=== PATIENT | female | born 1935 | race Caucasian/White ===

== ENCOUNTER 2018-07-10 18:18 | Observation (INO) | payer OTHER ==
--- NOTE | 2018-07-10 18:49 | PDOC ---
History of Present Illness - General Chief Complaint: Irregular Heart Beat Stated Complaint: PALPITATIONS Time Seen by Provider: 07/10/18 18:20 - History of Present Illness Initial Comments: 07/10/18 19:19 The patient is a 83 year old female with a history of HTN, DM, COPD, Afib, CHF, CAD who presents for evaluation of irregular heart rate. The patient reports that over the past 2-3 days she has been experiencing that her heart rate has been very labile with increases and decreases in her heart rate. She notes some interment chest pain throughout this time as well. She notes that she is short of breath at baseline and denies any changes in her shortness of breath. She otherwise denies fevers, chills, nausea, vomiting, abdominal pain, or changes with urination or bowel movements. Past History - Past Medical History Allergies/Adverse Reactions: Allergies Allergy/AdvReac Type Severity Reaction Status Date / Time dextromethorphan Allergy Verified 12/20/17 09:15 [From Mucinex DM] guaifenesin [From Mucinex DM] Allergy Verified 12/20/17 09:15 vancomycin AdvReac Rash Verified 12/20/17 09:15 Cardiac Disorders: Yes (afib) COPD: Yes Diabetes: Yes GI Disorders: Yes (gerd) Psychiatric Problems: Yes (anxiety) - Suicide/Smoking/Psychosocial Hx Smoking History: Never smoked Have you smoked in the past 12 months: No Information on smoking cessation initiated: No Hx Alcohol Use: No Drug/Substance Use Hx: No Review of Systems - Review of Systems Comments:: 07/10/18 19:22 Constitutional: No fevers, chills, fatigue, malaise HEENT: No Rhinorrhea, nasal congestion, visual changes Cardiovascular: Chest pain, palpitations. No syncope, lightheadedness Respiratory: No Cough, Hemoptysis, Gastrointestinal: No Abdominal pain, Nausea, Vomiting, Constipation, Diarrhea, Melena Genitourinary: No Dysuria, Frequency, Urgency, Hesitancy, Hematuria, Flank pain Musculoskeletal: No Myalgia, arthralgia Skin: No rashes, itching, bruising, pallor Neurologic: No Headache, Dizziness, Numbness, Weakness, or Tingling Psychiatric: No Hallucinations. No SI or HI *Physical Exam - Vital Signs Last Vital Signs Temp Pulse Resp BP Pulse Ox 98.3 F 83 18 112/64 94 L 07/10/18 18:28 07/10/18 18:28 07/10/18 18:28 07/10/18 18:28 07/10/18 18:28 - Physical Exam Comments: 07/10/18 19:22 General Appearance: Nourished. No Apparent Distress HEENT: No Pharyngeal Erythema, Tonsillar Exudate, Tonsillar Erythema Neck: No Cervical Lymphadenopathy Respiratory/Chest: Lungs Clear, Diminished Breath Sounds bilaterally. No Crackles, Rales, Rhonchi, Wheezing Cardiovascular: Regular Rhythm, Regular Rate. No Murmur, Gallops, Rubs Gastrointestinal/Abdominal: Normal Bowel Sounds, Soft. No Guarding, Rebound, Tenderness Musculoskeletal: No CVA Tenderness Extremity: 3+ pitting edema in the lower extremities bilaterally. Normal Capillary Refill Integumentary: Normal Color, Dry, Warm Neurologic: Fully Oriented, Alert, Normal Mood/Affect, Normal Response, Heart Score/ECG Review #1 ECG reviewed & interpreted by me at: 19:23 General ECG Interpretation: No acute ischemic changes 07/10/18 19:23 Sinus Rhythm with premature atrial complexes Left [place] Deviation Right Bundle Branch block ED Treatment Course - LABORATORY CBC & Chemistry Diagram: 07/10/18 20:34 07/10/18 20:34 Medical Decision Making - Medical Decision Making 07/10/18 19:24 The patient is a 83 year old female with a history of HTN, DM, COPD, Afib, CHF, CAD who presents for evaluation of irregular heart rate. Differential includes but is not limited to: Afib, Arrhythmia, ACS, COPD, CHF, Infectious, Metabolic Derangement. Given the patient's history and physical exam, we will obtain a cbc, cmp, troponin, bnp, tsh, ua, chest plain film, ekg to evaluate further. We will continue to monitor and reassess while here in the ED. 07/10/18 23:50 CBC, cmp, troponin, tsh are unremarkable. BNP is elevated to 1200s. Chest plain film demonstrates congestive changes. We discussed the case with Dr. Brown who would like the patient admitted under hospitalists for obs. We discussed the case with the hospitalist team who accepted the patient for admission. *DC/Admit/Observation/Transfer Diagnosis at time of Disposition: Chest pain Qualifiers: Chest pain type: unspecified Qualified Code(s): R07.9 - Chest pain, unspecified CHF (congestive heart failure) Qualifiers: Heart failure type: unspecified Heart failure chronicity: unspecified Qualified Code(s): I50.9 - Heart failure, unspecified - Discharge Dispostion Condition at time of disposition: Stable Decision to Admit order: Yes - Referrals - Patient Instructions - Post Discharge Activity
[2018-07-10] MEDS ORDERED: predniSONE 10 MG TABLET (UD) PO ONE (19:36)
[2018-07-10] MEDS ORDERED: ALBUTEROL SO4 2.5/IPRATROPIUM 0.5 INH SOL 3 ML VIAL.NEB. NEB ONE (19:36)
--- NOTE | 2018-07-10 19:42 | PDOC ---
Attending Attestation - HPI HPI: 07/10/18 20:15 The patient is a 83 year old female, with a significant past medical history of Afib, COPD (SOB at baseline on 35 mg of Prednisone), DM, HTN, CHF, and RLQ DVT ( on Xarelto), who presents to the emergency department via EMS from [facility] with, 2 days of irregular heart rate. As per patient, her heart rate has ranged between 38-114 with intermittent chest pain. Patient also endorses her baseline O2 saturation is 93-94%. She denies recent fevers, chills, headache or dizziness. She denies recent nausea, vomit, diarrhea or constipation. She denies recent dysuria, frequency, urgency or hematuria. Allergies: Vancomycin, Dextromethorphan, guaifenesin Social history: Nonsmoker. Denies EtOH use and recreational drug use. Primary Care Physician: Mynor SD Code Status: DNR - Physicial Exam PE: 07/10/18 20:15 GENERAL: Awake, alert, and fully oriented, in no acute distress HEAD: No signs of trauma NECK: Normal ROM. +LUNGS: Conversational dyspnea. Breath sounds diminished at the bilateral bases. Rhonchorous with bilateral expiratory wheezing. HEART: Regular rate and rhythm, normal S1 and S2, no murmurs, rubs or gallops +EXTREMITIES: 2+ pitting edema. No clubbing or cyanosis. NEUROLOGICAL: Cranial nerves II through XII grossly intact. SKIN: Warm, Dry, normal turgor, no rashes or lesions noted. <Eliazar Real - Last Filed: 07/10/18 20:14> - Resident Resident Name: Adan Anne - ED Attending Attestation I have performed the following: I have examined & evaluated the patient, The case was reviewed & discussed with the resident, I agree w/resident's findings & plan, Exceptions are as noted - Medical Decision Making 07/10/18 19:38 A portion of this note was documented by scribe services under my direction. I have reviewed the details of the note, within reason, and agree with the documentation with the following case summary and management plan written by me. Patient treated in the ED. Nursing notes are reviewed and incorporated into the medical decision-making. Vital signs reviewed. Peripheral IV access obtained by the nurse, laboratory studies are drawn and sent, reviewed and interpreted by myself. Vital Signs Temp Pulse Resp BP Pulse Ox 98.3 F 74 20 117/76 99 07/10/18 18:28 07/10/18 19:26 07/10/18 19:26 07/10/18 19:26 07/10/18 19:26 83-year-old female with past medical history of hypertension, diabetes, COPD, CHF, atrial fibrillation on xarelto presents with shortness of breath and palpitations. The patient's from a [facility]. The patient and noted for the last several days that she's been expressing bradycardia and tachycardia. At the [facility], they noted a heart rate of 38 and up to 114. She reports increased shortness of breath but denies chest pain. Denies recent illnesses, fevers, chills, cough, vomiting. She's been feeling persistently edematous despite taking 80 mg of Lasix daily. Because the symptoms, the patient came to the ER. The patient is quite wheezy with diminished breath sounds at the bases. Differential includes COPD exacerbation versus CHF. Patient is ready taking 35 mg of prednisone daily so we will increase by no 30 mg. Also the differential is sick sinus syndrome, acute coronary syndrome. We'll obtain labs including troponin, TSH. compliance monitor, chest x-ray and admission to the hospital. We' ll trial duonebs and give prednisone. 07/10/18 21:50 Chest xray reviewed by me, pending official radiology read. Cardiomegaly. CBC, BMP 07/10/18 20:34 07/10/18 20:34 CMP Sodium 141 mmol/L (136-145) 07/10/18 20:34 Potassium 3.8 mmol/L (3.5-5.1) 07/10/18 20:34 Chloride 97 mmol/L (98-107) L 07/10/18 20:34 Carbon Dioxide 36 mmol/L (21-32) H 07/10/18 20:34 Anion Gap 8 MMOL/L (8-16) 07/10/18 20:34 BUN 42 mg/dL (7-18) H 07/10/18 20:34 Creatinine 0.9 mg/dL (0.55-1.3) 07/10/18 20:34 Creat Clearance w eGFR 59.65 (>60) 07/10/18 20:34 Random Glucose 131 mg/dL (74-106) H 07/10/18 20:34 Calcium 9.9 mg/dL (8.5-10.1) 07/10/18 20:34 Phosphorus 3.3 mg/dL (2.5-4.9) 07/10/18 20:34 Magnesium 2.0 mg/dL (1.8-2.4) 07/10/18 20:34 Total Bilirubin 0.5 mg/dL (0.2-1) 07/10/18 20:34 AST 21 U/L (15-37) 07/10/18 20:34 ALT 19 U/L (13-61) 07/10/18 20:34 Alkaline Phosphatase 69 U/L (45-117) 07/10/18 20:34 Creatine Kinase 37 IU/L (26-192) 07/10/18 20:34 Troponin I 0.04 ng/ml (0.00-0.05) 07/10/18 20:34 B-Natriuretic Peptide 1236.8 pg/ml (5-450) H 07/10/18 20:34 Total Protein 6.0 g/dl (6.4-8.2) L 07/10/18 20:34 Albumin 3.2 g/dl (3.4-5.0) L 07/10/18 20:34 TSH 2.28 uIU/ml (0.358-3.74) 07/10/18 20:34 Could this be CHF? However, pt's BUN/Cr is 42/0.9. The patient may be intravascularly dry but with extravascularly fluid overloaded. Clinically, pt does have some dry mucous membranes. Will hold off from lasix at the moment. Pt has been given duoneb and more prednisone. Ultimately, the patient should be admitted for SOB. <Delmer Hayes - Last Filed: 07/10/18 22:17> Heart Score/ECG Review #1 ECG reviewed & interpreted by me at: 19:10 07/10/18 19:37 NSR 75, with PACs, let axis deviation, LAFB, RBBB, no std/olga, QTC 491 msec <Delmer Hayes - Last Filed: 07/10/18 22:17> Attestations - Attestations 07/10/18 20:16 Documentation prepared by Eliazar Real, acting as medical laboratory technical officer for Delmer Hayes MD. <Eliazar Real - Last Filed: 07/10/18 20:14>
[2018-07-10] MEDS ORDERED: predniSONE 10 MG TABLET (UD) ONE (20:39)
[2018-07-10 20:42] LABS: BASO % 1.2 % (0-2.0); EOS % 0.1 % (0-4.5); HEMATOCRIT 27.5 % (32.4-45.2); HEMOGLOBIN 8.9 GM/dL (10.7-15.3); LYMPH % 12.3 % (8-40); MCH 23.3 pg (25.7-33.7); MCHC 32.6 g/dl (32.0-36.0); MEAN CELL VOLUME 71.6 fl (80-96); MEAN PLT VOLUME 7.6 fl (7.5-11.1); NEUT % 78.4 % (42.8-82.8); PLATELET COUNT 287 K/MM3 (134-434); RBC 3.84 M/mm3 (3.60-5.2); RDW 17.7 % (11.6-15.6); WHITE BLOOD COUNT 9.3 K/mm3 (4.0-10.0)
[2018-07-10 21:11] LABS: PHOSPHOROUS 3.3 mg/dL (2.5-4.9)
[2018-07-10 21:45] LABS: ALBUMIN 3.2 g/dl (3.4-5.0); ALK PHOS 69 U/L (45-117); ANION GAP 8 MMOL/L (8-16); BILIRUBIN,TOTAL 0.5 mg/dL (0.2-1); BLOOD UREA NITROGEN 42 mg/dL (7-18); CALCIUM 9.9 mg/dL (8.5-10.1); CHLORIDE 97 mmol/L (98-107); CO2 36 mmol/L (21-32); CREATININE 0.9 mg/dL (0.55-1.3); GLUCOSE,RANDOM 131 mg/dL (74-106); N-TERMINAL BNP 1236.8 pg/ml (5-450); POTASSIUM 3.8 mmol/L (3.5-5.1); SGOT/AST 21 U/L (15-37); SGPT/ALT 19 U/L (13-61); SODIUM 141 mmol/L (136-145)
[2018-07-10 23:13] LABS: URINE APPEARANCE CLEAR; URINE BILIRUBIN NEGATIVE (<2.0 mg/dL); URINE COLOR LTYELLOW; URINE GLUCOSE (UA) NEGATIVE (NEGATIVE); URINE KETONE NEGATIVE (NEGATIVE); URINE LEUK ESTERASE 2+ (NEGATIVE); URINE NITRITE NEGATIVE (NEGATIVE); URINE PROTEIN NEGATIVE (NEGATIVE); URINE UROBILINOGEN NEGATIVE mg/dL (0.2-1.0)
[2018-07-10 23:23] LABS: EPI CELLS RARE /HPF (FEW); URINE HYALINE CAST 25 /lpf; URINE MUCUS RARE
[2018-07-10] MEDS ORDERED: ACETAMINOPHEN 325 MG TABLET (FP) PO ONE (23:37)
[2018-07-10] MEDS ORDERED: MELATONIN 5 MG TABLETS PO ONE (23:37)
[2018-07-10] MEDS ORDERED: ZOLPIDEM TARTRATE 5 MG TABLET PO ONE (23:37)
[2018-07-10] MEDS ORDERED: LORazepam 0.5 MG TABLET PO ONE (23:37)
[2018-07-11] MEDS ORDERED: ALBUTEROL SO4 0.083% IH SOL 2.5 MG/3 ML VIAL.NEB. NEB PRN (00:48)
[2018-07-11] MEDS: BUDESONIDE/FORMETEROL FUMARATE 160/4.5 mcg INHALER IH SCH ×3 (01:16→23:09)
--- NOTE | 2018-07-11 01:16 | HP ---
CHIEF COMPLAINT: Palpitations PCP: HISTORY OF PRESENT ILLNESS: Patient is an 83 y/o F w/ PMHx HTN, DM, COPD, Afib, CHF, CAD, DVT, presents from [facility] w/ irregular, labile HR 30s-120s, intermittent chest pain, and SOB at rest that is worse than at baseline w/ worsening orthopnea. Additionally c/o 3-4 weeks constipation w/ BRBPR during stooling. States that abdomen is unusually distended. No f/c, no n/v/d, no dysuria. Received duonebs and 30mg prednisone in ED. EKG on admission was unremarkable, initial troponin negative. Labs significant for microcytic anemia, isolated uremia w/ nl Cr, BNP 1236.8 ( no baseline available), TSH wnl. Initial read of CXR is b/l infiltrates. ER course was notable for: (1) Hb 8.9, MCV 71.6, RDW 17.7, BUN/Cr 42/0.9 (2) EKG unremarkable (3) CXR w/ b/l infiltrates Recent Travel: PAST MEDICAL HISTORY: As per HPI PAST SURGICAL HISTORY: shoulder Fx repair, unspecified abdominal surgery Social History: Smoking: none, heavy occupational 2nd hand smoke exposure Alcohol: none Drugs: none Family History: Allergies dextromethorphan [From Mucinex DM] Allergy (Verified 12/20/17 09:15) guaifenesin [From Mucinex DM] Allergy (Verified 12/20/17 09:15) vancomycin Adverse Reaction (Verified 12/20/17 09:15) Rash HOME MEDICATIONS: REVIEW OF SYSTEMS As per HPI PHYSICAL EXAMINATION Vital Signs - 24 hr 07/10/18 07/10/18 18:28 19:26 Temperature 98.3 F Pulse Rate 83 74 Pulse Rate [ 74 Apical] Respiratory 18 20 Rate Blood Pressure 112/64 Blood Pressure 117/76 [Left Arm] O2 Sat by Pulse 94 L 99 Oximetry (%) GENERAL: A&Ox3, NAD HEAD: NC/AT EYES: PERRLA, EOMI EARS, NOSE, THROAT: Ears normal, nares patent, oropharynx clear without exudates. Moist mucous membranes. NECK: No LAD, +JVD LUNGS: rhoncorous breathing, coarse rales throughout all lung hooper HEART: RRR no m/r/g; w/ bedside pulse ox HR jumped to 115 transiently ABDOMEN: soft, distended, tympanitic, TTP in LUQ ADARSH: 3 internal hemorrhoids, small amount of soft brown stool, no visible blood MUSCULOSKELETAL: No CVA tenderness. UPPER EXTREMITIES: 2+ pulses, warm, well-perfused. No cyanosis. No clubbing. No peripheral edema. LOWER EXTREMITIES: 2+ pulses, warm, well-perfused. 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 Ambulates w/ walker normally, gait not observed PSYCHIATRIC: Cooperative. Good eye contact. Appropriate mood and affect. SKIN: Warm, dry, normal turgor, no rashes or lesions noted, normal capillary refill. Laboratory Results - last 24 hr 07/10/18 07/10/18 07/10/18 20:34 20:34 20:34 WBC 9.3 RBC 3.84 Hgb 8.9 L Hct 27.5 L MCV 71.6 L MCH 23.3 L MCHC 32.6 RDW 17.7 H Plt Count 287 MPV 7.6 Absolute Neuts (auto) 7.3 Neutrophils % 78.4 Lymphocytes % 12.3 Monocytes % 8.0 Eosinophils % 0.1 Basophils % 1.2 Nucleated RBC % 0 Sodium 141 Potassium 3.8 Chloride 97 L Carbon Dioxide 36 H Anion Gap 8 BUN 42 H Creatinine 0.9 Creat Clearance w eGFR 59.65 Random Glucose 131 H Calcium 9.9 Phosphorus 3.3 Magnesium 2.0 Total Bilirubin 0.5 AST 21 ALT 19 Alkaline Phosphatase 69 Creatine Kinase 37 Troponin I 0.04 B-Natriuretic Peptide 1236.8 H Total Protein 6.0 L Albumin 3.2 L TSH 2.28 Urine Color Urine Appearance Urine pH Ur Specific Otho Urine Protein Urine Glucose (UA) Urine Ketones Urine Blood Urine Nitrite Urine Bilirubin Urine Urobilinogen Ur Leukocyte Esterase Urine WBC (Auto) Urine RBC (Auto) Ur Epithelial Cells Hyaline Casts Urine Mucus 07/10/18 23:00 WBC RBC Hgb Hct MCV MCH MCHC RDW Plt Count MPV Absolute Neuts (auto) Neutrophils % Lymphocytes % Monocytes % Eosinophils % Basophils % Nucleated RBC % Sodium Potassium Chloride Carbon Dioxide Anion Gap BUN Creatinine Creat Clearance w eGFR Random Glucose Calcium Phosphorus Magnesium Total Bilirubin AST ALT Alkaline Phosphatase Creatine Kinase Troponin I B-Natriuretic Peptide Total Protein Albumin TSH Urine Color Ltyellow Urine Appearance Clear Urine pH 5.0 Ur Specific Otho 1.016 Urine Protein Negative Urine Glucose (UA) Negative Urine Ketones Negative Urine Blood Negative Urine Nitrite Negative Urine Bilirubin Negative Urine Urobilinogen Negative Ur Leukocyte Esterase 2+ H Urine WBC (Auto) 18 Urine RBC (Auto) 1 Ur Epithelial Cells Rare Hyaline Casts 25 Urine Mucus Rare ASSESSMENT/PLAN: 83 y/o F w/ PMHx HTN, DM, COPD, Afib, CHF, CAD, DVT, p/w 2-3 days palpitations and irregular HR, additionally several weeks of constipation BRBPR w/ stooling, and abd distention/tympany #cardiac -initial EKG and troponins benign -trend troponins -echo -cardiac monitoring -restart home Xarelto -no AV blake blockade at this time -strict i&o -daily weights -Lasix 80 IV -metolazone 2.5 daily #GI -protonix 40 IV BID -FOBT -GI consulted -consider contrast CT of abd -CBC q8h #pulmonary -home albuterol, duonebs, prednisone, singulair, symbicort #endocrine -BGM ACHS -SSI -hold home metformin -diabetic diet #FEN -no IVF -monitor lytes daily, on home KCl, replete as needed -diabetic diet #PPx -DVT: Xarelto -GI: Protonix #code -DNR/DNI #dispo -admit to tele-obs Visit type - Emergency Visit Emergency Visit: Yes ED Registration Date: 07/10/18 Care time: The patient presented to the Emergency Department on the above date and was hospitalized for further evaluation of their emergent condition. - New Patient This patient is new to me today: Yes Date on this admission: 07/11/18 - Critical Care Critical Care patient: No
[2018-07-11] MEDS ORDERED: ACETAMINOPHEN 325 MG TABLET (FP) ONE (01:18)
[2018-07-11] MEDS ORDERED: LORazepam 0.5 MG TABLET ONE (01:19)
[2018-07-11] MEDS ORDERED: ZOLPIDEM TARTRATE 5 MG TABLET ONE (01:19)
--- NOTE | 2018-07-11 01:24 | PN ---
Teaching Attending Note Name of Resident: Reji Browning ATTENDING PHYSICIAN STATEMENT I saw and evaluated the patient. I reviewed the resident's note and discussed the case with the resident. I agree with the resident's findings and plan as documented. SUBJECTIVE: Seen and examined; this is a 83 y/o CF with a PMH significant for HTN, COPD, Afib on NOAC, CHF, CAD, DVT, [place] resident due to need with help with her ADLs. She presents for several days of palpitations occuring at rest and with exertion. She is SOB at baseline and has been for years (follows with pulmonary , no recent PFTs, on inhaled and PO steroids, singulair, never smoker) and has baseline orthopnea but over the past week she has become increasingly orthopnic and somewhat dyspnic. Hasn't seen anyone else for the palpations and never had this issue before. Did get slightly tachy at rest when we assessed her. She also has been having rectal bleeding with bright red blood on the toilet tissue. She is hemodynamically stable. FOBT is pending. Hasn't happened since she got here; no h/o GIB. Has had a scope in the past but not recently; unknown results. She has been here in the past; old records show a stress test with a EF estimated at 39% with reversible ischemic area with wma at the inferolateral portion of the base extending up to the midventricular region. 10 sys ROS done and negative aside from HPI Allergy list reviewed PMH and PSH reviewed; as per chart Medication list reviewed Social hx negative for any tobacco abuse or noxious chemical exposures; nonsmoker and nondrinker. [place] resident. FH asked and noncontributory OBJECTIVE: VS, labs, and imaging reviewed NAD, AAOx3, resting in chair on RA Lungs with scattered crackles, sym expansion Obese; NT ND +BS CN2-12 grossly intact, no fnd Normal mood, euthymic affect Rectal exam done by resident; please refer to their documentation Labs show a BNP of 1236 with no prior values for comparison. Elevated CO2 of 36 with low Cl 97. Hb 8.9. Troponin 0.04, LFTs unremarkable, Albumin 3.2, TSH normal CXR reviewed; questioning cephalization of vessels with final read pending EKG with no STEMI, RBBB seen Stress Test reviewed ASSESSMENT AND PLAN: Mrs. Stacy is a 83 y/o [place] resident presenting with palpitations and some acute on chronic SOB currently saturating mid-90s on RA. 1) Palpitations -No findings on EKG, known afib. Monitor for high degree block vs. SSS, etc. on telemetry and adjust her meds as needed. Checking echo as none in our system. Consulting CV. Continuing on home medications 2) Elevated BNP with ?CHF exacerbation with known moderately reduced LVEF -Known low EF from stress, no old echoes. Check echo and obtain old records. Renal function OK so will administer tomorrows AM dose of lasix IV alongside a dose of metalozone. She is doing well on RA right now. No baseline BNP to go off of. She is not on an ANASTASIIA and this should be elucidated prior to her DC. Weight at DC was 190 and now is 171. Trend QD weights, Is and Os. 3) Acute on Chronic SOB -On RA; more evidence to support heart contribution as opposed to lung. Will continue her home pulmonary medications without any adjustments. Changing her lasix to IV and giving extra metolazone and we will followup her presentation. If somehow not improved with that can investigate her lung issues further 4) BRBPR -Hemorrhoids on rectal exam; BUN elevated with a microcytic anemia. FOBT pending. Trend Hb. Call GI in AM. Ddx includes hemorrhoidal bleed vs. occult malignancy vs. avm vs. divertic. Given normal HR, etc. not suspecting brisk UGIB. 5) COPD hx -Continue home meds; lifelong nonsmoker who attributes her disease to secondhand smoke. No PFTs in our system. 6) Hypercarbia -Likely chronic compensation; expecting further alkalosis with additional diuresis so can consider a dose of acetazolamide. 7) DM -Hold PO meds; SSI 8) GERD -Continue omeprazole 9) CAD -Continue home meds; trend troponin to ensure it stays flat. 10) Afib -Elevated CHADSVASC2; continue home rate control and NOAC 11) Hypoalbuminemia -Encourage PO intake and consider checking prealbumin. DVT px: NOAC GI px: Not indicated DNR-obtaining paperwork from [place].
[2018-07-11] MEDS: ALBUTEROL SO4 2.5/IPRATROPIUM 0.5 INH SOL 3 ML VIAL.NEB. NEB SCH ×4 (03:27→20:38)
[2018-07-11 05:33] LABS: HEMATOCRIT 29.7 % (32.4-45.2); MCH 21.9 pg (25.7-33.7); MCHC 30.2 g/dl (32.0-36.0); MEAN CELL VOLUME 72.6 fl (80-96); MEAN PLT VOLUME 7.1 fl (7.5-11.1); PLATELET COUNT 263 K/MM3 (134-434); RBC 4.09 M/mm3 (3.60-5.2); RDW 18.1 % (11.6-15.6); WHITE BLOOD COUNT 7.3 K/mm3 (4.0-10.0)
[2018-07-11 05:59] LABS: INR 1.64 (0.83-1.09); PROTHROMBIN TIME (PATIENT) 19.5 SEC (9.7-13.0)
[2018-07-11 06:01] LABS: ALBUMIN 3.3 g/dl (3.4-5.0); ALK PHOS 72 U/L (45-117); ANION GAP 7 MMOL/L (8-16); BILIRUBIN,TOTAL 0.7 mg/dL (0.2-1); BLOOD UREA NITROGEN 37 mg/dL (7-18); CALCIUM 10.2 mg/dL (8.5-10.1); CHLORIDE 94 mmol/L (98-107); CO2 37 mmol/L (21-32); CREATININE 0.9 mg/dL (0.55-1.3); GLUCOSE,RANDOM 196 mg/dL (74-106); PHOSPHOROUS 3.3 mg/dL (2.5-4.9); POTASSIUM 3.6 mmol/L (3.5-5.1); SGOT/AST 18 U/L (15-37); SGPT/ALT 19 U/L (13-61); SODIUM 138 mmol/L (136-145); TOT PROT 6.2 g/dl (6.4-8.2)
[2018-07-11 06:02] LABS: ACTIVATED PTT 32.4 SECONDS (25.2-36.5)
[2018-07-11] MEDS: INSULIN SLIDING SCALE (NOVOLOG) 1 VIAL SQ SCH ×4 (06:25→23:05)
[2018-07-11] MEDS ORDERED: ALBUTEROL SO4 2.5/IPRATROPIUM 0.5 INH SOL 3 ML VIAL.NEB. NEB ONE (08:24)
[2018-07-11] MEDS ORDERED: predniSONE 10 MG TABLET (UD) PO SCH (10:00)
[2018-07-11] MEDS ORDERED: predniSONE 5 MG TABLET (UD) PO SCH (10:00)
[2018-07-11] MEDS: DOCUSATE SODIUM 100 MG CAPSULE (FP) PO SCH (10:22)
[2018-07-11] MEDS: ASPIRIN 81 MG CHEWABLE TABLETS PO SCH (10:22)
[2018-07-11] MEDS: predniSONE 20 MG, predniSONE 10 MG, predniSONE 5 MG PO SCH (10:22)
[2018-07-11] MEDS: FUROSEMIDE 100 MG/10 ML INJECTABLE VIAL IVPB SCH ×2 (10:23→11:09)
[2018-07-11] MEDS: POTASSIUM CHLORIDE TABS 10 MEQ TABLET.ER (FP) PO SCH ×2 (10:23→22:59)
[2018-07-11] MEDS: POLYETHYLENE GLYCOL 3350 119 GM BTL PO SCH (10:23)
[2018-07-11] MEDS: PANTOPRAZOLE SODIUM 40 MG VIAL IVPUSH SCH ×2 (10:23→10:29)
[2018-07-11] MEDS: MULTIVITAMINS (DAILY MVI) TABLET (FP) PO SCH (10:27)
[2018-07-11] MEDS: METOLAZONE 2.5 MG TABLET (FP) PO SCH ×2 (10:28→11:10)
[2018-07-11] MEDS: NYSTATIN 100,000 UNIT/GM TOPICAL CREAM 15 GM TUBE TP SCH ×2 (11:09→23:01)
--- NOTE | 2018-07-11 11:09 | ECHO ---
Name: TYLER ASKEW Exam:Adult Echocardiogram Study Date: 07/11/2018 08:26 AM Age: 83 yrs Reason For Study: CHF Height: 59 in Weight: 171 lb BSA: 1.7 m2 MMode/2D Measurements & Calculations IVSd: 0.84 cm Ao root diam: 2.8 cm LVIDd: 4.9 cm LA dimension: 3.4 cm LVIDs: 3.6 cm LVPWd: 1.1 cm EDV(Teich): 115.3 ml LVOT diam: 2.0 cm ESV(Teich): 53.7 ml LAV (MOD-bp): 72.4 ml Doppler Measurements & Calculations MV E max dell: 100.0 cm/sec Ao V2 max: 233.5 cm/sec MV A max dell: 61.1 cm/sec Ao max P.8 mmHg MV E/A: 1.6 Ao V2 mean: 157.0 cm/sec MV dec time: 0.06 sec Ao mean P.8 mmHg Ao V2 VTI: 49.2 cm MUSA(I,D): 1.0 cm2 MUSA(V,D): 1.0 cm2 LV V1 max P.4 mmHg MR max dell: 551.6 cm/sec LV V1 mean P.1 mmHg MR max P.9 mmHg LV V1 max: 76.5 cm/sec LV V1 mean: 46.4 cm/sec LV V1 VTI: 15.7 cm SV(LVOT): 49.2 ml TR max dell: 215.4 cm/sec TR max P.7 mmHg Med Peak E' Dell: 9.5 cm/sec PI Vmax: 176.5 cm/sec Med E/e': 10.6 Lat Peak E' Dell: 10.9 cm/sec Lat E/e': 9.2 Procedure A two-dimensional transthoracic echocardiogram with color flow and Doppler was performed. The patient had a bundle branch block rhythm during the exam. Left Ventricle The left ventricle is normal in size. Left ventricular systolic function is mild to moderately reduce d. Ejection Fraction = 40-45%. There is mild to moderate global hypokinesis of the left ventricle. Septa l motion is consistent with conduction abnormality. Right Ventricle The right ventricle is normal size. The right ventricular systolic function is normal. Atria The left atrium is mildly dilated. Right atrial size is normal. Mitral Valve There is mild mitral valve thickening. There is mild mitral annular calcification. There is mild to m oderate mitral regurgitation. Tricuspid Valve The tricuspid valve is normal. There is mild tricuspid regurgitation. Right ventricular systolic pres sure is normal. Aortic Valve There is moderate aortic sclerosis.;. Moderate valvular aortic stenosis. No aortic regurgitation is p resent. Pulmonic Valve The pulmonic valve is not well seen, but is grossly normal. There is no pulmonic valvular regurgitati on. Great Vessels The aortic root is normal size. Pericardium/Pleura There is no pericardial effusion. Interpretation Summary Left ventricular systolic function is mild to moderately reduced. Septal motion is consistent with conduction abnormality. There is mild to moderate global hypokinesis of the left ventricle. The right ventricular systolic function is normal. The left atrium is mildly dilated. There is mild mitral valve thickening. There is mild mitral annular calcification. There is mild to moderate mitral regurgitation. There is mild tricuspid regurgitation. There is moderate aortic sclerosis.; Moderate valvular aortic stenosis. MD Agusto Canales 07/11/2018 11:09 AM
--- NOTE | 2018-07-11 11:41 | PN ---
Physical Exam: SUBJECTIVE: Patient seen and examined at bedside. No overnight events. No new complaints. Breathing slightly improved. Denies CP,SANTIAGO,abdominal pain, nausea or vomiting. OBJECTIVE: Vital Signs Period Temp Pulse Resp BP Sys/Garcia Pulse Ox Last 24 Hr 98.0 F-98.3 F 74-106 16-20 112-123/64-77 94-99 GENERAL:Awake and alert ,NAD. ENT: moist mucous membranes. NECK: supple, no jvd or bruits LUNGS: minimal bibasilar rales no wheezes, no crackles, no accessory muscle use. HEART: Regular rate and rhythm, S1, S2 without murmur, rub or gallop. ABDOMEN: Soft, nontender, nondistended, normoactive bowel sounds, no guarding, no rebound, no hepatosplenomegaly, no masses. EXTREMITIES: 2+ pulses, warm, well-perfused, trace edema. NEUROLOGICAL: Cranial nerves II through XII grossly intact. Normal speech, gait not observed. PSYCH: Normal mood, normal affect. Laboratory Results - last 24 hr 07/10/18 07/10/18 07/10/18 20:34 20:34 20:34 WBC 9.3 RBC 3.84 Hgb 8.9 L Hct 27.5 L MCV 71.6 L MCH 23.3 L MCHC 32.6 RDW 17.7 H Plt Count 287 MPV 7.6 Absolute Neuts (auto) 7.3 Neutrophils % 78.4 Lymphocytes % 12.3 Monocytes % 8.0 Eosinophils % 0.1 Basophils % 1.2 Nucleated RBC % 0 PT with INR INR PTT (Actin FS) Sodium 141 Potassium 3.8 Chloride 97 L Carbon Dioxide 36 H Anion Gap 8 BUN 42 H Creatinine 0.9 Creat Clearance w eGFR 59.65 POC Glucometer Random Glucose 131 H Calcium 9.9 Phosphorus 3.3 Magnesium 2.0 Total Bilirubin 0.5 AST 21 ALT 19 Alkaline Phosphatase 69 Creatine Kinase 37 Troponin I 0.04 B-Natriuretic Peptide 1236.8 H Total Protein 6.0 L Albumin 3.2 L TSH 2.28 Urine Color Urine Appearance Urine pH Ur Specific Jemison Urine Protein Urine Glucose (UA) Urine Ketones Urine Blood Urine Nitrite Urine Bilirubin Urine Urobilinogen Ur Leukocyte Esterase Urine WBC (Auto) Urine RBC (Auto) Ur Epithelial Cells Hyaline Casts Urine Mucus Blood Type Antibody Screen 07/10/18 07/11/1818 23:00 03:47 05:10 WBC RBC Hgb Hct MCV MCH MCHC RDW Plt Count MPV Absolute Neuts (auto) Neutrophils % Lymphocytes % Monocytes % Eosinophils % Basophils % Nucleated RBC % PT with INR INR PTT (Actin FS) Sodium Potassium Chloride Carbon Dioxide Anion Gap BUN Creatinine Creat Clearance w eGFR POC Glucometer [phone] Random Glucose Calcium Phosphorus Magnesium Total Bilirubin AST ALT Alkaline Phosphatase Creatine Kinase Troponin I 0.04 B-Natriuretic Peptide Total Protein Albumin TSH Urine Color Ltyellow Urine Appearance Clear Urine pH 5.0 Ur Specific Jemison 1.016 Urine Protein Negative Urine Glucose (UA) Negative Urine Ketones Negative Urine Blood Negative Urine Nitrite Negative Urine Bilirubin Negative Urine Urobilinogen Negative Ur Leukocyte Esterase 2+ H Urine WBC (Auto) 18 Urine RBC (Auto) 1 Ur Epithelial Cells Rare Hyaline Casts 25 Urine Mucus Rare Blood Type Antibody Screen 07/11/18 07/11/18 07/11/18 05:10 05:10 05:10 WBC 7.3 RBC 4.09 Hgb 9.0 L Hct 29.7 L MCV 72.6 L MCH 21.9 L MCHC 30.2 L RDW 18.1 H Plt Count 263 MPV 7.1 L Absolute Neuts (auto) Neutrophils % Lymphocytes % Monocytes % Eosinophils % Basophils % Nucleated RBC % PT with INR 19.50 H INR 1.64 H PTT (Actin FS) 32.4 Sodium 138 Potassium 3.6 Chloride 94 L Carbon Dioxide 37 H Anion Gap 7 L BUN 37 H Creatinine 0.9 Creat Clearance w eGFR 59.65 POC Glucometer Random Glucose 196 H Calcium 10.2 H Phosphorus 3.3 Magnesium 2.0 Total Bilirubin 0.7 AST 18 ALT 19 Alkaline Phosphatase 72 Creatine Kinase Troponin I B-Natriuretic Peptide Total Protein 6.2 L Albumin 3.3 L TSH Urine Color Urine Appearance Urine pH Ur Specific Jemison Urine Protein Urine Glucose (UA) Urine Ketones Urine Blood Urine Nitrite Urine Bilirubin Urine Urobilinogen Ur Leukocyte Esterase Urine WBC (Auto) Urine RBC (Auto) Ur Epithelial Cells Hyaline Casts Urine Mucus Blood Type Antibody Screen 07/11/18 07/11/18 07/11/18 05:10 06:16 10:03 WBC RBC Hgb Hct MCV MCH MCHC RDW Plt Count MPV Absolute Neuts (auto) Neutrophils % Lymphocytes % Monocytes % Eosinophils % Basophils % Nucleated RBC % PT with INR INR PTT (Actin FS) Sodium Potassium Chloride Carbon Dioxide Anion Gap BUN Creatinine Creat Clearance w eGFR POC Glucometer [id number] Random Glucose Calcium Phosphorus Magnesium Total Bilirubin AST ALT Alkaline Phosphatase Creatine Kinase Troponin I 0.04 B-Natriuretic Peptide Total Protein Albumin TSH Urine Color Urine Appearance Urine pH Ur Specific Jemison Urine Protein Urine Glucose (UA) Urine Ketones Urine Blood Urine Nitrite Urine Bilirubin Urine Urobilinogen Ur Leukocyte Esterase Urine WBC (Auto) Urine RBC (Auto) Ur Epithelial Cells Hyaline Casts Urine Mucus Blood Type O POSITIVE Antibody Screen Negative Active Medications Generic Name Dose Route Start Last Admin Trade Name Freq PRN Reason Stop Dose Admin Albuterol Sulfate 1 amp 07/11/18 00:48 Ventolin 0.083% Nebulizer Soln - NEB Q4H PRN SHORT OF BREATH/WHEEZING Albuterol/Ipratropium 1 amp 07/11/18 04:00 07/11/18 03:27 Duoneb - NEB 1 amp RQ4H BREANNA Administration Aspirin 81 mg 07/11/18 10:00 07/11/18 10:22 Asa - PO 81 mg DAILY BREANNA Administration Budesonide/Formoterol Fumarate 2 puff 07/10/18 23:45 07/11/18 10:27 Symbicort 160/4.5mcg - IH 2 puff BID BREANNA Administration Docusate Sodium 100 mg 07/11/18 10:00 07/11/18 10:22 Colace - PO 100 mg DAILY BREANNA Administration Furosemide 80 mg 07/11/18 10:00 07/11/18 11:09 Lasix Injection - IVPB Not Given DAILY BREANNA Insulin Aspart 1 vial 07/11/18 07:00 07/11/18 06:25 Novolog Vial Sliding Scale - SQ 2 unit ACHS BREANNA Administration Protocol Metolazone 2.5 mg 07/11/18 10:00 07/11/18 11:10 Zaroxolyn - PO Not Given DAILY BREANNA Montelukast Sodium 10 mg 07/11/18 22:00 Singulair - PO HS BREANNA Multivitamins/Minerals/Vitamin C 1 tab 07/11/18 10:00 07/11/18 10:27 Tab-A-Vit - PO 1 tab DAILY BREANNA Administration Nystatin 1 applic 07/11/18 10:00 07/11/18 11:09 Mycostatin Cream - TP Not Given BID BREANNA Pantoprazole Sodium 40 mg 07/11/18 10:00 07/11/18 10:29 Protonix Iv IVPUSH 40 mg BID BREANNA Administration Polyethylene Glycol 17 gm 07/11/18 10:00 07/11/18 10:23 Miralax (For Daily Use) - PO Not Given DAILY [facility] Potassium Chloride 10 meq 07/11/18 10:00 07/11/18 10:23 K-Dur - PO 10 meq BID BREANNA Administration Prednisone 20 mg/ Prednisone 35 mg 07/11/18 10:00 07/11/18 10:22 10 mg/ Prednisone 5 mg PO 35 mg DAILY BREANNA Administration Rivaroxaban 20 mg 07/11/18 18:00 Xarelto - PO DAILY@1800 [facility] Senna 1 tab 07/11/18 22:00 Senna - PO HS [facility] ASSESSMENT/PLAN: 83 y/o F w/ PMHx HTN, DM, COPD, Afib, CHF, CAD, DVT, p/w 2-3 days palpitations and irregular HR, additionally several weeks of constipation BRBPR w/ stooling, and abd distention/tympany admitted to med-surg for further management. Problem List - Problems (1) Acute on chronic diastolic CHF (congestive heart failure) Assessment/Plan: * Lasix 80mg IV daily * daily weights. * Strict I/O's * sodium controlled diabetic diet. * Echo pending. * Cardiology consulted * Trending troponin. (2) Chest pain Assessment/Plan: will r/o ACS * trend troponin I. (3) HTN (hypertension) Assessment/Plan: * Furosemide (Lasix Injection -) 80 mg IVPB DAILY * Metolazone (Zaroxolyn -) 2.5 mg PO DAILY (4) COPD (chronic obstructive pulmonary disease) Assessment/Plan: * Albuterol Sulfate (Ventolin 0.083% Nebulizer Soln -) 1 amp NEB Q4H * Albuterol/Ipratropium (Duoneb -) 1 amp NEB RQ4H * Budesonide/Formoterol Fumarate (Symbicort 160/4.5mcg -) 2 puff IH BID * Prednisone 20 mg/ Prednisone (10 mg/ Prednisone 5 mg) 35 mg PO DAILY (5) Afib Assessment/Plan: * Continue Xarelto. (6) CAD (coronary artery disease) Assessment/Plan: * Continue with ASA therapy. (7) DM type 2 (diabetes mellitus, type 2) Assessment/Plan: * ADA sodium diet * BGM ACHS * ISS ACHS (8) BRBPR (bright red blood per rectum) Assessment/Plan: * GI consult appreciated. * refusing colonoscopy at this time * Agrees to EGD * Will obtain once stable for CV standpoint. * protonix 40mg PO daily * trend H/H Visit type - Emergency Visit Emergency Visit: Yes ED Registration Date: 07/10/18 Care time: The patient presented to the Emergency Department on the above date and was hospitalized for further evaluation of their emergent condition. - New Patient This patient is new to me today: Yes Date on this admission: 07/11/18 - Critical Care Critical Care patient: No
--- NOTE | 2018-07-11 12:33 | EKG ---
Test Reason : Blood Pressure : / mmHG Vent. Rate : 075 BPM Atrial Rate : 075 BPM P-R Int : 136 ms QRS Dur : 120 ms QT Int : 440 ms P-R-T Axes : 003 -62 -15 degrees QTc Int : 491 ms SINUS RHYTHM WITH PREMATURE ATRIAL COMPLEXES LEFT AXIS DEVIATION RIGHT BUNDLE BRANCH BLOCK ABNORMAL ECG Confirmed by MD JAMES, PAULA ([id number]) on 07/11/2018 12:33:25 PM Referred By: Confirmed By:PAULA RAMIREZ MD
--- NOTE | 2018-07-11 14:09 | PN ---
Teaching Attending Note Name of Resident: Rosalio Mccullough ATTENDING PHYSICIAN STATEMENT I saw and evaluated the patient. I reviewed the resident's note and discussed the case with the resident. I agree with the resident's findings and plan as documented. SUBJECTIVE: No acute distress denies any chest pain OBJECTIVE: Vital Signs Period Temp Pulse Resp BP Sys/Garcia Pulse Ox Last 24 Hr 98.0 F-98.3 F 74-106 16-20 112-123/64-77 94-99 Elderly F not in distress HEENT: Mm moist, no anemia NECK: No JVd No Bruit CHEST: Minimal basal crepts ABD: No distention, non tender EXT: Trace edema feet [facility]: [facility] non focal CBC, BMP 07/11/18 05:10 07/11/18 05:10 Active Medications Albuterol Sulfate (Ventolin 0.083% Nebulizer Soln -) 1 amp NEB Q4H PRN PRN Reason: SHORT OF BREATH/WHEEZING Albuterol/Ipratropium (Duoneb -) 1 amp NEB RQ4H [facility] Last Admin: 07/11/18 03:27 Dose: 1 amp Aspirin (Asa -) 81 mg PO DAILY [facility] Last Admin: 07/11/18 10:22 Dose: 81 mg Budesonide/Formoterol Fumarate (Symbicort 160/4.5mcg -) 2 puff IH BID [facility] Last Admin: 07/11/18 10:27 Dose: 2 puff Docusate Sodium (Colace -) 100 mg PO DAILY [facility] Last Admin: 07/11/18 10:22 Dose: 100 mg Furosemide (Lasix Injection -) 80 mg IVPB DAILY [facility] Last Admin: 07/11/18 11:09 Dose: Not Given Insulin Aspart (Novolog Vial Sliding Scale -) 1 vial SQ ACHS [facility]; Protocol Last Admin: 07/11/18 12:30 Dose: Not Given Metolazone (Zaroxolyn -) 2.5 mg PO DAILY [facility] Last Admin: 07/11/18 11:10 Dose: Not Given Montelukast Sodium (Singulair -) 10 mg PO [facility] Multivitamins/Minerals/Vitamin C (Tab-A-Vit -) 1 tab PO DAILY [facility] Last Admin: 07/11/18 10:27 Dose: 1 tab Nystatin (Mycostatin Cream -) 1 applic TP BID [facility] Last Admin: 07/11/18 11:09 Dose: Not Given Pantoprazole Sodium (Protonix Iv) 40 mg IVPUSH BID [facility] Last Admin: 07/11/18 10:29 Dose: 40 mg Polyethylene Glycol (Miralax (For Daily Use) -) 17 gm PO DAILY [facility] Last Admin: 07/11/18 10:23 Dose: Not Given Potassium Chloride (K-Dur -) 10 meq PO BID [facility] Last Admin: 07/11/18 10:23 Dose: 10 meq Prednisone 20 mg/ Prednisone (10 mg/ Prednisone 5 mg) 35 mg PO DAILY [facility] Last Admin: 07/11/18 10:22 Dose: 35 mg Rivaroxaban (Xarelto -) 20 mg PO DAILY@1800 [facility] Senna (Senna -) 1 tab PO HS [facility] ASSESSMENT AND PLAN: 83 yrs old F [place] resident multiple co-morbidities CAD, HTN < Afib,, COPD, T2DM, GERD present with gradually worsening SOB and BRB per rectum, on admission H/H at base line elevated BNP , ECHO shows mild to moderate reduced EF, H/H remained stable Patient admitted with decompensted CHF with frequent palpitation , EF mild to moderate reduced EF , patient remained in EF improving on IV Lasix, H/H remained stable, doesnt want IV PPI considering bright red blood per rectum and stable H/H will switch to PO PPI, will F/U GI and Cardiology input. Daily BMP and H/H
[2018-07-11] MEDS ORDERED: PANTOPRAZOLE 40 MG TABLET (FP) ONE (14:32)
--- NOTE | 2018-07-11 15:05 | CONS ---
DATE OF CONSULTATION: 07/11/2018 GASTROINTESTINAL CONSULTATION The patient is an 83-year-old female with multiple medical problems including hypertension, diabetes, COPD, atrial fibrillation, CHF, CAD and DVT who presented from [facility] with an irregular, labile heart rate ranging from the 30s to 120s. She also had intermittent chest pain, shortness of breath at rest and worsening orthopnea. She currently has complaints of constipation. Prior to the constipation, she had complaints of diarrhea over the past couple of months for which she was given Imodium. Now, she has noticed some bright red bleeding with her bowel movements. She denies any abdominal pain. She does admit to having a hernia that sometimes troubles her. She denies nausea, vomiting, melena, hematemesis or weight loss. She has not had a recent colonoscopy and is currently refusing this procedure. Her last colonoscopy was probably over 10 years ago as per her history. She denies any findings. She has never had an egd in the past. PAST MEDICAL AND SURGICAL HISTORY: These are as listed in the HPI with the addition of repair of a shoulder fracture and abdominal surgery. SOCIAL HISTORY: She does not smoke, drink or use drugs. FAMILY HISTORY: No history of GI or gynecologic malignancy. ALLERGIES: DEXTROMETHORPHAN, ROBITUSSIN, VANCOMYCIN. HOME MEDICATIONS: These were reviewed. PHYSICAL EXAMINATION: Vital Signs: Temperature 98, pulse 89, blood pressure 120/63, respiratory rate 16, oxygen saturation 99% on room air. General: The patient is in no acute distress. HEENT: Anicteric sclerae. Cardiovascular: S1, S2. Regular rate and rhythm. Lungs: Bilaterally clear to auscultation. Abdomen: Soft and nontender with a hernia. Extremities: There is bilateral lower extremity edema. Neurologic: She is neurologically intact. LABS: White blood cell count was 7.3, hemoglobin 9, hematocrit 29, MCV 72, platelet count 263, INR 1.6, sodium 138, potassium 3.6, BUN 37, creatinine 0.9, glucose 196, AST of 18, ALT of 19, alkaline phosphatase 72. Urine with 2+ leukocyte esterase. The patient has had no abdominal imaging during this hospitalization. IMPRESSION: Episode of constipation with associated hematochezia without any sign of an overt GI bleed. I suspect her current episodes are secondary to straining and hemorrhoid bleed. However, other etiology of GI bleeds such as adenocarcinoma, diverticulosis and angoiectasias cannot be excluded at this time. I doubt she is having an upper GI bleed / she is hemodynamically stable. RECOMMENDATION: 1. Obtain a CT scan of the abdomen and pelvis to further evaluate her hernia, considering that she has complained of intermittent discomfort in her abdomen. 2. Start her on Protonix 40 mg p.o. daily. 3. Continue her cardiac evaluation and workup for her arrhythmia as well as chest pain and shortness of breath. 4. Avoid NSAID 5. The patient is refusing colonoscopy at this time. However, she is not refusing upper endoscopy. Once she is cleared from a cardiovascular standpoint, she would benefit from a diagnostic upper endoscopy and colonoscopy if she were to agree. We will follow this patient with you. DO GALE HAMMER/[id number] MTDD
[2018-07-11] MEDS: PANTOPRAZOLE 40 MG TABLET (FP) PO SCH (15:10)
[2018-07-11 17:33] LABS: HEMATOCRIT 29.6 % (32.4-45.2); HEMOGLOBIN 9.7 GM/dL (10.7-15.3); MCH 23.4 pg (25.7-33.7); MCHC 32.6 g/dl (32.0-36.0); MEAN CELL VOLUME 71.8 fl (80-96); MEAN PLT VOLUME 7.7 fl (7.5-11.1); PLATELET COUNT 309 K/MM3 (134-434); RBC 4.13 M/mm3 (3.60-5.2); RDW 17.7 % (11.6-15.6); WHITE BLOOD COUNT 7.7 K/mm3 (4.0-10.0)
[2018-07-11] MEDS ORDERED: PT OWN MED DRAWER 7, Y5N ONE (17:38)
[2018-07-11] MEDS: RIVAROXABAN 20 MG TABLET PO SCH (18:09)
[2018-07-11] MEDS: ACETAMINOPHEN 325 MG TABLET (FP) PO PRN (18:11)
[2018-07-11] MEDS ORDERED: ZOLPIDEM TARTRATE 5 MG TABLET PO ONE (21:15)
[2018-07-11] MEDS ORDERED: MELATONIN 5 MG TABLETS PO ONE (21:16)
[2018-07-11] MEDS ORDERED: LORazepam 0.5 MG TABLET PO PRN (21:18)
[2018-07-11] MEDS: MONTELUKAST NA 10 MG TABLET PO SCH (23:00)
[2018-07-11] MEDS: SENNOSIDES 8.6MG TABLET (FP) PO SCH (23:11)
[2018-07-12] MEDS: ALBUTEROL SO4 2.5/IPRATROPIUM 0.5 INH SOL 3 ML VIAL.NEB. NEB SCH ×6 (04:15→20:16)
[2018-07-12] MEDS: INSULIN SLIDING SCALE (NOVOLOG) 1 VIAL SQ SCH ×4 (06:03→22:14)
[2018-07-12] MEDS ORDERED: PT OWN MED DRAWER 7, Y5N ONE ×4 (06:36→22:35)
[2018-07-12 06:54] LABS: BASO % 0.6 % (0-2.0); EOS % 0.4 % (0-4.5); HEMATOCRIT 27.3 % (32.4-45.2); HEMOGLOBIN 8.8 GM/dL (10.7-15.3); LYMPH % 18.4 % (8-40); MCH 23.2 pg (25.7-33.7); MCHC 32.4 g/dl (32.0-36.0); MEAN CELL VOLUME 71.7 fl (80-96); MEAN PLT VOLUME 7.5 fl (7.5-11.1); MONO % 9.2 % (3.8-10.2); NEUT % 71.4 % (42.8-82.8); PLATELET COUNT 284 K/MM3 (134-434); RBC 3.81 M/mm3 (3.60-5.2); RDW 17.8 % (11.6-15.6); WHITE BLOOD COUNT 5.4 K/mm3 (4.0-10.0)
[2018-07-12 07:46] LABS: ALK PHOS 64 U/L (45-117); ANION GAP 6 MMOL/L (8-16); BILIRUBIN,TOTAL 0.7 mg/dL (0.2-1); BLOOD UREA NITROGEN 33 mg/dL (7-18); CALCIUM 9.4 mg/dL (8.5-10.1); CHLORIDE 97 mmol/L (98-107); CO2 37 mmol/L (21-32); CREATININE 0.7 mg/dL (0.55-1.3); GLUCOSE,RANDOM 112 mg/dL (74-106); POTASSIUM 3.6 mmol/L (3.5-5.1); SGOT/AST 18 U/L (15-37); SGPT/ALT 17 U/L (13-61); SODIUM 140 mmol/L (136-145); TOT PROT 5.7 g/dl (6.4-8.2)
[2018-07-12] MEDS ORDERED: predniSONE 10 MG TABLET (UD) ONE (09:03)
[2018-07-12] MEDS ORDERED: predniSONE 20 MG TABLET (UD) ONE (09:03)
[2018-07-12] MEDS: ACETAMINOPHEN 325 MG TABLET (FP) PO PRN ×2 (09:14→18:03)
[2018-07-12] MEDS: MULTIVITAMINS (DAILY MVI) TABLET (FP) PO SCH (09:15)
[2018-07-12] MEDS: ASPIRIN 81 MG CHEWABLE TABLETS PO SCH (09:15)
[2018-07-12] MEDS: predniSONE 20 MG, predniSONE 10 MG, predniSONE 5 MG PO SCH (09:15)
[2018-07-12] MEDS: PANTOPRAZOLE 40 MG TABLET (FP) PO SCH (09:16)
[2018-07-12] MEDS: DOCUSATE SODIUM 100 MG CAPSULE (FP) PO SCH (09:16)
[2018-07-12] MEDS: POTASSIUM CHLORIDE TABS 10 MEQ TABLET.ER (FP) PO SCH ×2 (09:16→21:51)
[2018-07-12] MEDS: BUDESONIDE/FORMETEROL FUMARATE 160/4.5 mcg INHALER IH SCH ×2 (09:35→21:51)
[2018-07-12] MEDS: POLYETHYLENE GLYCOL 3350 119 GM BTL PO SCH (09:36)
[2018-07-12] MEDS: METOLAZONE 2.5 MG TABLET (FP) PO SCH (09:36)
[2018-07-12] MEDS: NYSTATIN 100,000 UNIT/GM TOPICAL CREAM 15 GM TUBE TP SCH ×2 (09:40→21:55)
[2018-07-12] MEDS ORDERED: METOLAZONE 2.5 MG TABLET (FP) PO SCH (10:00)
--- NOTE | 2018-07-12 12:47 | PN ---
Progress Note, Physician History of Present Illness: Doing better today , less dyspnea; denies abdominal pain / n/v / melena / BRBR / tolerating PO intake - Current Medication List Current Medications: Active Medications Acetaminophen (Tylenol -) 650 mg PO Q6H PRN PRN Reason: PAIN 1-3 Last Admin: 07/12/18 09:14 Dose: 650 mg Albuterol Sulfate (Ventolin 0.083% Nebulizer Soln -) 1 amp NEB Q4H PRN PRN Reason: SHORT OF BREATH/WHEEZING Albuterol/Ipratropium (Duoneb -) 1 amp NEB RQ4H [facility] Last Admin: 07/12/18 08:12 Dose: 1 amp Aspirin (Asa -) 81 mg PO DAILY [facility] Last Admin: 07/12/18 09:15 Dose: 81 mg Budesonide/Formoterol Fumarate (Symbicort 160/4.5mcg -) 2 puff IH BID [facility] Last Admin: 07/12/18 09:35 Dose: 2 puff Docusate Sodium (Colace -) 100 mg PO DAILY [facility] Last Admin: 07/12/18 09:16 Dose: 100 mg Furosemide (Lasix Injection -) 80 mg IVPB DAILY [facility] Last Admin: 07/11/18 11:09 Dose: Not Given Insulin Aspart (Novolog Vial Sliding Scale -) 1 vial SQ ACHS [facility]; Protocol Last Admin: 07/12/18 12:17 Dose: 2 unit Lorazepam (Ativan -) 0.5 mg PO ONCE PRN PRN Reason: AGITATION Stop: 07/12/18 21:17 Last Admin: 07/11/18 23:00 Dose: 0.5 mg Metolazone (Zaroxolyn -) 2.5 mg PO MoWeFr [facility] Last Admin: 07/12/18 09:36 Dose: 2.5 mg Montelukast Sodium (Singulair -) 10 mg PO HS [facility] Last Admin: 07/11/18 23:00 Dose: 10 mg Multivitamins/Minerals/Vitamin C (Tab-A-Vit -) 1 tab PO DAILY [facility] Last Admin: 07/12/18 09:15 Dose: 1 tab Nystatin (Mycostatin Cream -) 1 applic TP BID [facility] Last Admin: 07/12/18 09:40 Dose: 1 appful Pantoprazole Sodium (Protonix -) 40 mg PO DAILY [facility] Last Admin: 07/12/18 09:16 Dose: 40 mg Polyethylene Glycol (Miralax (For Daily Use) -) 17 gm PO DAILY [facility] Last Admin: 07/12/18 09:36 Dose: 17 gm Potassium Chloride (K-Dur -) 10 meq PO BID [facility] Last Admin: 07/12/18 09:16 Dose: 10 meq Prednisone 20 mg/ Prednisone (10 mg/ Prednisone 5 mg) 35 mg PO DAILY [facility] Last Admin: 07/12/18 09:15 Dose: 35 mg Rivaroxaban (Xarelto -) 20 mg PO DAILY@1800 [facility] Last Admin: 07/11/18 18:09 Dose: 20 mg Senna (Senna -) 1 tab PO HS [facility] Last Admin: 07/11/18 23:11 Dose: Not Given - Objective Vital Signs: Vital Signs Temperature 97.4 F L 07/12/18 08:45 Pulse Rate 101 H 07/12/18 08:45 Respiratory Rate 18 07/12/18 11:00 Blood Pressure 128/64 07/12/18 08:45 O2 Sat by Pulse Oximetry (%) 95 07/12/18 11:00 Constitutional: Yes: Well Nourished, No Distress, Calm Eyes: Yes: WNL HENT: Yes: WNL Cardiovascular: Yes: WNL Respiratory: Yes: Rales Gastrointestinal: Yes: WNL, Normal Bowel Sounds, Soft Edema: Yes Labs: CBC, BMP 07/12/18 06:00 07/12/18 06:00 INR, PTT INR 1.64 (0.83-1.09) H 07/11/18 05:10 Problem List - Problems (1) BRBPR (bright red blood per rectum) Assessment/Plan: management of her acute exacerbation of congestive heart failure as per cardiology and primary medical team. H/H is stable , trend daily while hospitalized. c/w PPI therapy avoid NSAID she will benefit from an endoscopic evaluation once the acute cardiopulmonary process has resolved Code(s): K62.5 - HEMORRHAGE OF ANUS AND RECTUM (2) CHF (congestive heart failure) Code(s): I50.9 - HEART FAILURE, UNSPECIFIED Qualifiers: Heart failure type: unspecified Heart failure chronicity: unspecified Qualified Code(s): I50.9 - Heart failure, unspecified
[2018-07-12] MEDS: FUROSEMIDE 40 MG TABLET (FP) PO SCH (13:37)
[2018-07-12] MEDS: FUROSEMIDE 100 MG/10 ML INJECTABLE VIAL IVPB SCH (15:44)
--- NOTE | 2018-07-12 17:20 | PN ---
Teaching Attending Note Name of Resident: Rosalio Mccullough ATTENDING PHYSICIAN STATEMENT I saw and evaluated the patient. I reviewed the resident's note and discussed the case with the resident. I agree with the resident's findings and plan as documented. SUBJECTIVE: patient complains of shortness of breath OBJECTIVE: Gen: nad CV: rrr Pulm: ronchi bilaterally Abd: +bs, s/nt/nd Ext: 2+ edema ASSESSMENT AND PLAN: 1. CHF 2. COPD 3. Afib 4. BRBPR 5. DM 6. CAD -continue lasix 80mg daily -continue steroids and bronchodilators -monitor H/H -appreciate GI assistance -follow up CT scan -patient refusing colonoscopy -defer to GI if needs endoscopy
[2018-07-12] MEDS: RIVAROXABAN 20 MG TABLET PO SCH (18:03)
--- NOTE | 2018-07-12 18:23 | PN ---
Physical Exam: SUBJECTIVE: Patient seen and examined at bedside. No overnight events. Breathing is somewhat better today. Abdominal pain improved. Denies CP, SANTIAGO, nausea or vomiting. OBJECTIVE: Vital Signs Period Temp Pulse Resp BP Sys/Garcia Pulse Ox Last 24 Hr 97.3 F-98 F 93-101 18-20 115-139/54-76 95-98 GENERAL:Awake and alert ,NAD. ENT: moist mucous membranes. NECK: supple, no jvd or bruits LUNGS: minimal bibasilar rales no wheezes, no crackles, no accessory muscle use. HEART: irregular, S1, S2 without murmur, rub or gallop. ABDOMEN: Soft, nontender, nondistended, normoactive bowel sounds, no guarding, no rebound, no hepatosplenomegaly, no masses. EXTREMITIES: 2+ pulses, warm, well-perfused, 2+ edema. NEUROLOGICAL: Cranial nerves II through XII grossly intact. Normal speech, gait not observed. PSYCH: Normal mood, normal affect. Laboratory Results - last 24 hr 07/11/18 07/12/18 07/12/18 23:03 05:55 06:00 WBC 5.4 RBC 3.81 Hgb 8.8 L Hct 27.3 L MCV 71.7 L MCH 23.2 L MCHC 32.4 RDW 17.8 H Plt Count 284 MPV 7.5 Absolute Neuts (auto) 3.8 Neutrophils % 71.4 Lymphocytes % 18.4 D Monocytes % 9.2 Eosinophils % 0.4 D Basophils % 0.6 Nucleated RBC % 0 Sodium Potassium Chloride Carbon Dioxide Anion Gap BUN Creatinine Creat Clearance w eGFR POC Glucometer 190 119 Random Glucose Calcium Total Bilirubin AST ALT Alkaline Phosphatase Total Protein Albumin 07/12/18 07/12/18 06:00 12:13 WBC RBC Hgb Hct MCV MCH MCHC RDW Plt Count MPV Absolute Neuts (auto) Neutrophils % Lymphocytes % Monocytes % Eosinophils % Basophils % Nucleated RBC % Sodium 140 Potassium 3.6 Chloride 97 L Carbon Dioxide 37 H Anion Gap 6 L BUN 33 H Creatinine 0.7 Creat Clearance w eGFR > 60 POC Glucometer 166 Random Glucose 112 H Calcium 9.4 Total Bilirubin 0.7 AST 18 ALT 17 Alkaline Phosphatase 64 Total Protein 5.7 L Albumin 3.0 L Active Medications Generic Name Dose Route Start Last Admin Trade Name Freq PRN Reason Stop Dose Admin Acetaminophen 650 mg 07/11/18 16:09 07/12/18 18:03 Tylenol - PO 650 mg Q6H PRN Administration PAIN 1-3 Albuterol Sulfate 1 amp 07/11/18 00:48 Ventolin 0.083% Nebulizer Soln - NEB Q4H PRN SHORT OF BREATH/WHEEZING Albuterol/Ipratropium 1 amp 07/11/18 04:00 07/12/18 15:42 Duoneb - NEB 1 amp RQ4H BREANNA Administration Aspirin 81 mg 07/11/18 10:00 07/12/18 09:15 Asa - PO 81 mg DAILY BREANNA Administration Budesonide/Formoterol Fumarate 2 puff 07/10/18 23:45 07/12/18 09:35 Symbicort 160/4.5mcg - IH 2 puff BID BREANNA Administration Docusate Sodium 100 mg 07/11/18 10:00 07/12/18 09:16 Furosemide 80 mg 07/12/18 13:15 07/12/18 13:37 Lasix - PO 80 mg DAILY BREANNA Administration Insulin Aspart 1 vial 07/11/18 07:00 07/12/18 18:03 Novolog Vial Sliding Scale - SQ 4 unit ACHS BREANNA Administration Protocol Lorazepam 0.5 mg 07/11/18 21:18 07/11/18 23:00 Ativan - PO 07/12/18 21:17 0.5 mg ONCE PRN Administration AGITATION Metolazone 2.5 mg 07/12/18 09:30 07/12/18 09:36 Zaroxolyn - PO 2.5 mg MoWeFr BREANNA Administration Montelukast Sodium 10 mg 07/11/18 22:00 07/11/18 23:00 Singulair - PO 10 mg HS BREANNA Administration Multivitamins/Minerals/Vitamin C 1 tab 07/11/18 10:00 07/12/18 09:15 Tab-A-Vit - PO 1 tab DAILY BREANNA Administration Nystatin 1 applic 07/11/18 10:00 07/12/18 09:40 Mycostatin Cream - TP 1 appful BID BREANNA Administration Pantoprazole Sodium 40 mg 07/11/18 14:30 07/12/18 09:16 Protonix - PO 40 mg DAILY BREANNA Administration Polyethylene Glycol 17 gm 07/11/18 10:00 07/12/18 09:36 Miralax (For Daily Use) - PO 17 gm DAILY BREANNA Administration Potassium Chloride 10 meq 07/11/18 10:00 07/12/18 09:16 K-Dur - PO 10 meq BID BREANNA Administration Prednisone 20 mg/ Prednisone 35 mg 07/11/18 10:00 07/12/18 09:15 10 mg/ Prednisone 5 mg PO 35 mg DAILY BREANNA Administration Rivaroxaban 20 mg 07/11/18 18:00 07/12/18 18:03 Xarelto - PO 20 mg DAILY@1800 BREANNA Administration Senna 1 tab 07/11/18 22:00 07/11/18 23:11 Senna - PO Not Given HS BREANNA ASSESSMENT/PLAN: 83 y/o F w/ PMHx HTN, DM, COPD, Afib, CHF, CAD, DVT, p/w 2-3 days palpitations and irregular HR, additionally several weeks of constipation BRBPR w/ stooling, and abd distention/tympany admitted to med-surg for further management. Problem List - Problems (1) Acute on chronic diastolic CHF (congestive heart failure) Assessment/Plan: * Lasix 80mg PO daily * daily weights. * Strict I/O's * sodium controlled diabetic diet. * Echo shows mod LV reduction , septal wall motion abnorm. mild to mod hypokenisis.Mild LA dialation, mild to mod MR and TR (2) Chest pain Assessment/Plan: will r/o ACS * torps have been negative. (3) HTN (hypertension) Assessment/Plan: * Furosemide (Lasix Injection -) 80 mg IVPB DAILY * Metolazone (Zaroxolyn -) 2.5 mg PO MOWEFR (4) COPD (chronic obstructive pulmonary disease) Assessment/Plan: * Albuterol Sulfate (Ventolin 0.083% Nebulizer Soln -) 1 amp NEB Q4H * Albuterol/Ipratropium (Duoneb -) 1 amp NEB RQ4H * Budesonide/Formoterol Fumarate (Symbicort 160/4.5mcg -) 2 puff IH BID * Prednisone 20 mg/ Prednisone (10 mg/ Prednisone 5 mg) 35 mg PO DAILY (5) Afib Assessment/Plan: * Continue Xarelto. (6) CAD (coronary artery disease) Assessment/Plan: * Continue with ASA therapy. (7) DM type 2 (diabetes mellitus, type 2) Assessment/Plan: * ADA sodium diet * BGM ACHS * ISS ACHS (8) BRBPR (bright red blood per rectum) Assessment/Plan: * GI consult appreciated. * CT abdomen with PO contrast today. read pending. * refusing colonoscopy at this time * H/H stable * Agrees to EGD * Will obtain once stable for CV standpoint. * protonix 40mg PO daily * trend H/H Visit type - Emergency Visit Emergency Visit: Yes ED Registration Date: 07/10/18 Care time: The patient presented to the Emergency Department on the above date and was hospitalized for further evaluation of their emergent condition. - New Patient This patient is new to me today: No - Critical Care Critical Care patient: No
[2018-07-12] MEDS: SENNOSIDES 8.6MG TABLET (FP) PO SCH (21:51)
[2018-07-12] MEDS: MONTELUKAST NA 10 MG TABLET PO SCH (21:53)
[2018-07-12] MEDS ORDERED: MELATONIN 5 MG TABLETS PO ONE (22:02)
[2018-07-12] MEDS ORDERED: LORazepam 0.5 MG TABLET PO ONE (22:02)
[2018-07-12] MEDS ORDERED: ZOLPIDEM TARTRATE 5 MG TABLET PO ONE (22:02)
[2018-07-13] MEDS: ALBUTEROL SO4 2.5/IPRATROPIUM 0.5 INH SOL 3 ML VIAL.NEB. NEB SCH ×6 (00:50→21:12)
[2018-07-13 06:45] LABS: BASO % 0.5 % (0-2.0); EOS % 0.3 % (0-4.5); HEMOGLOBIN 8.7 GM/dL (10.7-15.3); LYMPH % 19.3 % (8-40); MCHC 32.1 g/dl (32.0-36.0); MEAN CELL VOLUME 71.6 fl (80-96); MEAN PLT VOLUME 7.4 fl (7.5-11.1); MONO % 10.5 % (3.8-10.2); NEUT % 69.4 % (42.8-82.8); PLATELET COUNT 289 K/MM3 (134-434); RBC 3.76 M/mm3 (3.60-5.2); WHITE BLOOD COUNT 6.9 K/mm3 (4.0-10.0)
[2018-07-13] MEDS: INSULIN SLIDING SCALE (NOVOLOG) 1 VIAL SQ SCH ×4 (06:45→22:58)
[2018-07-13 07:20] LABS: ALBUMIN 3.1 g/dl (3.4-5.0); ALK PHOS 64 U/L (45-117); ANION GAP 5 MMOL/L (8-16); BILIRUBIN,TOTAL 0.6 mg/dL (0.2-1); BLOOD UREA NITROGEN 35 mg/dL (7-18); CALCIUM 9.7 mg/dL (8.5-10.1); CHLORIDE 95 mmol/L (98-107); CO2 40 mmol/L (21-32); CREATININE 0.8 mg/dL (0.55-1.3); GLUCOSE,RANDOM 95 mg/dL (74-106); POTASSIUM 3.5 mmol/L (3.5-5.1); SGOT/AST 16 U/L (15-37); SGPT/ALT 18 U/L (13-61); SODIUM 140 mmol/L (136-145); TOT PROT 5.8 g/dl (6.4-8.2)
[2018-07-13] MEDS ORDERED: predniSONE 10 MG TABLET (UD) ONE (09:39)
[2018-07-13] MEDS ORDERED: predniSONE 20 MG TABLET (UD) ONE (09:40)
[2018-07-13] MEDS: POLYETHYLENE GLYCOL 3350 119 GM BTL PO SCH (09:46)
[2018-07-13] MEDS: BUDESONIDE/FORMETEROL FUMARATE 160/4.5 mcg INHALER IH SCH ×2 (09:46→22:00)
[2018-07-13] MEDS: PANTOPRAZOLE 40 MG TABLET (FP) PO SCH (09:50)
[2018-07-13] MEDS: FUROSEMIDE 40 MG TABLET (FP) PO SCH (09:50)
[2018-07-13] MEDS: predniSONE 20 MG, predniSONE 10 MG, predniSONE 5 MG PO SCH (09:51)
[2018-07-13] MEDS: ASPIRIN 81 MG CHEWABLE TABLETS PO SCH (09:51)
[2018-07-13] MEDS: DOCUSATE SODIUM 100 MG CAPSULE (FP) PO SCH (09:51)
[2018-07-13] MEDS: MULTIVITAMINS (DAILY MVI) TABLET (FP) PO SCH (09:51)
[2018-07-13] MEDS: POTASSIUM CHLORIDE TABS 10 MEQ TABLET.ER (FP) PO SCH ×2 (09:51→22:56)
[2018-07-13] MEDS: ACETAMINOPHEN 325 MG TABLET (FP) PO PRN ×2 (10:00→22:58)
[2018-07-13] MEDS: NYSTATIN 100,000 UNIT/GM TOPICAL CREAM 15 GM TUBE TP SCH ×2 (12:08→22:59)
--- NOTE | 2018-07-13 12:55 | CON.PULM ---
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 Admitted via the ER from [facility] due to chest pain and SOB at rest. Reports symptoms of orthopnea. No fever or chills. Reports some constipation w/ BRBPR. No travel history or sick contacts. No hemoptysis. CXR: bibasilar atelectasis - History Source History Provided By: Patient Limitations to Obtaining History: No Limitations - Past Medical History Pulmonary: Yes: Bronchitis, COPD, Pneumonia. No: O2 Dependent, Previously Intubated, Pulmonary Embolus, Sleep Apnea - Alcohol/Substance Use Hx Alcohol Use: No - Smoking History Smoking history: Never smoked Have you smoked in the past 12 months: No Home Medications - Allergies Allergies/Adverse Reactions: Allergies Allergy/AdvReac Type Severity Reaction Status Date / Time ampicillin Allergy Verified 07/12/18 03:33 dextromethorphan Allergy Verified 12/20/17 09:15 [From Mucinex DM] guaifenesin [From Mucinex DM] Allergy Verified 12/20/17 09:15 pollen extracts Allergy Verified 07/12/18 03:33 ragweed pollen Allergy Verified 07/12/18 03:33 vancomycin AdvReac Rash Verified 12/20/17 09:15 - Home Medications Home Medications: Ambulatory Orders Aa/Hydrolyzed Collagen, Whey [Lps Neutral Flavor Liquid] 30 ml PO BID 07/11/18 Acetaminophen [Tylenol] 650 mg PO QID 07/11/18 Acetylcysteine Po/INH 20% [Mucomyst 20 Oral / INH Use Only*] 5 ml IH BID Albuterol 0.083% Nebulizer Isamar [Ventolin 0.083% Nebulizer Soln -] 1 neb IH BID 07/11/18 Albuterol 2.5/Ipratropium 0.5 [Duoneb -] 1 amp IH Q4H PRN 07/11/18 Aspirin [Aspirin EC] 81 mg PO DAILY 07/11/18 Benzocaine/Menthol [[facility] Sore Throat Lozenge] 1 lozenge PO Q2H PRN 07/11/18 Budesonide/Formeterol Fumarate [SYMBICORT 160/4.5mcg -] 2 puff IH BID 07/11/18 Calcium Citrate/Vitamin D3 [Calcium Cit-Vit D 315-200 Tab] 2 tab PO AM 07/11/18 Cholecalciferol (Vitamin D3) [Vitamin D3 -] 1 tab PO DAILY 07/11/18 Docusate Sodium [Colace] 300 mg PO AM 07/11/18 Fluticasone Prop 0.05% Nasal [Flonase -] 1 spray NS DAILY 07/11/18 Fluticasone Propionate [Flovent Diskus] 1 spray NS Q24H 07/11/18 Furosemide 80 mg PO DAILY 07/11/18 Insulin Aspart [Novolog] See Protocol SQ ACHS 07/11/18 Krill Oil 500 mg PO DAILY 07/11/18 LORazepam [Ativan] 0.5 mg PO HS PRN 07/11/18 Lactobacillus Acidophilus [Bacid -] 1 tab PO TID 07/11/18 Melatonin 10 mg PO HS 07/11/18 Metformin HCl [Glucophage] 500 mg PO BID 07/11/18 Metolazone [Zaroxolyn -] 2.5 mg PO AM 07/11/18 Montelukast Sodium [Singulair] 10 mg PO HS 07/11/18 Multivitamin,Ther and Minerals [Vitamin and Minerals] 1 tab PO DAILY 07/11/18 Nutritional Supplement [Hi-Eliezer] 4 oz PO DAILY 07/11/18 Nystatin Powder [Nystop Powder -] 1 applic TD Q12H 07/11/18 Omeprazole 20 mg PO AM 07/11/18 Oxycodone HCl/Acetaminophen [Oxycodone-Acetaminophen 5-325] 1 tab PO Q4H PRN Oxymetazoline 0.05% Nasal Soln [Afrin -] 2 spray NS Q6H PRN 07/11/18 Phenyleph/Mineral Oil/Petrolat [Preparation H Ointment] 1 applic RC DAILY PRN Polyethylene Glycol 3350 17 gm PO AM PRN 07/11/18 Potassium Chloride 1 meq PO BID 07/11/18 Prednisone [Deltasone] 35 mg PO DAILY 07/11/18 Rivaroxaban [Xarelto -] 20 mg PO HS 07/11/18 Sennosides [Senna -] 2 tab PO HS 07/11/18 Silver Sulfadiazine 1% Top Cr [Silvadene -] 1 applic TP BID 07/11/18 Simethicone [Bicarsim] 80 mg PO BID 07/11/18 Zolpidem Tartrate [Ambien] 5 mg PO HS 07/11/18 Review of Systems - Review of Systems Constitutional: reports: Malaise. denies: Chills, Fever, Night Sweats Eyes: reports: No Symptoms HENT: reports: No Symptoms Neck: reports: No Symptoms Cardiovascular: reports: Chest Pain, Shortness of Breath. denies: Edema, Palpitations Respiratory: reports: Cough, Orthopnea, SOB, SOB on Exertion. denies: Hemoptysis, Snoring Gastrointestinal: reports: Abdominal Pain, Constipation, Rectal Bleeding Genitourinary: reports: No Symptoms Breasts: reports: No Symptoms Reported Musculoskeletal: reports: No Symptoms Integumentary: reports: No Symptoms Neurological: reports: No Symptoms Endocrine: reports: No Symptoms Hematology/Lymphatic: reports: No Symptoms Psychiatric: reports: No Symptoms Physical Exam Vital Sings: Vital Signs Temperature 98.1 F 07/13/18 10:00 Pulse Rate 103 H 07/13/18 10:00 Respiratory Rate 18 07/13/18 10:00 Blood Pressure 120/59 L 07/13/18 10:00 O2 Sat by Pulse Oximetry (%) 95 07/13/18 00:02 Constitutional: Yes: Mild Distress Eyes: Yes: Conjunctiva Clear, EOM Intact HENT: Yes: Atraumatic, Normocephalic Neck: Yes: Supple, Trachea Midline Cardiovascular: Yes: Pulse Irregular Respiratory: Yes: Cough, Diminished, Rhonchi, SOB, Tachypnea, Wheezes. No: Accessory Muscle Use, Rales, Stridor ...Inspection: Yes: WNL ...Clubbing: No Gastrointestinal: Yes: Normal Bowel Sounds, Soft, Abdomen, Obese Musculoskeletal: Yes: WNL Extremities: Yes: WNL Edema: No Peripheral Pulses WNL: Yes Integumentary: Yes: WNL Neurological: Yes: WNL, Alert, Oriented ...Motor Strength: WNL Psychiatric: Yes: WNL, Alert, Oriented Labs: CBC, BMP 07/13/18 06:00 07/13/18 06:00 Imaging - Results Chest X-ray: Report Reviewed, Image Reviewed Problem List - Problems (1) Acute exacerbation of chronic obstructive pulmonary disease (COPD) Code(s): J44.1 - CHRONIC OBSTRUCTIVE PULMONARY DISEASE W (ACUTE) EXACERBATION (2) Acute on chronic diastolic CHF (congestive heart failure) Code(s): I50.33 - ACUTE ON CHRONIC DIASTOLIC (CONGESTIVE) HEART FAILURE (3) Afib Code(s): I48.91 - UNSPECIFIED ATRIAL FIBRILLATION Qualifiers: Atrial fibrillation type: chronic Qualified Code(s): I48.2 - Chronic atrial fibrillation (4) BRBPR (bright red blood per rectum) Code(s): K62.5 - HEMORRHAGE OF ANUS AND RECTUM (5) CAD (coronary artery disease) Code(s): I25.10 - ATHSCL HEART DISEASE OF [place] CORONARY ARTERY W/O ANG PCTRS Qualifiers: Coronary Disease-Associated Artery/Lesion type: [place] artery [place] vs. transplanted heart: [place] heart Associated angina: angina presence unspecified Qualified Code(s): I25.10 - Atherosclerotic heart disease of [place] coronary artery without angina pectoris (6) CHF (congestive heart failure) Code(s): I50.9 - HEART FAILURE, UNSPECIFIED Qualifiers: Heart failure type: unspecified Heart failure chronicity: unspecified Qualified Code(s): I50.9 - Heart failure, unspecified (7) COPD (chronic obstructive pulmonary disease) Code(s): J44.9 - CHRONIC OBSTRUCTIVE PULMONARY DISEASE, UNSPECIFIED Qualifiers: COPD type: unspecified COPD Qualified Code(s): J44.9 - Chronic obstructive pulmonary disease, unspecified (8) Chest pain Code(s): R07.9 - CHEST PAIN, UNSPECIFIED Qualifiers: Chest pain type: unspecified Qualified Code(s): R07.9 - Chest pain, unspecified (9) DM type 2 (diabetes mellitus, type 2) Code(s): E11.9 - TYPE 2 DIABETES MELLITUS WITHOUT COMPLICATIONS Qualifiers: Diabetes mellitus chcf insulin use: with chcf use Diabetes mellitus complication status: with circulatory complication Diabetes mellitus complication detail: with other circulatory complications Qualified Code(s): E11.59 - Type 2 diabetes mellitus with other circulatory complications; 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 Dr Mg
[2018-07-13 16:30] VITALS: BMI 34.3
--- NOTE | 2018-07-13 16:57 | PN ---
Physical Exam: SUBJECTIVE: Patient seen and examined at bedside. No overnight events. Breathing much better today. Abdominal pain continues to improve. Denies CP, SANTIAGO , nausea or vomiting. OBJECTIVE: Vital Signs Period Temp Pulse Resp BP Sys/Garcia Pulse Ox Last 24 Hr 97.3 F-98 F 93-101 18-20 115-139/54-76 95-98 GENERAL:Awake and alert ,NAD. ENT: moist mucous membranes. NECK: supple, no jvd or bruits LUNGS: minimal bibasilar rales no wheezes, no crackles, no accessory muscle use. HEART: irregular, S1, S2 without murmur, rub or gallop. ABDOMEN: Soft,large reducible ventral hernia, mildlyl tender RLQ, nondistended, normoactive bowel sounds, no guarding, no rebound, no hepatosplenomegaly, no masses. EXTREMITIES: 2+ pulses, warm, well-perfused, 2+ edema. NEUROLOGICAL: Cranial nerves II through XII grossly intact. Normal speech, gait not observed. PSYCH: Normal mood, normal affect. Laboratory Results - last 24 hr 07/12/18 07/12/18 07/13/18 18:00 22:08 06:00 WBC 6.9 RBC 3.76 Hgb 8.7 L Hct 27.0 L MCV 71.6 L MCH 23.0 L MCHC 32.1 RDW 18.0 H Plt Count 289 MPV 7.4 L Absolute Neuts (auto) 4.8 Neutrophils % 69.4 Lymphocytes % 19.3 Monocytes % 10.5 H Eosinophils % 0.3 Basophils % 0.5 Nucleated RBC % 0 Sodium Potassium Chloride Carbon Dioxide Anion Gap BUN Creatinine Creat Clearance w eGFR POC Glucometer 241 166 Random Glucose Calcium Total Bilirubin AST ALT Alkaline Phosphatase Total Protein Albumin 07/13/18 07/13/18 07/13/18 06:00 06:05 08:15 WBC RBC Hgb Hct MCV MCH MCHC RDW Plt Count MPV Absolute Neuts (auto) Neutrophils % Lymphocytes % Monocytes % Eosinophils % Basophils % Nucleated RBC % Sodium 140 Potassium 3.5 Chloride 95 L Carbon Dioxide 40 H Anion Gap 5 L BUN 35 H Creatinine 0.8 Creat Clearance w eGFR > 60 POC Glucometer 105 102 Random Glucose 95 Calcium 9.7 Total Bilirubin 0.6 AST 16 ALT 18 Alkaline Phosphatase 64 Total Protein 5.8 L Albumin 3.1 L 07/13/18 12:05 WBC RBC Hgb Hct MCV MCH MCHC RDW Plt Count MPV Absolute Neuts (auto) Neutrophils % Lymphocytes % Monocytes % Eosinophils % Basophils % Nucleated RBC % Sodium Potassium Chloride Carbon Dioxide Anion Gap BUN Creatinine Creat Clearance w eGFR POC Glucometer 138 Random Glucose Calcium Total Bilirubin AST ALT Alkaline Phosphatase Total Protein Albumin Active Medications Generic Name Dose Route Start Last Admin Trade Name Freq PRN Reason Stop Dose Admin Acetaminophen 650 mg 07/11/18 16:09 07/13/18 10:00 Tylenol - PO 650 mg Q6H PRN Administration PAIN 1-3 Albuterol Sulfate 1 amp 07/11/18 00:48 Ventolin 0.083% Nebulizer Soln - NEB Q4H PRN SHORT OF BREATH/WHEEZING Albuterol/Ipratropium 1 amp 07/11/18 04:00 07/13/18 16:11 Duoneb - NEB 1 amp RQ4H BREANNA Administration Aspirin 81 mg 07/11/18 10:00 07/13/18 09:51 Asa - PO 81 mg DAILY BREANNA Administration Budesonide/Formoterol Fumarate 2 puff 07/10/18 23:45 07/13/18 09:46 Symbicort 160/4.5mcg - IH 2 puff BID BREANNA Administration Docusate Sodium 100 mg 07/11/18 10:00 07/13/18 09:51 Colace - PO 100 mg DAILY BREANNA Administration Furosemide 80 mg 07/12/18 13:15 07/13/18 09:50 Lasix - PO 80 mg DAILY BREANNA Administration Insulin Aspart 1 vial 07/11/18 07:00 07/13/18 12:07 Novolog Vial Sliding Scale - SQ Not Given ACHS BREANNA Protocol Metolazone 2.5 mg 07/12/18 09:30 07/12/18 09:36 Zaroxolyn - PO 2.5 mg MoWeFr BREANNA Administration Montelukast Sodium 10 mg 07/11/18 22:00 07/12/18 21:53 Singulair - PO 10 mg HS BREANNA Administration Multivitamins/Minerals/Vitamin C 1 tab 07/11/18 10:00 07/13/18 09:51 Tab-A-Vit - PO 1 tab DAILY BREANNA Administration Nystatin 1 applic 07/11/18 10:00 07/13/18 12:08 Mycostatin Cream - TP 1 appful BID BREANNA Administration Pantoprazole Sodium 40 mg 07/11/18 14:30 07/13/18 09:50 Protonix - PO 40 mg DAILY BREANNA Administration Polyethylene Glycol 17 gm 07/11/18 10:00 07/13/18 09:46 Miralax (For Daily Use) - PO 17 gm DAILY BREANNA Administration Potassium Chloride 10 meq 07/11/18 10:00 07/13/18 09:51 K-Dur - PO 10 meq BID BREANNA Administration Prednisone 30 mg 07/13/18 22:00 Deltasone - PO BID BREANNA Rivaroxaban 20 mg 07/11/18 18:00 07/12/18 18:03 Xarelto - PO 20 mg DAILY@1800 BREANNA Administration Senna 1 tab 07/11/18 22:00 07/12/18 21:51 Senna - PO 1 tab HS BREANNA Administration IMAGING: * CT/ABDOMEN PELVIS CT W/O CONTR INDICATION: Hernia TECHNIQUE: Helical images of the abdomen and pelvis obtained oral contrast . COMPARISON IMAGING:None FINDINGS: LUNG BASES:Atelectasis present at both bases. Borderline size heart. LIVER: Negative. GALLBLADDER: Negative. BILIARY DUCTS: Negative. PANCREAS: Negative. SPLEEN: Negative. ADRENALS: Negative. KIDNEYS: Subcortical cysts including hyperdense cyst noted on the right side. The largest measures 2 cm. Confirmation with ultrasound is recommended. No hydronephrosis or nephrolithiasis noted. AORTA: Calcified plaque. No aneurysm. IVC: IVC filter is noted below the renal veins. LYMPH NODES: Negative. BOWEL: Oral contrast reaches the transverse colon. Diathesis of the rectus muscles noted. Ventral hernia. It contains loops of small and large bowel with no obstruction. Surgical clips are present within the left abdomen. No free air/fluid is identified. PELVIS: The bladder is physiologically distended. Herniation of the dome of the bladder into the ventral hernia noted. OTHER: Demineralization seen. Spondylotic changes of the spine noted. Multilevel discogenic disease noted. Grade 1 anterolisthesis of L4 over L5 noted with intact posterior process suggesting degenerative listhesis. IMPRESSION: No evidence of obstruction with a ventral hernia as discussed above. Multiple renal cysts bilaterally including subcortical hyperdense cysts. These should be corroborated with ultrasound. Bilateral lower lobe atelectasis. Additional comments noted above. Reported By: Abraham Pompa MD 07/13/18 0839 ASSESSMENT/PLAN: 83 y/o F w/ PMHx HTN, DM, COPD, Afib, CHF, CAD, DVT, p/w 2-3 days palpitations and irregular HR, additionally several weeks of constipation BRBPR w/ stooling, and abd distention/tympany admitted to med-surg for further management. Problem List - Problems (1) Acute on chronic diastolic CHF (congestive heart failure) Assessment/Plan: breathing improved significantly * Lasix 80mg PO daily * daily weights. * Strict I/O's * sodium controlled diabetic diet. * Echo shows mod LV reduction , septal wall motion abnorm. mild to mod hypokenisis.Mild LA dialation, mild to mod MR and TR (2) Chest pain Assessment/Plan: ACS ruled out. * torps have been negative. (3) HTN (hypertension) Assessment/Plan: * Furosemide (Lasix Injection -) 80 mg IVPB DAILY * Metolazone (Zaroxolyn -) 2.5 mg PO MOWEFR (4) COPD (chronic obstructive pulmonary disease) Assessment/Plan: * Albuterol Sulfate (Ventolin 0.083% Nebulizer Soln -) 1 amp NEB Q4H * Albuterol/Ipratropium (Duoneb -) 1 amp NEB RQ4H * Budesonide/Formoterol Fumarate (Symbicort 160/4.5mcg -) 2 puff IH BID * Prednisone 20 mg/ Prednisone (10 mg/ Prednisone 5 mg) 35 mg PO DAILY (5) CAD (coronary artery disease) Assessment/Plan: * Continue with ASA therapy. (6) DM type 2 (diabetes mellitus, type 2) Assessment/Plan: * ADA sodium diet * BGM ACHS * ISS ACHS (7) BRBPR (bright red blood per rectum) Assessment/Plan: * GI consult appreciated. * CT abdomen result above. No signs of obstruction. * refusing colonoscopy at this time * H/H stable * Agrees to EGD * Will obtain once stable for CV standpoint. * protonix 40mg PO daily * trend H/H Visit type - Emergency Visit Emergency Visit: Yes ED Registration Date: 07/10/18 Care time: The patient presented to the Emergency Department on the above date and was hospitalized for further evaluation of their emergent condition. - New Patient This patient is new to me today: No - Critical Care Critical Care patient: No
--- NOTE | 2018-07-13 17:21 | PN ---
Teaching Attending Note Name of Resident: Rosalio Mccullough ATTENDING PHYSICIAN STATEMENT I saw and evaluated the patient. I reviewed the resident's note and discussed the case with the resident. I agree with the resident's findings and plan as documented. SUBJECTIVE: Ms Stacy says she "feels the same". Says she is chronically short of breath. No cp or n/v. Expresses concern about her heart rate OBJECTIVE: GEN: nad, obese CV: rrr PULM: minimal ronchi bilaterally ABD: +bs, s/nt/nd EXT: 2+ BLE edema with chronic venous stasis changes ASSESSMENT AND PLAN: 1. CHF 2. COPD 3. BRBPR 4. DM 5. CAD -continue lasix 80mg daily -continue steroids and bronchodilators -case d/w pulmonary, increase prednisone to 30mg bid -monitor H/H, stable -appreciate GI assistance -CT scan reviewed -plan for discharge tomorrow
[2018-07-13] MEDS: RIVAROXABAN 20 MG TABLET PO SCH (17:47)
[2018-07-13] MEDS ORDERED: MELATONIN 5 MG TABLETS PO ONE (22:35)
[2018-07-13] MEDS ORDERED: ZOLPIDEM TARTRATE 5 MG TABLET PO ONE (22:36)
[2018-07-13] MEDS ORDERED: LORazepam 0.5 MG TABLET PO PRN (22:37)
[2018-07-13] MEDS: MONTELUKAST NA 10 MG TABLET PO SCH (22:54)
[2018-07-13] MEDS: predniSONE 20 MG TABLET (UD) PO SCH (22:55)
[2018-07-13] MEDS: SENNOSIDES 8.6MG TABLET (FP) PO SCH (22:59)
[2018-07-14] MEDS: ALBUTEROL SO4 2.5/IPRATROPIUM 0.5 INH SOL 3 ML VIAL.NEB. NEB SCH ×5 (00:29→15:50)
[2018-07-14] MEDS ORDERED: INSULIN SLIDING SCALE (NOVOLOG) 1 VIAL SQ ONE (06:33)
[2018-07-14] MEDS: ACETAMINOPHEN 325 MG TABLET (FP) PO PRN (06:39)
[2018-07-14] MEDS: INSULIN SLIDING SCALE (NOVOLOG) 1 VIAL SQ SCH ×2 (06:40→12:03)
[2018-07-14] MEDS: predniSONE 20 MG TABLET (UD) PO SCH (09:32)
[2018-07-14] MEDS: PANTOPRAZOLE 40 MG TABLET (FP) PO SCH (09:36)
[2018-07-14] MEDS: ASPIRIN 81 MG CHEWABLE TABLETS PO SCH (09:36)
[2018-07-14] MEDS: POTASSIUM CHLORIDE TABS 10 MEQ TABLET.ER (FP) PO SCH (09:36)
[2018-07-14] MEDS: FUROSEMIDE 40 MG TABLET (FP) PO SCH (09:36)
[2018-07-14] MEDS: MULTIVITAMINS (DAILY MVI) TABLET (FP) PO SCH (09:36)
[2018-07-14] MEDS: DOCUSATE SODIUM 100 MG CAPSULE (FP) PO SCH (09:36)
[2018-07-14] MEDS: BUDESONIDE/FORMETEROL FUMARATE 160/4.5 mcg INHALER IH SCH (09:37)
[2018-07-14] MEDS: POLYETHYLENE GLYCOL 3350 119 GM BTL PO SCH (09:40)
[2018-07-14] MEDS: NYSTATIN 100,000 UNIT/GM TOPICAL CREAM 15 GM TUBE TP SCH (09:46)
--- NOTE | 2018-07-14 10:07 | DS ---
Physical Exam: SUBJECTIVE: Patient seen and examined at bedside. No overnight events. No new complaints. Denies CP,SANTIAGO, SOB,nausea or vomiting. She says she is ready to go back to [facility]. OBJECTIVE: Vital Signs Period Temp Pulse Resp BP Sys/Garcia Pulse Ox Last 24 Hr 97.5 F-98.1 F 85-106 18-19 116-132/62-80 95-99 PHYSICAL EXAM GENERAL:Awake and alert ,NAD. ENT: moist mucous membranes. NECK: supple, no jvd or bruits LUNGS: minimal bibasilar rales no wheezes, no crackles, no accessory muscle use. HEART: irregular, S1, S2 without murmur, rub or gallop. ABDOMEN: Soft,obese, large reducible ventral hernia,mild RLQ discomfort,NABS, no guarding, no rebound, no hepatosplenomegaly, no masses. EXTREMITIES: 2+ pulses, warm, well-perfused, 2+ edema. NEUROLOGICAL: Cranial nerves II through XII grossly intact. Normal speech, gait not observed. PSYCH: Normal mood, normal affect. LABS Laboratory Results - last 24 hr 07/13/18 07/13/18 07/13/18 06:05 12:05 17:04 POC Glucometer 105 138 309 07/13/18 07/14/18 22:42 05:41 POC Glucometer 140 214 IMAGING: * CT/ABDOMEN PELVIS CT W/O CONTR INDICATION: Hernia TECHNIQUE: Helical images of the abdomen and pelvis obtained oral contrast . COMPARISON IMAGING:None FINDINGS: LUNG BASES:Atelectasis present at both bases. Borderline size heart. LIVER: Negative. GALLBLADDER: Negative. BILIARY DUCTS: Negative. PANCREAS: Negative. SPLEEN: Negative. ADRENALS: Negative. KIDNEYS: Subcortical cysts including hyperdense cyst noted on the right side. The largest measures 2 cm. Confirmation with ultrasound is recommended. No hydronephrosis or nephrolithiasis noted. AORTA: Calcified plaque. No aneurysm. IVC: IVC filter is noted below the renal veins. LYMPH NODES: Negative. BOWEL: Oral contrast reaches the transverse colon. Diathesis of the rectus muscles noted. Ventral hernia. It contains loops of small and large bowel with no obstruction. Surgical clips are present within the left abdomen. No free air/fluid is identified. PELVIS: The bladder is physiologically distended. Herniation of the dome of the bladder into the ventral hernia noted. OTHER: Demineralization seen. Spondylotic changes of the spine noted. Multilevel discogenic disease noted. Grade 1 anterolisthesis of L4 over L5 noted with intact posterior process suggesting degenerative listhesis. IMPRESSION: No evidence of obstruction with a ventral hernia as discussed above. Bilateral lower lobe atelectasis. Additional comments noted above. Reported By: Abraham Pompa MD 07/13 0846 HOSPITAL COURSE: 83 y/o F w/ PMHx HTN, DM, COPD, Afib, CHF, CAD, DVT, presents from [facility] w / irregular, labile HR 30s-120s, intermittent chest pain, and SOB at rest that is worse than at baseline w/ worsening orthopnea. Additionally c/o 3-4 weeks constipation w/ BRBPR during stooling. She was admitted to telemetry and no events noted, she maintained in normal sinus rythm. Echo was done and reveled mod LV reduction , septal wall motion abnorm. mild to mod hypokenisis. Mild LA dialation, mild to mod MR and TR. Troponin I were trended and negative x3. Abdominal CT was done to assess ventral hernia and reported above with no signs of obstruction of acute pathology. Seen by GI and will follow up as outpatient for possible EGD/Colonoscopy. She was seen by pulmonary and no adjustments made during this admission. Breathing was stable with home regimen. She is instructed to follow up with Cardiology, Pulmonary , and GI in one week. She will seen her PCP at [facility]. She is stable for discharge back to [facility]. Date of Admission:07/10/18 Date of Discharge: 07/14/18 Minutes to complete discharge: 42 Discharge Summary Reason For Visit: CONGESTIVE HEART FAILURE ,CHEST PAIN Current Active Problems Chest pain (Acute) CHF (congestive heart failure) (Acute) HTN (hypertension) (Acute) COPD (chronic obstructive pulmonary disease) (Acute) CAD (coronary artery disease) (Acute) Acute on chronic diastolic CHF (congestive heart failure) (Acute) DM type 2 (diabetes mellitus, type 2) (Acute) BRBPR (bright red blood per rectum) (Acute) Acute exacerbation of chronic obstructive pulmonary disease (COPD) (Acute) Condition: Improved - Instructions Diet, Activity, Other Instructions: You have been seen for increased heart rate and abdominal discomfort. You can resume a heart healthy diabetic diet. Increase your activity as tolerated. Please resume all your home meds as previously prescribed. You will need to follow up with Cardiology, Pulmonary, and your primary care doctor in one week. You should also make an appointment to see plunger machine operator for possible endoscopy or colonoscopy. If you develop worsening of symptoms, chest pain, fever, chills or signs of bleeding please return to ER immediately. Referrals: David Brown MD [Staff Physician] - 1 Week Jonatan Covarrubias MD [Staff Physician] - 1 Week Sonia Blanchard DO [Staff Physician] - 1 Week Disposition: [facility] FACILITY - Home Medications Comprehensive Discharge Medication List: Ambulatory Orders Aa/Hydrolyzed Collagen, Whey [Lps Neutral Flavor Liquid] 30 ml PO BID 07/11/18 Acetaminophen [Tylenol] 650 mg PO QID 07/11/18 Acetylcysteine Po/INH 20% [Mucomyst 20 Oral / INH Use Only*] 5 ml IH BID Albuterol 0.083% Nebulizer Isamar [Ventolin 0.083% Nebulizer Soln -] 1 neb IH BID 07/11/18 Albuterol 2.5/Ipratropium 0.5 [Duoneb -] 1 amp IH Q4H PRN 07/11/18 Aspirin [Aspirin EC] 81 mg PO DAILY 07/11/18 Benzocaine/Menthol [[facility] Sore Throat Lozenge] 1 lozenge PO Q2H PRN 07/11/18 Budesonide/Formeterol Fumarate [SYMBICORT 160/4.5mcg -] 2 puff IH BID 07/11/18 Calcium Citrate/Vitamin D3 [Calcium Cit-Vit D 315-200 Tab] 2 tab PO AM 07/11/18 Cholecalciferol (Vitamin D3) [Vitamin D3 -] 1 tab PO DAILY 07/11/18 Docusate Sodium [Colace] 300 mg PO AM 07/11/18 Fluticasone Prop 0.05% Nasal [Flonase -] 1 spray NS DAILY 07/11/18 Fluticasone Propionate [Flovent Diskus] 1 spray NS Q24H 07/11/18 Furosemide 80 mg PO DAILY 07/11/18 Insulin Aspart [Novolog] See Protocol SQ ACHS 07/11/18 Krill Oil 500 mg PO DAILY 07/11/18 LORazepam [Ativan] 0.5 mg PO HS PRN 07/11/18 Lactobacillus Acidophilus [Bacid -] 1 tab PO TID 07/11/18 Melatonin 10 mg PO HS 07/11/18 Metformin HCl [Glucophage] 500 mg PO BID 07/11/18 Metolazone [Zaroxolyn -] 2.5 mg PO AM 07/11/18 Montelukast Sodium [Singulair] 10 mg PO HS 07/11/18 Multivitamin,Ther and Minerals [Vitamin and Minerals] 1 tab PO DAILY 07/11/18 Nutritional Supplement [Hi-Eliezer] 4 oz PO DAILY 07/11/18 Nystatin Powder [Nystop Powder -] 1 applic TD Q12H 07/11/18 Omeprazole 20 mg PO AM 07/11/18 Oxycodone HCl/Acetaminophen [Oxycodone-Acetaminophen 5-325] 1 tab PO Q4H PRN Oxymetazoline 0.05% Nasal Soln [Afrin -] 2 spray NS Q6H PRN 07/11/18 Phenyleph/Mineral Oil/Petrolat [Preparation H Ointment] 1 applic RC DAILY PRN Polyethylene Glycol 3350 17 gm PO AM PRN 07/11/18 Potassium Chloride 1 meq PO BID 07/11/18 Prednisone [Deltasone] 35 mg PO DAILY 07/11/18 Rivaroxaban [Xarelto -] 20 mg PO HS 07/11/18 Sennosides [Senna -] 2 tab PO HS 07/11/18 Silver Sulfadiazine 1% Top Cr [Silvadene -] 1 applic TP BID 07/11/18 Simethicone [Bicarsim] 80 mg PO BID 07/11/18 Zolpidem Tartrate [Ambien] 5 mg PO HS 07/11/18 Problem List - Problems (1) Acute on chronic diastolic CHF (congestive heart failure) (2) Chest pain (3) HTN (hypertension) (4) COPD (chronic obstructive pulmonary disease) (5) CAD (coronary artery disease) (6) DM type 2 (diabetes mellitus, type 2) (7) BRBPR (bright red blood per rectum) This patient is new to me today: No Emergency Visit: Yes ED Registration Date: 07/10/18 Care time: The patient presented to the Emergency Department on the above date and was hospitalized for further evaluation of their emergent condition. Critical Care patient: No - Discharge Referral Referred to [facility] Med P.C.: No
[2018-07-14] MEDS: METOLAZONE 2.5 MG TABLET (FP) PO SCH (11:13)
[2018-07-14 11:37] VITALS: BP 114/58; PULSE 105; TEMP 98.1
[2018-07-14] MEDS ORDERED: LORazepam 0.5 MG TABLET PO ONE (12:10)
[2018-07-14] MEDS ORDERED: PT OWN MED DRAWER 7, Y5N ONE ×2 (12:39→12:42)
--- NOTE | 2018-07-14 14:32 | PN ---
Progress Note (short form) - Note Progress Note: PULMONARY SITTING IN WHEELCHAIR AWAITING DISCHARGE APPEARS STABLE OFFERS NO COMPLAINTS VSS ANICTERIC CHEST DISTANT BUT CLEAR S1S2 SINUS WITH ECTOPICS BS+ SOFT OBESE NO EDEMA LABS/MEDS/NOTES/IMAGES REVIEWED (1) Acute exacerbation of chronic obstructive pulmonary disease (COPD) Code(s): J44.1 - CHRONIC OBSTRUCTIVE PULMONARY DISEASE W (ACUTE) EXACERBATION (2) Acute on chronic diastolic CHF (congestive heart failure) Code(s): I50.33 - ACUTE ON CHRONIC DIASTOLIC (CONGESTIVE) HEART FAILURE (3) Afib Code(s): I48.91 - UNSPECIFIED ATRIAL FIBRILLATION Qualifiers: Atrial fibrillation type: chronic Qualified Code(s): I48.2 - Chronic atrial fibrillation (4) BRBPR (bright red blood per rectum) Code(s): K62.5 - HEMORRHAGE OF ANUS AND RECTUM (5) CAD (coronary artery disease) Code(s): I25.10 - ATHSCL HEART DISEASE OF [place] CORONARY ARTERY W/O ANG PCTRS Qualifiers: Coronary Disease-Associated Artery/Lesion type: [place] artery [place] vs. transplanted heart: [place] heart Associated angina: angina presence unspecified Qualified Code(s): I25.10 - Atherosclerotic heart disease of [place] coronary artery without angina pectoris (6) CHF (congestive heart failure) Code(s): I50.9 - HEART FAILURE, UNSPECIFIED Qualifiers: Heart failure type: unspecified Heart failure chronicity: unspecified Qualified Code(s): I50.9 - Heart failure, unspecified (7) COPD (chronic obstructive pulmonary disease) Code(s): J44.9 - CHRONIC OBSTRUCTIVE PULMONARY DISEASE, UNSPECIFIED Qualifiers: COPD type: unspecified COPD Qualified Code(s): J44.9 - Chronic obstructive pulmonary disease, unspecified (8) Chest pain Code(s): R07.9 - CHEST PAIN, UNSPECIFIED Qualifiers: Chest pain type: unspecified Qualified Code(s): R07.9 - Chest pain, unspecified (9) DM type 2 (diabetes mellitus, type 2) Code(s): E11.9 - TYPE 2 DIABETES MELLITUS WITHOUT COMPLICATIONS Qualifiers: Diabetes mellitus correction insulin use: with electronic data interchange specialist use Diabetes mellitus complication status: with circulatory complication Diabetes mellitus complication detail: with other circulatory complications Qualified Code(s): E11.59 - Type 2 diabetes mellitus with other circulatory complications; Z79.4 - CHCF (current) use of insulin (10) HTN (hypertension) Code(s): I10 - ESSENTIAL (PRIMARY) HYPERTENSION Qualifiers: Hypertension type: essential hypertension Qualified Code(s): I10 - Essential (primary) hypertension Assessment/Plan Prednisone to be tapered as an outpatient O2 as needed Xarelto Rate control per Cardiology Symbicort BID Lasix Daily weight Monitor ABX Agree with continuing treatment in SNF Savannah HERNANDEZ MD
--- NOTE | 2018-07-14 18:12 | PN ---
Teaching Attending Note Name of Resident: Rosalio Mccullough ATTENDING PHYSICIAN STATEMENT I saw and evaluated the patient. I reviewed the resident's note and discussed the case with the resident. I agree with the resident's findings and plan as documented. GEN: nad CV: rrr Pulm: ctab Abd: +bs, s/nt/nd Ext: chronic edema Hospital course: please refer to Dr Mccullough's discharge summary for full hospital course but in short Sister Regis is an 83 year old female who came in with concern for rapid heart rate and shortness of breath. Her heart rate was monitored and remained sinus. She was seen by pulmonary and her prednisone was increased. This will be titrated as an outpatient. She is safe for discharge back to SNF
== END 2018-07-14 16:38 ==
LOC: JER 18:18 → JERBED 22:49 → J4S 07-11 15:46
PROVIDERS: ADMIT Internal Medicine; ATTEND Internal Medicine
PROC: 3E013VG Introduction of Insulin into Subcutaneous Tissue, Percutaneous Approach (ICD-10-PCS; principal; 2018-07-10)
PROC: 3E0F7GC Introduction of Other Therapeutic Substance into Respiratory Tract, Via Natural or Artificial Opening (ICD-10-PCS; 2018-07-10)
PROC: 3E0F7GC Introduction of Other Therapeutic Substance into Respiratory Tract, Via Natural or Artificial Opening (ICD-10-PCS; 2018-07-10)
PROC: 3E0F7GC Introduction of Other Therapeutic Substance into Respiratory Tract, Via Natural or Artificial Opening (ICD-10-PCS; 2018-07-10)
DX: I50.33 Acute on chronic diastolic (congestive) heart failure (principal); R07.9 Chest pain, unspecified; I25.10 Atherosclerotic heart disease of native coronary artery without angina pectoris; I10 Essential (primary) hypertension; I48.91 Unspecified atrial fibrillation; J44.1 Chronic obstructive pulmonary disease with (acute) exacerbation; E11.9 Type 2 diabetes mellitus without complications; Z79.4 Long term (current) use of insulin; Z79.84 Long term (current) use of oral hypoglycemic drugs; K62.5 Hemorrhage of anus and rectum; Z86.718 Personal history of other venous thrombosis and embolism; Z79.01 Long term (current) use of anticoagulants; Z88.8 Allergy status to other drugs, medicaments and biological substances
CPT/HCPCS: 36415; 71045-TC-FY; 74176-TC; 80053; 81003; 81015; 82550; 82962; 83735; 83880; 84100; 84443; 84484; 85025; 85027; 85610; 85730; 86850; 86900; 86901; 93005; 93010; 93306-TC; 94640; 96372; 99285-25; G0378; Q9967

== ENCOUNTER 2018-10-25 08:33 | Day surgery (SDC) | payer OTHER ==
[2018-10-20 15:54] VITALS: BMI 35.3
[2018-10-25] MEDS: TROPICAMIDE 1% OPHTH SOLN 15 ML BOTTLE ONE ×3 (09:45→09:55)
[2018-10-25] MEDS: PHENYLEPHRINE 2.5% OPHTH SOLN 15 ML BOTTLE ONE ×3 (09:45→09:55)
[2018-10-25] MEDS: CYCLOPENTOLATE 2% OPHTH SOLN 2 ML BOTTLE ONE ×3 (09:45→09:55)
[2018-10-25] MEDS: CIPROFLOXACIN 0.3% EYE DROPS 5 ML BOTTLE ONE ×3 (09:45→09:55)
[2018-10-25] MEDS ORDERED: MIDAZOLAM HCL 2 MG/2 ML SINGLE DOSE VIAL ONE ×2 (10:09→11:06)
[2018-10-25] MEDS ORDERED: BSS (NA/CA/MG/K) BALANCED SALT SOLUTION OPHTH SOLN 15 ML BOTTLE ONE (10:21)
[2018-10-25] MEDS ORDERED: ACETYLCHOLINE 1:100 INTRA-OCUL 20 MG/2 ML KIT ONE (10:21)
[2018-10-25] MEDS ORDERED: CARBACHOL 0.01% INTRA-OCULAR 1.5 ML VIAL ONE (10:21)
[2018-10-25 11:55] VITALS: TEMP 97.9
[2018-10-25] MEDS ORDERED: ACETAMINOPHEN 325 MG TABLET (FP) ONE (12:01)
[2018-10-25] MEDS ORDERED: ALBUTEROL SO4 2.5/IPRATROPIUM 0.5 INH SOL 3 ML VIAL.NEB. NEB ONE ×2 (12:49→15:22)
[2018-10-25 13:37] VITALS: BP 109/58; PULSE 88
[2018-10-25] MEDS ORDERED: ACETAMINOPHEN 325 MG TABLET (FP) PO PRN (15:21)
[2018-10-25] MEDS ORDERED: ONDANSETRON 4 MG/2 ML VIAL IVPUSH PRN (15:21)
[2018-10-25] MEDS ORDERED: LACTATED RINGERS SOLUTION 1,000 ML IV SCH (15:30)
== END 2018-10-25 13:20 | disposition home or self-care (01) ==
LOC: FASU 08:33
PROVIDERS: ATTEND Ophthalmology
PROC: 08RK3JZ Replacement of Left Lens with Synthetic Substitute, Percutaneous Approach (ICD-10-PCS; principal; 2018-10-25 10:55)
DX: H26.8 Other specified cataract (principal)
CPT/HCPCS: 82962

== ENCOUNTER 2018-11-14 11:17 | Inpatient (IN) | payer OTHER ==
[2018-11-14 12:27] LABS: BASO % 0.2 % (0-2.0); HEMATOCRIT 20.2 % (32.4-45.2); LYMPH % 2.3 % (8-40); MCHC 28.4 g/dl (32.0-36.0); MEAN CELL VOLUME 64.9 fl (80-96); MEAN PLT VOLUME 7.9 fl (7.5-11.1); NEUT % 92.5 % (42.8-82.8); PLATELET COUNT 274 K/MM3 (134-434); RBC 3.12 M/mm3 (3.60-5.2); WHITE BLOOD COUNT 8.4 K/mm3 (4.0-10.0)
[2018-11-14 12:30] LABS: MCH 18.4 pg (25.7-33.7)
[2018-11-14 12:33] LABS: HEMOGLOBIN 5.8 GM/dL (10.7-15.3)
[2018-11-14 12:40] LABS: INR 2.64 (0.83-1.09); PROTHROMBIN TIME (PATIENT) 31.4 SEC (9.7-13.0)
[2018-11-14 12:42] LABS: ACTIVATED PTT 36.3 SECONDS (25.2-36.5)
--- NOTE | 2018-11-14 12:52 | PDOC ---
Attending Attestation - Resident Resident Name: AureliaRadha - ED Attending Attestation I have performed the following: I have examined & evaluated the patient, The case was reviewed & discussed with the resident, I agree w/resident's findings & plan - HPI HPI: 11/14/18 14:27 The patient is a 83 year old female, DNR/DNI, with a significant past medical history of HTN, DM, COPD, Afib/DVT on Xarelto, CHF, CAD, who presents to the ED from [facility] presenting with shortness of breath from Dr. Walker office today. As per the sisters of fco at bedside, the patient had been feeling generally weaker and more short of breath for about 1.5 weeks and has required supplemental O2 more frequently. As per the sisters at bedside, the patient had redness to her RLE on Tuesday which has increased since Tuesday. She also reports noticing a blood blister on the RLE today which was not present on Tuesday. The patient states she has not been able to ambulate for about a week secondary to her LE swelling and dyspnea. The patient denies chest pain, palpitations, dizziness. The patient denies fevers, chills, nausea, vomiting, diarrhea, constipation. The patient changes to her urine output or bowel movements. PCP: Dr. Stephanie Ferro: Dr. Covarrubias - Physicial Exam PE: 11/14/18 14:28 alert, awake, mild respiratory distress 2/2 tachypnea, +Pale appearing, +Pale conjunctiva, anicteric; neck supple. +low lung volume, +weak inspiratory effort , diminished lung sounds diffusely. RRR, abdomen soft nontender. MARTIN x4,. 4+ pitting edema to bilateral LE. +Ecchymosis to left anterior chest wall and left upper arm. +Ecchymosis and erythema to RLE and lindsey, + ecchymosis to left knee and lindsey, +Large blood blister to right anterior lindsey, +dry mucosa - Medical Decision Making 11/14/18 12:50 procedures and medical decision-making performed by me. See HPI for details DDx SOB: ACS, NSTEMI, arrhythmia, PE, PTX, CHF, COPD exac, pulmonary edema, pleurisy, pneumonia, viral syndrome. effusion. anemia, electrolyte/metabolic derangements. Vital signs reviewed, wnl. mild tachypnea. no hypoxia, on venti mask Prior notes reviewed, including admissions, discharges and consultations. laboratory results and imaging reviewed, basic labs and lytes notable for: - acute anemia, Hb 5.5, Hct 20, likely from developing hematoma/blood blistering s/p recent fall, also on NOAC - INR elevated 2.8, on noac so unreliable in trending - transaminitis noted, unclear etiology, check RUQ sono. hepatitis panel sent. - anemia workup ordered and pend CXR_low lung volumes, interstitial markings, cardiomegaly Cardiac panel_trop elevated 0.5, prior negs, treat as NSTEMI with ASA. BNP elevated >6000 - treat clinically as CHF flare. EKG normal sinus rhythm at 78 bpm, no interval abnormalities, left King deviation, narrow QRS, ST and T wave segments and morphology normal. Nonspecific T wave abnormalities ED course - txs, transfuse 2 units prbc. lasix in between to avoid fluid overload. - lasix 80mg IV x1, in between transfusions, to avoid TACO/worsening CHF flare - asa for NSTEMI, EKG without depressions or elevations of ST segments as documented. admit for anemia, CHF, NSTEMI to Dr Brown given she resides at [facility]. 11/14/18 14:40 11/14/18 14:40 11/14/18 14:42
[2018-11-14 13:19] LABS: ALBUMIN 3.1 g/dl (3.4-5.0); ALK PHOS 96 U/L (45-117); ANION GAP 7 MMOL/L (8-16); BILIRUBIN,TOTAL 1.4 mg/dL (0.2-1); BLOOD UREA NITROGEN 43 mg/dL (7-18); CALCIUM 9.6 mg/dL (8.5-10.1); CHLORIDE 101 mmol/L (98-107); CO2 30 mmol/L (21-32); GLUCOSE,RANDOM 232 mg/dL (74-106); MAGNESIUM 2.6 mg/dL (1.8-2.4); N-TERMINAL BNP 6522.5 pg/ml (5-450); POTASSIUM 4.9 mmol/L (3.5-5.1); SGOT/AST 337 U/L (15-37); SGPT/ALT 248 U/L (13-61); SODIUM 138 mmol/L (136-145); TOT PROT 5.9 g/dl (6.4-8.2)
[2018-11-14 13:50] LABS: ANISOCYTOSIS 1+; MACROCYTOSIS 0; OVALOCYTE 1+; PLATELET ESTIMATE NORMAL; TEAR DROP CELLS 1+
[2018-11-14] MEDS ORDERED: FUROSEMIDE 40 MG/4 ML INJECTABLE VIAL IVPUSH ONE ×3 (14:17→21:00)
--- NOTE | 2018-11-14 14:28 | PDOC ---
History of Present Illness <Erica Singh - Last Filed: 11/14/18 14:42> - General History Source: Patient, Co-worker, Old Records Exam Limitations: No Limitations - History of Present Illness Initial Comments: 11/14/18 16:18 Pt is an 83yo F with PMH of CHF, COPD, Afib (on Xarelto), CAD, HTN, DM sent to ED from PMD office for fluid overload. Pt is at [facility] and went for a routine visit at Dr. Covarrubias's office. Pt states she is normally short of breath but for the past 2 weeks she has been requiring more oxygen than usual. Unable to lay down flat. She also fell about 1 week ago (slipped out of chair and landed on knees). She has had xrays and they are negative for fractures. Per friend, pt has had bruising on the R leg but the vesicle on the leg is new finding since Tuesday. Pt states she feels weak, SOB and lethargic. Denies chest pain, abdominal pain, n/v/d, headache, back pain, fevers, chills, productive cough. Endorses pain mainly in the R leg. PMD: Androne PMH: see hpi PSH: partial colectomy? Meds: see med rec Allergies: vanc, <Radha Moses - Last Filed: 11/14/18 16:40> - General Chief Complaint: Shortness of Breath Stated Complaint: CHF Time Seen by Provider: 11/14/18 11:39 Past History <Erica Singh - Last Filed: 11/14/18 14:42> - Past Medical History Anemia: No Asthma: No Cancer: No Cardiac Disorders: Yes (afib,ASHD,TACHYCARDIA) CVA: No COPD: Yes CHF: Yes Dementia: No Diabetes: Yes GI Disorders: Yes (gerd) Disorders: No HTN: Yes Hypercholesterolemia: Yes Liver Disease: No Psychiatric Problems: Yes (anxiety) Seizures: No Thyroid Disease: No - Surgical History Abdominal Surgery: No Appendectomy: No Cardiac Surgery: No Cholecystectomy: No Lung Surgery: No Neurologic Surgery: No Orthopedic Surgery: Yes (RIGHT SHOULDER REPLACEMENT) - Suicide/Smoking/Psychosocial Hx Smoking History: Never smoked Have you smoked in the past 12 months: No Information on smoking cessation initiated: No Hx Alcohol Use: No Drug/Substance Use Hx: No Substance Use Type: None Hx Substance Use Treatment: No <AureliaSaRadha - Last Filed: 11/14/18 16:40> - Past Medical History Allergies/Adverse Reactions: Allergies Allergy/AdvReac Type Severity Reaction Status Date / Time vancomycin Allergy Severe Rash Verified 10/25/18 09:32 dextromethorphan Allergy Intermediate CONGESTION Verified 10/25/18 09:32 [From Mucinex DM] guaifenesin [From Mucinex DM] Allergy Intermediate CONGESTION Verified 10/25/18 09:32 pollen extracts Allergy Intermediate CONGESTION Verified 10/25/18 09:32 ragweed pollen Allergy Intermediate CONGESTION Verified 10/25/18 09:32 ampicillin Allergy Mild Rash Verified 10/25/18 09:32 Home Medications: Ambulatory Orders Acetylcysteine Po/INH 20% [Mucomyst 20 Oral / INH Use Only*] 5 ml PO BID Albuterol 2.5/Ipratropium 0.5 [Duoneb -] 1 amp NEB DAILY PRN 11/14/18 Review of Systems - Review of Systems Constitutional: Yes: Weakness, Other (fatigue). No: Chills, Fever HEENTM: No: Symptoms Reported Respiratory: Yes: See HPI, Cough, Orthopnea, Shortness of Breath. No: Wheezing , Productive cough, Hemoptysis Cardiac (ROS): No: Chest Pain, Lightheadedness, Palpitations, Syncope ABD/GI: No: Constipated, Diarrhea, Nausea, Rectal Bleeding, Vomiting, Abdominal cramping, Tarry Stools : No: Burning, Dysuria, Hematuria Integumentary: No: Symptoms Reported Neurological: No: Headache, Numbness, Tingling, Tremors, Weakness <Radha Moses - Last Filed: 11/14/18 16:40> *Physical Exam - Vital Signs Last Vital Signs Temp Pulse Resp BP Pulse Ox 98.6 F 77 28 H 121/55 L 95 11/14/18 11:27 11/14/18 11:27 11/14/18 11:27 11/14/18 11:27 11/14/18 11:27 <Erica Singh - Last Filed: 11/14/18 14:42> - Vital Signs Last Vital Signs Temp Pulse Resp BP Pulse Ox 98.6 F 77 28 H 121/55 L 95 11/14/18 11:27 11/14/18 11:27 11/14/18 11:27 11/14/18 11:27 11/14/18 11:27 - Physical Exam General Appearance: Yes: Nourished, Appropriately Dressed, Mild Distress HEENT: positive: EOMI, JOHANA, Pharynx Normal, Pale Conjunctivae Neck: positive: Trachea midline, Supple. negative: Lymphadenopathy (R), Lymphadenopathy (L) Respiratory/Chest: positive: Decreased Breath Sounds, Crackles. negative: Chest Tender, Respiratory Distress, Accessory Muscle Use, Paradoxal Breathing, Wheezing Cardiovascular: positive: Regular Rhythm, Regular Rate, S1, S2. negative: Edema , JVD, Murmur Vascular Pulses: Carotid (R): 2+, Carotid (L): 2+, Dorsalis-Pedis (R): 2+, Doralis-Pedis (L): 2+ Gastrointestinal/Abdominal: positive: Normal Bowel Sounds, Soft. negative: Tender, Tenderness, Mass Musculoskeletal: positive: Other (RLE erythema and tenderness with blood filled vesicle). negative: CVA Tenderness Extremity: positive: Normal Capillary Refill, Pedal Edema (bilateral 2+ edema up to thighs) Integumentary: positive: Normal Color, Dry, Warm, Ecchymosis (on RLE, L knee, arms, L chest wall) Neurologic: positive: erp consultant II-XII NML intact, Fully Oriented, Alert, Normal Mood/ Affect, Normal Response, Motor Strength 5/5 <Radha Moses - Last Filed: 11/14/18 16:40> ED Treatment Course - LABORATORY CBC & Chemistry Diagram: 11/14/18 12:15 11/14/18 12:15 - ADDITIONAL ORDERS Additional order review: Laboratory Results 11/14/18 11/14/18 11/14/18 13:00 12:15 12:15 PT with INR INR PTT (Actin FS) Sodium 138 Potassium 4.9 Chloride 101 Carbon Dioxide 30 Anion Gap 7 L BUN 43 H Creatinine 1.0 Creat Clearance w eGFR 52.82 Random Glucose 232 H Calcium 9.6 Magnesium 2.6 H Total Bilirubin 1.4 H AST 337 H ALT 248 H Alkaline Phosphatase 96 Troponin I 0.51 H B-Natriuretic Peptide 6522.5 H Total Protein 5.9 L Albumin 3.1 L Blood Type O POSITIVE Antibody Screen Negative Crossmatch See Detail 11/14/18 12:15 PT with INR 31.40 H INR 2.64 H PTT (Actin FS) 36.3 Sodium Potassium Chloride Carbon Dioxide Anion Gap BUN Creatinine Creat Clearance w eGFR Random Glucose Calcium Magnesium Total Bilirubin AST ALT Alkaline Phosphatase Troponin I B-Natriuretic Peptide Total Protein Albumin Blood Type Antibody Screen Crossmatch 11/14/18 12:15 RBC 3.12 L MCV 64.9 L MCHC 28.4 L RDW 20.0 H MPV 7.9 Neutrophils % 92.5 H D Lymphocytes % 2.3 L D Monocytes % 5.0 Eosinophils % 0.0 D Basophils % 0.2 <Erica Singh - Last Filed: 11/14/18 14:42> - LABORATORY CBC & Chemistry Diagram: 11/14/18 12:15 11/14/18 12:15 - ADDITIONAL ORDERS Additional order review: Laboratory Results 11/14/18 11/14/18 11/14/18 13:00 12:15 12:15 PT with INR INR PTT (Actin FS) Sodium 138 Potassium 4.9 Chloride 101 Carbon Dioxide 30 Anion Gap 7 L BUN 43 H Creatinine 1.0 Creat Clearance w eGFR 52.82 Random Glucose 232 H Calcium 9.6 Magnesium 2.6 H Total Bilirubin 1.4 H AST 337 H ALT 248 H Alkaline Phosphatase 96 Troponin I 0.51 H B-Natriuretic Peptide 6522.5 H Total Protein 5.9 L Albumin 3.1 L Blood Type O POSITIVE Antibody Screen Negative Crossmatch See Detail 11/14/18 12:15 PT with INR 31.40 H INR 2.64 H PTT (Actin FS) 36.3 Sodium Potassium Chloride Carbon Dioxide Anion Gap BUN Creatinine Creat Clearance w eGFR Random Glucose Calcium Magnesium Total Bilirubin AST ALT Alkaline Phosphatase Troponin I B-Natriuretic Peptide Total Protein Albumin Blood Type Antibody Screen Crossmatch 11/14/18 12:15 RBC 3.12 L MCV 64.9 L MCHC 28.4 L RDW 20.0 H MPV 7.9 Neutrophils % 92.5 H D Lymphocytes % 2.3 L D Monocytes % 5.0 Eosinophils % 0.0 D Basophils % 0.2 - RADIOLOGY Radiology Studies Ordered: Category Date Time Status CHEST X-RAY PORTABLE* [RAD] Stat Radiology 11/14/18 11:40 Completed <Radha Moses - Last Filed: 11/14/18 16:40> Medical Decision Making - Medical Decision Making 11/14/18 16:23 Pt is an 83yo F with PMH of CHF, COPD, Afib (on Xarelto), CAD, HTN, DM sent to ED from PMD office for fluid overload. Pt is at [facility] and went for a routine visit at Dr. Covarrubias's office. Pt states she is normally short of breath but for the past 2 weeks she has been requiring more oxygen than usual. She also fell about 1 week ago (slipped out of chair and landed on knees). She has had xrays and they are negative for fractures. Per Sister of Surekha, pt has had bruising on the R leg but the vesicle on the leg is new finding since Tuesday. Pt states she feels weak, SOB and lethargic. Denies chest pain, abdominal pain, n/v/d, headache, back pain, fevers, chills, productive cough. Endorses pain mainly in the R leg. Vitals: afebrile, saturating low to mid 90s on RA. 100% on ventimask. No tachycardia PE: lethargic, bruising on arms, knees, R calf with blood filled vesicle, pitting edema up to thighs, pale conjunctiva, dry oral mucosa. Lungs with decreased breath sounds and some crackles Ddx includes but not limited to CHF exacerbation, ACS, COPD exacerbation, effusion, pna, electrolyte/metabolic abnormality, PE -labs -ekg, cxr labs: Laboratory Tests 11/14/18 11/14/18 11/14/18 12:15 12:15 12:15 Hgb 5.8 L* Hct 20.2 L D BUN 43 H Creatinine 1.0 Total Bilirubin 1.4 H AST 337 H ALT 248 H Troponin I 0.51 H B-Natriuretic Peptide 6522.5 H new onset anemia. Hgb normal in June 2018. Will do stool occult. pt could have lost blood from injury. No abdominal tenderness, low suspicion for intraperitoneal bleed. STEMI v. demand ischemia. transaminitis. -ASA Pt consented to transfusion. Lasix 80mg IV. -difficult access. stool occult negative Called Dr. Brown who is aware of injury and fluid overload, concerned about anemia. Will accept pt to be admitted and will see pt. -iron studies, hepatitis panel. <Aurelia,Radha - Last Filed: 11/14/18 16:40> *DC/Admit/Observation/Transfer - Discharge Dispostion Decision to Admit order: Yes Decision to Admit order Date/Time: 11/14/18 14:42 <Erica Singh - Last Filed: 11/14/18 14:42> - Discharge Dispostion Decision to Admit order: Yes <Radha Moses - Last Filed: 11/14/18 16:40> Diagnosis at time of Disposition: NSTEMI (non-ST elevated myocardial infarction), Transaminitis CHF (congestive heart failure) Qualifiers: Heart failure type: unspecified Heart failure chronicity: unspecified Qualified Code(s): I50.9 - Heart failure, unspecified Anemia Qualifiers: Anemia type: unspecified type Qualified Code(s): D64.9 - Anemia, unspecified - Discharge Dispostion Condition at time of disposition: Guarded
[2018-11-14] MEDS ORDERED: ASPIRIN COATED 81 MG TABLET.EC PO ONE (17:23)
--- NOTE | 2018-11-14 17:45 | CON.CARD ---
Cardiology Consult (text) - Consultation Consultation Note: cc: sob hpi: 83 f hx hld, htn, syst chf, dm, copd, dvt, afib, as, non obs cad, here with sob. Past week or so pt has sob/soriano, le edema. Bumped her right lindsey recently as well and developed large blood blister/hematoma. No cp palps dizzy loc pnd orthopnea. Also found anemic in er with hgb 5s. Sees dr anaya for cardio. pmh: per hpi psh: cath social: no tob fam: no premature cad ros: per hpi; no nvd fever, gib hematuria, wt loss; all others normal meds: Home Medications Medication Instructions Recorded Acetylcysteine Po/INH 20% 5 ml PO BID 11/14/18 [Mucomyst 20 Oral / INH Use Only*] Albuterol 0.083% Nebulizer Isamar 1 amp NEB BID 11/14/18 [Ventolin 0.083% Nebulizer Soln -] Albuterol 0.083% Nebulizer Isamar 1 neb NEB DAILY PRN 11/14/18 [Ventolin 0.083% Nebulizer Soln -] Aspirin 81 mg PO DAILY 11/14/18 Benzocaine/Menthol [Cepacol Sore 1 each PO Q2H PRN 11/14/18 Throat Lozenge] Budesonide/Formeterol Fumarate 1 inh PO BID 11/14/18 [SYMBICORT 160/4.5mcg -] Calcium Citrate/Vitamin D3 [[place] 2 tab PO DAILY 11/14/18 Calcium + D Tablet] Cholecalciferol (Vitamin D3) 1,000 unit PO DAILY 11/14/18 [Vitamin D3] pe: Vital Signs Period Temp Pulse Resp BP Sys/Garcia Pulse Ox Last 24 Hr 97.9 F-98.7 F 72-77 22-28 102-121/50-55 94-100 nad, +jvd rrr, s1s2 no mrg cta bl nl eff aao3 2+ le edema bl, blood blister right lindsey no jaundice diaphoresis pos dp pt no carotid bruits abd nt nd pos bs Laboratory Last Values WBC 8.4 K/mm3 (4.0-10.0) 11/14/18 12:15 RBC 3.12 M/mm3 (3.60-5.2) L 11/14/18 12:15 Hgb 5.8 GM/dL (10.7-15.3) L* 11/14/18 12:15 Hct 20.2 % (32.4-45.2) L D 11/14/18 12:15 MCV 64.9 fl (80-96) L 11/14/18 12:15 MCH 18.4 pg (25.7-33.7) L D 11/14/18 12:15 MCHC 28.4 g/dl (32.0-36.0) L 11/14/18 12:15 RDW 20.0 % (11.6-15.6) H 11/14/18 12:15 Plt Count 274 K/MM3 (134-434) 11/14/18 12:15 MPV 7.9 fl (7.5-11.1) 11/14/18 12:15 Absolute Neuts (auto) 7.8 K/mm3 (1.5-8.0) 11/14/18 12:15 Neutrophils % 92.5 % (42.8-82.8) H D 11/14/18 12:15 Neutrophils % (Manual) 94.0 % (42.8-82.8) H 11/14/18 12:15 Band Neutrophils % 0.0 % 11/14/18 12:15 Lymphocytes % 2.3 % (8-40) L D 11/14/18 12:15 Lymphocytes % (Manual) 2.0 % (8-40) L 11/14/18 12:15 Monocytes % 5.0 % (3.8-10.2) 11/14/18 12:15 Monocytes % (Manual) 3 % (3.8-10.2) L 11/14/18 12:15 Eosinophils % 0.0 % (0-4.5) D 11/14/18 12:15 Eosinophils % (Manual) 0.0 % (0-4.5) 11/14/18 12:15 Basophils % 0.2 % (0-2.0) 11/14/18 12:15 Basophils % (Manual) 0.0 % (0-2.0) 11/14/18 12:15 Myelocytes % (Man) 0 % (0-2) 11/14/18 12:15 Promyelocytes % (Man) 0 % (0-2) 11/14/18 12:15 Blast Cells % (Manual) 0 % (0-0) 11/14/18 12:15 Nucleated RBC % 1 % (0-0) H 11/14/18 12:15 Metamyelocytes 1 % (0-2) 11/14/18 12:15 Hypochromia 2+ 11/14/18 12:15 Platelet Estimate Normal 11/14/18 12:15 Polychromasia 1+ 11/14/18 12:15 Poikilocytosis 1+ 11/14/18 12:15 Anisocytosis 1+ 11/14/18 12:15 Microcytosis 2+ 11/14/18 12:15 Macrocytosis 0 11/14/18 12:15 Tear Drop Cells 1+ 11/14/18 12:15 Ovalocytes 1+ 11/14/18 12:15 PT with INR 31.40 SEC (9.7-13.0) H 11/14/18 12:15 INR 2.64 (0.83-1.09) H 11/14/18 12:15 PTT (Actin FS) 36.3 SECONDS (25.2-36.5) 11/14/18 12:15 Sodium 138 mmol/L (136-145) 11/14/18 12:15 Potassium 4.9 mmol/L (3.5-5.1) 11/14/18 12:15 Chloride 101 mmol/L (98-107) 11/14/18 12:15 Carbon Dioxide 30 mmol/L (21-32) 11/14/18 12:15 Anion Gap 7 MMOL/L (8-16) L 11/14/18 12:15 BUN 43 mg/dL (7-18) H 11/14/18 12:15 Creatinine 1.0 mg/dL (0.55-1.3) 11/14/18 12:15 Creat Clearance w eGFR 52.82 (>60) 11/14/18 12:15 Random Glucose 232 mg/dL (74-106) H 11/14/18 12:15 Calcium 9.6 mg/dL (8.5-10.1) 11/14/18 12:15 Magnesium 2.6 mg/dL (1.8-2.4) H 11/14/18 12:15 Ferritin 25.5 ng/ml (8-388) 11/14/18 14:29 Total Bilirubin 1.4 mg/dL (0.2-1) H 11/14/18 12:15 AST 337 U/L (15-37) H 11/14/18 12:15 ALT 248 U/L (13-61) H 11/14/18 12:15 Alkaline Phosphatase 96 U/L (45-117) 11/14/18 12:15 Troponin I 0.51 ng/ml (0.00-0.05) H 11/14/18 12:15 B-Natriuretic Peptide 6522.5 pg/ml (5-450) H 11/14/18 12:15 Total Protein 5.9 g/dl (6.4-8.2) L 11/14/18 12:15 Albumin 3.1 g/dl (3.4-5.0) L 11/14/18 12:15 Stool Occult Blood Negative (NEGATIVE) 11/14/18 14:20 Blood Type O POSITIVE 11/14/18 13:00 Antibody Screen Negative 11/14/18 13:00 Crossmatch See Detail 11/14/18 13:00 ecg: sr, no ischemic changes cath 12/2017 (after +mibi): non obs cad echo 06/2018: mild-mod dec lvef, global hk, nl rv, lae, mild-mod mr, mild tr, mod as, nl rvsp cxr: clear lungs a/p: 83 f hx hld, htn, syst chf, dm, copd, dvt, afib, as, non obs cad, here with sob. sob, anemia, acute systolic chf: -pt with severe anemia as well as vol overload, likely both contributing to sob -agree with prbcs and iv lasix 80 mg qd -daily wts, chem7 anemia: -?related to leg hematoma -transfuse prbcs -hold home xarelto cad, pos trops: -pt had recent cath 12/2017 with non obstructive cad -trops in borderline range here, continue to trend. likely represents demand from anemia/chf and not acs afib: -in sr here -holding xarelto in setting of anemia hld: -cont home statin htn: -hold home meds in setting of severe anemia, monitor bp
[2018-11-14] MEDS ORDERED: FUROSEMIDE 40 MG/4 ML INJECTABLE VIAL ONE (18:00)
[2018-11-14] MEDS ORDERED: ASPIRIN 81 MG CHEWABLE TABLETS ONE (18:01)
--- NOTE | 2018-11-14 20:28 | HP ---
Admitting History and Physical - Primary Care Physician PCP: David Brown - Admission Chief Complaint: SOB History of Present Illness: Pt with known COPD, CHF, a Fib on AC, recent fall was seen today in Dr Huynh office, noticed to be SOB and referred to ER for further evaluation. Pt was found to be anemic, in acute CHF exacerbation. History Source: Patient - Past Medical History Cardiovascular: Yes: CAD, CHF Pulmonary: Yes: Bronchitis, COPD, Pneumonia Gastrointestinal: Yes: GERD Endocrine: Yes: Diabetes Mellitus - Advance Directives Advance Directives: Yes: MOLST - Smoking History Smoking history: Never smoked Have you smoked in the past 12 months: No - Alcohol/Substance Use Hx Alcohol Use: No Home Medications - Allergies Allergies/Adverse Reactions: Allergies Allergy/AdvReac Type Severity Reaction Status Date / Time vancomycin Allergy Severe Rash Verified 11/14/18 17:28 dextromethorphan Allergy Intermediate CONGESTION Verified 11/14/18 17:28 [From Mucinex DM] guaifenesin [From Mucinex DM] Allergy Intermediate CONGESTION Verified 11/14/18 17:28 pollen extracts Allergy Intermediate CONGESTION Verified 11/14/18 17:28 ragweed pollen Allergy Intermediate CONGESTION Verified 11/14/18 17:28 ampicillin Allergy Mild Rash Verified 11/14/18 17:28 - Home Medications Home Medications: Ambulatory Orders Acetaminophen 650 mg PO Q4H 11/14/18 Acetylcysteine Po/INH 20% [Mucomyst 20 Oral / INH Use Only*] 5 ml PO BID Acidoph/L.bulg/Bif.b/S.thermop [[place]mani-Bid Caplet] 1 each PO TID 11/14/18 Albuterol 0.083% Nebulizer Isamar [Ventolin 0.083% Nebulizer Soln -] 1 amp NEB BID 11/14/18 Albuterol 0.083% Nebulizer Isamar [Ventolin 0.083% Nebulizer Soln -] 1 neb NEB DAILY PRN 11/14/18 Aspirin 81 mg PO DAILY 11/14/18 Benzocaine/Menthol [Cepacol Sore Throat Lozenge] 1 each PO Q2H PRN 11/14/18 Budesonide/Formeterol Fumarate [SYMBICORT 160/4.5mcg -] 1 inh PO BID 11/14/18 Calcium Citrate/Vitamin D3 [[place] Calcium + D Tablet] 2 tab PO DAILY 11/14/18 Cholecalciferol (Vitamin D3) [Vitamin D3] 1,000 unit PO DAILY 11/14/18 Docusate Sodium [Colace] 300 mg PO DAILY 11/14/18 Escitalopram Oxalate [Lexapro -] 5 mg PO DAILY 11/14/18 Fluticasone Propionate [Flovent Diskus] 50 mcg IH DAILY 11/14/18 Folic Acid/Multivit-Min/Lutein [Multi-Vitamin Gummies] 1 each PO DAILY 11/14/18 Furosemide [Lasix -] 80 mg PO DAILY 11/14/18 Insulin (Novolog) [Novolog] 0 units SQ BID 11/14/18 Lorazepam 0.5 mg PO BID 11/14/18 Melatonin 10 mg PO HS 11/14/18 Metolazone 2.5 mg PO ASDIR 11/14/18 Metoprolol Succinate 25 mg PO DAILY 11/14/18 Montelukast Na [Singulair -] 10 mg PO HS 11/14/18 Nutritional Supplement [Hi-Eliezer] 4 oz PO DAILY 11/14/18 Omeprazole 20 mg PO DAILY 11/14/18 Oxycodone HCl/Acetaminophen [Oxycodone-Acetaminophen 5-325] 1 each PO Q4H PRN Oxymetazoline 0.05% Nasal Soln [Afrin -] 2 spr NS Q6H PRN 11/14/18 Polyethylene Glycol 3350 [Miralax (For Daily Use) -] 17 gm PO DAILY 11/14/18 Potassium Chloride [K-Dur -] 10 meq PO DAILY 11/14/18 Prednisolone 1% Ophthalmic [Pred Forte 1% -] 5 ml OS BID 11/14/18 Rivaroxaban [Xarelto -] 20 mg PO HS 11/14/18 Silver Sulfadiazine 1% Top Cr [Silvadene -] 1 applic TP BID 11/14/18 Simethicone 80 mg PO BID 11/14/18 Zolpidem Tartrate 10 mg PO HS 11/14/18 metFORMIN HCL [Metformin HCl] 500 mg PO BID 11/14/18 predniSONE [Deltasone -] 20 mg PO DAILY 11/14/18 Review of Systems - Review of Systems Constitutional: denies: Chills, Fever Eyes: denies: Blurred Vision, Double Vision HENT: denies: Ear Discharge, Ear Pain, Nasal Congestion, Throat Pain Neck: denies: Pain on Movement, Stiffness Cardiovascular: denies: Chest Pain, Edema, Palpitations Respiratory: reports: Cough (chronic, with white sputum), SOB, SOB on Exertion Gastrointestinal: denies: Abdominal Pain, Nausea, Vomiting Genitourinary: denies: Burning, Frequency Musculoskeletal: denies: Back Pain, Extremity Pain Integumentary: reports: Blister (of right leg since yesterday) Neurological: denies: Change in LOC, Change in Speech Endocrine: denies: Excessive Sweating, Intolerance to Cold Hematology/Lymphatic: reports: Easily Bruised. denies: Excessive Bleeding Psychiatric: reports: Altered Sleep Pattern. denies: Depression Physical Examination Vital Signs: Vital Signs Temperature 98.3 F 11/14/18 18:15 Pulse Rate 73 11/14/18 18:15 Respiratory Rate 22 H 11/14/18 18:15 Blood Pressure 118/51 L 11/14/18 18:15 O2 Sat by Pulse Oximetry (%) 100 11/14/18 18:15 Constitutional: Yes: No Distress, Calm Eyes: Yes: Conjunctiva Clear, EOM Intact, PERRL HENT: Yes: Pharyngeal Erythema. No: Epistaxis, Rhinnorhea Neck: Yes: Trachea Midline. No: Lymphadenopathy Cardiovascular: Yes: Regular Rate and Rhythm, S1, S2 Respiratory: Yes: Regular, Rhonchi, Other (+ crackles). No: CTA Bilaterally Gastrointestinal: Yes: Normal Bowel Sounds, Soft, Abdomen, Obese ...Rectal Exam: Yes: Deferred Breast(s): Yes: Other (deffered) Edema: Yes Edema: LLE: 3+, RLE: 3+ Integumentary: Yes: Bruising (of both legs, R >> L. + 8 X 4 cm hemorrhagic blister, R pretibial.). No: Jaundice Neurological: Yes: Alert, Oriented, Other (motor and sensory is symmetric in UE / LE/ face) Psychiatric: Yes: Alert, Oriented Labs: CBC, BMP 11/14/18 12:15 11/14/18 12:15 Imaging - Results Chest X-ray: Report Reviewed Ultrasound: Report Reviewed Problem List - Problems (1) Acute exacerbation of CHF (congestive heart failure) Code(s): I50.9 - HEART FAILURE, UNSPECIFIED (2) Anemia Code(s): D64.9 - ANEMIA, UNSPECIFIED Qualifiers: Anemia type: unspecified type Qualified Code(s): D64.9 - Anemia, unspecified (3) Elevated troponin Code(s): R74.8 - ABNORMAL LEVELS OF OTHER SERUM ENZYMES (4) Elevated LFTs Code(s): R94.5 - ABNORMAL RESULTS OF LIVER FUNCTION STUDIES (5) CHF (congestive heart failure) Code(s): I50.9 - HEART FAILURE, UNSPECIFIED Qualifiers: Heart failure type: unspecified Heart failure chronicity: unspecified Qualified Code(s): I50.9 - Heart failure, unspecified (6) CAD (coronary artery disease) Code(s): I25.10 - ATHSCL HEART DISEASE OF [place] CORONARY ARTERY W/O ANG PCTRS Qualifiers: Coronary Disease-Associated Artery/Lesion type: [place] artery [place] vs. transplanted heart: [place] heart Associated angina: angina presence unspecified Qualified Code(s): I25.10 - Atherosclerotic heart disease of [place] coronary artery without angina pectoris (7) COPD (chronic obstructive pulmonary disease) Code(s): J44.9 - CHRONIC OBSTRUCTIVE PULMONARY DISEASE, UNSPECIFIED Qualifiers: COPD type: unspecified COPD Qualified Code(s): J44.9 - Chronic obstructive pulmonary disease, unspecified (8) DM type 2 (diabetes mellitus, type 2) Code(s): E11.9 - TYPE 2 DIABETES MELLITUS WITHOUT COMPLICATIONS Qualifiers: Diabetes mellitus long-term insulin use: with long-term use Diabetes mellitus complication status: with circulatory complication Diabetes mellitus complication detail: with other circulatory complications Qualified Code(s): E11.59 - Type 2 diabetes mellitus with other circulatory complications; 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
[2018-11-14] MEDS: MONTELUKAST NA 10 MG TABLET PO SCH (21:56)
[2018-11-14] MEDS: LORazepam 0.5 MG TABLET PO SCH (22:10)
[2018-11-14] MEDS: INSULIN SLIDING SCALE (NOVOLOG) 1 VIAL SQ SCH (22:10)
[2018-11-14] MEDS: SIMETHICONE 80 MG TAB.CHEW (FP) PO SCH (22:10)
[2018-11-14] MEDS: MELATONIN 5 MG TABLETS PO SCH (22:10)
[2018-11-14] MEDS: metFORMIN HCL 500 MG TABLET (FP) PO SCH (22:10)
[2018-11-14] MEDS: prednisoLONE ACETATE 1% OPHTH SUSP 5 ML BOTTLE OS SCH (22:11)
[2018-11-14] MEDS: SILVER SULFADIAZINE 1% TOP CREAM 50 GM JAR TP SCH (22:11)
[2018-11-14] MEDS: BUDESONIDE/FORMETEROL FUMARATE 160/4.5 mcg INHALER IH SCH (22:11)
[2018-11-14] MEDS: ZOLPIDEM TARTRATE 5 MG TABLET PO PRN (22:12)
[2018-11-15] MEDS: INSULIN SLIDING SCALE (NOVOLOG) 1 VIAL SQ SCH ×4 (06:07→21:11)
[2018-11-15] MEDS: metFORMIN HCL 500 MG TABLET (FP) PO SCH ×2 (06:08→17:45)
[2018-11-15] MEDS: ALBUTEROL SO4 0.083% IH SOL 2.5 MG/3 ML VIAL.NEB. NEB SCH (07:30)
[2018-11-15] MEDS ORDERED: POTASSIUM CHLORIDE TABS 10 MEQ TABLET.ER (FP) PO SCH (10:00)
[2018-11-15] MEDS ORDERED: predniSONE 5 MG TABLET (UD) PO SCH (10:00)
[2018-11-15] MEDS ORDERED: predniSONE 20 MG TABLET (UD) PO SCH (10:00)
[2018-11-15] MEDS ORDERED: predniSONE 10 MG TABLET (UD) ONE (10:01)
--- NOTE | 2018-11-15 10:14 | EKG ---
Test Reason : Blood Pressure : / mmHG Vent. Rate : 078 BPM Atrial Rate : 078 BPM P-R Int : 152 ms QRS Dur : 104 ms QT Int : 408 ms P-R-T Axes : 030 -46 -70 degrees QTc Int : 465 ms POOR DATA QUALITY, INTERPRETATION MAY BE ADVERSELY AFFECTED NORMAL SINUS RHYTHM LEFT AXIS DEVIATION RSR' OR QR PATTERN IN V1 SUGGESTS RIGHT VENTRICULAR CONDUCTION DELAY INFERIOR INFARCT , AGE UNDETERMINED ANTEROLATERAL INFARCT , AGE UNDETERMINED ABNORMAL ECG WHEN COMPARED WITH ECG OF 10-JUL-2018 19:07, SIGNIFICANT CHANGES HAVE OCCURRED Confirmed by JYOTI GILL MD ([id number]) on 11/15/2018 10:13:31 AM Referred By: Confirmed By:JYOTI GILL MD
[2018-11-15] MEDS: LORazepam 0.5 MG TABLET PO SCH ×2 (10:58→21:17)
[2018-11-15] MEDS: DOCUSATE SODIUM 100 MG CAPSULE (FP) PO SCH (10:58)
[2018-11-15] MEDS: POLYETHYLENE GLYCOL 3350 119 GM BTL PO SCH (10:59)
[2018-11-15] MEDS: prednisoLONE ACETATE 1% OPHTH SUSP 5 ML BOTTLE OS SCH ×2 (10:59→21:17)
[2018-11-15] MEDS: SIMETHICONE 80 MG TAB.CHEW (FP) PO SCH ×2 (10:59→21:17)
[2018-11-15] MEDS: ESCITALOPRAM OXALATE 10 MG TABLET (FP) PO SCH (11:00)
[2018-11-15] MEDS: PANTOPRAZOLE 40 MG TABLET (FP) PO SCH (11:00)
[2018-11-15] MEDS: SILVER SULFADIAZINE 1% TOP CREAM 50 GM JAR TP SCH ×2 (11:00→21:17)
[2018-11-15] MEDS: BUDESONIDE/FORMETEROL FUMARATE 160/4.5 mcg INHALER IH SCH ×2 (11:00→21:17)
[2018-11-15] MEDS: metoPROLOL SUCCINATE 25 MG TAB.SR.24H (FP) PO SCH (11:00)
[2018-11-15] MEDS: FLUTICASONE PROP 0.05% 16 GM NASAL SPRAY NS SCH (11:01)
[2018-11-15] MEDS: FUROSEMIDE 40 MG/4 ML INJECTABLE VIAL IVPUSH SCH (11:01)
[2018-11-15 11:03] LABS: HEMATOCRIT 25.1 % (32.4-45.2); HEMOGLOBIN 7.7 GM/dL (10.7-15.3); MCHC 30.6 g/dl (32.0-36.0); MEAN CELL VOLUME 68.8 fl (80-96); MEAN PLT VOLUME 7.6 fl (7.5-11.1); PLATELET COUNT 257 K/MM3 (134-434); RBC 3.65 M/mm3 (3.60-5.2); RDW 23.1 % (11.6-15.6); WHITE BLOOD COUNT 8.2 K/mm3 (4.0-10.0)
[2018-11-15 11:50] LABS: ALBUMIN 2.9 g/dl (3.4-5.0); ALK PHOS 87 U/L (45-117); ANION GAP 7 MMOL/L (8-16); BILIRUBIN,TOTAL 1.9 mg/dL (0.2-1); BLOOD UREA NITROGEN 37 mg/dL (7-18); CHLORIDE 101 mmol/L (98-107); CO2 35 mmol/L (21-32); CREATININE 0.8 mg/dL (0.55-1.3); GLUCOSE,RANDOM 113 mg/dL (74-106); POTASSIUM 3.7 mmol/L (3.5-5.1); SGOT/AST 201 U/L (15-37); SGPT/ALT 216 U/L (13-61); SODIUM 142 mmol/L (136-145); TOT PROT 5.3 g/dl (6.4-8.2)
--- NOTE | 2018-11-15 12:02 | PN ---
Progress Note (short form) - Note Progress Note: s: still sob, stable edema. no chest pain, palps, dizziness Current Medications Albuterol Sulfate (Ventolin 0.083% Nebulizer Soln -) 1 amp NEB RBID [facility] Last Admin: 11/15/18 07:30 Dose: Not Given Budesonide/Formoterol Fumarate (Symbicort 160/4.5mcg -) 2 puff IH BID [facility] Last Admin: 11/15/18 11:00 Dose: 2 puff Docusate Sodium (Colace -) 300 mg PO DAILY [facility] Last Admin: 11/15/18 10:58 Dose: 300 mg Escitalopram Oxalate (Lexapro -) 5 mg PO DAILY [facility] Last Admin: 11/15/18 11:00 Dose: 5 mg Fluticasone Propionate (Flonase -) 1 spray NS DAILY [facility] Last Admin: 11/15/18 11:01 Dose: 1 spray Furosemide (Lasix Injection -) 80 mg IVPUSH DAILY [facility] Last Admin: 11/15/18 11:01 Dose: 80 mg Insulin Aspart (Novolog Vial Sliding Scale -) 1 vial SQ ACHS [facility]; Protocol Last Admin: 11/15/18 06:07 Dose: Not Given Lorazepam (Ativan -) 0.5 mg PO BID [facility] Last Admin: 11/15/18 10:58 Dose: 0.5 mg Melatonin (Melatonin) 10 mg PO HS [facility] Last Admin: 11/14/18 22:10 Dose: 10 mg Metformin HCl (Glucophage -) 500 mg PO BIDAC [facility] Last Admin: 11/15/18 06:08 Dose: 500 mg Metoprolol Succinate (Toprol Xl -) 25 mg PO DAILY [facility] Last Admin: 11/15/18 11:00 Dose: 25 mg Montelukast Sodium (Singulair -) 10 mg PO HS [facility] Last Admin: 11/14/18 21:56 Dose: 10 mg Pantoprazole Sodium (Protonix -) 40 mg PO DAILY [facility] Polyethylene Glycol (Miralax (For Daily Use) -) 17 gm PO DAILY [facility] Last Admin: 11/15/18 10:59 Dose: 17 grams Prednisolone Acetate (Pred Forte 1% -) 1 drop OS BID [facility] Last Admin: 11/15/18 10:59 Dose: 1 drop Prednisone 30 mg/ Prednisone 5 (mg) 35 mg PO DAILY [facility] Last Admin: 11/15/18 10:59 Dose: 35 mg Silver Sulfadiazine (Silvadene -) 1 applic TP BID [facility] Last Admin: 11/15/18 11:00 Dose: 1 applic Simethicone (Mylicon -) 80 mg PO BID [facility] Last Admin: 11/15/18 10:59 Dose: 80 mg Zolpidem Tartrate (Ambien -) 5 mg PO HS PRN PRN Reason: INSOMNIA Last Admin: 11/14/18 22:12 Dose: 5 mg Vital Signs Period Temp Pulse Resp BP Sys/Garcia Pulse Ox Last 24 Hr 97.7 F-98.7 F 71-76 16-22 102-122/50-78 94-100 nad, +jvd rrr, s1s2 no mrg cta bl nl eff aao3 2+ le edema bl, R lindsey + bandages no jaundice diaphoresis pos dp pt no carotid bruits abd nt nd pos bs ecg: sr, no ischemic changes cath 12/2017 (after +mibi): non obs cad echo 06/2018: mild-mod dec lvef, global hk, nl rv, lae, mild-mod mr, mild tr, mod as, nl rvsp cxr: clear lungs a/p: 83 f hx hld, htn, syst chf, dm, copd, dvt, afib, as, non obs cad, here with sob. sob, anemia, acute systolic chf: -pt with severe anemia as well as vol overload, likely both contributing to sob -received prbcs and iv lasix 80 mg qd - stable Cr, continue lasix 80 mg IV daily -daily wts, chem7 anemia: -?related to leg hematoma -s/p transfusion prbcs -hold home xarelto cad, pos trops: -pt had recent cath 12/2017 with non obstructive cad -trops in borderline range here, flat trend. likely represents demand from anemia/chf and not acs afib: -in sr here -holding xarelto in setting of anemia hld: -cont home statin htn: -hold home meds in setting of severe anemia, monitor bp
[2018-11-15] MEDS ORDERED: ALBUTEROL SO4 0.083% IH SOL 2.5 MG/3 ML VIAL.NEB. NEB ONE (14:09)
--- NOTE | 2018-11-15 14:13 | CON.PULM ---
Consult Consult Specialty:: PULMONARY Referred by:: Dr Brown Reason for Consultation:: shortness of breath - History of Present Illness Chief Complaint: shortness of breath History of Present Illness: 83yo female with h/o HTN, hyperlipidemia, DM, LV systolic dysfunction, COPD, atrial fibrillation, CAD, aortic stenosis who was admitted with worsening shortness of breath. Denies chest pain or palpitations. +nonproductive cough without wheezing. No fevers, chills or sweats. Noted to be anemic on admission with Hgb 5.8 now s/p 2 units PRBC transfusions with appropriate response. She is nonsmoker but reports history of COPD. - History Source History Provided By: Patient, Medical Record Limitations to Obtaining History: Clinical Condition - Past Medical History Cardio/Vascular: Yes: CAD, CHF Pulmonary: Yes: Bronchitis, COPD, Pneumonia Gastrointestinal: Yes: GERD Endocrine: Yes: Diabetes Mellitus - Alcohol/Substance Use Hx Alcohol Use: No - Smoking History Smoking history: Never smoked Have you smoked in the past 12 months: No Home Medications - Allergies Allergies/Adverse Reactions: Allergies Allergy/AdvReac Type Severity Reaction Status Date / Time vancomycin Allergy Severe Rash Verified 11/14/18 17:28 dextromethorphan Allergy Intermediate CONGESTION Verified 11/14/18 17:28 [From Mucinex DM] guaifenesin [From Mucinex DM] Allergy Intermediate CONGESTION Verified 11/14/18 17:28 pollen extracts Allergy Intermediate CONGESTION Verified 11/14/18 17:28 ragweed pollen Allergy Intermediate CONGESTION Verified 11/14/18 17:28 ampicillin Allergy Mild Rash Verified 11/14/18 17:28 - Home Medications Home Medications: Ambulatory Orders Acetaminophen 650 mg PO Q4H 11/14/18 Acetylcysteine Po/INH 20% [Mucomyst 20 Oral / INH Use Only*] 5 ml PO BID Acidoph/L.bulg/Bif.b/S.thermop [Imani-Bid Caplet] 1 each PO TID 11/14/18 Albuterol 0.083% Nebulizer Isamar [Ventolin 0.083% Nebulizer Soln -] 1 amp NEB BID 11/14/18 Albuterol 0.083% Nebulizer Isamar [Ventolin 0.083% Nebulizer Soln -] 1 neb NEB DAILY PRN 11/14/18 Aspirin 81 mg PO DAILY 11/14/18 Benzocaine/Menthol [Cepacol Sore Throat Lozenge] 1 each PO Q2H PRN 11/14/18 Budesonide/Formeterol Fumarate [SYMBICORT 160/4.5mcg -] 1 inh PO BID 11/14/18 Calcium Citrate/Vitamin D3 [Dawson Calcium + D Tablet] 2 tab PO DAILY 11/14/18 Cholecalciferol (Vitamin D3) [Vitamin D3] 1,000 unit PO DAILY 11/14/18 Docusate Sodium [Colace] 300 mg PO DAILY 11/14/18 Escitalopram Oxalate [Lexapro -] 5 mg PO DAILY 11/14/18 Fluticasone Propionate [Flovent Diskus] 50 mcg IH DAILY 11/14/18 Folic Acid/Multivit-Min/Lutein [Multi-Vitamin Gummies] 1 each PO DAILY 11/14/18 Furosemide [Lasix -] 80 mg PO DAILY 11/14/18 Insulin (Novolog) [Novolog] 0 units SQ BID 11/14/18 Lorazepam 0.5 mg PO BID 11/14/18 Melatonin 10 mg PO HS 11/14/18 Metolazone 2.5 mg PO ASDIR 11/14/18 Metoprolol Succinate 25 mg PO DAILY 11/14/18 Montelukast Na [Singulair -] 10 mg PO HS 11/14/18 Nutritional Supplement [Hi-Eliezer] 4 oz PO DAILY 11/14/18 Omeprazole 20 mg PO DAILY 11/14/18 Oxycodone HCl/Acetaminophen [Oxycodone-Acetaminophen 5-325] 1 each PO Q4H PRN Oxymetazoline 0.05% Nasal Soln [Afrin -] 2 spr NS Q6H PRN 11/14/18 Polyethylene Glycol 3350 [Miralax (For Daily Use) -] 17 gm PO DAILY 11/14/18 Potassium Chloride [K-Dur -] 10 meq PO DAILY 11/14/18 Prednisolone 1% Ophthalmic [Pred Forte 1% -] 5 ml OS BID 11/14/18 Rivaroxaban [Xarelto -] 20 mg PO HS 11/14/18 Silver Sulfadiazine 1% Top Cr [Silvadene -] 1 applic TP BID 11/14/18 Simethicone 80 mg PO BID 11/14/18 Zolpidem Tartrate 10 mg PO HS 11/14/18 metFORMIN HCL [Metformin HCl] 500 mg PO BID 11/14/18 predniSONE [Deltasone -] 20 mg PO DAILY 11/14/18 Review of Systems - Review of Systems Constitutional: reports: Weakness. denies: Chills, Fever Eyes: denies: Recent Change in Vision HENT: denies: Nasal Congestion, Throat Pain Neck: denies: Stiffness, Tenderness Cardiovascular: reports: Edema, Shortness of Breath. denies: Chest Pain Respiratory: reports: Cough. denies: Hemoptysis, Wheezing Gastrointestinal: denies: Abdominal Pain, Nausea, Vomiting Genitourinary: denies: Dysuria, Hematuria Integumentary: reports: Bruising Endocrine: denies: Unexplained Weight Loss Physical Exam Vital Sings: Vital Signs Temperature 98.5 F 11/15/18 10:00 Pulse Rate 72 11/15/18 10:00 Respiratory Rate 20 11/15/18 10:00 Blood Pressure 119/52 L 11/15/18 10:00 O2 Sat by Pulse Oximetry (%) 94 L 11/15/18 09:00 Constitutional: Yes: Mild Distress Eyes: Yes: Conjunctiva Clear, EOM Intact HENT: Yes: Atraumatic, Normocephalic Neck: Yes: Supple, Trachea Midline Cardiovascular: Yes: Pulse Irregular Respiratory: Yes: Diminished (distant breath sounds) ...Clubbing: No Gastrointestinal: Yes: Normal Bowel Sounds, Soft. No: Tenderness Edema: Yes Neurological: Yes: Alert, Oriented Labs: CBC, BMP 11/15/18 10:40 11/15/18 10:40 Imaging - Results Chest X-ray: Report Reviewed, Image Reviewed (cardiomegaly) Assessment/Plan Acute on Chronic Systolic Heart Failure r/o Acute COPD Exacerbation Anemia s/p PRBC transfusions Atrial Fibrillation +Troponins likely Demand Ischemia HTN DM Hyperlipidemia h/o DVT - continue lasix - monitor urine output, creatinine - empiric short course of medrol x 48hrs - inhaled bronchodilators - o2 to keep SpO2 >90% - rate controlled - resume anticoagulation if H/H stable Thank you for this consult John Cadena MD
[2018-11-15] MEDS ORDERED: ASPIRIN COATED 81 MG TABLET.EC PO ONE (14:23)
[2018-11-15] MEDS ORDERED: FUROSEMIDE 40 MG/4 ML INJECTABLE VIAL IVPUSH ONE (14:51)
--- NOTE | 2018-11-15 14:52 | PN ---
Progress Note, Physician History of Present Illness: Pt breathing is the same. Pt w/o CP, palpitation, abd pain. - Current Medication List Current Medications: Active Medications Albuterol Sulfate (Ventolin 0.083% Nebulizer Soln -) 1 amp NEB Q4H PRN PRN Reason: SHORT OF BREATH/WHEEZING Albuterol/Ipratropium (Duoneb -) 1 amp NEB RTID [facility] Budesonide/Formoterol Fumarate (Symbicort 160/4.5mcg -) 2 puff IH BID [facility] Last Admin: 11/15/18 11:00 Dose: 2 puff Docusate Sodium (Colace -) 300 mg PO DAILY [facility] Last Admin: 11/15/18 10:58 Dose: 300 mg Escitalopram Oxalate (Lexapro -) 5 mg PO DAILY [facility] Last Admin: 11/15/18 11:00 Dose: 5 mg Fluticasone Propionate (Flonase -) 1 spray NS DAILY [facility] Last Admin: 11/15/18 11:01 Dose: 1 spray Furosemide (Lasix Injection -) 80 mg IVPUSH DAILY [facility] Last Admin: 11/15/18 11:01 Dose: 80 mg Insulin Aspart (Novolog Vial Sliding Scale -) 1 vial SQ ACHS [facility]; Protocol Last Admin: 11/15/18 12:29 Dose: Not Given Lorazepam (Ativan -) 0.5 mg PO BID [facility] Last Admin: 11/15/18 10:58 Dose: 0.5 mg Melatonin (Melatonin) 10 mg PO HS [facility] Last Admin: 11/14/18 22:10 Dose: 10 mg Metformin HCl (Glucophage -) 500 mg PO BIDAC [facility] Last Admin: 11/15/18 06:08 Dose: 500 mg Methylprednisolone Sodium Succinate (Solu-Medrol -) 40 mg IVPUSH Q8H-IV [facility] Stop: 11/17/18 02:01 Metoprolol Succinate (Toprol Xl -) 25 mg PO DAILY [facility] Last Admin: 11/15/18 11:00 Dose: 25 mg Montelukast Sodium (Singulair -) 10 mg PO HS [facility] Last Admin: 11/14/18 21:56 Dose: 10 mg Pantoprazole Sodium (Protonix -) 40 mg PO DAILY [facility] Last Admin: 11/15/18 11:00 Dose: 40 mg Polyethylene Glycol (Miralax (For Daily Use) -) 17 gm PO DAILY [facility] Last Admin: 11/15/18 10:59 Dose: 17 grams Prednisolone Acetate (Pred Forte 1% -) 1 drop OS BID [facility] Last Admin: 11/15/18 10:59 Dose: 1 drop Silver Sulfadiazine (Silvadene -) 1 applic TP BID [facility] Last Admin: 11/15/18 11:00 Dose: 1 applic Simethicone (Mylicon -) 80 mg PO BID [facility] Last Admin: 11/15/18 10:59 Dose: 80 mg Zolpidem Tartrate (Ambien -) 5 mg PO HS PRN PRN Reason: INSOMNIA Last Admin: 11/14/18 22:12 Dose: 5 mg - Objective Vital Signs: Vital Signs Temperature 98.5 F 11/15/18 10:00 Pulse Rate 72 11/15/18 10:00 Respiratory Rate 20 11/15/18 10:00 Blood Pressure 119/52 L 11/15/18 10:00 O2 Sat by Pulse Oximetry (%) 94 L 11/15/18 09:00 Constitutional: Yes: No Distress, Calm Cardiovascular: Yes: Regular Rate and Rhythm, S1, S2 Respiratory: Yes: Regular, Rales (bilaterally) Gastrointestinal: Yes: Normal Bowel Sounds, Soft. No: Tenderness Edema: Yes Edema: LLE: 2+, RLE: 2+ Integumentary: Yes: Bruising, Other (Blister of right leg) Neurological: Yes: Alert, Oriented Labs: CBC, BMP 11/15/18 10:40 11/15/18 10:40 INR, PTT INR 2.64 (0.83-1.09) H 11/14/18 12:15 Problem List - Problems (1) Acute exacerbation of CHF (congestive heart failure) Code(s): I50.9 - HEART FAILURE, UNSPECIFIED (2) Anemia Code(s): D64.9 - ANEMIA, UNSPECIFIED Qualifiers: Anemia type: unspecified type Qualified Code(s): D64.9 - Anemia, unspecified (3) Elevated troponin Code(s): R74.8 - ABNORMAL LEVELS OF OTHER SERUM ENZYMES (4) Elevated LFTs Code(s): R94.5 - ABNORMAL RESULTS OF LIVER FUNCTION STUDIES (5) CHF (congestive heart failure) Code(s): I50.9 - HEART FAILURE, UNSPECIFIED Qualifiers: Heart failure type: unspecified Heart failure chronicity: unspecified Qualified Code(s): I50.9 - Heart failure, unspecified (6) CAD (coronary artery disease) Code(s): I25.10 - ATHSCL HEART DISEASE OF [place] CORONARY ARTERY W/O ANG PCTRS Qualifiers: Coronary Disease-Associated Artery/Lesion type: [place] artery [place] vs. transplanted heart: [place] heart Associated angina: angina presence unspecified Qualified Code(s): I25.10 - Atherosclerotic heart disease of [place] coronary artery without angina pectoris (7) COPD (chronic obstructive pulmonary disease) Code(s): J44.9 - CHRONIC OBSTRUCTIVE PULMONARY DISEASE, UNSPECIFIED Qualifiers: COPD type: unspecified COPD Qualified Code(s): J44.9 - Chronic obstructive pulmonary disease, unspecified (8) DM type 2 (diabetes mellitus, type 2) Code(s): E11.9 - TYPE 2 DIABETES MELLITUS WITHOUT COMPLICATIONS Qualifiers: Diabetes mellitus senior care insulin use: with terminal superintendent use Diabetes mellitus complication status: with circulatory complication Diabetes mellitus complication detail: with other circulatory complications Qualified Code(s): E11.59 - Type 2 diabetes mellitus with other circulatory complications; Z79.4 - rat exterminator (current) use of insulin (9) HTN (hypertension) Code(s): I10 - ESSENTIAL (PRIMARY) HYPERTENSION Qualifiers: Hypertension type: essential hypertension Qualified Code(s): I10 - Essential (primary) hypertension (10) Insomnia Code(s): G47.00 - INSOMNIA, UNSPECIFIED Assessment/Plan s/p 2 units of PRBC To transfuse one more unit of PRBC to bring Hb above 8; f/u H/H Lasix IV Cardio, Pulmonary consults are appreciated. GI consult AM labs Case was d/w pt's nurse.t
[2018-11-15] MEDS: methylPREDNISolone NA SUCC 40 MG/1 ML VIAL IVPUSH SCH ×2 (17:00→19:03)
[2018-11-15] MEDS: ALBUTEROL SO4 2.5/IPRATROPIUM 0.5 INH SOL 3 ML VIAL.NEB. NEB SCH (20:15)
[2018-11-15] MEDS ORDERED: INSULIN (NOVOLOG) ASPART 100 UNITS/ML 10ML VIAL ONE (20:44)
[2018-11-15] MEDS: MONTELUKAST NA 10 MG TABLET PO SCH (21:17)
[2018-11-15] MEDS: MELATONIN 5 MG TABLETS PO SCH (21:17)
[2018-11-16] MEDS: methylPREDNISolone NA SUCC 40 MG/1 ML VIAL IVPUSH SCH ×3 (01:46→17:23)
[2018-11-16 05:12] LABS: HEP.C VIRUS AB 0.1 s/co ratio (0.0-0.9)
[2018-11-16 06:13] LABS: HEMATOCRIT 28.9 % (32.4-45.2); MCHC 31.3 g/dl (32.0-36.0); MEAN CELL VOLUME 70.4 fl (80-96); MEAN PLT VOLUME 7.9 fl (7.5-11.1); PLATELET COUNT 250 K/MM3 (134-434); RDW 24.4 % (11.6-15.6); WHITE BLOOD COUNT 6.3 K/mm3 (4.0-10.0)
[2018-11-16] MEDS: metFORMIN HCL 500 MG TABLET (FP) PO SCH ×2 (06:17→17:22)
[2018-11-16] MEDS: INSULIN SLIDING SCALE (NOVOLOG) 1 VIAL SQ SCH ×4 (06:17→21:09)
[2018-11-16 06:42] LABS: ALBUMIN 2.8 g/dl (3.4-5.0); ALK PHOS 90 U/L (45-117); ANION GAP 6 MMOL/L (8-16); BILIRUBIN,TOTAL 1.9 mg/dL (0.2-1); BLOOD UREA NITROGEN 27 mg/dL (7-18); CALCIUM 8.5 mg/dL (8.5-10.1); CHLORIDE 100 mmol/L (98-107); CO2 37 mmol/L (21-32); CREATININE 0.6 mg/dL (0.55-1.3); GLUCOSE,RANDOM 182 mg/dL (74-106); POTASSIUM 4.1 mmol/L (3.5-5.1); SGOT/AST 119 U/L (15-37); SGPT/ALT 173 U/L (13-61); SODIUM 143 mmol/L (136-145); TOT PROT 5.3 g/dl (6.4-8.2)
[2018-11-16 06:43] LABS: INR 1.22 (0.83-1.09); PROTHROMBIN TIME (PATIENT) 14.4 SEC (9.7-13.0)
[2018-11-16] MEDS: ALBUTEROL SO4 2.5/IPRATROPIUM 0.5 INH SOL 3 ML VIAL.NEB. NEB SCH ×3 (07:38→20:31)
[2018-11-16] MEDS: ALBUTEROL SO4 0.083% IH SOL 2.5 MG/3 ML VIAL.NEB. NEB SCH (08:05)
[2018-11-16 08:06] LABS: SERUM IRON SATURATION 8 % (15-55); TOTAL IRON BINDING CAPACITY 334 ug/dL (250-450); UIBC 308 ug/dL (118-369)
--- NOTE | 2018-11-16 09:12 | PN ---
Progress Note (short form) - Note Progress Note: Resting in NAD in bed. Noted fall overnight. S/P pRBCs yesterday. Still with non-productive cough. No CP. Intake & Output 11/13/18 11/14/18 11/15/18 11/16/18 23:59 23:59 23:59 23:59 Intake Total 850 1800 100 Balance 850 1800 100 Weight 185 lb 171 lb 1 oz Last Vital Signs Temp Pulse Resp BP Pulse Ox 97.9 F 72 20 133/66 94 L 11/16/18 06:18 11/16/18 06:18 11/16/18 06:18 11/16/18 06:18 11/15/18 21:00 Active Medications Albuterol Sulfate (Ventolin 0.083% Nebulizer Soln -) 1 amp NEB Q4H PRN PRN Reason: SHORT OF BREATH/WHEEZING Albuterol/Ipratropium (Duoneb -) 1 amp NEB RTID [facility] Last Admin: 11/16/18 07:38 Dose: 1 amp Budesonide/Formoterol Fumarate (Symbicort 160/4.5mcg -) 2 puff IH BID [facility] Last Admin: 11/15/18 21:17 Dose: 2 puff Docusate Sodium (Colace -) 300 mg PO DAILY [facility] Last Admin: 11/15/18 10:58 Dose: 300 mg Escitalopram Oxalate (Lexapro -) 5 mg PO DAILY [facility] Last Admin: 11/15/18 11:00 Dose: 5 mg Fluticasone Propionate (Flonase -) 1 spray NS DAILY [facility] Last Admin: 11/15/18 11:01 Dose: 1 spray Furosemide (Lasix Injection -) 80 mg IVPUSH DAILY [facility] Last Admin: 11/15/18 11:01 Dose: 80 mg Insulin Aspart (Novolog Vial Sliding Scale -) 1 vial SQ ACHS [facility]; Protocol Last Admin: 11/16/18 06:17 Dose: 2 units Lorazepam (Ativan -) 0.5 mg PO BID [facility] Last Admin: 11/15/18 21:17 Dose: 0.5 mg Melatonin (Melatonin) 10 mg PO HS [facility] Last Admin: 11/15/18 21:17 Dose: 10 mg Metformin HCl (Glucophage -) 500 mg PO BIDAC [facility] Last Admin: 11/16/18 06:17 Dose: 500 mg Methylprednisolone Sodium Succinate (Solu-Medrol -) 40 mg IVPUSH Q8H-IV [facility] Stop: 11/17/18 02:01 Last Admin: 11/16/18 01:46 Dose: 40 mg Metoprolol Succinate (Toprol Xl -) 25 mg PO DAILY [facility] Last Admin: 11/15/18 11:00 Dose: 25 mg Montelukast Sodium (Singulair -) 10 mg PO HS [facility] Last Admin: 11/15/18 21:17 Dose: 10 mg Pantoprazole Sodium (Protonix -) 40 mg PO DAILY [facility] Last Admin: 11/15/18 11:00 Dose: 40 mg Polyethylene Glycol (Miralax (For Daily Use) -) 17 gm PO DAILY [facility] Last Admin: 11/15/18 10:59 Dose: 17 grams Prednisolone Acetate (Pred Forte 1% -) 1 drop OS BID [facility] Last Admin: 11/15/18 21:17 Dose: 1 drop Silver Sulfadiazine (Silvadene -) 1 applic TP BID [facility] Last Admin: 11/15/18 21:17 Dose: 1 applic Simethicone (Mylicon -) 80 mg PO BID [facility] Last Admin: 11/15/18 21:17 Dose: 80 mg Zolpidem Tartrate (Ambien -) 5 mg PO HS PRN PRN Reason: INSOMNIA Last Admin: 11/14/18 22:12 Dose: 5 mg Constitutional: Yes: Mildly tachypneic at rest Eyes: Yes: Conjunctiva Clear, EOM Intact HENT: Yes: Atraumatic, Normocephalic Neck: Yes: Supple, Trachea Midline Cardiovascular: Yes: Pulse Irregular Respiratory: Yes: Diminished (distant breath sounds) ...Clubbing: No Gastrointestinal: Yes: Normal Bowel Sounds, Soft. No: Tenderness Edema: Yes Neurological: Yes: Alert, Oriented Labs: Laboratory Results - last 24 hr 11/14/18 11/15/18 11/15/18 13:00 10:40 10:40 WBC RBC Hgb Hct MCV MCH MCHC RDW Plt Count MPV Retic Count PT with INR INR Sodium 142 Potassium 3.7 Chloride 101 Carbon Dioxide 35 H Anion Gap 7 L BUN 37 H Creatinine 0.8 Creat Clearance w eGFR 68.34 POC Glucometer Random Glucose 113 H Calcium 9.0 Iron 26 L TIBC 334 Iron Saturation 8 L Total Bilirubin 1.9 H AST 201 H ALT 216 H Alkaline Phosphatase 87 Creatine Kinase 46 Troponin I 0.45 H Total Protein 5.3 L Albumin 2.9 L Hepatitis A IgM Ab Hep Bs Antigen Hep B Core IgM Ab Hepatitis C Antibody Blood Type O POSITIVE Antibody Screen Negative Crossmatch See Detail 11/15/18 11/15/18 11/15/18 10:40 10:40 10:40 WBC 8.2 RBC 3.65 Hgb 7.7 L Hct 25.1 L D MCV 68.8 L MCH 21.0 L D MCHC 30.6 L RDW 23.1 H Plt Count 257 MPV 7.6 Retic Count 2.62 H PT with INR INR Sodium Potassium Chloride Carbon Dioxide Anion Gap BUN Creatinine Creat Clearance w eGFR POC Glucometer Random Glucose Calcium Iron TIBC Iron Saturation Total Bilirubin AST ALT Alkaline Phosphatase Creatine Kinase Troponin I Total Protein Albumin Hepatitis A IgM Ab Negative Hep Bs Antigen Negative Hep B Core IgM Ab Indeterminate H Hepatitis C Antibody 0.1 Blood Type Antibody Screen Crossmatch 11/15/18 11/15/18 11/15/18 12:21 17:38 21:02 WBC RBC Hgb Hct MCV MCH MCHC RDW Plt Count MPV Retic Count PT with INR INR Sodium Potassium Chloride Carbon Dioxide Anion Gap BUN Creatinine Creat Clearance w eGFR POC Glucometer 118 199 254 Random Glucose Calcium Iron TIBC Iron Saturation Total Bilirubin AST ALT Alkaline Phosphatase Creatine Kinase Troponin I Total Protein Albumin Hepatitis A IgM Ab Hep Bs Antigen Hep B Core IgM Ab Hepatitis C Antibody Blood Type Antibody Screen Crossmatch 11/16/18 11/16/18 11/16/18 05:40 05:40 05:40 WBC 6.3 RBC 4.10 Hgb 9.0 L Hct 28.9 L D MCV 70.4 L MCH 22.0 L MCHC 31.3 L RDW 24.4 H Plt Count 250 MPV 7.9 Retic Count PT with INR 14.40 H INR 1.22 H Sodium 143 Potassium 4.1 Chloride 100 Carbon Dioxide 37 H Anion Gap 6 L BUN 27 H Creatinine 0.6 Creat Clearance w eGFR 95.24 POC Glucometer Random Glucose 182 H Calcium 8.5 Iron TIBC Iron Saturation Total Bilirubin 1.9 H AST 119 H ALT 173 H Alkaline Phosphatase 90 Creatine Kinase Troponin I Total Protein 5.3 L Albumin 2.8 L Hepatitis A IgM Ab Hep Bs Antigen Hep B Core IgM Ab Hepatitis C Antibody Blood Type Antibody Screen Crossmatch 11/16/18 06:13 WBC RBC Hgb Hct MCV MCH MCHC RDW Plt Count MPV Retic Count PT with INR INR Sodium Potassium Chloride Carbon Dioxide Anion Gap BUN Creatinine Creat Clearance w eGFR POC Glucometer 166 Random Glucose Calcium Iron TIBC Iron Saturation Total Bilirubin AST ALT Alkaline Phosphatase Creatine Kinase Troponin I Total Protein Albumin Hepatitis A IgM Ab Hep Bs Antigen Hep B Core IgM Ab Hepatitis C Antibody Blood Type Antibody Screen Crossmatch Assessment/Plan Acute on Chronic Systolic Heart Failure r/o Acute COPD Exacerbation Anemia s/p PRBC transfusions Atrial Fibrillation +Troponins likely Demand Ischemia HTN DM Hyperlipidemia h/o DVT - continue lasix IVP - monitor urine output, creatinine - empiric short course of medrol x 48hrs - inhaled bronchodilators - o2 to keep SpO2 >90% - rate controlled - Normal transfusion thresholds Dr Mg
--- NOTE | 2018-11-16 09:41 | PN ---
Progress Note, Physician History of Present Illness: Pt breathing is a little better today, as well as the legs. Pt w/o CP, palpitations, abd pain. - Current Medication List Current Medications: Active Medications Albuterol Sulfate (Ventolin 0.083% Nebulizer Soln -) 1 amp NEB Q4H PRN PRN Reason: SHORT OF BREATH/WHEEZING Albuterol/Ipratropium (Duoneb -) 1 amp NEB RTID [facility] Last Admin: 11/16/18 07:38 Dose: 1 amp Budesonide/Formoterol Fumarate (Symbicort 160/4.5mcg -) 2 puff IH BID [facility] Last Admin: 11/15/18 21:17 Dose: 2 puff Docusate Sodium (Colace -) 300 mg PO DAILY [facility] Last Admin: 11/15/18 10:58 Dose: 300 mg Escitalopram Oxalate (Lexapro -) 5 mg PO DAILY [facility] Last Admin: 11/15/18 11:00 Dose: 5 mg Fluticasone Propionate (Flonase -) 1 spray NS DAILY [facility] Last Admin: 11/15/18 11:01 Dose: 1 spray Furosemide (Lasix Injection -) 80 mg IVPUSH DAILY [facility] Last Admin: 11/15/18 11:01 Dose: 80 mg Insulin Aspart (Novolog Vial Sliding Scale -) 1 vial SQ [facility]; Protocol Last Admin: 11/16/18 06:17 Dose: 2 units Lorazepam (Ativan -) 0.5 mg PO BID [facility] Last Admin: 11/15/18 21:17 Dose: 0.5 mg Melatonin (Melatonin) 10 mg PO HS [facility] Last Admin: 11/15/18 21:17 Dose: 10 mg Metformin HCl (Glucophage -) 500 mg PO BIDAC [facility] Last Admin: 11/16/18 06:17 Dose: 500 mg Methylprednisolone Sodium Succinate (Solu-Medrol -) 40 mg IVPUSH Q8H-IV [facility] Stop: 11/17/18 02:01 Last Admin: 11/16/18 01:46 Dose: 40 mg Metoprolol Succinate (Toprol Xl -) 25 mg PO DAILY [facility] Last Admin: 11/15/18 11:00 Dose: 25 mg Montelukast Sodium (Singulair -) 10 mg PO HS [facility] Last Admin: 11/15/18 21:17 Dose: 10 mg Pantoprazole Sodium (Protonix -) 40 mg PO DAILY [facility] Last Admin: 11/15/18 11:00 Dose: 40 mg Polyethylene Glycol (Miralax (For Daily Use) -) 17 gm PO DAILY [facility] Last Admin: 11/15/18 10:59 Dose: 17 grams Prednisolone Acetate (Pred Forte 1% -) 1 drop OS BID [facility] Last Admin: 11/15/18 21:17 Dose: 1 drop Silver Sulfadiazine (Silvadene -) 1 applic TP BID [facility] Last Admin: 11/15/18 21:17 Dose: 1 applic Simethicone (Mylicon -) 80 mg PO BID [facility] Last Admin: 11/15/18 21:17 Dose: 80 mg Zolpidem Tartrate (Ambien -) 5 mg PO HS PRN PRN Reason: INSOMNIA Last Admin: 11/14/18 22:12 Dose: 5 mg - Objective Vital Signs: Vital Signs Temperature 97.9 F 11/16/18 06:18 Pulse Rate 72 11/16/18 06:18 Respiratory Rate 20 11/16/18 06:18 Blood Pressure 133/66 11/16/18 06:18 O2 Sat by Pulse Oximetry (%) 94 L 11/15/18 21:00 Constitutional: Yes: No Distress, Calm Cardiovascular: Yes: Regular Rate and Rhythm, S1, S2 Respiratory: Yes: Regular, Rales (crackles at bases), Rhonchi (bilat) Gastrointestinal: Yes: Normal Bowel Sounds, Soft. No: Tenderness Extremities: Yes: Other (rigth pretibial blister (is smaller)) Edema: LLE: 1+, RLE: 1+ Neurological: Yes: Alert, Oriented Labs: CBC, BMP 11/16/18 05:40 11/16/18 05:40 INR, PTT INR 1.22 (0.83-1.09) H 11/16/18 05:40 Problem List - Problems (1) Acute exacerbation of CHF (congestive heart failure) Code(s): I50.9 - HEART FAILURE, UNSPECIFIED (2) Anemia Code(s): D64.9 - ANEMIA, UNSPECIFIED Qualifiers: Anemia type: unspecified type Qualified Code(s): D64.9 - Anemia, unspecified (3) Elevated troponin Code(s): R74.8 - ABNORMAL LEVELS OF OTHER SERUM ENZYMES (4) Elevated LFTs Assessment/Plan: better Code(s): R94.5 - ABNORMAL RESULTS OF LIVER FUNCTION STUDIES (5) CHF (congestive heart failure) Code(s): I50.9 - HEART FAILURE, UNSPECIFIED Qualifiers: Heart failure type: unspecified Heart failure chronicity: unspecified Qualified Code(s): I50.9 - Heart failure, unspecified (6) CAD (coronary artery disease) Code(s): I25.10 - ATHSCL HEART DISEASE OF [place] CORONARY ARTERY W/O ANG PCTRS Qualifiers: Coronary Disease-Associated Artery/Lesion type: [place] artery [place] vs. transplanted heart: [place] heart Associated angina: angina presence unspecified Qualified Code(s): I25.10 - Atherosclerotic heart disease of [place] coronary artery without angina pectoris (7) COPD (chronic obstructive pulmonary disease) Code(s): J44.9 - CHRONIC OBSTRUCTIVE PULMONARY DISEASE, UNSPECIFIED Qualifiers: COPD type: unspecified COPD Qualified Code(s): J44.9 - Chronic obstructive pulmonary disease, unspecified (8) DM type 2 (diabetes mellitus, type 2) Code(s): E11.9 - TYPE 2 DIABETES MELLITUS WITHOUT COMPLICATIONS Qualifiers: Diabetes mellitus fci insulin use: with terminal block assembler use Diabetes mellitus complication status: with circulatory complication Diabetes mellitus complication detail: with other circulatory complications Qualified Code(s): E11.59 - Type 2 diabetes mellitus with other circulatory complications; 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 AM labs Case was d/w pt's nurse. AM labs.
[2018-11-16] MEDS ORDERED: PT OWN MED DRAWER 7, Y5N ONE ×2 (10:10→21:43)
[2018-11-16] MEDS: FUROSEMIDE 40 MG/4 ML INJECTABLE VIAL IVPUSH SCH (10:14)
[2018-11-16] MEDS: SIMETHICONE 80 MG TAB.CHEW (FP) PO SCH ×3 (10:18→21:16)
[2018-11-16] MEDS: PANTOPRAZOLE 40 MG TABLET (FP) PO SCH (10:19)
[2018-11-16] MEDS: ESCITALOPRAM OXALATE 10 MG TABLET (FP) PO SCH (10:19)
[2018-11-16] MEDS: LORazepam 0.5 MG TABLET PO SCH ×2 (10:19→21:05)
[2018-11-16] MEDS: metoPROLOL SUCCINATE 25 MG TAB.SR.24H (FP) PO SCH (10:19)
[2018-11-16] MEDS: BUDESONIDE/FORMETEROL FUMARATE 160/4.5 mcg INHALER IH SCH ×2 (10:20→21:08)
[2018-11-16] MEDS: SILVER SULFADIAZINE 1% TOP CREAM 50 GM JAR TP SCH ×2 (10:21→21:07)
[2018-11-16] MEDS: POLYETHYLENE GLYCOL 3350 119 GM BTL PO SCH ×2 (10:22→21:13)
[2018-11-16] MEDS: prednisoLONE ACETATE 1% OPHTH SUSP 5 ML BOTTLE OS SCH ×2 (10:22→21:06)
[2018-11-16] MEDS: DOCUSATE SODIUM 100 MG CAPSULE (FP) PO SCH (10:25)
[2018-11-16] MEDS: FLUTICASONE PROP 0.05% 16 GM NASAL SPRAY NS SCH (10:25)
[2018-11-16] MEDS: ACETAMINOPHEN 325 MG TABLET (FP) PO PRN ×3 (11:49→22:50)
--- NOTE | 2018-11-16 16:14 | PN ---
Progress Note (short form) - Note Progress Note: s: sob and edema improving. no chest pain, palps, dizziness Current Medications Acetaminophen (Tylenol -) 650 mg PO Q6H PRN PRN Reason: PAIN Last Admin: 11/16/18 11:49 Dose: 650 mg Albuterol Sulfate (Ventolin 0.083% Nebulizer Soln -) 1 amp NEB Q4H PRN PRN Reason: SHORT OF BREATH/WHEEZING Albuterol/Ipratropium (Duoneb -) 1 amp NEB RTID [facility] Last Admin: 11/16/18 14:30 Dose: 1 amp Budesonide/Formoterol Fumarate (Symbicort 160/4.5mcg -) 2 puff IH BID [facility] Last Admin: 11/16/18 10:20 Dose: 2 puff Docusate Sodium (Colace -) 300 mg PO DAILY [facility] Last Admin: 11/16/18 10:25 Dose: 300 mg Escitalopram Oxalate (Lexapro -) 5 mg PO DAILY [facility] Last Admin: 11/16/18 10:19 Dose: 5 mg Fluticasone Propionate (Flonase -) 1 spray NS DAILY [facility] Last Admin: 11/16/18 10:25 Dose: 1 spray Furosemide (Lasix Injection -) 80 mg IVPUSH DAILY [facility] Last Admin: 11/16/18 10:14 Dose: 80 mg Insulin Aspart (Novolog Vial Sliding Scale -) 1 vial SQ ACHS [facility]; Protocol Last Admin: 11/16/18 11:16 Dose: 6 units Lorazepam (Ativan -) 0.5 mg PO BID [facility] Last Admin: 11/16/18 10:19 Dose: 0.5 mg Melatonin (Melatonin) 10 mg PO HS [facility] Last Admin: 11/15/18 21:17 Dose: 10 mg Metformin HCl (Glucophage -) 500 mg PO BIDAC [facility] Last Admin: 11/16/18 06:17 Dose: 500 mg Methylprednisolone Sodium Succinate (Solu-Medrol -) 40 mg IVPUSH Q8H-IV [facility] Stop: 11/17/18 02:01 Last Admin: 11/16/18 10:13 Dose: 40 mg Metoprolol Succinate (Toprol Xl -) 25 mg PO DAILY [facility] Last Admin: 11/16/18 10:19 Dose: 25 mg Montelukast Sodium (Singulair -) 10 mg PO HS [facility] Last Admin: 11/15/18 21:17 Dose: 10 mg Pantoprazole Sodium (Protonix -) 40 mg PO DAILY [facility] Last Admin: 11/16/18 10:19 Dose: 40 mg Polyethylene Glycol (Miralax (For Daily Use) -) 17 gm PO DAILY [facility] Last Admin: 11/16/18 10:22 Dose: 17 grams Prednisolone Acetate (Pred Forte 1% -) 1 drop OS BID [facility] Last Admin: 11/16/18 10:22 Dose: 1 drop Silver Sulfadiazine (Silvadene -) 1 applic TP BID [facility] Last Admin: 11/16/18 10:21 Dose: 1 applic Simethicone (Mylicon -) 80 mg PO BID [facility] Last Admin: 11/16/18 10:18 Dose: 80 mg Zolpidem Tartrate (Ambien -) 5 mg PO HS PRN PRN Reason: INSOMNIA Last Admin: 11/14/18 22:12 Dose: 5 mg Vital Signs Period Temp Pulse Resp BP Sys/Garcia Pulse Ox Last 24 Hr 97.9 F-98.2 F 72-89 18-20 103-133/62-69 94 nad, +jvd rrr, s1s2 no mrg cta bl nl eff aao3 2+ le edema bl, R lindsey + bandages no jaundice diaphoresis pos dp pt no carotid bruits abd nt nd pos bs ecg: sr, no ischemic changes cath 12/2017 (after +mibi): non obs cad echo 06/2018: mild-mod dec lvef, global hk, nl rv, lae, mild-mod mr, mild tr, mod as, nl rvsp cxr: clear lungs a/p: 83 f hx hld, htn, syst chf, dm, copd, dvt, afib, as, non obs cad, here with sob. sob, anemia, acute systolic chf: -pt with severe anemia as well as vol overload, likely both contributing to sob -received prbcs and iv lasix 80 mg qd - stable Cr, continue lasix 80 mg IV daily, sob improving -daily wts, chem7 anemia: -?related to leg hematoma -s/p transfusion prbcs -hold home xarelto cad, pos trops: -pt had recent cath 12/2017 with non obstructive cad -trops in borderline range here, flat trend. likely represents demand from anemia/chf and not acs afib: -in sr here -holding xarelto in setting of anemia hld: -cont home statin htn: -hold home meds in setting of severe anemia, monitor bp
--- NOTE | 2018-11-16 18:49 | CON.GI ---
Consult Consult Specialty:: GI Referred by:: Dr. David Brown Reason for Consultation:: Anemia and abnormal LFTs - History of Present Illness Chief Complaint: S/P Fall History of Present Illness: 83F admitted for evaluation of shortness of breath, worse than her usual baseline. She fell about a week prior to admission and described severe pain and swelling of her right leg. On amdission her Hgb was 5.8. She received 2 U PRBC. She denies any melena. she describes occasional rectal bleeding when she has a strained bowel movement. She recalls being told of internal hemorrhoids in the past. She denies abdominal pain. She complains of gas. There has been no nausea / vomiting. There has been no melena. LFTs were elevated as well. US revealed a non dilated biliary tract, right pleural effuision and a gallbladder polyp. She believes that she had a colonoscopy multiple years ago. There is no family history of colorectal cancer or other GI malignancy. - History Source History Provided By: Patient, Medical Record - Past Medical History Cardio/Vascular: Yes: CAD, CHF Pulmonary: Yes: Bronchitis, COPD, Pneumonia Gastrointestinal: Yes: Diverticulitis, Diverticulosis, GERD Heme/Onc: Yes: Other (DVT of the right LE) Endocrine: Yes: Diabetes Mellitus - Past Surgical History Additional Surgical History: Right shoulder secondary to dislocation, hiatal hernia repair along with partial left colon resection in 2004 secondary to diverticulitis. 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 Place of : [facility] History of Recent Travel: No Home Medications - Allergies Allergies/Adverse Reactions: Allergies Allergy/AdvReac Type Severity Reaction Status Date / Time vancomycin Allergy Severe Rash Verified 11/14/18 17:28 dextromethorphan Allergy Intermediate CONGESTION Verified 11/14/18 17:28 [From Mucinex DM] guaifenesin [From Mucinex DM] Allergy Intermediate CONGESTION Verified 11/14/18 17:28 pollen extracts Allergy Intermediate CONGESTION Verified 11/14/18 17:28 ragweed pollen Allergy Intermediate CONGESTION Verified 11/14/18 17:28 ampicillin Allergy Mild Rash Verified 11/14/18 17:28 - Home Medications Home Medications: Ambulatory Orders Acetaminophen 650 mg PO Q4H 11/14/18 Acetylcysteine Po/INH 20% [Mucomyst 20 Oral / INH Use Only*] 5 ml PO BID Acidoph/L.bulg/Bif.b/S.thermop [Imani-Bid Caplet] 1 each PO TID 11/14/18 Albuterol 0.083% Nebulizer [place] [Ventolin 0.083% Nebulizer Soln -] 1 amp NEB BID 11/14/18 Albuterol 0.083% Nebulizer Isamar [Ventolin 0.083% Nebulizer Soln -] 1 neb NEB DAILY PRN 11/14/18 Aspirin 81 mg PO DAILY 11/14/18 Benzocaine/Menthol [Cepacol Sore Throat Lozenge] 1 each PO Q2H PRN 11/14/18 Budesonide/Formeterol Fumarate [SYMBICORT 160/4.5mcg -] 1 inh PO BID 11/14/18 Calcium Citrate/Vitamin D3 [Flanagan Calcium + D Tablet] 2 tab PO DAILY 11/14/18 Cholecalciferol (Vitamin D3) [Vitamin D3] 1,000 unit PO DAILY 11/14/18 Docusate Sodium [Colace] 300 mg PO DAILY 11/14/18 Escitalopram Oxalate [Lexapro -] 5 mg PO DAILY 11/14/18 Fluticasone Propionate [Flovent Diskus] 50 mcg IH DAILY 11/14/18 Folic Acid/Multivit-Min/Lutein [Multi-Vitamin Gummies] 1 each PO DAILY 11/14/18 Furosemide [Lasix -] 80 mg PO DAILY 11/14/18 Insulin (Novolog) [Novolog] 0 units SQ BID 11/14/18 Lorazepam 0.5 mg PO BID 11/14/18 Melatonin 10 mg PO HS 11/14/18 Metolazone 2.5 mg PO ASDIR 11/14/18 Metoprolol Succinate 25 mg PO DAILY 11/14/18 Montelukast Na [Singulair -] 10 mg PO HS 11/14/18 Nutritional Supplement [Hi-Eliezer] 4 oz PO DAILY 11/14/18 Omeprazole 20 mg PO DAILY 11/14/18 Oxycodone HCl/Acetaminophen [Oxycodone-Acetaminophen 5-325] 1 each PO Q4H PRN Oxymetazoline 0.05% Nasal Soln [Afrin -] 2 spr NS Q6H PRN 11/14/18 Polyethylene Glycol 3350 [Miralax (For Daily Use) -] 17 gm PO DAILY 11/14/18 Potassium Chloride [K-Dur -] 10 meq PO DAILY 11/14/18 Prednisolone 1% Ophthalmic [Pred Forte 1% -] 5 ml OS BID 11/14/18 Rivaroxaban [Xarelto -] 20 mg PO HS 11/14/18 Silver Sulfadiazine 1% Top Cr [Silvadene -] 1 applic TP BID 11/14/18 Simethicone 80 mg PO BID 11/14/18 Zolpidem Tartrate 10 mg PO HS 11/14/18 metFORMIN HCL [Metformin HCl] 500 mg PO BID 11/14/18 predniSONE [Deltasone -] 20 mg PO DAILY 11/14/18 Family Disease History - Family Disease History Family Disease History: Other: Father (: 58: [place]), Mother (: 42: "heart problems"), Brother (1, CAD) Other Family History: No family history of colorectal cancer or other GI malignancy Review of Systems - Review of Systems Constitutional: denies: Loss of Appetite Cardiovascular: reports: Edema. denies: Chest Pain Respiratory: reports: SOB, SOB on Exertion, Wheezing Gastrointestinal: reports: Constipation. denies: Abdominal Pain, Diarrhea, Dysphagia, Melena, Nausea, Rectal Bleeding Hematology/Lymphatic: reports: Easily Bruised Physical Exam-GI Vital Signs: Vital Signs Temperature 97.9 F 11/16/18 16:15 Pulse Rate 68 11/16/18 16:15 Respiratory Rate 18 11/16/18 16:15 Blood Pressure 120/98 11/16/18 16:15 O2 Sat by Pulse Oximetry (%) 94 L 11/16/18 09:00 Constitutional: Yes: Calm Eyes: No: Sclera Icterus Cardiovascular: Yes: Regular Rate and Rhythm Respiratory: Yes: Rhonchi (right lung field) Gastrointestinal Inspection: Yes: Hernia (reducible non-tender ventral incisional hernia), Scars (long vertical left sided abdominal surgical scar). No: Distention ...Auscultate: Yes: Normoactive Bowel Sounds ...Palpate: Yes: Soft. No: Hepatomegaly, Splenomegaly, Tenderness ...Percussion: No: Tympanitic Extremities: Yes: Other (ecchymotic RLE, tender to touch) Edema: Yes Edema: LLE: 2+, RLE: 3+ Neurological: Yes: Alert, Oriented Labs: CBC, BMP 11/16/18 05:40 11/16/18 05:40 INR, PTT INR 1.22 (0.83-1.09) H 11/16/18 05:40 Imaging - Results Ultrasound: Report Reviewed Problem List - Problems (1) Anemia Assessment/Plan: No overt GI bleeding, guaiac negative on exam and from specimen sent to lab. Given fall and her right leg being swollen in the setting of anticoagulation, suspect that she lost blood in her leg hematoma. Discussed the options of EGD/Colonoscopy when her acute issues are resolved and when she is medically cleared. Sr. Stacy does not want endoscopic testing. Code(s): D64.9 - ANEMIA, UNSPECIFIED Qualifiers: Anemia type: unspecified type Qualified Code(s): D64.9 - Anemia, unspecified (2) Elevated liver enzymes Assessment/Plan: Asymptomatic. Previously normal in 07/02. Suspect multifactorial: Likely related to her volume overloiad with passive congestion along with resorption of right leg hematoma. ? component of rhabdomyolysis. Ordered CPK for AM Ordered hepatic panel for AM Code(s): R74.8 - ABNORMAL LEVELS OF OTHER SERUM ENZYMES (3) Constipation Assessment/Plan: Likely multifactorial: Limited mobility, medication induced - MiraLAX 17g PO BID Code(s): K59.00 - CONSTIPATION, UNSPECIFIED
[2018-11-16] MEDS: MELATONIN 5 MG TABLETS PO SCH (21:05)
[2018-11-16] MEDS: MONTELUKAST NA 10 MG TABLET PO SCH (21:05)
[2018-11-17] MEDS: ZOLPIDEM TARTRATE 5 MG TABLET PO PRN (00:27)
[2018-11-17] MEDS ORDERED: ZOLPIDEM TARTRATE 5 MG TABLET PO ONE (01:15)
[2018-11-17] MEDS: methylPREDNISolone NA SUCC 40 MG/1 ML VIAL IVPUSH SCH (01:20)
[2018-11-17] MEDS: INSULIN SLIDING SCALE (NOVOLOG) 1 VIAL SQ SCH ×4 (06:50→22:19)
[2018-11-17] MEDS: metFORMIN HCL 500 MG TABLET (FP) PO SCH ×2 (06:50→16:26)
[2018-11-17 07:09] LABS: HEMOGLOBIN 8.9 GM/dL (10.7-15.3); MCH 21.9 pg (25.7-33.7); MCHC 30.6 g/dl (32.0-36.0); MEAN CELL VOLUME 71.4 fl (80-96); PLATELET COUNT 224 K/MM3 (134-434); RBC 4.06 M/mm3 (3.60-5.2); RDW 24.8 % (11.6-15.6); WHITE BLOOD COUNT 7.2 K/mm3 (4.0-10.0)
[2018-11-17] MEDS: ALBUTEROL SO4 2.5/IPRATROPIUM 0.5 INH SOL 3 ML VIAL.NEB. NEB SCH ×3 (07:15→20:44)
[2018-11-17 07:30] LABS: INR 1.13 (0.83-1.09); PROTHROMBIN TIME (PATIENT) 13.4 SEC (9.7-13.0)
[2018-11-17 07:41] LABS: ALBUMIN 2.8 g/dl (3.4-5.0); ALBUMIN 2.9 g/dl (3.4-5.0); ALK PHOS 84 U/L (45-117); ANION GAP 7 MMOL/L (8-16); BILIRUBIN,DIRECT 0.6 mg/dL (0.0-0.2); BILIRUBIN,TOTAL 1.3 mg/dL (0.2-1); BLOOD UREA NITROGEN 31 mg/dL (7-18); CALCIUM 8.8 mg/dL (8.5-10.1); CHLORIDE 97 mmol/L (98-107); CO2 38 mmol/L (21-32); CREATININE 0.7 mg/dL (0.55-1.3); GLUCOSE,RANDOM 199 mg/dL (74-106); POTASSIUM 4.1 mmol/L (3.5-5.1); SGOT/AST 61 U/L (15-37); SGPT/ALT 146 U/L (13-61); SODIUM 142 mmol/L (136-145); TOT PROT 5.3 g/dl (6.4-8.2)
[2018-11-17] MEDS: ACETAMINOPHEN 325 MG TABLET (FP) PO PRN (08:38)
[2018-11-17] MEDS ORDERED: PT OWN MED DRAWER 7, Y5N ONE (09:30)
[2018-11-17] MEDS: ESCITALOPRAM OXALATE 10 MG TABLET (FP) PO SCH (09:43)
[2018-11-17] MEDS: LORazepam 0.5 MG TABLET PO SCH ×3 (09:43→22:01)
[2018-11-17] MEDS: DOCUSATE SODIUM 100 MG CAPSULE (FP) PO SCH (09:43)
[2018-11-17] MEDS: POLYETHYLENE GLYCOL 3350 119 GM BTL PO SCH ×2 (09:45→22:01)
[2018-11-17] MEDS: SIMETHICONE 80 MG TAB.CHEW (FP) PO SCH ×2 (09:46→22:00)
[2018-11-17] MEDS: PANTOPRAZOLE 40 MG TABLET (FP) PO SCH (09:46)
[2018-11-17] MEDS: metoPROLOL SUCCINATE 25 MG TAB.SR.24H (FP) PO SCH (09:46)
[2018-11-17] MEDS: BUDESONIDE/FORMETEROL FUMARATE 160/4.5 mcg INHALER IH SCH ×2 (09:47→22:01)
[2018-11-17] MEDS: FUROSEMIDE 40 MG/4 ML INJECTABLE VIAL IVPUSH SCH (09:48)
[2018-11-17] MEDS: SILVER SULFADIAZINE 1% TOP CREAM 50 GM JAR TP SCH ×2 (09:50→22:01)
[2018-11-17] MEDS: prednisoLONE ACETATE 1% OPHTH SUSP 5 ML BOTTLE OS SCH ×2 (09:50→22:01)
[2018-11-17] MEDS: FLUTICASONE PROP 0.05% 16 GM NASAL SPRAY NS SCH ×2 (09:50→09:52)
--- NOTE | 2018-11-17 10:39 | PN ---
Progress Note, Physician History of Present Illness: Pt breathing is the same; legs are better Pt w/o CP, palpitations, abd pain. - Current Medication List Current Medications: Active Medications Acetaminophen (Tylenol -) 650 mg PO Q6H PRN PRN Reason: PAIN Last Admin: 11/17/18 08:38 Dose: 650 mg Albuterol Sulfate (Ventolin 0.083% Nebulizer Soln -) 1 amp NEB Q4H PRN PRN Reason: SHORT OF BREATH/WHEEZING Albuterol/Ipratropium (Duoneb -) 1 amp NEB RTID [facility] Last Admin: 11/17/18 07:15 Dose: 1 amp Budesonide/Formoterol Fumarate (Symbicort 160/4.5mcg -) 2 puff IH BID [facility] Last Admin: 11/17/18 09:47 Dose: 2 puff Docusate Sodium (Colace -) 300 mg PO DAILY [facility] Last Admin: 11/17/18 09:43 Dose: 300 mg Escitalopram Oxalate (Lexapro -) 5 mg PO DAILY [facility] Last Admin: 11/17/18 09:43 Dose: 5 mg Fluticasone Propionate (Flonase -) 1 spray NS DAILY [facility] Last Admin: 11/17/18 09:52 Dose: Not Given Furosemide (Lasix Injection -) 80 mg IVPUSH DAILY [facility] Last Admin: 11/17/18 09:48 Dose: 80 mg Insulin Aspart (Novolog Vial Sliding Scale -) 1 vial SQ ACHS [facility]; Protocol Last Admin: 11/17/18 06:50 Dose: 2 units Lorazepam (Ativan -) 0.5 mg PO BID [facility] Last Admin: 11/17/18 09:59 Dose: Not Given Melatonin (Melatonin) 10 mg PO HS [facility] Last Admin: 11/16/18 21:05 Dose: 10 mg Metformin HCl (Glucophage -) 500 mg PO BIDAC [facility] Last Admin: 11/17/18 06:50 Dose: 500 mg Metoprolol Succinate (Toprol Xl -) 25 mg PO DAILY [facility] Last Admin: 11/17/18 09:46 Dose: 25 mg Montelukast Sodium (Singulair -) 10 mg PO HS [facility] Last Admin: 11/16/18 21:05 Dose: 10 mg Pantoprazole Sodium (Protonix -) 40 mg PO DAILY [facility] Last Admin: 04/05/19 09:46 Dose: 40 mg Polyethylene Glycol (Miralax (For Daily Use) -) 17 gm PO BID [facility] Last Admin: 11/17/18 09:45 Dose: 17 gm Prednisolone Acetate (Pred Forte 1% -) 1 drop OS BID [facility] Last Admin: 11/17/18 09:50 Dose: 1 drop Silver Sulfadiazine (Silvadene -) 1 applic TP BID [facility] Last Admin: 11/17/18 09:50 Dose: 1 applic Simethicone (Mylicon -) 80 mg PO BID [facility] Last Admin: 11/17/18 09:46 Dose: 80 mg Zolpidem Tartrate (Ambien -) 5 mg PO HS PRN PRN Reason: INSOMNIA Last Admin: 11/17/18 00:27 Dose: 5 mg - Objective Vital Signs: Vital Signs Temperature 97.2 F L 11/17/18 06:08 Pulse Rate 72 11/17/18 06:08 Respiratory Rate 20 11/17/18 06:08 Blood Pressure 137/79 11/17/18 06:08 O2 Sat by Pulse Oximetry (%) 94 L 11/16/18 21:00 Constitutional: Yes: No Distress, Calm Cardiovascular: Yes: Regular Rate and Rhythm, S1, S2 Respiratory: Yes: Regular, Rales (crackles at abases), Rhonchi Gastrointestinal: Yes: Normal Bowel Sounds, Soft Edema: LLE: 2+, RLE: 2+ Labs: CBC, BMP 11/17/18 06:00 11/17/18 06:00 INR, PTT INR 1.13 (0.83-1.09) H 11/17/18 06:00 Problem List - Problems (1) Acute exacerbation of CHF (congestive heart failure) Code(s): I50.9 - HEART FAILURE, UNSPECIFIED (2) Anemia Code(s): D64.9 - ANEMIA, UNSPECIFIED Qualifiers: Anemia type: unspecified type Qualified Code(s): D64.9 - Anemia, unspecified (3) Elevated troponin Code(s): R74.8 - ABNORMAL LEVELS OF OTHER SERUM ENZYMES (4) Elevated LFTs Code(s): R94.5 - ABNORMAL RESULTS OF LIVER FUNCTION STUDIES (5) CHF (congestive heart failure) Code(s): I50.9 - HEART FAILURE, UNSPECIFIED Qualifiers: Heart failure type: unspecified Heart failure chronicity: unspecified Qualified Code(s): I50.9 - Heart failure, unspecified (6) CAD (coronary artery disease) Code(s): I25.10 - ATHSCL HEART DISEASE OF [place] CORONARY ARTERY W/O ANG PCTRS Qualifiers: Coronary Disease-Associated Artery/Lesion type: crow artery [place] vs. transplanted heart: crow heart Associated angina: angina presence unspecified Qualified Code(s): I25.10 - Atherosclerotic heart disease of [place] coronary artery without angina pectoris (7) COPD (chronic obstructive pulmonary disease) Code(s): J44.9 - CHRONIC OBSTRUCTIVE PULMONARY DISEASE, UNSPECIFIED Qualifiers: COPD type: unspecified COPD Qualified Code(s): J44.9 - Chronic obstructive pulmonary disease, unspecified (8) DM type 2 (diabetes mellitus, type 2) Code(s): E11.9 - TYPE 2 DIABETES MELLITUS WITHOUT COMPLICATIONS Qualifiers: Diabetes mellitus long term care administrator insulin use: with [facility] use Diabetes mellitus complication status: with circulatory complication Diabetes mellitus complication detail: with other circulatory complications Qualified Code(s): E11.59 - Type 2 diabetes mellitus with other circulatory complications; Z79.4 - [facility] (current) use of insulin (9) HTN (hypertension) Code(s): I10 - ESSENTIAL (PRIMARY) HYPERTENSION Qualifiers: Hypertension type: essential hypertension Qualified Code(s): I10 - Essential (primary) hypertension (10) Insomnia Code(s): G47.00 - INSOMNIA, UNSPECIFIED Assessment/Plan s/p PRBC transfusion (3 units); f/u H/H Lasix IV Cardio consult Pulmonary consult GI consult PT eval AM labs Case was d/w pt's nurse.t
[2018-11-17] MEDS ORDERED: INSULIN (NOVOLOG) ASPART 100 UNITS/ML 10ML VIAL ONE ×2 (11:40→21:15)
--- NOTE | 2018-11-17 13:54 | PN ---
Progress Note, Physician History of Present Illness: PULMONARY ALERT,OOB-CHAIR,LESS DYSNEIC,+ COUGH,C/O LOWER EXT DISCOMFORT - Current Medication List Current Medications: Active Medications Acetaminophen (Tylenol -) 650 mg PO Q6H PRN PRN Reason: PAIN Last Admin: 11/17/18 08:38 Dose: 650 mg Albuterol Sulfate (Ventolin 0.083% Nebulizer Soln -) 1 amp NEB Q4H PRN PRN Reason: SHORT OF BREATH/WHEEZING Albuterol/Ipratropium (Duoneb -) 1 amp NEB RTID [facility] Last Admin: 11/17/18 07:15 Dose: 1 amp Budesonide/Formoterol Fumarate (Symbicort 160/4.5mcg -) 2 puff IH BID [facility] Last Admin: 11/17/18 09:47 Dose: 2 puff Docusate Sodium (Colace -) 300 mg PO DAILY [facility] Last Admin: 11/17/18 09:43 Dose: 300 mg Escitalopram Oxalate (Lexapro -) 5 mg PO DAILY [facility] Last Admin: 11/17/18 09:43 Dose: 5 mg Fluticasone Propionate (Flonase -) 1 spray NS DAILY [facility] Last Admin: 11/17/18 09:52 Dose: Not Given Furosemide (Lasix Injection -) 80 mg IVPUSH DAILY [facility] Last Admin: 11/17/18 09:48 Dose: 80 mg Insulin Aspart (Novolog Vial Sliding Scale -) 1 vial SQ ACHS [facility]; Protocol Last Admin: 11/17/18 12:03 Dose: 4 units Lorazepam (Ativan -) 0.5 mg PO BID [facility] Last Admin: 11/17/18 09:59 Dose: Not Given Melatonin (Melatonin) 10 mg PO HS [facility] Last Admin: 11/16/18 21:05 Dose: 10 mg Metformin HCl (Glucophage -) 500 mg PO BIDAC [facility] Last Admin: 11/17/18 06:50 Dose: 500 mg Metoprolol Succinate (Toprol Xl -) 25 mg PO DAILY [facility] Last Admin: 11/17/18 09:46 Dose: 25 mg Montelukast Sodium (Singulair -) 10 mg PO HS [facility] Last Admin: 11/16/18 21:05 Dose: 10 mg Pantoprazole Sodium (Protonix -) 40 mg PO DAILY [facility] Last Admin: 11/17/18 09:46 Dose: 40 mg Polyethylene Glycol (Miralax (For Daily Use) -) 17 gm PO BID [facility] Last Admin: 11/17/18 09:45 Dose: 17 gm Prednisolone Acetate (Pred Forte 1% -) 1 drop OS BID [facility] Last Admin: 11/17/18 09:50 Dose: 1 drop Silver Sulfadiazine (Silvadene -) 1 applic TP BID [facility] Last Admin: 11/17/18 09:50 Dose: 1 applic Simethicone (Mylicon -) 80 mg PO BID [facility] Last Admin: 11/17/18 09:46 Dose: 80 mg Zolpidem Tartrate (Ambien -) 5 mg PO HS PRN PRN Reason: INSOMNIA Last Admin: 11/17/18 00:27 Dose: 5 mg - Objective Vital Signs: Vital Signs Temperature 97.3 F L 11/17/18 08:15 Pulse Rate 72 11/17/18 08:15 Respiratory Rate 18 11/17/18 08:15 Blood Pressure 123/67 11/17/18 08:15 O2 Sat by Pulse Oximetry (%) 94 L 11/17/18 09:00 Constitutional: Yes: Well Nourished, Calm Eyes: Yes: WNL HENT: Yes: WNL Neck: Yes: WNL Cardiovascular: Yes: Pulse Irregular, S1, S2 Respiratory: Yes: Rhonchi (SCATTERED RHONCHI) Gastrointestinal: Yes: Normal Bowel Sounds, Soft Extremities: Yes: WNL, Erythema Edema: Yes Labs: CBC, BMP 11/17/18 06:00 11/17/18 06:00 INR, PTT INR 1.13 (0.83-1.09) H 11/17/18 06:00 Problem List - Problems (1) Acute exacerbation of CHF (congestive heart failure) Code(s): I50.9 - HEART FAILURE, UNSPECIFIED (2) CHF (congestive heart failure) Code(s): I50.9 - HEART FAILURE, UNSPECIFIED Qualifiers: Heart failure type: unspecified Heart failure chronicity: unspecified Qualified Code(s): I50.9 - Heart failure, unspecified (3) Elevated troponin Code(s): R74.8 - ABNORMAL LEVELS OF OTHER SERUM ENZYMES (4) Acute exacerbation of chronic obstructive pulmonary disease (COPD) Code(s): J44.1 - CHRONIC OBSTRUCTIVE PULMONARY DISEASE W (ACUTE) EXACERBATION (5) Acute on chronic diastolic CHF (congestive heart failure) Code(s): I50.33 - ACUTE ON CHRONIC DIASTOLIC (CONGESTIVE) HEART FAILURE (6) Afib Code(s): I48.91 - UNSPECIFIED ATRIAL FIBRILLATION Qualifiers: Atrial fibrillation type: chronic Qualified Code(s): I48.2 - Chronic atrial fibrillation (7) BRBPR (bright red blood per rectum) Code(s): K62.5 - HEMORRHAGE OF ANUS AND RECTUM (8) CAD (coronary artery disease) Code(s): I25.10 - ATHSCL HEART DISEASE OF [place] CORONARY ARTERY W/O ANG PCTRS Qualifiers: Coronary Disease-Associated Artery/Lesion type: [place] artery [place] vs. 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 Diabetes mellitus complication status: with circulatory complication Diabetes mellitus complication detail: with other circulatory complications Qualified Code(s): E11.59 - Type 2 diabetes mellitus with other circulatory complications; Z79.4 - local [employer] driver (current) use of insulin (11) HTN (hypertension) Code(s): I10 - ESSENTIAL (PRIMARY) HYPERTENSION Qualifiers: Hypertension type: essential hypertension Qualified Code(s): I10 - Essential (primary) hypertension Assessment/Plan Assessment/Plan Acute on Chronic Systolic Heart Failure r/o Acute COPD Exacerbation Anemia s/p PRBC transfusions Atrial Fibrillation +Troponins likely [place] Ischemia HTN DM Hyperlipidemia h/o DVT - lasix IVP - monitor urine output, creatinine - inhaled bronchodilators - o2 to keep SpO2 >90% - rate controlled - monitor h+h - Normal transfusion thresholds DR MCCARTHY
--- NOTE | 2018-11-17 16:46 | PN ---
Progress Note (short form) - Note Progress Note: s: sob improving. no chest pain, palps, dizziness Current Medications Acetaminophen (Tylenol -) 650 mg PO Q6H PRN PRN Reason: PAIN Last Admin: 11/17/18 08:38 Dose: 650 mg Albuterol Sulfate (Ventolin 0.083% Nebulizer Soln -) 1 amp NEB Q4H PRN PRN Reason: SHORT OF BREATH/WHEEZING Albuterol/Ipratropium (Duoneb -) 1 amp NEB RTID [facility] Last Admin: 11/17/18 13:55 Dose: 1 amp Budesonide/Formoterol Fumarate (Symbicort 160/4.5mcg -) 2 puff IH BID [facility] Last Admin: 11/17/18 09:47 Dose: 2 puff Docusate Sodium (Colace -) 300 mg PO DAILY [facility] Last Admin: 11/17/18 09:43 Dose: 300 mg Escitalopram Oxalate (Lexapro -) 5 mg PO DAILY [facility] Last Admin: 11/17/18 09:43 Dose: 5 mg Fluticasone Propionate (Flonase -) 1 spray NS DAILY [facility] Last Admin: 11/17/18 09:52 Dose: Not Given Furosemide (Lasix Injection -) 80 mg IVPUSH DAILY [facility] Last Admin: 11/17/18 09:48 Dose: 80 mg Insulin Aspart (Novolog Vial Sliding Scale -) 1 vial SQ ACHS [facility]; Protocol Last Admin: 11/17/18 12:03 Dose: 4 units Lorazepam (Ativan -) 0.5 mg PO BID [facility] Last Admin: 11/17/18 09:59 Dose: Not Given Melatonin (Melatonin) 10 mg PO HS [facility] Last Admin: 11/16/18 21:05 Dose: 10 mg Metformin HCl (Glucophage -) 500 mg PO BIDAC [facility] Last Admin: 11/17/18 16:26 Dose: 500 mg Metoprolol Succinate (Toprol Xl -) 25 mg PO DAILY [facility] Last Admin: 11/17/18 09:46 Dose: 25 mg Montelukast Sodium (Singulair -) 10 mg PO HS [facility] Last Admin: 11/16/18 21:05 Dose: 10 mg Pantoprazole Sodium (Protonix -) 40 mg PO DAILY [facility] Last Admin: 11/17/18 09:46 Dose: 40 mg Polyethylene Glycol (Miralax (For Daily Use) -) 17 gm PO BID [facility] Last Admin: 11/17/18 09:45 Dose: 17 gm Prednisolone Acetate (Pred Forte 1% -) 1 drop OS BID [facility] Last Admin: 11/17/18 09:50 Dose: 1 drop Silver Sulfadiazine (Silvadene -) 1 applic TP BID [facility] Last Admin: 11/17/18 09:50 Dose: 1 applic Simethicone (Mylicon -) 80 mg PO BID [facility] Last Admin: 11/17/18 09:46 Dose: 80 mg Zolpidem Tartrate (Ambien -) 5 mg PO HS PRN PRN Reason: INSOMNIA Last Admin: 11/17/18 00:27 Dose: 5 mg Vital Signs Period Temp Pulse Resp BP Sys/Garcia Pulse Ox Last 24 Hr 97.2 F-97.3 F 72-72 18-20 123-137/67-79 94-94 nad, +jvd rrr, s1s2 no mrg cta bl nl eff aao3 2+ le edema bl, R lindsey + bandages no jaundice diaphoresis pos dp pt no carotid bruits abd nt nd pos bs ecg: sr, no ischemic changes cath 12/2017 (after +mibi): non obs cad echo 06/2018: mild-mod dec lvef, global hk, nl rv, lae, mild-mod mr, mild tr, mod as, nl rvsp cxr: clear lungs a/p: 83 f hx hld, htn, syst chf, dm, copd, dvt, afib, as, non obs cad, here with sob. sob, anemia, acute systolic chf: -pt with severe anemia as well as vol overload, likely both contributing to sob -received prbcs and iv lasix 80 mg qd - stable Cr, continue lasix 80 mg IV daily, sob improving, still has edema -daily wts, chem7 anemia: -?related to leg hematoma -s/p transfusion prbcs -hold home xarelto cad, pos trops: -pt had recent cath 12/2017 with non obstructive cad -trops in borderline range here, flat trend. likely represents demand from anemia/chf and not acs afib: -in sr here -holding xarelto in setting of anemia hld: -cont home statin htn: -hold home meds in setting of severe anemia, monitor bp
[2018-11-17] MEDS ORDERED: ZOLPIDEM TARTRATE 5 MG TABLET PO PRN (16:48)
[2018-11-17] MEDS: MELATONIN 5 MG TABLETS PO SCH (22:00)
[2018-11-17] MEDS: MONTELUKAST NA 10 MG TABLET PO SCH (22:01)
[2018-11-18] MEDS: INSULIN SLIDING SCALE (NOVOLOG) 1 VIAL SQ SCH ×4 (06:19→22:36)
[2018-11-18] MEDS: metFORMIN HCL 500 MG TABLET (FP) PO SCH ×2 (06:19→16:55)
[2018-11-18 07:32] LABS: HEMATOCRIT 28.5 % (32.4-45.2); HEMOGLOBIN 8.6 GM/dL (10.7-15.3); MCHC 30.3 g/dl (32.0-36.0); MEAN CELL VOLUME 72.6 fl (80-96); MEAN PLT VOLUME 7.5 fl (7.5-11.1); PLATELET COUNT 232 K/MM3 (134-434); RBC 3.92 M/mm3 (3.60-5.2); RDW 26.2 % (11.6-15.6); WHITE BLOOD COUNT 8.4 K/mm3 (4.0-10.0)
[2018-11-18 07:44] LABS: ALBUMIN 2.8 g/dl (3.4-5.0); ALK PHOS 94 U/L (45-117); ANION GAP 4 MMOL/L (8-16); BILIRUBIN,TOTAL 1.6 mg/dL (0.2-1); BLOOD UREA NITROGEN 28 mg/dL (7-18); CALCIUM 9.2 mg/dL (8.5-10.1); CHLORIDE 97 mmol/L (98-107); CO2 40 mmol/L (21-32); CREATININE 0.6 mg/dL (0.55-1.3); GLUCOSE,RANDOM 95 mg/dL (74-106); POTASSIUM 4.1 mmol/L (3.5-5.1); SGOT/AST 45 U/L (15-37); SGPT/ALT 117 U/L (13-61); SODIUM 142 mmol/L (136-145); TOT PROT 5.2 g/dl (6.4-8.2)
[2018-11-18] MEDS: ALBUTEROL SO4 2.5/IPRATROPIUM 0.5 INH SOL 3 ML VIAL.NEB. NEB SCH ×3 (07:51→20:31)
[2018-11-18] MEDS: FUROSEMIDE 40 MG/4 ML INJECTABLE VIAL IVPUSH SCH ×2 (08:52→09:53)
[2018-11-18] MEDS ORDERED: predniSONE 10 MG TABLET (UD) ONE (09:25)
[2018-11-18] MEDS ORDERED: predniSONE 20 MG TABLET (UD) ONE (09:25)
[2018-11-18] MEDS: LORazepam 0.5 MG TABLET PO SCH ×2 (09:48→22:30)
[2018-11-18] MEDS: ACETAMINOPHEN 325 MG TABLET (FP) PO PRN (09:49)
[2018-11-18] MEDS: PANTOPRAZOLE 40 MG TABLET (FP) PO SCH (09:50)
[2018-11-18] MEDS: ESCITALOPRAM OXALATE 10 MG TABLET (FP) PO SCH (09:50)
[2018-11-18] MEDS: DOCUSATE SODIUM 100 MG CAPSULE (FP) PO SCH (09:51)
[2018-11-18] MEDS: predniSONE 20 MG, predniSONE 10 MG, predniSONE 5 MG PO SCH (09:51)
[2018-11-18] MEDS: FLUTICASONE PROP 0.05% 16 GM NASAL SPRAY NS SCH (09:53)
[2018-11-18] MEDS: POLYETHYLENE GLYCOL 3350 119 GM BTL PO SCH ×2 (09:53→22:33)
[2018-11-18] MEDS: SIMETHICONE 80 MG TAB.CHEW (FP) PO SCH ×3 (09:54→23:11)
[2018-11-18] MEDS: prednisoLONE ACETATE 1% OPHTH SUSP 5 ML BOTTLE OS SCH ×2 (09:54→22:31)
[2018-11-18] MEDS: SILVER SULFADIAZINE 1% TOP CREAM 50 GM JAR TP SCH ×2 (09:54→22:31)
[2018-11-18] MEDS: BUDESONIDE/FORMETEROL FUMARATE 160/4.5 mcg INHALER IH SCH ×2 (09:55→22:31)
[2018-11-18] MEDS: metoPROLOL SUCCINATE 25 MG TAB.SR.24H (FP) PO SCH (09:56)
--- NOTE | 2018-11-18 10:53 | PN ---
Progress Note (short form) - Note Progress Note: s: sob still. no chest pain, palps, dizziness Current Medications Generic Name Dose Route Start Last Admin Trade Name Freq PRN Reason Stop Dose Admin Acetaminophen 650 mg 11/16/18 10:58 11/18/18 09:49 Tylenol - PO 650 mg Q6H PRN Administration PAIN Albuterol Sulfate 1 amp 11/15/18 14:16 Ventolin 0.083% Nebulizer Soln - NEB Q4H PRN SHORT OF BREATH/WHEEZING Albuterol/Ipratropium 1 amp 11/15/18 20:00 11/18/18 07:51 Duoneb - NEB 1 amp RTID [facility] Administration Budesonide/Formoterol Fumarate 2 puff 11/14/18 22:00 11/18/18 09:55 Symbicort 160/4.5mcg - IH 2 puff BID [facility] Administration Docusate Sodium 300 mg 11/15/18 10:00 11/18/18 09:51 Colace - PO 300 mg DAILY [facility] Administration Escitalopram Oxalate 5 mg 11/15/18 10:00 11/18/18 09:50 Lexapro - PO 5 mg DAILY [facility] Administration Fluticasone Propionate 1 spray 11/15/18 10:00 11/18/18 09:53 Flonase - NS Not Given DAILY [facility] Furosemide 80 mg 11/15/18 10:00 11/18/18 09:53 Lasix Injection - IVPUSH Not Given DAILY [facility] Insulin Aspart 1 vial 11/14/18 22:00 11/18/18 06:19 Novolog Vial Sliding Scale - SQ Not Given ACHS [facility] Protocol Lorazepam 0.5 mg 11/14/18 22:00 11/18/18 09:48 Ativan - PO Not Given BID [facility] Melatonin 10 mg 11/14/18 22:00 11/17/18 22:00 Melatonin PO 10 mg HS [facility] Administration Metformin HCl 500 mg 11/14/18 21:00 11/18/18 06:19 Glucophage - PO 500 mg BIDAC [facility] Administration Metoprolol Succinate 25 mg 11/15/18 10:00 11/18/18 09:56 Toprol Xl - PO Not Given DAILY [facility] Montelukast Sodium 10 mg 11/14/18 22:00 11/17/18 22:01 Singulair - PO 10 mg HS [facility] Administration Pantoprazole Sodium 40 mg 11/15/18 10:00 11/18/18 09:50 Protonix - PO 40 mg DAILY [facility] Administration Polyethylene Glycol 17 gm 11/16/18 22:00 11/18/18 09:53 Miralax (For Daily Use) - PO 17 gm BID [facility] Administration Prednisolone Acetate 1 drop 11/14/18 22:00 11/18/18 09:54 Pred Forte 1% - OS 1 drop BID [facility] Administration Prednisone 20 mg/ Prednisone 35 mg 11/18/18 10:00 11/18/18 09:51 10 mg/ Prednisone 5 mg PO 35 mg DAILY [facility] Administration Silver Sulfadiazine 1 applic 11/14/18 22:00 11/18/18 09:54 Silvadene - TP 1 applic BID [facility] Administration Simethicone 80 mg 11/14/18 22:00 11/18/18 09:54 Mylicon - PO Not Given BID [facility] Zolpidem Tartrate 5 mg 11/17/18 16:48 11/17/18 22:00 Ambien - PO 5 mg HS PRN Administration INSOMNIA Vital Signs Period Temp Pulse Resp BP Sys/Garcia Pulse Ox Last 24 Hr 98.0 F-98.7 F 66-98 20-22 108-126/48-67 96 nad, +jvd rrr, s1s2 no mrg cta bl nl eff aao3 1+ le edema bl no jaundice diaphoresis pos dp pt no carotid bruits abd nt nd pos bs CBC, BMP 11/18/18 07:00 11/18/18 07:00 ecg: sr, no ischemic changes cath 12/2017 (after +mibi): non obs cad echo 06/2018: mild-mod dec lvef, global hk, nl rv, lae, mild-mod mr, mild tr, mod as, nl rvsp cxr: clear lungs a/p: 83 f hx hld, htn, syst chf, dm, copd, dvt, afib, as, non obs cad, here with sob. sob, anemia, acute systolic chf: -pt with severe anemia as well as vol overload, likely both contributing to sob -received prbcs and iv lasix 80 mg qd -stable Cr, continue lasix 80 mg IV daily -daily wts, chem7 anemia: -?related to leg hematoma -s/p transfusion prbcs -hold home xarelto cad, pos trops: -pt had recent cath 12/2017 with non obstructive cad -trops in borderline range here, flat trend. likely represents demand from anemia/chf and not acs afib: -in sr here, cont toprol -holding xarelto in setting of anemia hld: -cont home statin htn: -stable on toprol
--- NOTE | 2018-11-18 13:50 | PN ---
Progress Note, Physician History of Present Illness: Pt breathing is the same; legs are better Pt w/o CP, palpitations, abd pain. Still no BM. - Current Medication List Current Medications: Active Medications Acetaminophen (Tylenol -) 650 mg PO Q6H PRN PRN Reason: PAIN Last Admin: 11/18/18 09:49 Dose: 650 mg Albuterol Sulfate (Ventolin 0.083% Nebulizer Soln -) 1 amp NEB Q4H PRN PRN Reason: SHORT OF BREATH/WHEEZING Albuterol/Ipratropium (Duoneb -) 1 amp NEB RTID [facility] Last Admin: 11/18/18 13:44 Dose: 1 amp Budesonide/Formoterol Fumarate (Symbicort 160/4.5mcg -) 2 puff IH BID [facility] Last Admin: 11/18/18 09:55 Dose: 2 puff Docusate Sodium (Colace -) 300 mg PO DAILY [facility] Last Admin: 11/18/18 09:51 Dose: 300 mg Escitalopram Oxalate (Lexapro -) 5 mg PO DAILY [facility] Last Admin: 11/18/18 09:50 Dose: 5 mg Fluticasone Propionate (Flonase -) 1 spray NS DAILY [facility] Last Admin: 11/18/18 09:53 Dose: Not Given Furosemide (Lasix Injection -) 80 mg IVPUSH DAILY [facility] Last Admin: 11/18/18 09:53 Dose: Not Given Insulin Aspart (Novolog Vial Sliding Scale -) 1 vial SQ [facility]; Protocol Last Admin: 11/18/18 12:15 Dose: Not Given Lorazepam (Ativan -) 0.5 mg PO BID [facility] Last Admin: 11/18/18 09:48 Dose: Not Given Melatonin (Melatonin) 10 mg PO HS [facility] Last Admin: 11/17/18 22:00 Dose: 10 mg Metformin HCl (Glucophage -) 500 mg PO BIDAC [facility] Last Admin: 11/18/18 06:19 Dose: 500 mg Metoprolol Succinate (Toprol Xl -) 25 mg PO DAILY [facility] Last Admin: 11/18/18 09:56 Dose: Not Given Montelukast Sodium (Singulair -) 10 mg PO HS [facility] Last Admin: 11/17/18 22:01 Dose: 10 mg Pantoprazole Sodium (Protonix -) 40 mg PO DAILY [facility] Last Admin: 11/18/18 09:50 Dose: 40 mg Polyethylene Glycol (Miralax (For Daily Use) -) 17 gm PO BID [facility] Last Admin: 11/18/18 09:53 Dose: 17 gm Prednisolone Acetate (Pred Forte 1% -) 1 drop OS BID [facility] Last Admin: 11/18/18 09:54 Dose: 1 drop Prednisone 20 mg/ Prednisone (10 mg/ Prednisone 5 mg) 35 mg PO DAILY [facility] Last Admin: 11/18/18 09:51 Dose: 35 mg Silver Sulfadiazine (Silvadene -) 1 applic TP BID [facility] Last Admin: 11/18/18 09:54 Dose: 1 applic Simethicone (Mylicon -) 80 mg PO BID [facility] Last Admin: 11/18/18 09:54 Dose: Not Given Zolpidem Tartrate (Ambien -) 5 mg PO HS PRN PRN Reason: INSOMNIA Last Admin: 11/17/18 22:00 Dose: 5 mg - Objective Vital Signs: Vital Signs Temperature 98.7 F 11/18/18 08:51 Pulse Rate 98 H 11/18/18 08:51 Respiratory Rate 22 H 11/18/18 08:51 Blood Pressure 113/48 L 11/18/18 08:51 O2 Sat by Pulse Oximetry (%) 96 11/17/18 21:00 Constitutional: Yes: No Distress, Calm Cardiovascular: Yes: Regular Rate and Rhythm, S1, S2 Respiratory: Yes: Regular, Rales (crackles at bases), Rhonchi Gastrointestinal: Yes: Normal Bowel Sounds, Soft. No: Tenderness Edema: LLE: 1+, RLE: 1+ Integumentary: Yes: Bruising, Other (right pretibial blister) Neurological: Yes: Alert, Oriented Labs: CBC, BMP 11/18/18 07:00 11/18/18 07:00 INR, PTT INR 1.13 (0.83-1.09) H 11/17/18 06:00 Problem List - Problems (1) Acute exacerbation of CHF (congestive heart failure) Code(s): I50.9 - HEART FAILURE, UNSPECIFIED (2) Anemia Code(s): D64.9 - ANEMIA, UNSPECIFIED Qualifiers: Anemia type: unspecified type Qualified Code(s): D64.9 - Anemia, unspecified (3) Elevated troponin Code(s): R74.8 - ABNORMAL LEVELS OF OTHER SERUM ENZYMES (4) Elevated LFTs Code(s): R94.5 - ABNORMAL RESULTS OF LIVER FUNCTION STUDIES (5) CHF (congestive heart failure) Code(s): I50.9 - HEART FAILURE, UNSPECIFIED Qualifiers: Heart failure type: unspecified Heart failure chronicity: unspecified Qualified Code(s): I50.9 - Heart failure, unspecified (6) CAD (coronary artery disease) Code(s): I25.10 - ATHSCL HEART DISEASE OF [place] CORONARY ARTERY W/O ANG PCTRS Qualifiers: Coronary Disease-Associated Artery/Lesion type: [place] artery [place] vs. transplanted heart: [place] heart Associated angina: angina presence unspecified Qualified Code(s): I25.10 - Atherosclerotic heart disease of [place] coronary artery without angina pectoris (7) COPD (chronic obstructive pulmonary disease) Code(s): J44.9 - CHRONIC OBSTRUCTIVE PULMONARY DISEASE, UNSPECIFIED Qualifiers: COPD type: unspecified COPD Qualified Code(s): J44.9 - Chronic obstructive pulmonary disease, unspecified (8) DM type 2 (diabetes mellitus, type 2) Code(s): E11.9 - TYPE 2 DIABETES MELLITUS WITHOUT COMPLICATIONS Qualifiers: Diabetes mellitus correction insulin use: with correction use Diabetes mellitus complication status: with circulatory complication Diabetes mellitus complication detail: with other circulatory complications Qualified Code(s): E11.59 - Type 2 diabetes mellitus with other circulatory complications; Z79.4 - intermediate (current) use of insulin (9) HTN (hypertension) Code(s): I10 - ESSENTIAL (PRIMARY) HYPERTENSION Qualifiers: Hypertension type: essential hypertension Qualified Code(s): I10 - Essential (primary) hypertension (10) Insomnia Code(s): G47.00 - INSOMNIA, UNSPECIFIED Assessment/Plan s/p PRBC transfusion (3 units); f/u H/H Lasix IV Cardio, Pulmonary, GI consults are appreciated Cont MIralax BID; Glycerin suppository. PT, OOBTC AM labs Case was d/w pt's nurse.t
--- NOTE | 2018-11-18 14:02 | PN ---
Progress Note, Physician History of Present Illness: pulmonary alert,oob-chair,c/o sob,-cp,+ cough - Current Medication List Current Medications: Active Medications Acetaminophen (Tylenol -) 650 mg PO Q6H PRN PRN Reason: PAIN Last Admin: 11/18/18 09:49 Dose: 650 mg Albuterol Sulfate (Ventolin 0.083% Nebulizer Soln -) 1 amp NEB Q4H PRN PRN Reason: SHORT OF BREATH/WHEEZING Albuterol/Ipratropium (Duoneb -) 1 amp NEB RTID [facility] Last Admin: 11/18/18 13:44 Dose: 1 amp Budesonide/Formoterol Fumarate (Symbicort 160/4.5mcg -) 2 puff IH BID [facility] Last Admin: 11/18/18 09:55 Dose: 2 puff Docusate Sodium (Colace -) 300 mg PO DAILY [facility] Last Admin: 11/18/18 09:51 Dose: 300 mg Escitalopram Oxalate (Lexapro -) 5 mg PO DAILY [facility] Last Admin: 11/18/18 09:50 Dose: 5 mg Fluticasone Propionate (Flonase -) 1 spray NS DAILY [facility] Last Admin: 11/18/18 09:53 Dose: Not Given Furosemide (Lasix Injection -) 80 mg IVPUSH DAILY [facility] Last Admin: 11/18/18 09:53 Dose: Not Given Insulin Aspart (Novolog Vial Sliding Scale -) 1 vial SQ [facility]; Protocol Last Admin: 11/18/18 12:15 Dose: Not Given Lorazepam (Ativan -) 0.5 mg PO BID [facility] Last Admin: 11/18/18 09:48 Dose: Not Given Melatonin (Melatonin) 10 mg PO HS [facility] Last Admin: 11/17/18 22:00 Dose: 10 mg Metformin HCl (Glucophage -) 500 mg PO BIDAC [facility] Last Admin: 11/18/18 06:19 Dose: 500 mg Metoprolol Succinate (Toprol Xl -) 25 mg PO DAILY [facility] Last Admin: 11/18/18 09:56 Dose: Not Given Montelukast Sodium (Singulair -) 10 mg PO HS [facility] Last Admin: 11/17/18 22:01 Dose: 10 mg Pantoprazole Sodium (Protonix -) 40 mg PO DAILY [facility] Last Admin: 11/18/18 09:50 Dose: 40 mg Polyethylene Glycol (Miralax (For Daily Use) -) 17 gm PO BID [facility] Last Admin: 11/18/18 09:53 Dose: 17 gm Prednisolone Acetate (Pred Forte 1% -) 1 drop OS BID [facility] Last Admin: 11/18/18 09:54 Dose: 1 drop Prednisone 20 mg/ Prednisone (10 mg/ Prednisone 5 mg) 35 mg PO DAILY [facility] Last Admin: 11/18/18 09:51 Dose: 35 mg Silver Sulfadiazine (Silvadene -) 1 applic TP BID [facility] Last Admin: 11/18/18 09:54 Dose: 1 applic Simethicone (Mylicon -) 80 mg PO BID [facility] Last Admin: 11/18/18 09:54 Dose: Not Given Zolpidem Tartrate (Ambien -) 5 mg PO HS PRN PRN Reason: INSOMNIA Last Admin: 11/17/18 22:00 Dose: 5 mg - Objective Vital Signs: Vital Signs Temperature 98.7 F 11/18/18 08:51 Pulse Rate 98 H 11/18/18 08:51 Respiratory Rate 22 H 11/18/18 08:51 Blood Pressure 113/48 L 11/18/18 08:51 O2 Sat by Pulse Oximetry (%) 96 11/17/18 21:00 Constitutional: Yes: Well Nourished, Calm Eyes: Yes: WNL HENT: Yes: WNL Neck: Yes: WNL Cardiovascular: Yes: Pulse Irregular, S1, S2 Respiratory: Yes: Rhonchi (few scattered rhonchi) Gastrointestinal: Yes: Normal Bowel Sounds, Soft Extremities: Yes: WNL Edema: Yes Labs: CBC, BMP 11/18/18 07:00 11/18/18 07:00 INR, PTT INR 1.13 (0.83-1.09) H 11/17/18 06:00 Problem List - Problems (1) Acute exacerbation of CHF (congestive heart failure) Code(s): I50.9 - HEART FAILURE, UNSPECIFIED (2) CHF (congestive heart failure) Code(s): I50.9 - HEART FAILURE, UNSPECIFIED Qualifiers: Heart failure type: unspecified Heart failure chronicity: unspecified Qualified Code(s): I50.9 - Heart failure, unspecified (3) Elevated troponin Code(s): R74.8 - ABNORMAL LEVELS OF OTHER SERUM ENZYMES (4) Acute exacerbation of chronic obstructive pulmonary disease (COPD) Code(s): J44.1 - CHRONIC OBSTRUCTIVE PULMONARY DISEASE W (ACUTE) EXACERBATION (5) Acute on chronic diastolic CHF (congestive heart failure) Code(s): I50.33 - ACUTE ON CHRONIC DIASTOLIC (CONGESTIVE) HEART FAILURE (6) Afib Code(s): I48.91 - UNSPECIFIED ATRIAL FIBRILLATION Qualifiers: Atrial fibrillation type: chronic Qualified Code(s): I48.2 - Chronic atrial fibrillation (7) BRBPR (bright red blood per rectum) Code(s): K62.5 - HEMORRHAGE OF ANUS AND RECTUM (8) CAD (coronary artery disease) Code(s): I25.10 - ATHSCL HEART DISEASE OF [place] CORONARY ARTERY W/O ANG PCTRS Qualifiers: Coronary Disease-Associated Artery/Lesion type: [place] artery [place] vs. transplanted heart: [place] heart Associated angina: angina presence unspecified Qualified Code(s): I25.10 - Atherosclerotic heart disease of [place] coronary artery without angina pectoris (9) COPD (chronic obstructive pulmonary disease) Code(s): J44.9 - CHRONIC OBSTRUCTIVE PULMONARY DISEASE, UNSPECIFIED Qualifiers: COPD type: unspecified COPD Qualified Code(s): J44.9 - Chronic obstructive pulmonary disease, unspecified (10) DM type 2 (diabetes mellitus, type 2) Code(s): E11.9 - TYPE 2 DIABETES MELLITUS WITHOUT COMPLICATIONS Qualifiers: Diabetes mellitus skilled nursing insulin use: with skilled nursing use Diabetes mellitus complication status: with circulatory complication Diabetes mellitus complication detail: with other circulatory complications Qualified Code(s): E11.59 - Type 2 diabetes mellitus with other circulatory complications; Z79.4 - MCC (current) use of insulin (11) HTN (hypertension) Code(s): I10 - ESSENTIAL (PRIMARY) HYPERTENSION Qualifiers: Hypertension type: essential hypertension Qualified Code(s): I10 - Essential (primary) hypertension Assessment/Plan Assessment/Plan Acute on Chronic Systolic Heart Failure r/o Acute COPD Exacerbation Anemia s/p PRBC transfusions Atrial Fibrillation +Troponins likely Demand Ischemia HTN DM Hyperlipidemia h/o DVT - lasix IVP - monitor urine output, creatinine - inhaled bronchodilators - o2 to keep SpO2 >90% - rate controlled - monitor h+h - Normal transfusion thresholds DR MCCARTHY
[2018-11-18] MEDS: MONTELUKAST NA 10 MG TABLET PO SCH (22:30)
[2018-11-18] MEDS: MELATONIN 5 MG TABLETS PO SCH (22:30)
[2018-11-18] MEDS: GLYCERIN 1 RECTAL SUPPOSITORY, ADULT RC ONE (22:36)
[2018-11-19] MEDS ORDERED: PT OWN MED DRAWER 7, Y5N ONE ×2 (05:03→05:36)
[2018-11-19] MEDS: metFORMIN HCL 500 MG TABLET (FP) PO SCH ×2 (06:17→17:59)
[2018-11-19] MEDS: INSULIN SLIDING SCALE (NOVOLOG) 1 VIAL SQ SCH ×4 (06:17→21:30)
[2018-11-19 07:06] LABS: HEMATOCRIT 29.3 % (32.4-45.2); HEMOGLOBIN 8.8 GM/dL (10.7-15.3); MCH 21.9 pg (25.7-33.7); MEAN CELL VOLUME 73.1 fl (80-96); MEAN PLT VOLUME 8.4 fl (7.5-11.1); PLATELET COUNT 209 K/MM3 (134-434); RDW 26.9 % (11.6-15.6); WHITE BLOOD COUNT 7.2 K/mm3 (4.0-10.0)
[2018-11-19 07:29] LABS: ALBUMIN 2.8 g/dl (3.4-5.0); ALK PHOS 89 U/L (45-117); ANION GAP 3 MMOL/L (8-16); BILIRUBIN,TOTAL 1.6 mg/dL (0.2-1); BLOOD UREA NITROGEN 23 mg/dL (7-18); CALCIUM 9.2 mg/dL (8.5-10.1); CHLORIDE 96 mmol/L (98-107); CO2 43 mmol/L (21-32); CREATININE 0.6 mg/dL (0.55-1.3); GLUCOSE,RANDOM 88 mg/dL (74-106); SGOT/AST 33 U/L (15-37); SGPT/ALT 90 U/L (13-61); SODIUM 143 mmol/L (136-145); TOT PROT 5.2 g/dl (6.4-8.2)
[2018-11-19] MEDS: ALBUTEROL SO4 2.5/IPRATROPIUM 0.5 INH SOL 3 ML VIAL.NEB. NEB SCH ×3 (07:30→19:57)
[2018-11-19] MEDS ORDERED: predniSONE 10 MG TABLET (UD) ONE (09:00)
[2018-11-19] MEDS ORDERED: predniSONE 20 MG TABLET (UD) ONE (09:00)
[2018-11-19] MEDS: FUROSEMIDE 40 MG/4 ML INJECTABLE VIAL IVPUSH SCH (09:59)
[2018-11-19] MEDS: PANTOPRAZOLE 40 MG TABLET (FP) PO SCH (10:02)
[2018-11-19] MEDS: ACETAMINOPHEN 325 MG TABLET (FP) PO PRN (10:02)
[2018-11-19] MEDS: predniSONE 20 MG, predniSONE 10 MG, predniSONE 5 MG PO SCH (10:03)
[2018-11-19] MEDS: DOCUSATE SODIUM 100 MG CAPSULE (FP) PO SCH (10:03)
[2018-11-19] MEDS: ESCITALOPRAM OXALATE 10 MG TABLET (FP) PO SCH (10:03)
[2018-11-19] MEDS: LORazepam 0.5 MG TABLET PO SCH ×2 (10:04→21:22)
[2018-11-19] MEDS: SIMETHICONE 80 MG TAB.CHEW (FP) PO SCH ×2 (10:04→21:22)
[2018-11-19] MEDS: FLUTICASONE PROP 0.05% 16 GM NASAL SPRAY NS SCH (10:04)
[2018-11-19] MEDS: prednisoLONE ACETATE 1% OPHTH SUSP 5 ML BOTTLE OS SCH ×2 (10:05→21:22)
[2018-11-19] MEDS: SILVER SULFADIAZINE 1% TOP CREAM 50 GM JAR TP SCH ×2 (10:06→21:21)
[2018-11-19] MEDS: BUDESONIDE/FORMETEROL FUMARATE 160/4.5 mcg INHALER IH SCH ×2 (10:06→21:22)
[2018-11-19] MEDS: metoPROLOL SUCCINATE 25 MG TAB.SR.24H (FP) PO SCH (10:06)
--- NOTE | 2018-11-19 10:13 | PN ---
Progress Note, Physician History of Present Illness: Pt breathing is the same. Pt w/o CP, palpitations, abd pain. Still no BM, refused Glycerin supp yesterday. - Current Medication List Current Medications: Active Medications Acetaminophen (Tylenol -) 650 mg PO Q6H PRN PRN Reason: PAIN Last Admin: 11/19/18 10:02 Dose: 650 mg Albuterol Sulfate (Ventolin 0.083% Nebulizer Soln -) 1 amp NEB Q4H PRN PRN Reason: SHORT OF BREATH/WHEEZING Albuterol/Ipratropium (Duoneb -) 1 amp NEB RTID [facility] Last Admin: 11/19/18 07:30 Dose: 1 amp Budesonide/Formoterol Fumarate (Symbicort 160/4.5mcg -) 2 puff IH BID [facility] Last Admin: 11/19/18 10:06 Dose: 2 puff Docusate Sodium (Colace -) 300 mg PO DAILY [facility] Last Admin: 11/19/18 10:03 Dose: 300 mg Escitalopram Oxalate (Lexapro -) 5 mg PO DAILY [facility] Last Admin: 11/19/18 10:03 Dose: 5 mg Fluticasone Propionate (Flonase -) 1 spray NS DAILY [facility] Last Admin: 11/19/18 10:04 Dose: Not Given Furosemide (Lasix Injection -) 80 mg IVPUSH DAILY [facility] Last Admin: 11/19/18 09:59 Dose: 80 mg Insulin Aspart (Novolog Vial Sliding Scale -) 1 vial SQ ACHS [facility]; Protocol Last Admin: 11/19/18 06:17 Dose: Not Given Lorazepam (Ativan -) 0.5 mg PO BID [facility] Last Admin: 11/19/18 10:04 Dose: Not Given Melatonin (Melatonin) 10 mg PO HS [facility] Last Admin: 11/18/18 22:30 Dose: 10 mg Metformin HCl (Glucophage -) 500 mg PO BIDAC [facility] Last Admin: 11/19/18 06:17 Dose: 500 mg Metoprolol Succinate (Toprol Xl -) 25 mg PO DAILY [facility] Last Admin: 11/19/18 10:06 Dose: Not Given Montelukast Sodium (Singulair -) 10 mg PO HS [facility] Last Admin: 11/18/18 22:30 Dose: 10 mg Pantoprazole Sodium (Protonix -) 40 mg PO DAILY [facility] Last Admin: 11/19/18 10:02 Dose: 40 mg Polyethylene Glycol (Miralax (For Daily Use) -) 17 gm PO BID [facility] Last Admin: 11/18/18 22:33 Dose: 17 gm Prednisolone Acetate (Pred Forte 1% -) 1 drop OS BID [facility] Last Admin: 11/19/18 10:05 Dose: 1 drop Prednisone 20 mg/ Prednisone (10 mg/ Prednisone 5 mg) 35 mg PO DAILY [facility] Last Admin: 11/19/18 10:03 Dose: 35 mg Silver Sulfadiazine (Silvadene -) 1 applic TP BID [facility] Last Admin: 11/19/18 10:06 Dose: 1 applic Simethicone (Mylicon -) 80 mg PO BID [facility] Last Admin: 11/19/18 10:04 Dose: Not Given Zolpidem Tartrate (Ambien -) 5 mg PO HS PRN PRN Reason: INSOMNIA Last Admin: 11/17/18 22:00 Dose: 5 mg - Objective Vital Signs: Vital Signs Temperature 98.1 F 11/18/18 20:45 Pulse Rate 83 11/18/18 20:45 Respiratory Rate 20 11/18/18 21:00 Blood Pressure 128/56 L 11/18/18 20:45 O2 Sat by Pulse Oximetry (%) 97 11/18/18 21:00 Constitutional: Yes: No Distress, Calm Cardiovascular: Yes: Regular Rate and Rhythm, S1, S2 Respiratory: Yes: Regular, CTA Bilaterally, Rales Gastrointestinal: Yes: Normal Bowel Sounds, Soft. No: Tenderness Edema: LLE: 2+, RLE: 2+ Neurological: Yes: Alert, Oriented Labs: CBC, BMP 11/19/18 06:30 11/19/18 06:30 INR, PTT INR 1.13 (0.83-1.09) H 11/17/18 06:00 Problem List - Problems (1) Acute exacerbation of CHF (congestive heart failure) Code(s): I50.9 - HEART FAILURE, UNSPECIFIED (2) Anemia Code(s): D64.9 - ANEMIA, UNSPECIFIED Qualifiers: Anemia type: unspecified type Qualified Code(s): D64.9 - Anemia, unspecified (3) Elevated troponin Code(s): R74.8 - ABNORMAL LEVELS OF OTHER SERUM ENZYMES (4) Elevated LFTs Code(s): R94.5 - ABNORMAL RESULTS OF LIVER FUNCTION STUDIES (5) CHF (congestive heart failure) Code(s): I50.9 - HEART FAILURE, UNSPECIFIED Qualifiers: Heart failure type: unspecified Heart failure chronicity: unspecified Qualified Code(s): I50.9 - Heart failure, unspecified (6) CAD (coronary artery disease) Code(s): I25.10 - ATHSCL HEART DISEASE OF [place] CORONARY ARTERY W/O ANG PCTRS Qualifiers: Coronary Disease-Associated Artery/Lesion type: [place] artery [place] vs. transplanted heart: [place] heart Associated angina: angina presence unspecified Qualified Code(s): I25.10 - Atherosclerotic heart disease of [place] coronary artery without angina pectoris (7) COPD (chronic obstructive pulmonary disease) Code(s): J44.9 - CHRONIC OBSTRUCTIVE PULMONARY DISEASE, UNSPECIFIED Qualifiers: COPD type: unspecified COPD Qualified Code(s): J44.9 - Chronic obstructive pulmonary disease, unspecified (8) DM type 2 (diabetes mellitus, type 2) Code(s): E11.9 - TYPE 2 DIABETES MELLITUS WITHOUT COMPLICATIONS Qualifiers: Diabetes mellitus computer terminal operator insulin use: with longterm use Diabetes mellitus complication status: with circulatory complication Diabetes mellitus complication detail: with other circulatory complications Qualified Code(s): E11.59 - Type 2 diabetes mellitus with other circulatory complications; Z79.4 - intermediate card tender (current) use of insulin (9) HTN (hypertension) Code(s): I10 - ESSENTIAL (PRIMARY) HYPERTENSION Qualifiers: Hypertension type: essential hypertension Qualified Code(s): I10 - Essential (primary) hypertension (10) Insomnia Code(s): G47.00 - INSOMNIA, UNSPECIFIED Assessment/Plan s/p PRBC transfusion (3 units); f/u H/H Lasix IV Cardio, Pulmonary, GI consults are appreciated Increase MIralax to TID. Pt doesn't want enema PT, OOBTC AM labs Case was d/w pt's nurse.t
--- NOTE | 2018-11-19 11:23 | PN ---
Progress Note (short form) - Note Progress Note: s: sob still. no chest pain, palps, dizziness Current Medications Generic Name Dose Route Start Last Admin Trade Name Freq PRN Reason Stop Dose Admin Acetaminophen 650 mg 11/16/18 10:58 11/19/18 10:02 Tylenol - PO 650 mg Q6H PRN Administration PAIN Albuterol Sulfate 1 amp 11/15/18 14:16 Ventolin 0.083% Nebulizer Soln - NEB Q4H PRN SHORT OF BREATH/WHEEZING Albuterol/Ipratropium 1 amp 11/15/18 20:00 11/19/18 07:30 Duoneb - NEB 1 amp RTID BREANNA Administration Budesonide/Formoterol Fumarate 2 puff 11/14/18 22:00 11/19/18 10:06 Symbicort 160/4.5mcg - IH 2 puff BID BREANNA Administration Docusate Sodium 300 mg 11/15/18 10:00 11/19/18 10:03 Colace - PO 300 mg DAILY BREANNA Administration Escitalopram Oxalate 5 mg 11/15/18 10:00 11/19/18 10:03 Lexapro - PO 5 mg DAILY BRE[facility]NA Administration Fluticasone Propionate 1 spray 11/15/18 10:00 11/19/18 10:04 Flonase - NS Not Given DAILY [facility] Furosemide 80 mg 11/15/18 10:00 11/19/18 09:59 Lasix Injection - IVPUSH 80 mg DAILY [facility] Administration Insulin Aspart 1 vial 11/14/18 22:00 11/19/18 06:17 Novolog Vial Sliding Scale - SQ Not Given ACHS [facility] Protocol Lorazepam 0.5 mg 11/14/18 22:00 11/19/18 10:04 Ativan - PO Not Given BID [facility] Melatonin 10 mg 11/14/18 22:00 11/18/18 22:30 Melatonin PO 10 mg HS [facility] Administration Metformin HCl 500 mg 11/14/18 21:00 11/19/18 06:17 Glucophage - PO 500 mg BIDAC [facility] Administration Metoprolol Succinate 25 mg 11/15/18 10:00 11/19/18 10:06 Toprol Xl - PO Not Given DAILY [facility] Montelukast Sodium 10 mg 11/14/18 22:00 11/18/18 22:30 Singulair - PO 10 mg HS [facility] Administration Pantoprazole Sodium 40 mg 11/15/18 10:00 11/19/18 10:02 Protonix - PO 40 mg DAILY [facility] Administration Polyethylene Glycol 17 gm 11/19/18 14:00 Miralax (For Daily Use) - PO TID [facility] Prednisolone Acetate 1 drop 11/14/18 22:00 11/19/18 10:05 Pred Forte 1% - OS 1 drop BID [facility] Administration Prednisone 20 mg/ Prednisone 35 mg 11/18/18 10:00 11/19/18 10:03 10 mg/ Prednisone 5 mg PO 35 mg DAILY [facility] Administration Silver Sulfadiazine 1 applic 11/14/18 22:00 11/19/18 10:06 Silvadene - TP 1 applic BID [facility] Administration Simethicone 80 mg 11/14/18 22:00 11/19/18 10:04 Mylicon - PO Not Given BID [facility] Zolpidem Tartrate 5 mg 11/17/18 16:48 11/17/18 22:00 Ambien - PO 5 mg HS PRN Administration INSOMNIA Vital Signs Period Temp Pulse Resp BP Sys/Garcia Pulse Ox Last 24 Hr 98.1 F-98.6 F 75-105 20-20 106-128/56-60 97 nad, +jvd rrr, s1s2 no mrg cta bl nl eff aao3 trace le edema bl no jaundice diaphoresis pos dp pt no carotid bruits abd nt nd pos bs CBC, BMP 11/19/18 06:30 11/19/18 06:30 ecg: sr, no ischemic changes cath 12/2017 (after +mibi): non obs cad echo 06/2018: mild-mod dec lvef, global hk, nl rv, lae, mild-mod mr, mild tr, mod as, nl rvsp cxr: clear lungs a/p: 83 f hx hld, htn, syst chf, dm, copd, dvt, afib, as, non obs cad, here with sob. sob, anemia, acute systolic chf: -pt with severe anemia as well as vol overload, likely both contributing to sob -received prbcs -le edema improving, stable Cr, continue lasix 80 mg IV daily -daily wts, chem7 anemia: -?related to leg hematoma -s/p transfusion prbcs -hold home xarelto cad, pos trops: -pt had recent cath 12/2017 with non obstructive cad -trops in borderline range here, flat trend. likely represents demand from anemia/chf and not acs afib: -in sr here, cont toprol -holding xarelto in setting of anemia, leg hematoma hld: -cont home statin htn: -stable on toprol
--- NOTE | 2018-11-19 13:43 | PN ---
Progress Note, Physician History of Present Illness: pulmonary alert,oob-chair,feeling better,less dyspneic - Current Medication List Current Medications: Active Medications Acetaminophen (Tylenol -) 650 mg PO Q6H PRN PRN Reason: PAIN Last Admin: 11/19/18 10:02 Dose: 650 mg Albuterol Sulfate (Ventolin 0.083% Nebulizer Soln -) 1 amp NEB Q4H PRN PRN Reason: SHORT OF BREATH/WHEEZING Albuterol/Ipratropium (Duoneb -) 1 amp NEB RTID [facility] Last Admin: 11/19/18 07:30 Dose: 1 amp Budesonide/Formoterol Fumarate (Symbicort 160/4.5mcg -) 2 puff IH BID [facility] Last Admin: 11/19/18 10:06 Dose: 2 puff Docusate Sodium (Colace -) 300 mg PO DAILY [facility] Last Admin: 11/19/18 10:03 Dose: 300 mg Escitalopram Oxalate (Lexapro -) 5 mg PO DAILY [facility] Last Admin: 11/19/18 10:03 Dose: 5 mg Fluticasone Propionate (Flonase -) 1 spray NS DAILY [facility] Last Admin: 11/19/18 10:04 Dose: Not Given Furosemide (Lasix Injection -) 80 mg IVPUSH DAILY [facility] Last Admin: 11/19/18 09:59 Dose: 80 mg Insulin Aspart (Novolog Vial Sliding Scale -) 1 vial SQ ACHS [facility]; Protocol Last Admin: 11/19/18 12:29 Dose: Not Given Lorazepam (Ativan -) 0.5 mg PO BID [facility] Last Admin: 11/19/18 10:04 Dose: Not Given Melatonin (Melatonin) 10 mg PO HS [facility] Last Admin: 11/18/18 22:30 Dose: 10 mg Metformin HCl (Glucophage -) 500 mg PO BIDAC [facility] Last Admin: 11/19/18 06:17 Dose: 500 mg Metoprolol Succinate (Toprol Xl -) 25 mg PO DAILY [facility] Last Admin: 11/19/18 10:06 Dose: Not Given Montelukast Sodium (Singulair -) 10 mg PO HS [facility] Last Admin: 11/18/18 22:30 Dose: 10 mg Pantoprazole Sodium (Protonix -) 40 mg PO DAILY [facility] Last Admin: 11/19/18 10:02 Dose: 40 mg Polyethylene Glycol (Miralax (For Daily Use) -) 17 gm PO TID [facility] Prednisolone Acetate (Pred Forte 1% -) 1 drop OS BID [facility] Last Admin: 11/19/18 10:05 Dose: 1 drop Prednisone 20 mg/ Prednisone (10 mg/ Prednisone 5 mg) 35 mg PO DAILY [facility] Last Admin: 11/19/18 10:03 Dose: 35 mg Silver Sulfadiazine (Silvadene -) 1 applic TP BID [facility] Last Admin: 11/19/18 10:06 Dose: 1 applic Simethicone (Mylicon -) 80 mg PO BID [facility] Last Admin: 11/19/18 10:04 Dose: Not Given Zolpidem Tartrate (Ambien -) 5 mg PO HS PRN PRN Reason: INSOMNIA Last Admin: 11/17/18 22:00 Dose: 5 mg - Objective Vital Signs: Vital Signs Temperature 98.1 F 11/18/18 20:45 Pulse Rate 83 11/18/18 20:45 Respiratory Rate 20 11/18/18 21:00 Blood Pressure 128/56 L 11/18/18 20:45 O2 Sat by Pulse Oximetry (%) 97 11/18/18 21:00 Constitutional: Yes: Well Nourished, Calm Eyes: Yes: WNL HENT: Yes: WNL Neck: Yes: WNL Cardiovascular: Yes: Pulse Irregular, S1, S2 Respiratory: Yes: Rales (bibasialr rales) Gastrointestinal: Yes: Normal Bowel Sounds, Soft Extremities: Yes: WNL Edema: Yes Labs: CBC, BMP 11/19/18 06:30 11/19/18 06:30 INR, PTT INR 1.13 (0.83-1.09) H 11/17/18 06:00 Problem List - Problems (1) Acute exacerbation of CHF (congestive heart failure) Code(s): I50.9 - HEART FAILURE, UNSPECIFIED (2) CHF (congestive heart failure) Code(s): I50.9 - HEART FAILURE, UNSPECIFIED Qualifiers: Heart failure type: unspecified Heart failure chronicity: unspecified Qualified Code(s): I50.9 - Heart failure, unspecified (3) Elevated troponin Code(s): R74.8 - ABNORMAL LEVELS OF OTHER SERUM ENZYMES (4) Acute exacerbation of chronic obstructive pulmonary disease (COPD) Code(s): J44.1 - CHRONIC OBSTRUCTIVE PULMONARY DISEASE W (ACUTE) EXACERBATION (5) Acute on chronic diastolic CHF (congestive heart failure) Code(s): I50.33 - ACUTE ON CHRONIC DIASTOLIC (CONGESTIVE) HEART FAILURE (6) Afib Code(s): I48.91 - UNSPECIFIED ATRIAL FIBRILLATION Qualifiers: Atrial fibrillation type: chronic Qualified Code(s): I48.2 - Chronic atrial fibrillation (7) BRBPR (bright red blood per rectum) Code(s): K62.5 - HEMORRHAGE OF ANUS AND RECTUM (8) CAD (coronary artery disease) Code(s): I25.10 - ATHSCL HEART DISEASE OF [place] CORONARY ARTERY W/O ANG PCTRS Qualifiers: Coronary Disease-Associated Artery/Lesion type: [place] artery [place] vs. transplanted heart: [place] heart Associated angina: angina presence unspecified Qualified Code(s): I25.10 - Atherosclerotic heart disease of [place] coronary artery without angina pectoris (9) COPD (chronic obstructive pulmonary disease) Code(s): J44.9 - CHRONIC OBSTRUCTIVE PULMONARY DISEASE, UNSPECIFIED Qualifiers: COPD type: unspecified COPD Qualified Code(s): J44.9 - Chronic obstructive pulmonary disease, unspecified (10) DM type 2 (diabetes mellitus, type 2) Code(s): E11.9 - TYPE 2 DIABETES MELLITUS WITHOUT COMPLICATIONS Qualifiers: Diabetes mellitus fdc insulin use: with terminal gauger use Diabetes mellitus complication status: with circulatory complication Diabetes mellitus complication detail: with other circulatory complications Qualified Code(s): E11.59 - Type 2 diabetes mellitus with other circulatory complications; Z79.4 - terminal gauger (current) use of insulin (11) HTN (hypertension) Code(s): I10 - ESSENTIAL (PRIMARY) HYPERTENSION Qualifiers: Hypertension type: essential hypertension Qualified Code(s): I10 - Essential (primary) hypertension Assessment/Plan Assessment/Plan Acute on Chronic Systolic Heart Failure r/o Acute COPD Exacerbation Anemia s/p PRBC transfusions Atrial Fibrillation +Troponins likely Demand Ischemia HTN DM Hyperlipidemia h/o DVT - lasix IVP - monitor urine output, creatinine - inhaled bronchodilators - o2 to keep SpO2 >90% - rate controlled - monitor h+h - Normal transfusion thresholds -taper steroids DR MCCARTHY
[2018-11-19] MEDS: POLYETHYLENE GLYCOL 3350 119 GM BTL PO SCH ×3 (15:16→21:23)
[2018-11-19] MEDS: GLYCERIN 1 RECTAL SUPPOSITORY, ADULT RC ONE (21:21)
[2018-11-19] MEDS: MONTELUKAST NA 10 MG TABLET PO SCH (21:21)
[2018-11-19] MEDS: MELATONIN 5 MG TABLETS PO SCH (21:22)
[2018-11-19] MEDS ORDERED: ZOLPIDEM TARTRATE 5 MG TABLET PO PRN (22:40)
[2018-11-19] MEDS ORDERED: ZOLPIDEM TARTRATE 5 MG TABLET PO ONE (23:30)
[2018-11-20] MEDS: POLYETHYLENE GLYCOL 3350 119 GM BTL PO SCH ×3 (05:58→23:08)
[2018-11-20] MEDS: INSULIN SLIDING SCALE (NOVOLOG) 1 VIAL SQ SCH ×4 (06:00→23:03)
[2018-11-20] MEDS: metFORMIN HCL 500 MG TABLET (FP) PO SCH ×2 (06:00→17:00)
[2018-11-20] MEDS: ALBUTEROL SO4 2.5/IPRATROPIUM 0.5 INH SOL 3 ML VIAL.NEB. NEB SCH (07:35)
[2018-11-20 08:06] LABS: ANION GAP 3 MMOL/L (8-16); BLOOD UREA NITROGEN 19 mg/dL (7-18); CALCIUM 9.1 mg/dL (8.5-10.1); CHLORIDE 96 mmol/L (98-107); CO2 42 mmol/L (21-32); CREATININE 0.4 mg/dL (0.55-1.3); GLUCOSE,RANDOM 84 mg/dL (74-106); POTASSIUM 3.6 mmol/L (3.5-5.1); SODIUM 141 mmol/L (136-145)
[2018-11-20 09:20] LABS: HEMATOCRIT 28.4 % (32.4-45.2); HEMOGLOBIN 8.5 GM/dL (10.7-15.3); MCH 21.8 pg (25.7-33.7); MCHC 30.1 g/dl (32.0-36.0); MEAN CELL VOLUME 72.6 fl (80-96); MEAN PLT VOLUME 8.7 fl (7.5-11.1); PLATELET COUNT 199 K/MM3 (134-434); RBC 3.91 M/mm3 (3.60-5.2); RDW 27.1 % (11.6-15.6); WHITE BLOOD COUNT 6.3 K/mm3 (4.0-10.0)
[2018-11-20] MEDS ORDERED: PT OWN MED DRAWER 7, Y5N ONE (09:29)
--- NOTE | 2018-11-20 09:40 | PN ---
Progress Note, Physician History of Present Illness: Pt breathing is the slightly better. Pt w/o CP, palpitations, abd pain. Pt had BM, after Glycerin suppository. - Current Medication List Current Medications: Active Medications Acetaminophen (Tylenol -) 650 mg PO Q6H PRN PRN Reason: PAIN Last Admin: 11/19/18 10:02 Dose: 650 mg Albuterol Sulfate (Ventolin 0.083% Nebulizer Soln -) 1 amp NEB Q4H PRN PRN Reason: SHORT OF BREATH/WHEEZING Albuterol/Ipratropium (Duoneb -) 1 amp NEB RTID REPLACED BY [facility] Last Admin: 11/20/18 07:35 Dose: 1 amp Budesonide/Formoterol Fumarate (Symbicort 160/4.5mcg -) 2 puff IH BID REPLACED BY [facility] Last Admin: 11/19/18 21:22 Dose: 2 puff Docusate Sodium (Colace -) 300 mg PO DAILY [facility]PL[facility]ED BY [facility] Last Admin: 11/19/18 10:03 Dose: 300 mg Escitalopram Oxalate (Lexapro -) 5 mg PO DAILY [facility] BY [facility] Last Admin: 11/19/18 10:03 Dose: 5 mg Fluticasone Propionate (Flonase -) 1 spray NS DAILY [facility] BY [facility] Last Admin: 11/19/18 10:04 Dose: Not Given Furosemide (Lasix Injection -) 80 mg IVPUSH DAILY [facility] BY [facility] Last Admin: 11/19/18 09:59 Dose: 80 mg Insulin Aspart (Novolog Vial Sliding Scale -) 1 vial SQ ACHS REPLACED BY [facility]; Protocol Last Admin: 11/20/18 06:00 Dose: Not Given Lorazepam (Ativan -) 0.5 mg PO BID REPLACED BY [facility] Last Admin: 11/19/18 21:22 Dose: 0.5 mg Melatonin (Melatonin) 10 mg PO HS REPLACED BY [facility] Last Admin: 11/19/18 21:22 Dose: 10 mg Metformin HCl (Glucophage -) 500 mg PO BIDAC REPLACED BY [facility] Last Admin: 11/20/18 06:00 Dose: 500 mg Metoprolol Succinate (Toprol Xl -) 25 mg PO DAILY [facility]PL[facility] BY [facility] Last Admin: 11/19/18 10:06 Dose: Not Given Montelukast Sodium (Singulair -) 10 mg PO HS REPLACED BY [facility] Last Admin: 11/19/18 21:21 Dose: 10 mg Pantoprazole Sodium (Protonix -) 40 mg PO DAILY [facility]PL[facility]ED BY [facility] Last Admin: 11/19/18 10:02 Dose: 40 mg Polyethylene Glycol (Miralax (For Daily Use) -) 17 gm PO TID REPLACED BY [facility] Last Admin: 11/20/18 05:58 Dose: 17 grams Prednisolone Acetate (Pred Forte 1% -) 1 drop OS BID REPLACED BY [facility] Last Admin: 11/19/18 21:22 Dose: 1 drop Prednisone (Deltasone -) 30 mg PO DAILY REPLACED BY [facility] Silver Sulfadiazine (Silvadene -) 1 applic TP BID REPLACED BY [facility] Last Admin: 11/19/18 21:21 Dose: 1 applic Simethicone (Mylicon -) 80 mg PO BID REPLACED BY [facility] Last Admin: 11/19/18 21:22 Dose: Not Given - Objective Vital Signs: Vital Signs Temperature 97.7 F 11/20/18 07:42 Pulse Rate 72 11/20/18 07:42 Respiratory Rate 20 11/20/18 07:42 Blood Pressure 127/70 11/20/18 07:42 O2 Sat by Pulse Oximetry (%) 97 11/19/18 20:40 Constitutional: Yes: No Distress, Calm, Other (in the chair) Cardiovascular: Yes: Regular Rate and Rhythm, S1, S2 Respiratory: Yes: Regular, Rales (crackles at bases), Rhonchi Gastrointestinal: Yes: Normal Bowel Sounds, Soft. No: Tenderness Edema: LLE: 2+, RLE: 2+ Neurological: Yes: Alert, Oriented Labs: CBC, BMP 11/20/18 06:45 11/20/18 06:45 INR, PTT INR 1.13 (0.83-1.09) H 11/17/18 06:00 Problem List - Problems (1) Acute exacerbation of CHF (congestive heart failure) Code(s): I50.9 - HEART FAILURE, UNSPECIFIED (2) Anemia Code(s): D64.9 - ANEMIA, UNSPECIFIED Qualifiers: Anemia type: unspecified type Qualified Code(s): D64.9 - Anemia, unspecified (3) Elevated troponin Code(s): R74.8 - ABNORMAL LEVELS OF OTHER SERUM ENZYMES (4) Elevated LFTs Code(s): R94.5 - ABNORMAL RESULTS OF LIVER FUNCTION STUDIES (5) CHF (congestive heart failure) Code(s): I50.9 - HEART FAILURE, UNSPECIFIED Qualifiers: Heart failure type: unspecified Heart failure chronicity: unspecified Qualified Code(s): I50.9 - Heart failure, unspecified (6) CAD (coronary artery disease) Code(s): I25.10 - ATHSCL HEART DISEASE OF [place] CORONARY ARTERY W/O ANG PCTRS Qualifiers: Coronary Disease-Associated Artery/Lesion type: [place] artery [place] vs. transplanted heart: [place] heart Associated angina: angina presence unspecified Qualified Code(s): I25.10 - Atherosclerotic heart disease of [place] coronary artery without angina pectoris (7) COPD (chronic obstructive pulmonary disease) Code(s): J44.9 - CHRONIC OBSTRUCTIVE PULMONARY DISEASE, UNSPECIFIED Qualifiers: COPD type: unspecified COPD Qualified Code(s): J44.9 - Chronic obstructive pulmonary disease, unspecified (8) DM type 2 (diabetes mellitus, type 2) Code(s): E11.9 - TYPE 2 DIABETES MELLITUS WITHOUT COMPLICATIONS Qualifiers: Diabetes mellitus usp insulin use: with exterminator use Diabetes mellitus complication status: with circulatory complication Diabetes mellitus complication detail: with other circulatory complications Qualified Code(s): E11.59 - Type 2 diabetes mellitus with other circulatory complications; Z79.4 - residential (current) use of insulin (9) HTN (hypertension) Code(s): I10 - ESSENTIAL (PRIMARY) HYPERTENSION Qualifiers: Hypertension type: essential hypertension Qualified Code(s): I10 - Essential (primary) hypertension (10) Insomnia Code(s): G47.00 - INSOMNIA, UNSPECIFIED Assessment/Plan s/p PRBC transfusion (3 units); H/ H slightly trending down ; to f/u H/H Abd/Pelvis, LEs CT scan to evaluate blood loss (pt thinks than can lay down almost flat) Lasix IV Cardio, Pulmonary, GI consults are appreciated AM labs Case was d/w pt's nurse.t
--- NOTE | 2018-11-20 10:00 | PN ---
Progress Note (short form) - Note Progress Note: PULMONARY Still with shortness of breath and nonproductive cough. No fevers. Vital Signs Period Temp Pulse Resp BP Sys/Garcia Pulse Ox Last 24 Hr 97.5 F-98.4 F 72-107 18-20 106-127/49-70 97 Gen: tachypneic with speaking Heart: RRR Lung: distant breath sounds, no wheezes Abd: soft, nontender Ext: + edema, ecchymosis CBC, BMP 11/20/18 06:45 11/20/18 06:45 Active Medications Acetaminophen (Tylenol -) 650 mg PO Q6H PRN PRN Reason: PAIN Last Admin: 11/19/18 10:02 Dose: 650 mg Albuterol Sulfate (Ventolin 0.083% Nebulizer Soln -) 1 amp NEB Q4H PRN PRN Reason: SHORT OF BREATH/WHEEZING Albuterol/Ipratropium (Duoneb -) 1 amp NEB RTID [facility] Last Admin: 11/20/18 07:35 Dose: 1 amp Budesonide/Formoterol Fumarate (Symbicort 160/4.5mcg -) 2 puff IH BID [facility] Last Admin: 11/19/18 21:22 Dose: 2 puff Docusate Sodium (Colace -) 300 mg PO DAILY [facility] Last Admin: 11/19/18 10:03 Dose: 300 mg Escitalopram Oxalate (Lexapro -) 5 mg PO DAILY [facility] Last Admin: 11/19/18 10:03 Dose: 5 mg Fluticasone Propionate (Flonase -) 1 spray NS DAILY [facility] Last Admin: 11/19/18 10:04 Dose: Not Given Furosemide (Lasix Injection -) 80 mg IVPUSH DAILY [facility] Last Admin: 11/19/18 09:59 Dose: 80 mg Insulin Aspart (Novolog Vial Sliding Scale -) 1 vial SQ ACHS [facility]; Protocol Last Admin: 11/20/18 06:00 Dose: Not Given Lorazepam (Ativan -) 0.5 mg PO BID [facility] Last Admin: 11/19/18 21:22 Dose: 0.5 mg Melatonin (Melatonin) 10 mg PO HS [facility] Last Admin: 11/19/18 21:22 Dose: 10 mg Metformin HCl (Glucophage -) 500 mg PO BIDAC [facility] Last Admin: 11/20/18 06:00 Dose: 500 mg Metoprolol Succinate (Toprol Xl -) 25 mg PO DAILY [facility] Last Admin: 11/19/18 10:06 Dose: Not Given Montelukast Sodium (Singulair -) 10 mg PO HS [facility] Last Admin: 11/19/18 21:21 Dose: 10 mg Pantoprazole Sodium (Protonix -) 40 mg PO DAILY [facility] Last Admin: 11/19/18 10:02 Dose: 40 mg Polyethylene Glycol (Miralax (For Daily Use) -) 17 gm PO TID [facility] Last Admin: 11/20/18 05:58 Dose: 17 grams Prednisolone Acetate (Pred Forte 1% -) 1 drop OS BID [facility] Last Admin: 11/19/18 21:22 Dose: 1 drop Prednisone (Deltasone -) 30 mg PO DAILY [facility] Silver Sulfadiazine (Silvadene -) 1 applic TP BID [facility] Last Admin: 11/19/18 21:21 Dose: 1 applic Simethicone (Mylicon -) 80 mg PO BID [facility] Last Admin: 11/19/18 21:22 Dose: Not Given A/P Acute on Chronic Systolic Heart Failure r/o Acute COPD Exacerbation Anemia s/p PRBC transfusions Atrial Fibrillation +Troponins likely [place] Ischemia HTN DM Hyperlipidemia h/o DVT - continue lasix - monitor urine output, creatinine - empiric prednisone - inhaled bronchodilators, will change symbicort to brovana - o2 to keep SpO2 >90% - rate controlled - resume anticoagulation if H/H stable
[2018-11-20] MEDS: predniSONE 20 MG TABLET (UD) PO SCH (10:24)
[2018-11-20] MEDS: DOCUSATE SODIUM 100 MG CAPSULE (FP) PO SCH (10:24)
[2018-11-20] MEDS: LORazepam 0.5 MG TABLET PO SCH ×2 (10:24→22:55)
[2018-11-20] MEDS: ESCITALOPRAM OXALATE 10 MG TABLET (FP) PO SCH (10:25)
[2018-11-20] MEDS: SIMETHICONE 80 MG TAB.CHEW (FP) PO SCH ×2 (10:27→22:56)
[2018-11-20] MEDS: metoPROLOL SUCCINATE 25 MG TAB.SR.24H (FP) PO SCH (10:27)
[2018-11-20] MEDS: PANTOPRAZOLE 40 MG TABLET (FP) PO SCH (10:27)
[2018-11-20] MEDS: FUROSEMIDE 40 MG/4 ML INJECTABLE VIAL IVPUSH SCH (10:28)
[2018-11-20] MEDS: FLUTICASONE PROP 0.05% 16 GM NASAL SPRAY NS SCH (10:29)
[2018-11-20] MEDS: prednisoLONE ACETATE 1% OPHTH SUSP 5 ML BOTTLE OS SCH ×2 (10:30→23:01)
[2018-11-20] MEDS: SILVER SULFADIAZINE 1% TOP CREAM 50 GM JAR TP SCH ×2 (10:30→23:07)
[2018-11-20] MEDS: TIOTROPIUM BROMIDE 2.5 MCG (SPIRIVA) RESPIMAT INHALER IH SCH (11:52)
[2018-11-20] MEDS: ACETAMINOPHEN 325 MG TABLET (FP) PO PRN ×2 (17:01→23:04)
[2018-11-20] MEDS ORDERED: INSULIN (NOVOLOG) ASPART 100 UNITS/ML 10ML VIAL ONE (17:29)
[2018-11-20] MEDS ORDERED: ZOLPIDEM TARTRATE 5 MG TABLET PO PRN (22:00)
[2018-11-20] MEDS: ARFORMOTEROL TARTRATE 15 MCG/2 ML VIAL NEB SCH (22:02)
[2018-11-20] MEDS: MELATONIN 5 MG TABLETS PO SCH (22:55)
[2018-11-20] MEDS: MONTELUKAST NA 10 MG TABLET PO SCH (23:07)
[2018-11-21] MEDS: INSULIN SLIDING SCALE (NOVOLOG) 1 VIAL SQ SCH ×4 (06:18→21:42)
[2018-11-21] MEDS: POLYETHYLENE GLYCOL 3350 119 GM BTL PO SCH ×4 (06:40→21:29)
[2018-11-21] MEDS: ARFORMOTEROL TARTRATE 15 MCG/2 ML VIAL NEB SCH ×2 (07:35→20:13)
[2018-11-21] MEDS: metFORMIN HCL 500 MG TABLET (FP) PO SCH ×2 (08:07→16:55)
[2018-11-21 08:52] LABS: ANION GAP 3 MMOL/L (8-16); BLOOD UREA NITROGEN 16 mg/dL (7-18); CALCIUM 9.2 mg/dL (8.5-10.1); CHLORIDE 95 mmol/L (98-107); CO2 > 45 mmol/L (21-32); CREATININE 0.5 mg/dL (0.55-1.3); GLUCOSE,RANDOM 88 mg/dL (74-106); POTASSIUM 3.5 mmol/L (3.5-5.1); SODIUM 143 mmol/L (136-145)
[2018-11-21] MEDS: FUROSEMIDE 40 MG/4 ML INJECTABLE VIAL IVPUSH SCH (09:35)
[2018-11-21] MEDS: predniSONE 20 MG TABLET (UD) PO SCH (09:35)
[2018-11-21] MEDS: SIMETHICONE 80 MG TAB.CHEW (FP) PO SCH ×2 (09:35→21:26)
[2018-11-21] MEDS: metoPROLOL SUCCINATE 25 MG TAB.SR.24H (FP) PO SCH (09:35)
[2018-11-21] MEDS: ESCITALOPRAM OXALATE 10 MG TABLET (FP) PO SCH (09:36)
[2018-11-21] MEDS: LORazepam 0.5 MG TABLET PO SCH ×2 (09:36→21:26)
[2018-11-21] MEDS: PANTOPRAZOLE 40 MG TABLET (FP) PO SCH (09:37)
[2018-11-21] MEDS: DOCUSATE SODIUM 100 MG CAPSULE (FP) PO SCH (09:41)
[2018-11-21] MEDS: ACETAMINOPHEN 325 MG TABLET (FP) PO PRN ×2 (09:41→21:54)
[2018-11-21] MEDS: FLUTICASONE PROP 0.05% 16 GM NASAL SPRAY NS SCH (09:43)
[2018-11-21] MEDS: TIOTROPIUM BROMIDE 2.5 MCG (SPIRIVA) RESPIMAT INHALER IH SCH (09:43)
[2018-11-21] MEDS: prednisoLONE ACETATE 1% OPHTH SUSP 5 ML BOTTLE OS SCH ×2 (09:43→21:28)
[2018-11-21] MEDS: SILVER SULFADIAZINE 1% TOP CREAM 50 GM JAR TP SCH ×2 (09:43→21:28)
--- NOTE | 2018-11-21 10:11 | PN ---
Progress Note (short form) - Note Progress Note: PULMONARY Still with shortness of breath and nonproductive cough but feels slightly improved. No fevers. Vital Signs Period Temp Pulse Resp BP Sys/Garcia Pulse Ox Last 24 Hr 66 F-98.8 F 66-77 20-22 100-132/60-66 100 Gen: less tachypneic with speaking Heart: RRR Lung: distant breath sounds, no wheezes Abd: soft, nontender Ext: + edema, ecchymosis CBC, BMP 11/21/18 08:00 11/21/18 08:00 Active Medications Acetaminophen (Tylenol -) 650 mg PO Q6H PRN PRN Reason: PAIN Last Admin: 11/21/18 09:41 Dose: 650 mg Albuterol Sulfate (Ventolin 0.083% Nebulizer Soln -) 1 amp NEB Q4H PRN PRN Reason: SHORT OF BREATH/WHEEZING Arformoterol Tartrate (Brovana (Restricted To Pulmonology/Resp) -) 1 amp NEB RBID [facility] Last Admin: 11/21/18 07:35 Dose: 1 amp Docusate Sodium (Colace -) 300 mg PO DAILY [facility] Last Admin: 11/21/18 09:41 Dose: 300 mg Escitalopram Oxalate (Lexapro -) 5 mg PO DAILY [facility] Last Admin: 11/21/18 09:36 Dose: 5 mg Fluticasone Propionate (Flonase -) 1 spray NS DAILY [facility] Last Admin: 11/21/18 09:43 Dose: 1 spray Furosemide (Lasix Injection -) 80 mg IVPUSH DAILY [facility] Last Admin: 11/21/18 09:35 Dose: 80 mg Insulin Aspart (Novolog Vial Sliding Scale -) 1 vial SQ ACHS [facility]; Protocol Last Admin: 11/21/18 06:18 Dose: Not Given Lorazepam (Ativan -) 0.5 mg PO BID [facility] Last Admin: 11/21/18 09:36 Dose: 0.5 mg Melatonin (Melatonin) 10 mg PO HS [facility] Last Admin: 11/20/18 22:55 Dose: 10 mg Metformin HCl (Glucophage -) 500 mg PO BIDAC [facility] Last Admin: 11/21/18 08:07 Dose: Not Given Metoprolol Succinate (Toprol Xl -) 25 mg PO DAILY [facility] Last Admin: 11/21/18 09:35 Dose: 25 mg Montelukast Sodium (Singulair -) 10 mg PO HS [facility] Last Admin: 11/20/18 23:07 Dose: 10 mg Pantoprazole Sodium (Protonix -) 40 mg PO DAILY [facility] Last Admin: 11/21/18 09:37 Dose: 40 mg Polyethylene Glycol (Miralax (For Daily Use) -) 17 gm PO TID [facility] Last Admin: 11/21/18 06:40 Dose: 17 grams Prednisolone Acetate (Pred Forte 1% -) 1 drop OS BID [facility] Last Admin: 11/21/18 09:43 Dose: 1 drop Prednisone (Deltasone -) 30 mg PO DAILY [facility] Last Admin: 11/21/18 09:35 Dose: 30 mg Silver Sulfadiazine (Silvadene -) 1 applic TP BID [facility] Last Admin: 11/21/18 09:43 Dose: 1 applic Simethicone (Mylicon -) 80 mg PO BID [facility] Last Admin: 11/21/18 09:35 Dose: 80 mg Tiotropium [place] (Spiriva Respimat) 2 puff IH DAILY [facility] Last Admin: 11/21/18 09:43 Dose: 2 puff Zolpidem Tartrate (Ambien -) 5 mg PO HS PRN PRN Reason: INSOMNIA Last Admin: 11/20/18 23:55 Dose: 5 mg A/P Acute on Chronic Systolic Heart Failure Severe COPD - r/o Acute Exacerbation Anemia s/p PRBC transfusions Atrial Fibrillation +Troponins likely [place] Ischemia HTN DM Hyperlipidemia h/o DVT - continue lasix - monitor urine output, creatinine - empiric prednisone - inhaled bronchodilators - continue brovana and spiriva - o2 to keep SpO2 >90% - rate controlled - resume anticoagulation if H/H stable
[2018-11-21 10:25] LABS: HEMATOCRIT 30.8 % (32.4-45.2); HEMOGLOBIN 9.2 GM/dL (10.7-15.3); MCH 21.6 pg (25.7-33.7); MCHC 29.8 g/dl (32.0-36.0); MEAN CELL VOLUME 72.5 fl (80-96); MEAN PLT VOLUME 8.2 fl (7.5-11.1); PLATELET COUNT 195 K/MM3 (134-434); RBC 4.24 M/mm3 (3.60-5.2); RDW 27.1 % (11.6-15.6); WHITE BLOOD COUNT 7.7 K/mm3 (4.0-10.0)
[2018-11-21] MEDS ORDERED: INSULIN (NOVOLOG) ASPART 100 UNITS/ML 10ML VIAL ONE (12:18)
--- NOTE | 2018-11-21 16:22 | PN ---
Progress Note, Physician History of Present Illness: Pt breathing is better today. Pt w/o CP, palpitations, abd pain. - Current Medication List Current Medications: Active Medications Acetaminophen (Tylenol -) 650 mg PO Q6H PRN PRN Reason: PAIN Last Admin: 11/21/18 09:41 Dose: 650 mg Albuterol Sulfate (Ventolin 0.083% Nebulizer Soln -) 1 amp NEB Q4H PRN PRN Reason: SHORT OF BREATH/WHEEZING Arformoterol Tartrate (Brovana (Restricted To Pulmonology/Resp) -) 1 amp NEB RBID [facility] Last Admin: 11/21/18 07:35 Dose: 1 amp Docusate Sodium (Colace -) 300 mg PO DAILY [facility] Last Admin: 11/21/18 09:41 Dose: 300 mg Escitalopram Oxalate (Lexapro -) 5 mg PO DAILY [facility] Last Admin: 11/21/18 09:36 Dose: 5 mg Fluticasone Propionate (Flonase -) 1 spray NS DAILY [facility] Last Admin: 11/21/18 09:43 Dose: 1 spray Furosemide (Lasix Injection -) 80 mg IVPUSH DAILY [facility] Last Admin: 11/21/18 09:35 Dose: 80 mg Insulin Aspart (Novolog Vial Sliding Scale -) 1 vial SQ ACHS [facility]; Protocol Last Admin: 11/21/18 11:34 Dose: Not Given Lorazepam (Ativan -) 0.5 mg PO BID [facility] Last Admin: 11/21/18 09:36 Dose: 0.5 mg Melatonin (Melatonin) 10 mg PO HS [facility] Last Admin: 11/20/18 22:55 Dose: 10 mg Metformin HCl (Glucophage -) 500 mg PO BIDAC [facility] Last Admin: 11/21/18 08:07 Dose: Not Given Metoprolol Succinate (Toprol Xl -) 25 mg PO DAILY [facility] Last Admin: 11/21/18 09:35 Dose: 25 mg Montelukast Sodium (Singulair -) 10 mg PO HS [facility] Last Admin: 11/20/18 23:07 Dose: 10 mg Pantoprazole Sodium (Protonix -) 40 mg PO DAILY [facility] Last Admin: 11/21/18 09:37 Dose: 40 mg Polyethylene Glycol (Miralax (For Daily Use) -) 17 gm PO TID [facility] Last Admin: 11/21/18 13:45 Dose: 17 grams Prednisolone Acetate (Pred Forte 1% -) 1 drop OS BID [facility] Last Admin: 11/21/18 09:43 Dose: 1 drop Prednisone (Deltasone -) 30 mg PO DAILY [facility] Last Admin: 11/21/18 09:35 Dose: 30 mg Silver Sulfadiazine (Silvadene -) 1 applic TP BID [facility] Last Admin: 11/21/18 09:43 Dose: 1 applic Simethicone (Mylicon -) 80 mg PO BID [facility] Last Admin: 11/21/18 09:35 Dose: 80 mg Tiotropium [place] (Spiriva Respimat) 2 puff IH DAILY [facility] Last Admin: 11/21/18 09:43 Dose: 2 puff Zolpidem Tartrate (Ambien -) 5 mg PO HS PRN PRN Reason: INSOMNIA Last Admin: 11/20/18 23:55 Dose: 5 mg - Objective Vital Signs: Vital Signs Temperature 97.9 F 11/21/18 10:00 Pulse Rate 63 11/21/18 10:00 Respiratory Rate 20 11/21/18 10:00 Blood Pressure 140/68 11/21/18 10:00 O2 Sat by Pulse Oximetry (%) 96 11/21/18 09:00 Constitutional: Yes: No Distress, Calm Cardiovascular: Yes: Regular Rate and Rhythm, S1, S2 Respiratory: Yes: Regular, Rales (improved Crackles and rhonchi) Gastrointestinal: Yes: Normal Bowel Sounds, Soft. No: Palpable Mass, Tenderness Edema: LLE: 1+, RLE: 1+ Neurological: Yes: Alert, Oriented Labs: CBC, BMP 11/21/18 10:15 11/21/18 08:00 INR, PTT INR 1.13 (0.83-1.09) H 11/17/18 06:00 - ....Imaging Cat Scan: Report Reviewed Problem List - Problems (1) Acute exacerbation of CHF (congestive heart failure) Code(s): I50.9 - HEART FAILURE, UNSPECIFIED (2) Anemia Code(s): D64.9 - ANEMIA, UNSPECIFIED Qualifiers: Anemia type: unspecified type Qualified Code(s): D64.9 - Anemia, unspecified (3) Elevated troponin Code(s): R74.8 - ABNORMAL LEVELS OF OTHER SERUM ENZYMES (4) Elevated LFTs Code(s): R94.5 - ABNORMAL RESULTS OF LIVER FUNCTION STUDIES (5) CHF (congestive heart failure) Code(s): I50.9 - HEART FAILURE, UNSPECIFIED Qualifiers: Heart failure type: unspecified Heart failure chronicity: unspecified Qualified Code(s): I50.9 - Heart failure, unspecified (6) CAD (coronary artery disease) Code(s): I25.10 - ATHSCL HEART DISEASE OF [place] CORONARY ARTERY W/O ANG PCTRS Qualifiers: Coronary Disease-Associated Artery/Lesion type: [place] artery [place] vs. transplanted heart: [place] heart Associated angina: angina presence unspecified Qualified Code(s): I25.10 - Atherosclerotic heart disease of [place] coronary artery without angina pectoris (7) COPD (chronic obstructive pulmonary disease) Code(s): J44.9 - CHRONIC OBSTRUCTIVE PULMONARY DISEASE, UNSPECIFIED Qualifiers: COPD type: unspecified COPD Qualified Code(s): J44.9 - Chronic obstructive pulmonary disease, unspecified (8) DM type 2 (diabetes mellitus, type 2) Code(s): E11.9 - TYPE 2 DIABETES MELLITUS WITHOUT COMPLICATIONS Qualifiers: Diabetes mellitus jail insulin use: with jail use Diabetes mellitus complication status: with circulatory complication Diabetes mellitus complication detail: with other circulatory complications Qualified Code(s): E11.59 - Type 2 diabetes mellitus with other circulatory complications; Z79.4 - terminal block assembler (current) use of insulin (9) HTN (hypertension) Code(s): I10 - ESSENTIAL (PRIMARY) HYPERTENSION Qualifiers: Hypertension type: essential hypertension Qualified Code(s): I10 - Essential (primary) hypertension (10) Insomnia Code(s): G47.00 - INSOMNIA, UNSPECIFIED (11) History of recent fall Code(s): Z91.81 - HISTORY OF FALLING (12) Hematoma of right lower extremity Assessment/Plan: Large, probable secondary to recent fall at detention Code(s): S80.11XA - CONTUSION OF RIGHT LOWER LEG, INITIAL ENCOUNTER Assessment/Plan s/p PRBC transfusion (3 units); H/ H slightly trending down ; to f/u H/H Lasix IV Cardio, Pulmonary, GI consults are appreciated To resume AC AM labs Case was d/w pt's nurse.
[2018-11-21] MEDS: MELATONIN 5 MG TABLETS PO SCH (21:26)
[2018-11-21] MEDS: MONTELUKAST NA 10 MG TABLET PO SCH (21:26)
[2018-11-21] MEDS ORDERED: ZOLPIDEM TARTRATE 5 MG TABLET PO ONE ×2 (21:45)
[2018-11-22] MEDS: POLYETHYLENE GLYCOL 3350 119 GM BTL PO SCH ×3 (06:05→22:04)
[2018-11-22] MEDS: metFORMIN HCL 500 MG TABLET (FP) PO SCH ×2 (06:06→17:49)
[2018-11-22] MEDS: INSULIN SLIDING SCALE (NOVOLOG) 1 VIAL SQ SCH ×4 (06:06→21:56)
[2018-11-22] MEDS: ACETAMINOPHEN 325 MG TABLET (FP) PO PRN ×2 (06:12→18:18)
[2018-11-22 09:04] LABS: HEMATOCRIT 30.4 % (32.4-45.2); HEMOGLOBIN 9.1 GM/dL (10.7-15.3); MCH 21.8 pg (25.7-33.7); MEAN CELL VOLUME 72.5 fl (80-96); MEAN PLT VOLUME 8.3 fl (7.5-11.1); PLATELET COUNT 208 K/MM3 (134-434); RBC 4.19 M/mm3 (3.60-5.2); RDW 27.2 % (11.6-15.6); WHITE BLOOD COUNT 6.7 K/mm3 (4.0-10.0)
[2018-11-22] MEDS: ARFORMOTEROL TARTRATE 15 MCG/2 ML VIAL NEB SCH ×2 (09:30→19:50)
[2018-11-22 09:48] LABS: ANION GAP 3 MMOL/L (8-16); BLOOD UREA NITROGEN 15 mg/dL (7-18); CALCIUM 9.7 mg/dL (8.5-10.1); CHLORIDE 93 mmol/L (98-107); CO2 43 mmol/L (21-32); CREATININE 0.5 mg/dL (0.55-1.3); GLUCOSE,RANDOM 123 mg/dL (74-106); POTASSIUM 3.3 mmol/L (3.5-5.1); SODIUM 139 mmol/L (136-145)
--- NOTE | 2018-11-22 10:41 | PN ---
Progress Note, Physician History of Present Illness: Pt breathing is the same like yesterday. Pt w/o CP, palpitations, abd pain. - Current Medication List Current Medications: Active Medications Acetaminophen (Tylenol -) 650 mg PO Q6H PRN PRN Reason: PAIN Last Admin: 11/22/18 06:12 Dose: 650 mg Albuterol Sulfate (Ventolin 0.083% Nebulizer Soln -) 1 amp NEB Q4H PRN PRN Reason: SHORT OF BREATH/WHEEZING Arformoterol Tartrate (Brovana (Restricted To Pulmonology/Resp) -) 1 amp NEB RBID [facility] Last Admin: 11/21/18 20:13 Dose: 1 amp Docusate Sodium (Colace -) 300 mg PO DAILY [facility] Last Admin: 11/21/18 09:41 Dose: 300 mg Escitalopram Oxalate (Lexapro -) 5 mg PO DAILY [facility] Last Admin: 11/21/18 09:36 Dose: 5 mg Fluticasone Propionate (Flonase -) 1 spray NS DAILY [facility] Last Admin: 11/21/18 09:43 Dose: 1 spray Furosemide (Lasix Injection -) 80 mg IVPUSH DAILY [facility] Last Admin: 11/21/18 09:35 Dose: 80 mg Insulin Aspart (Novolog Vial Sliding Scale -) 1 vial SQ ACHS [facility]; Protocol Last Admin: 11/22/18 06:06 Dose: Not Given Melatonin (Melatonin) 10 mg PO HS [facility] Last Admin: 11/21/18 21:26 Dose: 10 mg Metformin HCl (Glucophage -) 500 mg PO BIDAC [facility] Last Admin: 11/22/18 06:06 Dose: 500 mg Metoprolol Succinate (Toprol Xl -) 25 mg PO DAILY [facility] Last Admin: 11/21/18 09:35 Dose: 25 mg Montelukast Sodium (Singulair -) 10 mg PO HS [facility] Last Admin: 11/21/18 21:26 Dose: 10 mg Pantoprazole Sodium (Protonix -) 40 mg PO DAILY [facility] Last Admin: 11/21/18 09:37 Dose: 40 mg Polyethylene Glycol (Miralax (For Daily Use) -) 17 gm PO TID [facility] Last Admin: 11/22/18 06:05 Dose: 17 grams Prednisolone Acetate (Pred Forte 1% -) 1 drop OS BID [facility] Last Admin: 04/09/19 21:28 Dose: 1 drop Prednisone (Deltasone -) 30 mg PO DAILY [facility] Last Admin: 11/21/18 09:35 Dose: 30 mg Rivaroxaban (Xarelto -) 20 mg PO DAILY@1800 [facility] Silver Sulfadiazine (Silvadene -) 1 applic TP BID [facility] Last Admin: 11/21/18 21:28 Dose: 1 applic Simethicone (Mylicon -) 80 mg PO BID [facility] Last Admin: 11/21/18 21:26 Dose: 80 mg Tiotropium [place] (Spiriva Respimat) 2 puff IH DAILY [facility] Last Admin: 11/21/18 09:43 Dose: 2 puff Zolpidem Tartrate (Ambien -) 5 mg PO HS PRN PRN Reason: INSOMNIA Last Admin: 11/20/18 23:55 Dose: 5 mg - Objective Vital Signs: Vital Signs Temperature 98.4 F 11/22/18 06:00 Pulse Rate 67 11/22/18 06:00 Respiratory Rate 22 H 11/22/18 06:00 Blood Pressure 118/59 L 11/22/18 06:00 O2 Sat by Pulse Oximetry (%) 100 11/21/18 20:44 Constitutional: Yes: No Distress, Calm Cardiovascular: Yes: Pulse Irregular, S1, S2 Respiratory: Yes: Regular, Rales (crackles and rhonchi, both decresed) Edema: LLE: 1+, RLE: 1+ Neurological: Yes: Alert, Oriented Labs: CBC, BMP 11/22/18 08:45 11/22/18 08:45 INR, PTT INR 1.13 (0.83-1.09) H 11/17/18 06:00 Problem List - Problems (1) Acute exacerbation of CHF (congestive heart failure) Code(s): I50.9 - HEART FAILURE, UNSPECIFIED (2) Anemia Code(s): D64.9 - ANEMIA, UNSPECIFIED Qualifiers: Anemia type: unspecified type Qualified Code(s): D64.9 - Anemia, unspecified (3) Elevated troponin Code(s): R74.8 - ABNORMAL LEVELS OF OTHER SERUM ENZYMES (4) Elevated LFTs Code(s): R94.5 - ABNORMAL RESULTS OF LIVER FUNCTION STUDIES (5) CHF (congestive heart failure) Code(s): I50.9 - HEART FAILURE, UNSPECIFIED Qualifiers: Heart failure type: unspecified Heart failure chronicity: unspecified Qualified Code(s): I50.9 - Heart failure, unspecified (6) CAD (coronary artery disease) Code(s): I25.10 - ATHSCL HEART DISEASE OF [place] CORONARY ARTERY W/O ANG PCTRS Qualifiers: Coronary Disease-Associated Artery/Lesion type: [place] artery [place] vs. transplanted heart: [place] heart Associated angina: angina presence unspecified Qualified Code(s): I25.10 - Atherosclerotic heart disease of [place] coronary artery without angina pectoris (7) COPD (chronic obstructive pulmonary disease) Code(s): J44.9 - CHRONIC OBSTRUCTIVE PULMONARY DISEASE, UNSPECIFIED Qualifiers: COPD type: unspecified COPD Qualified Code(s): J44.9 - Chronic obstructive pulmonary disease, unspecified (8) DM type 2 (diabetes mellitus, type 2) Code(s): E11.9 - TYPE 2 DIABETES MELLITUS WITHOUT COMPLICATIONS Qualifiers: Diabetes mellitus half-way insulin use: with half-way use Diabetes mellitus complication status: with circulatory complication Diabetes mellitus complication detail: with other circulatory complications Qualified Code(s): E11.59 - Type 2 diabetes mellitus with other circulatory complications; Z79.4 - roasterman (current) use of insulin (9) HTN (hypertension) Code(s): I10 - ESSENTIAL (PRIMARY) HYPERTENSION Qualifiers: Hypertension type: essential hypertension Qualified Code(s): I10 - Essential (primary) hypertension (10) Insomnia Code(s): G47.00 - INSOMNIA, UNSPECIFIED (11) History of recent fall Code(s): Z91.81 - HISTORY OF FALLING (12) Hematoma of right lower extremity Code(s): S80.11XA - CONTUSION OF RIGHT LOWER LEG, INITIAL ENCOUNTER (13) Hypokalemia Code(s): E87.6 - HYPOKALEMIA Assessment/Plan s/p PRBC transfusion (3 units); H/ H slightly trending down ; to f/u H/H Lasix IV Replete K+ Cardio, Pulmonary, GI consults are appreciated. AC was resumed last night AM labs Case was d/w pt's nurse.
[2018-11-22] MEDS ORDERED: POTASSIUM CHLORIDE TABS 20 MEQ TABLET.ER (FP) PO ONE (10:45)
[2018-11-22] MEDS: DOCUSATE SODIUM 100 MG CAPSULE (FP) PO SCH (10:56)
[2018-11-22] MEDS: metoPROLOL SUCCINATE 25 MG TAB.SR.24H (FP) PO SCH (10:56)
[2018-11-22] MEDS: SIMETHICONE 80 MG TAB.CHEW (FP) PO SCH ×3 (10:56→22:11)
[2018-11-22] MEDS: PANTOPRAZOLE 40 MG TABLET (FP) PO SCH (10:56)
[2018-11-22] MEDS: predniSONE 20 MG TABLET (UD) PO SCH (10:58)
[2018-11-22] MEDS: ESCITALOPRAM OXALATE 10 MG TABLET (FP) PO SCH (10:59)
[2018-11-22] MEDS: FLUTICASONE PROP 0.05% 16 GM NASAL SPRAY NS SCH (11:00)
[2018-11-22] MEDS: SILVER SULFADIAZINE 1% TOP CREAM 50 GM JAR TP SCH ×2 (11:02→22:32)
[2018-11-22] MEDS: TIOTROPIUM BROMIDE 2.5 MCG (SPIRIVA) RESPIMAT INHALER IH SCH (11:02)
[2018-11-22] MEDS: FUROSEMIDE 40 MG/4 ML INJECTABLE VIAL IVPUSH SCH (11:37)
[2018-11-22] MEDS: prednisoLONE ACETATE 1% OPHTH SUSP 5 ML BOTTLE OS SCH ×2 (11:38→22:07)
[2018-11-22] MEDS ORDERED: INSULIN (NOVOLOG) ASPART 100 UNITS/ML 10ML VIAL ONE (11:43)
[2018-11-22] MEDS: BUDESONIDE/FORMETEROL FUMARATE 160/4.5 mcg INHALER IH SCH (11:50)
--- NOTE | 2018-11-22 12:15 | PN ---
Progress Note (short form) - Note Progress Note: s: sob improving no chest pain, palps, dizziness Current Medications Acetaminophen (Tylenol -) 650 mg PO Q6H PRN PRN Reason: PAIN Last Admin: 11/22/18 06:12 Dose: 650 mg Albuterol Sulfate (Ventolin 0.083% Nebulizer Soln -) 1 amp NEB Q4H PRN PRN Reason: SHORT OF BREATH/WHEEZING Arformoterol Tartrate (Brovana (Restricted To Pulmonology/Resp) -) 1 amp NEB RBID [facility] Last Admin: 11/22/18 09:30 Dose: 1 amp Docusate Sodium (Colace -) 300 mg PO DAILY [facility] Last Admin: 11/22/18 10:56 Dose: 300 mg Escitalopram Oxalate (Lexapro -) 5 mg PO DAILY [facility] Last Admin: 11/22/18 10:59 Dose: 5 mg Fluticasone Propionate (Flonase -) 1 spray NS DAILY [facility] Last Admin: 11/22/18 11:00 Dose: 1 spray Furosemide (Lasix Injection -) 80 mg IVPUSH DAILY [facility] Last Admin: 11/22/18 11:37 Dose: 80 mg Insulin Aspart (Novolog Vial Sliding Scale -) 1 vial SQ ACHS [facility]; Protocol Last Admin: 11/22/18 11:57 Dose: Not Given Melatonin (Melatonin) 10 mg PO HS [facility] Last Admin: 11/21/18 21:26 Dose: 10 mg Metformin HCl (Glucophage -) 500 mg PO BIDAC [facility] Last Admin: 11/22/18 06:06 Dose: 500 mg Metoprolol Succinate (Toprol Xl -) 25 mg PO DAILY [facility] Last Admin: 11/22/18 10:56 Dose: 25 mg Montelukast Sodium (Singulair -) 10 mg PO HS [facility] Last Admin: 11/21/18 21:26 Dose: 10 mg Pantoprazole Sodium (Protonix -) 40 mg PO DAILY [facility] Last Admin: 11/22/18 10:56 Dose: 40 mg Polyethylene Glycol (Miralax (For Daily Use) -) 17 gm PO TID [facility] Last Admin: 11/22/18 06:05 Dose: 17 grams Prednisolone Acetate (Pred Forte 1% -) 1 drop OS BID [facility] Last Admin: 11/22/18 11:38 Dose: 1 drop Prednisone (Deltasone -) 30 mg PO DAILY [facility] Last Admin: 11/22/18 10:58 Dose: 30 mg Rivaroxaban (Xarelto -) 20 mg PO DAILY@1800 [facility] Silver Sulfadiazine (Silvadene -) 1 applic TP BID [facility] Last Admin: 11/22/18 11:02 Dose: 1 applic Simethicone (Mylicon -) 80 mg PO BID [facility] Last Admin: 11/22/18 10:56 Dose: 80 mg Tiotropium [place] (Spiriva Respimat) 2 puff IH DAILY [facility] Last Admin: 11/22/18 11:02 Dose: 2 puff Zolpidem Tartrate (Ambien -) 5 mg PO HS PRN PRN Reason: INSOMNIA Last Admin: 11/20/18 23:55 Dose: 5 mg Vital Signs Period Temp Pulse Resp BP Sys/Garcia Pulse Ox Last 24 Hr 98.4 F-98.5 F 66-71 16-22 104-118/55-59 100 nad, +jvd rrr, s1s2 no mrg cta bl nl eff aao3 trace le edema bl no jaundice diaphoresis pos dp pt no carotid bruits abd nt nd pos bs ecg: sr, no ischemic changes cath 12/2017 (after +mibi): non obs cad echo 06/2018: mild-mod dec lvef, global hk, nl rv, lae, mild-mod mr, mild tr, mod as, nl rvsp cxr: clear lungs a/p: 83 f hx hld, htn, syst chf, dm, copd, dvt, afib, as, non obs cad, here with sob. sob, anemia, acute systolic chf: -pt with severe anemia as well as vol overload, likely both contributing to sob -received prbcs - has chronic lower ext edema, improving. sob also improving, stable Cr - cont lasix 80 mg IV daily -daily wts, chem7 anemia: -?related to leg hematoma -s/p transfusion prbcs cad, pos trops: -pt had recent cath 12/2017 with non obstructive cad -trops in borderline range here, flat trend. likely represents demand from anemia/chf and not acs afib: -in sr here, cont toprol -xarelto restarted hld: -cont home statin htn: -stable on toprol
--- NOTE | 2018-11-22 15:06 | PN ---
Progress Note (short form) - Note Progress Note: PULMONARY Still with shortness of breath and nonproductive cough but breathing slowly improving. No fevers. c/o leg discomfort. Vital Signs Period Temp Pulse Resp BP Sys/Garcia Pulse Ox Last 24 Hr 98.1 F-98.5 F 61-71 16-22 104-128/55-69 100 Gen: less tachypneic with speaking Heart: RRR Lung: distant breath sounds, no wheezes Abd: soft, nontender Ext: + edema, ecchymosis CBC, BMP 11/22/18 08:45 11/22/18 12:20 Active Medications Acetaminophen (Tylenol -) 650 mg PO Q6H PRN PRN Reason: PAIN Last Admin: 11/22/18 06:12 Dose: 650 mg Albuterol Sulfate (Ventolin 0.083% Nebulizer Soln -) 1 amp NEB Q4H PRN PRN Reason: SHORT OF BREATH/WHEEZING Arformoterol Tartrate (Brovana (Restricted To Pulmonology/Resp) -) 1 amp NEB RBID [facility] Last Admin: 11/22/18 09:30 Dose: 1 amp Docusate Sodium (Colace -) 300 mg PO DAILY [facility] Last Admin: 11/22/18 10:56 Dose: 300 mg Escitalopram Oxalate (Lexapro -) 5 mg PO DAILY [facility] Last Admin: 11/22/18 10:59 Dose: 5 mg Fluticasone Propionate (Flonase -) 1 spray NS DAILY [facility] Last Admin: 11/22/18 11:00 Dose: 1 spray Furosemide (Lasix Injection -) 80 mg IVPUSH DAILY [facility] Last Admin: 11/22/18 11:37 Dose: 80 mg Insulin Aspart (Novolog Vial Sliding Scale -) 1 vial SQ ACHS [facility]; Protocol Last Admin: 11/22/18 11:57 Dose: Not Given Melatonin (Melatonin) 10 mg PO HS [facility] Last Admin: 11/21/18 21:26 Dose: 10 mg Metformin HCl (Glucophage -) 500 mg PO BIDAC [facility] Last Admin: 11/22/18 06:06 Dose: 500 mg Metoprolol Succinate (Toprol Xl -) 25 mg PO DAILY [facility] Last Admin: 11/22/18 10:56 Dose: 25 mg Montelukast Sodium (Singulair -) 10 mg PO HS [facility] Last Admin: 11/21/18 21:26 Dose: 10 mg Pantoprazole Sodium (Protonix -) 40 mg PO DAILY [facility] Last Admin: 11/22/18 10:56 Dose: 40 mg Polyethylene Glycol (Miralax (For Daily Use) -) 17 gm PO TID [facility] Last Admin: 11/22/18 13:39 Dose: Not Given Prednisolone Acetate (Pred Forte 1% -) 1 drop OS BID [facility] Last Admin: 11/22/18 11:38 Dose: 1 drop Prednisone (Deltasone -) 30 mg PO DAILY [facility] Last Admin: 11/22/18 10:58 Dose: 30 mg Rivaroxaban (Xarelto -) 20 mg PO DAILY@1800 [facility] Silver Sulfadiazine (Silvadene -) 1 applic TP BID [facility] Last Admin: 11/22/18 11:02 Dose: 1 applic Simethicone (Mylicon -) 80 mg PO BID [facility] Last Admin: 11/22/18 10:56 Dose: 80 mg Tiotropium [place] (Spiriva Respimat) 2 puff IH DAILY [facility] Last Admin: 11/22/18 11:02 Dose: 2 puff Zolpidem Tartrate (Ambien -) 5 mg PO HS PRN PRN Reason: INSOMNIA Last Admin: 11/20/18 23:55 Dose: 5 mg A/P Acute on Chronic Systolic Heart Failure Severe COPD - r/o Acute Exacerbation Anemia s/p PRBC transfusions Atrial Fibrillation +Troponins likely Demand Ischemia HTN DM Hyperlipidemia h/o DVT - continue lasix - monitor urine output, creatinine - empiric prednisone - inhaled bronchodilators - continue brovana and spiriva - o2 to keep SpO2 >90% - rate controlled - continue anticoagulation - rehab/PT
[2018-11-22] MEDS: ALBUTEROL SO4 0.083% IH SOL 2.5 MG/3 ML VIAL.NEB. NEB PRN (17:00)
[2018-11-22] MEDS: RIVAROXABAN 20 MG TABLET PO SCH (17:49)
[2018-11-22] MEDS ORDERED: ZOLPIDEM TARTRATE 5 MG TABLET PO ONE (21:42)
[2018-11-22] MEDS: MELATONIN 5 MG TABLETS PO SCH (22:03)
[2018-11-22] MEDS: MONTELUKAST NA 10 MG TABLET PO SCH (22:04)
[2018-11-23] MEDS: ACETAMINOPHEN 325 MG TABLET (FP) PO PRN ×2 (03:29→19:01)
[2018-11-23] MEDS: metFORMIN HCL 500 MG TABLET (FP) PO SCH ×2 (06:38→18:01)
[2018-11-23] MEDS: INSULIN SLIDING SCALE (NOVOLOG) 1 VIAL SQ SCH ×5 (06:38→22:07)
[2018-11-23] MEDS: POLYETHYLENE GLYCOL 3350 119 GM BTL PO SCH ×3 (06:39→22:16)
[2018-11-23] MEDS ORDERED: DEXTROSE 50%-WATER 25 GM/50 ML DISP.SYRIN ONE (07:09)
[2018-11-23] MEDS: ARFORMOTEROL TARTRATE 15 MCG/2 ML VIAL NEB SCH ×2 (07:25→19:52)
[2018-11-23 08:37] LABS: HEMATOCRIT 28.8 % (32.4-45.2); HEMOGLOBIN 8.7 GM/dL (10.7-15.3); MCH 21.8 pg (25.7-33.7); MCHC 30.3 g/dl (32.0-36.0); MEAN CELL VOLUME 72.2 fl (80-96); MEAN PLT VOLUME 8.3 fl (7.5-11.1); PLATELET COUNT 199 K/MM3 (134-434); RBC 3.99 M/mm3 (3.60-5.2); RDW 26.9 % (11.6-15.6); WHITE BLOOD COUNT 7.1 K/mm3 (4.0-10.0)
[2018-11-23 09:29] LABS: ANION GAP 1 MMOL/L (8-16); BLOOD UREA NITROGEN 14 mg/dL (7-18); CALCIUM 9.4 mg/dL (8.5-10.1); CHLORIDE 96 mmol/L (98-107); CO2 41 mmol/L (21-32); CREATININE 0.4 mg/dL (0.55-1.3); GLUCOSE,RANDOM 123 mg/dL (74-106); POTASSIUM 3.8 mmol/L (3.5-5.1); SODIUM 137 mmol/L (136-145)
--- NOTE | 2018-11-23 09:46 | PN ---
Progress Note, Physician History of Present Illness: Pt breathing is the same like yesterday. Pt w/o CP, palpitations, abd pain. - Current Medication List Current Medications: Active Medications Acetaminophen (Tylenol -) 650 mg PO Q6H PRN PRN Reason: PAIN Last Admin: 11/23/18 03:29 Dose: 650 mg Albuterol Sulfate (Ventolin 0.083% Nebulizer Soln -) 1 amp NEB Q4H PRN PRN Reason: SHORT OF BREATH/WHEEZING Last Admin: 11/22/18 17:00 Dose: 1 amp Arformoterol Tartrate (Brovana (Restricted To Pulmonology/Resp) -) 1 amp NEB RBID [facility] Last Admin: 11/22/18 19:50 Dose: 1 amp Docusate Sodium (Colace -) 300 mg PO DAILY [facility] Last Admin: 11/22/18 10:56 Dose: 300 mg Escitalopram Oxalate (Lexapro -) 5 mg PO DAILY [facility] Last Admin: 11/22/18 10:59 Dose: 5 mg Fluticasone Propionate (Flonase -) 1 spray NS DAILY [facility] Last Admin: 11/22/18 11:00 Dose: 1 spray Furosemide (Lasix Injection -) 80 mg IVPUSH DAILY [facility] Last Admin: 11/22/18 11:37 Dose: 80 mg Insulin Aspart (Novolog Vial Sliding Scale -) 1 vial SQ ACHS [facility]; Protocol Last Admin: 11/23/18 07:39 Dose: Not Given Melatonin (Melatonin) 10 mg PO HS [facility] Last Admin: 11/22/18 22:03 Dose: 10 mg Metformin HCl (Glucophage -) 500 mg PO BIDAC [facility] Last Admin: 11/23/18 06:38 Dose: Not Given Metoprolol Succinate (Toprol Xl -) 25 mg PO DAILY [facility] Last Admin: 11/22/18 10:56 Dose: 25 mg Montelukast Sodium (Singulair -) 10 mg PO HS [facility] Last Admin: 11/22/18 22:04 Dose: 10 mg Pantoprazole Sodium (Protonix -) 40 mg PO DAILY [facility] Last Admin: 11/22/18 10:56 Dose: 40 mg Polyethylene Glycol (Miralax (For Daily Use) -) 17 gm PO TID [facility] Last Admin: 11/23/18 06:39 Dose: Not Given Prednisolone Acetate (Pred Forte 1% -) 1 drop OS BID [facility] Last Admin: 11/22/18 22:07 Dose: 1 drop Prednisone (Deltasone -) 30 mg PO DAILY [facility] Last Admin: 11/22/18 10:58 Dose: 30 mg Rivaroxaban (Xarelto -) 20 mg PO DAILY@1800 [facility] Last Admin: 11/22/18 17:49 Dose: 20 mg Silver Sulfadiazine (Silvadene -) 1 applic TP BID [facility] Last Admin: 11/22/18 22:32 Dose: Not Given Simethicone (Mylicon -) 80 mg PO BID [facility] Last Admin: 11/22/18 22:11 Dose: Not Given Tiotropium [place] (Spiriva Respimat) 2 puff IH DAILY [facility] Last Admin: 11/22/18 11:02 Dose: 2 puff - Objective Vital Signs: Vital Signs Temperature 97.9 F 11/23/18 06:00 Pulse Rate 66 11/23/18 06:00 Respiratory Rate 20 11/23/18 06:00 Blood Pressure 125/63 11/23/18 06:00 O2 Sat by Pulse Oximetry (%) 100 11/21/18 20:44 Constitutional: Yes: No Distress, Calm Cardiovascular: Yes: Regular Rate and Rhythm, S1, S2 Respiratory: Yes: Regular, Other (coarse BS, minimal scattered rhonchi) Gastrointestinal: Yes: Normal Bowel Sounds, Soft. No: Tenderness Edema: LLE: 1+, RLE: 1+ Labs: CBC, BMP 11/23/18 08:15 11/23/18 08:15 INR, PTT INR 1.13 (0.83-1.09) H 11/17/18 06:00 Problem List - Problems (1) Acute exacerbation of CHF (congestive heart failure) Code(s): I50.9 - HEART FAILURE, UNSPECIFIED (2) Anemia Code(s): D64.9 - ANEMIA, UNSPECIFIED Qualifiers: Anemia type: unspecified type Qualified Code(s): D64.9 - Anemia, unspecified (3) Elevated troponin Code(s): R74.8 - ABNORMAL LEVELS OF OTHER SERUM ENZYMES (4) Elevated LFTs Code(s): R94.5 - ABNORMAL RESULTS OF LIVER FUNCTION STUDIES (5) CHF (congestive heart failure) Code(s): I50.9 - HEART FAILURE, UNSPECIFIED Qualifiers: Heart failure type: unspecified Heart failure chronicity: unspecified Qualified Code(s): I50.9 - Heart failure, unspecified (6) CAD (coronary artery disease) Code(s): I25.10 - ATHSCL HEART DISEASE OF [place] CORONARY ARTERY W/O ANG PCTRS Qualifiers: Coronary Disease-Associated Artery/Lesion type: [place] artery [place] vs. transplanted heart: [place] heart Associated angina: angina presence unspecified Qualified Code(s): I25.10 - Atherosclerotic heart disease of [place] coronary artery without angina pectoris (7) COPD (chronic obstructive pulmonary disease) Code(s): J44.9 - CHRONIC OBSTRUCTIVE PULMONARY DISEASE, UNSPECIFIED Qualifiers: COPD type: unspecified COPD Qualified Code(s): J44.9 - Chronic obstructive pulmonary disease, unspecified (8) DM type 2 (diabetes mellitus, type 2) Code(s): E11.9 - TYPE 2 DIABETES MELLITUS WITHOUT COMPLICATIONS Qualifiers: Diabetes mellitus termination clerk insulin use: with fci use Diabetes mellitus complication status: with circulatory complication Diabetes mellitus complication detail: with other circulatory complications Qualified Code(s): E11.59 - Type 2 diabetes mellitus with other circulatory complications; Z79.4 - remote computer terminal operator (current) use of insulin (9) HTN (hypertension) Code(s): I10 - ESSENTIAL (PRIMARY) HYPERTENSION Qualifiers: Hypertension type: essential hypertension Qualified Code(s): I10 - Essential (primary) hypertension (10) Insomnia Code(s): G47.00 - INSOMNIA, UNSPECIFIED (11) History of recent fall Code(s): Z91.81 - HISTORY OF FALLING (12) Hematoma of right lower extremity Code(s): S80.11XA - CONTUSION OF RIGHT LOWER LEG, INITIAL ENCOUNTER (13) Hypokalemia Code(s): E87.6 - HYPOKALEMIA Assessment/Plan s/p PRBC transfusion (3 units); H/ H slightly trending down ; to f/u H/H Lasix IV Cardio, Pulmonary, GI consults are appreciated. AC was resumed AM labs to trend H/H Case was d/w pt's nurse.
[2018-11-23] MEDS ORDERED: ZOLPIDEM TARTRATE 5 MG TABLET PO ONE (09:47)
--- NOTE | 2018-11-23 09:56 | PN ---
Progress Note (short form) - Note Progress Note: PULMONARY Breathing slowly improving. No fevers. c/o leg discomfort. Vital Signs Period Temp Pulse Resp BP Sys/Garcia Pulse Ox Last 24 Hr 97.9 F-99.8 F 61-82 12-20 109-128/51-69 Gen: less tachypneic with speaking Heart: RRR Lung: distant breath sounds, no wheezes Abd: soft, nontender Ext: + edema, ecchymosis CBC, BMP 11/23/18 08:15 11/23/18 08:15 Active Medications Acetaminophen (Tylenol -) 650 mg PO Q6H PRN PRN Reason: PAIN Last Admin: 11/23/18 03:29 Dose: 650 mg Albuterol Sulfate (Ventolin 0.083% Nebulizer Soln -) 1 amp NEB Q4H PRN PRN Reason: SHORT OF BREATH/WHEEZING Last Admin: 11/22/18 17:00 Dose: 1 amp Arformoterol Tartrate (Brovana (Restricted To Pulmonology/Resp) -) 1 amp NEB RBID [facility] Last Admin: 11/22/18 19:50 Dose: 1 amp Docusate Sodium (Colace -) 300 mg PO DAILY [facility] Last Admin: 11/22/18 10:56 Dose: 300 mg Escitalopram Oxalate (Lexapro -) 5 mg PO DAILY [facility] Last Admin: 11/22/18 10:59 Dose: 5 mg Fluticasone Propionate (Flonase -) 1 spray NS DAILY [facility] Last Admin: 11/22/18 11:00 Dose: 1 spray Furosemide (Lasix Injection -) 80 mg IVPUSH DAILY [facility] Last Admin: 11/22/18 11:37 Dose: 80 mg Insulin Aspart (Novolog Vial Sliding Scale -) 1 vial SQ ACHS [facility]; Protocol Last Admin: 11/23/18 07:39 Dose: Not Given Melatonin (Melatonin) 10 mg PO HS [facility] Last Admin: 11/22/18 22:03 Dose: 10 mg Metformin HCl (Glucophage -) 500 mg PO BIDAC [facility] Last Admin: 11/23/18 06:38 Dose: Not Given Metoprolol Succinate (Toprol Xl -) 25 mg PO DAILY [facility] Last Admin: 11/22/18 10:56 Dose: 25 mg Montelukast Sodium (Singulair -) 10 mg PO HS [facility] Last Admin: 11/22/18 22:04 Dose: 10 mg Pantoprazole Sodium (Protonix -) 40 mg PO DAILY [facility] Last Admin: 11/22/18 10:56 Dose: 40 mg Polyethylene Glycol (Miralax (For Daily Use) -) 17 gm PO TID [facility] Last Admin: 11/23/18 06:39 Dose: Not Given Prednisolone Acetate (Pred Forte 1% -) 1 drop OS BID [facility] Last Admin: 11/22/18 22:07 Dose: 1 drop Prednisone (Deltasone -) 30 mg PO DAILY [facility] Last Admin: 11/22/18 10:58 Dose: 30 mg Rivaroxaban (Xarelto -) 20 mg PO DAILY@1800 [facility] Last Admin: 11/22/18 17:49 Dose: 20 mg Silver Sulfadiazine (Silvadene -) 1 applic TP BID [facility] Last Admin: 11/22/18 22:32 Dose: Not Given Simethicone (Mylicon -) 80 mg PO BID [facility] Last Admin: 11/22/18 22:11 Dose: Not Given Tiotropium [place] (Spiriva Respimat) 2 puff IH DAILY [facility] Last Admin: 11/22/18 11:02 Dose: 2 puff Zolpidem Tartrate (Ambien -) 10 mg PO ONCE ONE Stop: 11/23/18 09:48 A/P Acute on Chronic Systolic Heart Failure Severe COPD - r/o Acute Exacerbation Anemia s/p PRBC transfusions Atrial Fibrillation +Troponins likely Demand Ischemia HTN DM Hyperlipidemia h/o DVT - continue lasix - monitor urine output, creatinine - will decrease prednisone to 20mg - inhaled bronchodilators - continue brovana, spiriva - o2 to keep SpO2 >90% - rate controlled - continue anticoagulation - rehab/PT
[2018-11-23] MEDS ORDERED: predniSONE 20 MG TABLET (UD) PO SCH (10:00)
[2018-11-23] MEDS: FUROSEMIDE 40 MG/4 ML INJECTABLE VIAL IVPUSH SCH (10:07)
[2018-11-23] MEDS: ESCITALOPRAM OXALATE 10 MG TABLET (FP) PO SCH (10:08)
[2018-11-23] MEDS: PANTOPRAZOLE 40 MG TABLET (FP) PO SCH (10:08)
[2018-11-23] MEDS: metoPROLOL SUCCINATE 25 MG TAB.SR.24H (FP) PO SCH (10:08)
[2018-11-23] MEDS: SIMETHICONE 80 MG TAB.CHEW (FP) PO SCH ×2 (10:08→22:16)
[2018-11-23] MEDS: FLUTICASONE PROP 0.05% 16 GM NASAL SPRAY NS SCH (10:46)
[2018-11-23] MEDS: prednisoLONE ACETATE 1% OPHTH SUSP 5 ML BOTTLE OS SCH ×2 (10:47→22:09)
[2018-11-23] MEDS: TIOTROPIUM BROMIDE 2.5 MCG (SPIRIVA) RESPIMAT INHALER IH SCH (10:47)
[2018-11-23] MEDS: DOCUSATE SODIUM 100 MG CAPSULE (FP) PO SCH (10:48)
[2018-11-23] MEDS: SILVER SULFADIAZINE 1% TOP CREAM 50 GM JAR TP SCH ×2 (10:48→22:16)
[2018-11-23] MEDS: predniSONE 10 MG TABLET (UD) PO SCH (11:33)
[2018-11-23] MEDS: ALBUTEROL SO4 0.083% IH SOL 2.5 MG/3 ML VIAL.NEB. NEB PRN (16:19)
[2018-11-23] MEDS: RIVAROXABAN 20 MG TABLET PO SCH (18:02)
[2018-11-23] MEDS: MONTELUKAST NA 10 MG TABLET PO SCH (22:07)
[2018-11-23] MEDS: MELATONIN 5 MG TABLETS PO SCH (22:07)
[2018-11-23] MEDS: ZOLPIDEM TARTRATE 5 MG TABLET PO PRN (22:09)
[2018-11-24] MEDS ORDERED: DEXTROSE 50%-WATER 25 GM/50 ML DISP.SYRIN ONE (06:58)
[2018-11-24] MEDS: INSULIN SLIDING SCALE (NOVOLOG) 1 VIAL SQ SCH ×4 (07:08→22:31)
[2018-11-24] MEDS: metFORMIN HCL 500 MG TABLET (FP) PO SCH ×2 (07:08→17:06)
[2018-11-24] MEDS: POLYETHYLENE GLYCOL 3350 119 GM BTL PO SCH ×3 (07:09→22:30)
[2018-11-24] MEDS: ARFORMOTEROL TARTRATE 15 MCG/2 ML VIAL NEB SCH ×2 (07:35→20:35)
[2018-11-24] MEDS ORDERED: PT OWN MED DRAWER 7, Y5N ONE ×3 (09:14→20:59)
[2018-11-24] MEDS: SIMETHICONE 80 MG TAB.CHEW (FP) PO SCH ×2 (09:18→22:19)
[2018-11-24] MEDS: metoPROLOL SUCCINATE 25 MG TAB.SR.24H (FP) PO SCH (09:18)
[2018-11-24] MEDS: predniSONE 10 MG TABLET (UD) PO SCH (09:18)
[2018-11-24] MEDS: DOCUSATE SODIUM 100 MG CAPSULE (FP) PO SCH (09:19)
[2018-11-24] MEDS: PANTOPRAZOLE 40 MG TABLET (FP) PO SCH (09:20)
[2018-11-24] MEDS: ESCITALOPRAM OXALATE 10 MG TABLET (FP) PO SCH (09:20)
[2018-11-24] MEDS: FUROSEMIDE 40 MG/4 ML INJECTABLE VIAL IVPUSH SCH (09:20)
[2018-11-24] MEDS: prednisoLONE ACETATE 1% OPHTH SUSP 5 ML BOTTLE OS SCH ×2 (09:21→22:45)
[2018-11-24] MEDS: SILVER SULFADIAZINE 1% TOP CREAM 50 GM JAR TP SCH ×2 (09:22→22:10)
[2018-11-24] MEDS: TIOTROPIUM BROMIDE 2.5 MCG (SPIRIVA) RESPIMAT INHALER IH SCH (09:22)
[2018-11-24] MEDS: FLUTICASONE PROP 0.05% 16 GM NASAL SPRAY NS SCH (09:33)
--- NOTE | 2018-11-24 10:35 | PN ---
Progress Note, Physician History of Present Illness: Pt breathing is the same like yesterday. Pt w/o CP, palpitations, abd pain. Pt is c/o having blood drawn. - Current Medication List Current Medications: Active Medications Acetaminophen (Tylenol -) 650 mg PO Q6H PRN PRN Reason: PAIN Last Admin: 11/23/18 19:01 Dose: 650 mg Albuterol Sulfate (Ventolin 0.083% Nebulizer Soln -) 1 amp NEB Q4H PRN PRN Reason: SHORT OF BREATH/WHEEZING Last Admin: 11/23/18 16:19 Dose: 1 amp Arformoterol Tartrate (Brovana (Restricted To Pulmonology/Resp) -) 1 amp NEB RBID [facility] Last Admin: 11/24/18 07:35 Dose: 1 amp Docusate Sodium (Colace -) 300 mg PO DAILY [facility] Last Admin: 11/24/18 09:19 Dose: 300 mg Escitalopram Oxalate (Lexapro -) 5 mg PO DAILY [facility] Last Admin: 11/24/18 09:20 Dose: 5 mg Fluticasone Propionate (Flonase -) 1 spray NS DAILY [facility] Last Admin: 11/24/18 09:33 Dose: Not Given Furosemide (Lasix Injection -) 80 mg IVPUSH DAILY [facility] Last Admin: 11/24/18 09:20 Dose: 80 mg Insulin Aspart (Novolog Vial Sliding Scale -) 1 vial SQ ACHS [facility]; Protocol Last Admin: 11/24/18 07:08 Dose: Not Given Melatonin (Melatonin) 10 mg PO HS [facility] Last Admin: 11/23/18 22:07 Dose: 10 mg Metformin HCl (Glucophage -) 500 mg PO BIDAC [facility] Last Admin: 11/24/18 07:08 Dose: Not Given Metoprolol Succinate (Toprol Xl -) 25 mg PO DAILY [facility] Last Admin: 11/24/18 09:18 Dose: 25 mg Montelukast Sodium (Singulair -) 10 mg PO HS [facility] Last Admin: 11/23/18 22:07 Dose: 10 mg Pantoprazole Sodium (Protonix -) 40 mg PO DAILY [facility] Last Admin: 11/24/18 09:20 Dose: 40 mg Polyethylene Glycol (Miralax (For Daily Use) -) 17 gm PO TID [facility] Last Admin: 11/24/18 07:09 Dose: Not Given Prednisolone Acetate (Pred Forte 1% -) 1 drop OS BID [facility] Last Admin: 11/24/18 09:21 Dose: 1 drop Prednisone (Deltasone -) 35 mg PO DAILY [facility] Last Admin: 11/24/18 09:18 Dose: 35 mg Rivaroxaban (Xarelto -) 20 mg PO DAILY@1800 [facility] Last Admin: 11/23/18 18:02 Dose: 20 mg Silver Sulfadiazine (Silvadene -) 1 applic TP BID [facility] Last Admin: 11/24/18 09:22 Dose: 1 applic Simethicone (Mylicon -) 80 mg PO BID [facility] Last Admin: 11/24/18 09:18 Dose: 80 mg Tiotropium [place] (Spiriva Respimat) 2 puff IH DAILY [facility] Last Admin: 11/24/18 09:22 Dose: 2 puff Zolpidem Tartrate (Ambien -) 5 mg PO HS PRN PRN Reason: INSONMIA Last Admin: 11/23/18 22:09 Dose: 5 mg - Objective Vital Signs: Vital Signs Temperature 97.8 F 11/24/18 06:00 Pulse Rate 93 H 11/24/18 06:00 Respiratory Rate 20 11/24/18 06:00 Blood Pressure 122/66 11/24/18 06:00 O2 Sat by Pulse Oximetry (%) 100 11/21/18 20:44 Constitutional: Yes: No Distress, Calm Cardiovascular: Yes: Regular Rate and Rhythm, S1, S2 Respiratory: Yes: Regular, CTA Bilaterally, Rales Gastrointestinal: Yes: Normal Bowel Sounds, Soft. No: Tenderness Extremities: Yes: Other (right pretibial eschar) Edema: LLE: 1+, RLE: 1+ Neurological: Yes: Alert, Oriented Labs: CBC, BMP 11/23/18 08:15 INR, PTT INR 1.13 (0.83-1.09) H 11/17/18 06:00 Problem List - Problems (1) Acute exacerbation of CHF (congestive heart failure) Code(s): I50.9 - HEART FAILURE, UNSPECIFIED (2) Anemia Code(s): D64.9 - ANEMIA, UNSPECIFIED Qualifiers: Anemia type: unspecified type Qualified Code(s): D64.9 - Anemia, unspecified (3) Elevated troponin Code(s): R74.8 - ABNORMAL LEVELS OF OTHER SERUM ENZYMES (4) Elevated LFTs Code(s): R94.5 - ABNORMAL RESULTS OF LIVER FUNCTION STUDIES (5) CHF (congestive heart failure) Code(s): I50.9 - HEART FAILURE, UNSPECIFIED Qualifiers: Heart failure type: unspecified Heart failure chronicity: unspecified Qualified Code(s): I50.9 - Heart failure, unspecified (6) CAD (coronary artery disease) Code(s): I25.10 - ATHSCL HEART DISEASE OF [place] CORONARY ARTERY W/O ANG PCTRS Qualifiers: Coronary Disease-Associated Artery/Lesion type: [place] artery [place] vs. 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00 - INSOMNIA, UNSPECIFIED (11) History of recent fall Code(s): Z91.81 - HISTORY OF FALLING (12) Hematoma of right lower extremity Code(s): S80.11XA - CONTUSION OF RIGHT LOWER LEG, INITIAL ENCOUNTER (13) Hypokalemia Code(s): E87.6 - HYPOKALEMIA Assessment/Plan s/p PRBC transfusion (3 units); H/ H slightly trending down ; to f/u H/H Lasix IV Cardio, Pulmonary, GI consults are appreciated. Dr Covarrubias at bedside, suggested to have right leg eschar evaluated by Vasc Sx. Vascuar SX consult AC was resumed Case was d/w pt's nurse.
[2018-11-24 10:41] LABS: HEMATOCRIT 31.6 % (32.4-45.2); HEMOGLOBIN 9.5 GM/dL (10.7-15.3); MCH 21.9 pg (25.7-33.7); MCHC 30.1 g/dl (32.0-36.0); MEAN CELL VOLUME 72.8 fl (80-96); MEAN PLT VOLUME 7.2 fl (7.5-11.1); PLATELET COUNT 235 K/MM3 (134-434); RBC 4.33 M/mm3 (3.60-5.2); RDW 27.5 % (11.6-15.6); WHITE BLOOD COUNT 9.3 K/mm3 (4.0-10.0)
--- NOTE | 2018-11-24 11:52 | PN ---
Progress Note (short form) - Note Progress Note: PULMONARY OOB TO CHAIR ADMISSION WEIGHT:185 LBS CURRENT WEIGHT: 158 LBS CLINICAL IMPROVEMENT VSS/Afebrile Gen: less tachypneic with speaking Heart: RRR Lung: distant breath sounds, no wheezes Abd: soft, nontender Ext: + edema, ecchymosis right lower ext. large eschar labs/meds/notes/images reviewed A/P Acute on Chronic Systolic Heart Failure Severe COPD - r/o Acute Exacerbation Anemia s/p PRBC transfusions Atrial Fibrillation +Troponins likely Demand Ischemia HTN DM Hyperlipidemia h/o DVT - continue lasix - monitor urine output, creatinine - prednisone to continue - inhaled bronchodilators - continue brovana, spiriva - o2 to keep SpO2 >90% - rate controlled - continue anticoagulation - rehab/PT - wound care consult to debride right lower ext ulcer Savannah HERNANDEZ MD
--- NOTE | 2018-11-24 12:30 | PN ---
Progress Note (short form) - Note Progress Note: s: no chest pain, palps, dizziness, sob; asking to go home Current Medications Generic Name Dose Route Start Last Admin Trade Name Freq PRN Reason Stop Dose Admin Acetaminophen 650 mg 11/16/18 10:58 11/23/18 19:01 Tylenol - PO 650 mg Q6H PRN Administration PAIN Albuterol Sulfate 1 amp 11/15/18 14:16 11/23/18 16:19 Ventolin 0.083% Nebulizer Soln - NEB 1 amp Q4H PRN Administration SHORT OF BREATH/WHEEZING Arformoterol Tartrate 1 amp 11/20/18 20:00 11/24/18 07:35 Brovana (Restricted To Pulmonology/Resp) - NEB 1 amp RBID [facility] Administration Docusate Sodium 300 mg 11/15/18 10:00 11/24/18 09:19 Colace - PO 300 mg DAILY [facility] Administration Escitalopram Oxalate 5 mg 11/15/18 10:00 11/24/18 09:20 Lexapro - PO 5 mg DAILY [facility] Administration Fluticasone Propionate 1 spray 11/15/18 10:00 11/24/18 09:33 Flonase - NS Not Given DAILY [facility] Furosemide 80 mg 11/15/18 10:00 11/24/18 09:20 Lasix Injection - IVPUSH 80 mg DAILY [facility] Administration Insulin Aspart 1 vial 11/14/18 22:00 11/24/18 12:02 Novolog Vial Sliding Scale - SQ Not Given ACHS [facility] Protocol Melatonin 10 mg 11/14/18 22:00 11/23/18 22:07 Melatonin PO 10 mg HS [facility] Administration Metformin HCl 500 mg 11/14/18 21:00 11/24/18 07:08 Glucophage - PO Not Given BIDAC [facility] Metoprolol Succinate 25 mg 11/15/18 10:00 11/24/18 09:18 Toprol Xl - PO 25 mg DAILY [facility] Administration Montelukast Sodium 10 mg 11/14/18 22:00 11/23/18 22:07 Singulair - PO 10 mg HS [facility] Administration Pantoprazole Sodium 40 mg 11/15/18 10:00 11/24/18 09:20 Protonix - PO 40 mg DAILY [facility] Administration Polyethylene Glycol 17 gm 11/19/18 14:00 11/24/18 07:09 Miralax (For Daily Use) - PO Not Given TID [facility] Prednisolone Acetate 1 drop 11/14/18 22:00 11/24/18 09:21 Pred Forte 1% - OS 1 drop BID [facility] Administration Prednisone 35 mg 11/23/18 11:15 11/24/18 09:18 Deltasone - PO 35 mg DAILY [facility] Administration Rivaroxaban 20 mg 11/22/18 18:00 11/23/18 18:02 Xarelto - PO 20 mg DAILY@1800 [facility] Administration Silver Sulfadiazine 1 applic 11/14/18 22:00 11/24/18 09:22 Silvadene - TP 1 applic BID [facility] Administration Simethicone 80 mg 11/14/18 22:00 11/24/18 09:18 Mylicon - PO 80 mg BID [facility] Administration Tiotropium [place] 2 puff 11/20/18 10:15 11/24/18 09:22 Spiriva Respimat IH 2 puff DAILY [facility] Administration Zolpidem Tartrate 5 mg 11/23/18 22:00 11/23/18 22:09 Ambien - PO 5 mg HS PRN Administration INSONMIA Vital Signs Period Temp Pulse Resp BP Sys/Garcia Pulse Ox Last 24 Hr 97.8 F-99 F 72-95 18-20 103-122/50-66 nad rrr, s1s2 no mrg cta bl nl eff aao3 trace le edema bl no jaundice diaphoresis pos dp pt no carotid bruits abd nt nd pos bs CBC, BMP 11/24/18 10:15 11/23/18 08:15 ecg: sr, no ischemic changes cath 12/2017 (after +mibi): non obs cad echo 06/2018: mild-mod dec lvef, global hk, nl rv, lae, mild-mod mr, mild tr, mod as, nl rvsp cxr: clear lungs a/p: 83 f hx hld, htn, syst chf, dm, copd, dvt, afib, as, non obs cad, here with sob. sob, anemia, acute systolic chf: -pt with severe anemia as well as vol overload, likely both contributing to sob -received prbcs and has been diuresing well, sob improved -le edema improving, wt down and stable Cr. Her vol status is much improved from admit but still with some volume overload so ideally would continue iv lasix a little longer, however pt is adamant about being discharged. If she declines to stay further then would send back to [place] with lasix 80 po am and 40 po in pm without metolazone for now (has not needed here, diuresing well with lasix only) and monitor vol status closely and chem7 within a week. -daily wts, chem7 while here anemia: -?related to leg hematoma -s/p transfusion prbcs cad, pos trops: -pt had recent cath 12/2017 with non obstructive cad -trops in borderline range here, flat trend. likely represents demand from anemia/chf and not acs afib: -in sr here, cont toprol -xarelto resumed hld: -cont home statin htn: -stable on toprol
[2018-11-24 13:22] VITALS: BMI 31.8
[2018-11-24] MEDS: ALBUTEROL SO4 0.083% IH SOL 2.5 MG/3 ML VIAL.NEB. NEB PRN (13:45)
[2018-11-24] MEDS: ACETAMINOPHEN 325 MG TABLET (FP) PO PRN (15:52)
--- NOTE | 2018-11-24 16:26 | PN ---
Progress Note (short form) - Note Progress Note: Vascular Surgery Pt seen and examined. S/P fall on left knee. CT shows hematoma On exam there is a eschar over the right knee. Will do debridment and drainage of hematoma on tuesday. Please hold xarelto on tuesday. NPO past midnight on tuesday Dinesh Zabala DO
[2018-11-24] MEDS: RIVAROXABAN 20 MG TABLET PO SCH (17:06)
[2018-11-24] MEDS: MELATONIN 5 MG TABLETS PO SCH (22:19)
[2018-11-24] MEDS: ZOLPIDEM TARTRATE 5 MG TABLET PO PRN (22:19)
[2018-11-24] MEDS: MONTELUKAST NA 10 MG TABLET PO SCH (22:19)
[2018-11-25] MEDS: POLYETHYLENE GLYCOL 3350 119 GM BTL PO SCH ×3 (05:46→22:03)
[2018-11-25] MEDS: INSULIN SLIDING SCALE (NOVOLOG) 1 VIAL SQ SCH ×4 (06:30→22:04)
[2018-11-25] MEDS: ARFORMOTEROL TARTRATE 15 MCG/2 ML VIAL NEB SCH ×2 (07:50→20:50)
[2018-11-25] MEDS: metFORMIN HCL 500 MG TABLET (FP) PO SCH ×2 (08:40→17:32)
[2018-11-25] MEDS: ACETAMINOPHEN 325 MG TABLET (FP) PO PRN ×2 (08:45→18:37)
[2018-11-25] MEDS: metoPROLOL SUCCINATE 25 MG TAB.SR.24H (FP) PO SCH (10:21)
[2018-11-25] MEDS: FUROSEMIDE 40 MG/4 ML INJECTABLE VIAL IVPUSH SCH (10:21)
[2018-11-25] MEDS ORDERED: PT OWN MED DRAWER 7, Y5N ONE (10:24)
[2018-11-25] MEDS: predniSONE 10 MG TABLET (UD) PO SCH (10:26)
[2018-11-25] MEDS: FLUTICASONE PROP 0.05% 16 GM NASAL SPRAY NS SCH (10:26)
[2018-11-25] MEDS: DOCUSATE SODIUM 100 MG CAPSULE (FP) PO SCH (10:26)
[2018-11-25] MEDS: PANTOPRAZOLE 40 MG TABLET (FP) PO SCH (10:26)
[2018-11-25] MEDS: prednisoLONE ACETATE 1% OPHTH SUSP 5 ML BOTTLE OS SCH ×2 (10:27→22:04)
[2018-11-25] MEDS: ESCITALOPRAM OXALATE 10 MG TABLET (FP) PO SCH (10:27)
[2018-11-25] MEDS: SILVER SULFADIAZINE 1% TOP CREAM 50 GM JAR TP SCH ×2 (10:27→22:04)
[2018-11-25] MEDS: SIMETHICONE 80 MG TAB.CHEW (FP) PO SCH ×2 (10:27→22:04)
[2018-11-25] MEDS: TIOTROPIUM BROMIDE 2.5 MCG (SPIRIVA) RESPIMAT INHALER IH SCH (10:28)
[2018-11-25] MEDS ORDERED: FUROSEMIDE 40 MG/4 ML INJECTABLE VIAL IVPUSH SCH (11:49)
--- NOTE | 2018-11-25 11:53 | PN ---
Progress Note, Physician History of Present Illness: Pt breathing is better than at admission. Pt w/o CP, palpitations, abd pain. - Current Medication List Current Medications: Active Medications Acetaminophen (Tylenol -) 650 mg PO Q6H PRN PRN Reason: PAIN Last Admin: 11/25/18 08:45 Dose: 650 mg Arformoterol Tartrate (Brovana (Restricted To Pulmonology/Resp) -) 1 amp NEB RBID [facility] Last Admin: 11/25/18 07:50 Dose: 1 amp Docusate Sodium (Colace -) 300 mg PO DAILY [facility] Last Admin: 11/25/18 10:26 Dose: Not Given Escitalopram Oxalate (Lexapro -) 5 mg PO DAILY [facility] Last Admin: 11/25/18 10:27 Dose: 5 mg Fluticasone Propionate (Flonase -) 1 spray NS DAILY [facility] Last Admin: 11/25/18 10:26 Dose: Not Given Furosemide (Lasix Injection -) 80 mg IVPUSH DAILY [facility] Insulin Aspart (Novolog Vial Sliding Scale -) 1 vial SQ [facility]; Protocol Melatonin (Melatonin) 10 mg PO HS [facility] Last Admin: 11/24/18 22:19 Dose: 10 mg Metformin HCl (Glucophage -) 500 mg PO BIDAC [facility] Last Admin: 11/25/18 08:40 Dose: 500 mg Metoprolol Succinate (Toprol Xl -) 25 mg PO DAILY [facility] Last Admin: 11/25/18 10:21 Dose: Not Given Montelukast Sodium (Singulair -) 10 mg PO HS [facility] Last Admin: 11/24/18 22:19 Dose: 10 mg Pantoprazole Sodium (Protonix -) 40 mg PO DAILY [facility] Last Admin: 11/25/18 10:26 Dose: 40 mg Polyethylene Glycol (Miralax (For Daily Use) -) 17 gm PO TID [facility] Last Admin: 11/25/18 05:46 Dose: Not Given Prednisolone Acetate (Pred Forte 1% -) 1 drop OS BID [facility] Last Admin: 11/25/18 10:27 Dose: 1 drop Prednisone (Deltasone -) 35 mg PO DAILY [facility] Last Admin: 11/25/18 10:26 Dose: 35 mg Rivaroxaban (Xarelto -) 20 mg PO DAILY@1800 [facility] Stop: 11/25/18 23:59 Last Admin: 11/24/18 17:06 Dose: 20 mg Silver Sulfadiazine (Silvadene -) 1 applic TP BID [facility] Last Admin: 11/25/18 10:27 Dose: 1 applic Simethicone (Mylicon -) 80 mg PO BID [facility] Last Admin: 11/25/18 10:27 Dose: Not Given Tiotropium [place] (Spiriva Respimat) 2 puff IH DAILY [facility] Last Admin: 11/25/18 10:28 Dose: 2 puff Zolpidem Tartrate (Ambien -) 5 mg PO HS PRN PRN Reason: INSONMIA Last Admin: 11/24/18 22:19 Dose: 5 mg - Objective Vital Signs: Vital Signs Temperature 98.1 F 11/25/18 06:00 Pulse Rate 72 11/25/18 11:35 Respiratory Rate 20 11/25/18 11:35 Blood Pressure 86/46 L 11/25/18 11:35 O2 Sat by Pulse Oximetry (%) 93 L 11/24/18 21:00 Constitutional: Yes: No Distress, Calm Cardiovascular: Yes: Regular Rate and Rhythm, S1, S2 Respiratory: Yes: Regular, Rhonchi (minimal). No: Wheezes Gastrointestinal: Yes: Normal Bowel Sounds, Soft Edema: LLE: 1+, RLE: 1+ Neurological: Yes: Alert, Oriented Labs: CBC, BMP 11/24/18 10:15 11/23/18 08:15 INR, PTT INR 1.13 (0.83-1.09) H 11/17/18 06:00 Problem List - Problems (1) Acute exacerbation of CHF (congestive heart failure) Code(s): I50.9 - HEART FAILURE, UNSPECIFIED (2) Anemia Code(s): D64.9 - ANEMIA, UNSPECIFIED Qualifiers: Anemia type: unspecified type Qualified Code(s): D64.9 - Anemia, unspecified (3) Elevated troponin Code(s): R74.8 - ABNORMAL LEVELS OF OTHER SERUM ENZYMES (4) Elevated LFTs Code(s): R94.5 - ABNORMAL RESULTS OF LIVER FUNCTION STUDIES (5) CHF (congestive heart failure) Code(s): I50.9 - HEART FAILURE, UNSPECIFIED Qualifiers: Heart failure type: unspecified Heart failure chronicity: unspecified Qualified Code(s): I50.9 - Heart failure, unspecified (6) CAD (coronary artery disease) Code(s): I25.10 - ATHSCL HEART DISEASE OF [place] CORONARY ARTERY W/O ANG PCTRS Qualifiers: Coronary Disease-Associated Artery/Lesion type: [place] artery [place] vs. transplanted heart: [place] heart Associated angina: angina presence unspecified Qualified Code(s): I25.10 - Atherosclerotic heart disease of [place] coronary artery without angina pectoris (7) COPD (chronic obstructive pulmonary disease) Code(s): J44.9 - CHRONIC OBSTRUCTIVE PULMONARY DISEASE, UNSPECIFIED Qualifiers: COPD type: unspecified COPD Qualified Code(s): J44.9 - Chronic obstructive pulmonary disease, unspecified (8) DM type 2 (diabetes mellitus, type 2) Code(s): E11.9 - TYPE 2 DIABETES MELLITUS WITHOUT COMPLICATIONS Qualifiers: Diabetes mellitus [place] insulin use: with mcc use Diabetes mellitus complication status: with circulatory complication Diabetes mellitus complication detail: with other circulatory complications Qualified Code(s): E11.59 - Type 2 diabetes mellitus with other circulatory complications; Z79.4 - extermination supervisor (current) use of insulin (9) HTN (hypertension) Code(s): I10 - ESSENTIAL (PRIMARY) HYPERTENSION Qualifiers: Hypertension type: essential hypertension Qualified Code(s): I10 - Essential (primary) hypertension (10) Insomnia Code(s): G47.00 - INSOMNIA, UNSPECIFIED (11) History of recent fall Code(s): Z91.81 - HISTORY OF FALLING (12) Hematoma of right lower extremity Code(s): S80.11XA - CONTUSION OF RIGHT LOWER LEG, INITIAL ENCOUNTER (13) Hypokalemia Code(s): E87.6 - HYPOKALEMIA Assessment/Plan s/p PRBC transfusion (3 units); H/ H slightly trending down ; to f/u H/H Lasix IV as tolerated Cardio, Pulmonary, GI, Vasc SX consults are appreciated. Pt for OR on Tuesday Case was d/w pt's nurse.
[2018-11-25] MEDS ORDERED: DEXTROSE 50%-WATER 25 GM/50 ML DISP.SYRIN IVPUSH PRN ×2 (12:09→12:10)
--- NOTE | 2018-11-25 13:22 | PN ---
Progress Note (short form) - Note Progress Note: PULMONARY Breathing slowly improving. No fevers. c/o leg discomfort. Vital Signs Period Temp Pulse Resp BP Sys/Garcia Pulse Ox Last 24 Hr 98.0 F-98.6 F 66-95 20-20 86-126/33-63 93-94 Gen: less tachypneic with speaking Heart: RRR Lung: distant breath sounds, no wheezes Abd: soft, nontender Ext: + edema, ecchymosis CBC, BMP 11/24/18 10:15 11/23/18 08:15 Active Medications Acetaminophen (Tylenol -) 650 mg PO Q6H PRN PRN Reason: PAIN Last Admin: 11/25/18 08:45 Dose: 650 mg Arformoterol Tartrate (Brovana (Restricted To Pulmonology/Resp) -) 1 amp NEB RBID [facility] Last Admin: 11/25/18 07:50 Dose: 1 amp Dextrose (D50w (Syringe) -) 25 gm IVPUSH ACHS PRN PRN Reason: BS < 50 Dextrose (D50w (Syringe) -) 12.5 gm IVPUSH ACHS PRN PRN Reason: BS 50-69 Docusate Sodium (Colace -) 300 mg PO DAILY [facility] Last Admin: 11/25/18 10:26 Dose: Not Given Escitalopram Oxalate (Lexapro -) 5 mg PO DAILY [facility] Last Admin: 11/25/18 10:27 Dose: 5 mg Fluticasone Propionate (Flonase -) 1 spray NS DAILY [facility] Last Admin: 11/25/18 10:26 Dose: Not Given Furosemide (Lasix Injection -) 80 mg IVPUSH DAILY [facility] Insulin Aspart (Novolog Vial Sliding Scale -) 1 vial SQ [facility]; Protocol Melatonin (Melatonin) 10 mg PO HS [facility] Last Admin: 11/24/18 22:19 Dose: 10 mg Metformin HCl (Glucophage -) 500 mg PO BIDAC [facility] Last Admin: 11/25/18 08:40 Dose: 500 mg Metoprolol Succinate (Toprol Xl -) 25 mg PO DAILY [facility] Last Admin: 11/25/18 10:21 Dose: Not Given Montelukast Sodium (Singulair -) 10 mg PO HS [facility] Last Admin: 11/24/18 22:19 Dose: 10 mg Pantoprazole Sodium (Protonix -) 40 mg PO DAILY [facility] Last Admin: 04/13/19 10:26 Dose: 40 mg Polyethylene Glycol (Miralax (For Daily Use) -) 17 gm PO TID [facility] Last Admin: 11/25/18 05:46 Dose: Not Given Prednisolone Acetate (Pred Forte 1% -) 1 drop OS BID [facility] Last Admin: 11/25/18 10:27 Dose: 1 drop Prednisone (Deltasone -) 35 mg PO DAILY [facility] Last Admin: 11/25/18 10:26 Dose: 35 mg Rivaroxaban (Xarelto -) 20 mg PO DAILY@1800 [facility] Stop: 11/25/18 23:59 Last Admin: 11/24/18 17:06 Dose: 20 mg Silver Sulfadiazine (Silvadene -) 1 applic TP BID [facility] Last Admin: 11/25/18 10:27 Dose: 1 applic Simethicone (Mylicon -) 80 mg PO BID [facility] Last Admin: 11/25/18 10:27 Dose: Not Given Tiotropium [place] (Spiriva Respimat) 2 puff IH DAILY [facility] Last Admin: 11/25/18 10:28 Dose: 2 puff Zolpidem Tartrate (Ambien -) 5 mg PO HS PRN PRN Reason: INSONMIA Last Admin: 11/24/18 22:19 Dose: 5 mg A/P Acute on Chronic Systolic Heart Failure Severe COPD - r/o Acute Exacerbation Anemia s/p PRBC transfusions Atrial Fibrillation +Troponins likely Demand Ischemia HTN DM Hyperlipidemia h/o DVT - continue lasix - monitor urine output, creatinine - prednisone taper - inhaled bronchodilators - continue brovana, spiriva - o2 to keep SpO2 >90% - rate controlled - continue anticoagulation - rehab/PT - for hematoma drainage
--- NOTE | 2018-11-25 15:17 | PN ---
Progress Note, Physician Chief Complaint: sob History of Present Illness: states that her breathing pattern is back to her longstanding baseline--and improved vs DOA when sent from PMD. oob to chair--no sob she says. mild feet swelling--also at her baseline. denies dizzy/LH/presyncope no cp, palpit - Current Medication List Current Medications: Active Medications Acetaminophen (Tylenol -) 650 mg PO Q6H PRN PRN Reason: PAIN Last Admin: 11/25/18 08:45 Dose: 650 mg Arformoterol Tartrate (Brovana (Restricted To Pulmonology/Resp) -) 1 amp NEB RBID [facility] Last Admin: 11/25/18 07:50 Dose: 1 amp Dextrose (D50w (Syringe) -) 25 gm IVPUSH ACHS PRN PRN Reason: BS < 50 Dextrose (D50w (Syringe) -) 12.5 gm IVPUSH ACHS PRN PRN Reason: BS 50-69 Docusate Sodium (Colace -) 300 mg PO DAILY [facility] Last Admin: 11/25/18 10:26 Dose: Not Given Escitalopram Oxalate (Lexapro -) 5 mg PO DAILY [facility] Last Admin: 11/25/18 10:27 Dose: 5 mg Fluticasone Propionate (Flonase -) 1 spray NS DAILY [facility] Last Admin: 11/25/18 10:26 Dose: Not Given Furosemide (Lasix Injection -) 80 mg IVPUSH DAILY [facility] Insulin Aspart (Novolog Vial Sliding Scale -) 1 vial SQ ACHS [facility]; Protocol Melatonin (Melatonin) 10 mg PO HS [facility] Last Admin: 11/24/18 22:19 Dose: 10 mg Metformin HCl (Glucophage -) 500 mg PO BIDAC [facility] Last Admin: 11/25/18 08:40 Dose: 500 mg Metoprolol Succinate (Toprol Xl -) 25 mg PO DAILY [facility] Last Admin: 11/25/18 10:21 Dose: Not Given Montelukast Sodium (Singulair -) 10 mg PO HS [facility] Last Admin: 11/24/18 22:19 Dose: 10 mg Pantoprazole Sodium (Protonix -) 40 mg PO DAILY [facility] Last Admin: 11/25/18 10:26 Dose: 40 mg Polyethylene Glycol (Miralax (For Daily Use) -) 17 gm PO TID [facility] Last Admin: 11/25/18 15:03 Dose: 17 grams Prednisolone Acetate (Pred Forte 1% -) 1 drop OS BID [facility] Last Admin: 11/25/18 10:27 Dose: 1 drop Prednisone (Deltasone -) 35 mg PO DAILY [facility] Last Admin: 11/25/18 10:26 Dose: 35 mg Rivaroxaban (Xarelto -) 20 mg PO DAILY@1800 [facility] Stop: 11/25/18 23:59 Last Admin: 11/24/18 17:06 Dose: 20 mg Silver Sulfadiazine (Silvadene -) 1 applic TP BID [facility] Last Admin: 11/25/18 10:27 Dose: 1 applic Simethicone (Mylicon -) 80 mg PO BID [facility] Last Admin: 11/25/18 10:27 Dose: Not Given Tiotropium [place] (Spiriva Respimat) 2 puff IH DAILY [facility] Last Admin: 11/25/18 10:28 Dose: 2 puff Zolpidem Tartrate (Ambien -) 5 mg PO HS PRN PRN Reason: INSONM[place] Last Admin: 11/24/18 22:19 Dose: 5 mg - Objective Vital Signs: Vital Signs Temperature 98.2 F 11/25/18 15:00 Pulse Rate 98 H 11/25/18 15:00 Respiratory Rate 20 11/25/18 15:00 Blood Pressure 110/49 L 11/25/18 15:00 O2 Sat by Pulse Oximetry (%) 94 L 11/25/18 09:00 Constitutional: Yes: No Distress, Calm Eyes: No: Sclera Icterus HENT: No: Nasal Congestion Cardiovascular: Yes: Regular Rate and Rhythm, S1, S2, Other (PMI non diplaced). No: Gallop, Murmur Respiratory: Yes: CTA Bilaterally. No: Accessory Muscle Use, Rales, Wheezes Gastrointestinal: Yes: Normal Bowel Sounds, Soft. No: Tenderness Musculoskeletal: Yes: Other (No kyphosis) Extremities: No: Cold Edema: Yes (1+ ankles) Integumentary: No: Jaundice Neurological: Yes: Alert, Oriented (x3) Psychiatric: No: Agitated Labs: CBC, BMP 11/24/18 10:15 11/23/18 08:15 INR, PTT INR 1.13 (0.83-1.09) H 11/17/18 06:00 Assessment/Plan ecg: sr, no ischemic changes cath 12/2017 (after +mibi): non obs cad echo 06/2018: mild-mod dec lvef, global hk, nl rv, lae, mild-mod mr, mild tr, mod as, nl rvsp cxr: clear lungs a/p: 83 f hx hld, htn, syst chf, dm, copd, dvt, afib, as, non obs cad, here with sob. sob, anemia, acute systolic chf: -pt with severe anemia as well as vol overload, likely both contributing to sob -received prbcs and has been diuresing well, sob improved -11/25: no JVD appreciated, pt states breathing pattern and edema of feet at her longstanding baseline. hypotensive earlier, ? overdiuresed. check labs. change lasix 80 IV qd to 80 po daily (her prior home dose). hypotension: -sbp 80s earlier today, asymptomatic -rpt CBC (r/o bleeding), bun/creatinine (vol depletion?) -held today's metoprolol dose--BP up to 110 on its own -cont metopr 25 qd, change lasix to PO as above -observe bp trend anemia: -? related to leg hematoma -s/p transfusion prbcs -counts have been stable since cad, pos trops: -pt had recent cath 12/2017 with non obstructive cad -trops in borderline range here, flat trend. likely represents demand from anemia/chf and not acs afib: -in sr here, cont toprol -xarelto resumed hld: -cont home statin htn: -stable on toprol
[2018-11-25 15:57] LABS: BASO % 0.2 % (0-2.0); HEMATOCRIT 30.1 % (32.4-45.2); LYMPH % 3.2 % (8-40); MCH 21.8 pg (25.7-33.7); MCHC 29.9 g/dl (32.0-36.0); MEAN CELL VOLUME 72.8 fl (80-96); MEAN PLT VOLUME 7.4 fl (7.5-11.1); MONO % 5.7 % (3.8-10.2); NEUT % 90.9 % (42.8-82.8); PLATELET COUNT 216 K/MM3 (134-434); RBC 4.14 M/mm3 (3.60-5.2); RDW 27.8 % (11.6-15.6)
[2018-11-25 16:32] LABS: ANION GAP 6 MMOL/L (8-16); BLOOD UREA NITROGEN 17 mg/dL (7-18); CALCIUM 9.2 mg/dL (8.5-10.1); CHLORIDE 92 mmol/L (98-107); CO2 39 mmol/L (21-32); CREATININE 0.5 mg/dL (0.55-1.3); GLUCOSE,RANDOM 226 mg/dL (74-106); POTASSIUM 4.1 mmol/L (3.5-5.1); SODIUM 137 mmol/L (136-145)
[2018-11-25] MEDS: RIVAROXABAN 20 MG TABLET PO SCH (17:30)
[2018-11-25] MEDS: MELATONIN 5 MG TABLETS PO SCH (22:03)
[2018-11-25] MEDS: MONTELUKAST NA 10 MG TABLET PO SCH (22:04)
[2018-11-26] MEDS: ACETAMINOPHEN 325 MG TABLET (FP) PO PRN ×3 (00:35→17:53)
[2018-11-26] MEDS: POLYETHYLENE GLYCOL 3350 119 GM BTL PO SCH ×3 (06:11→22:10)
[2018-11-26] MEDS: INSULIN SLIDING SCALE (NOVOLOG) 1 VIAL SQ SCH ×4 (06:23→22:21)
[2018-11-26] MEDS: ARFORMOTEROL TARTRATE 15 MCG/2 ML VIAL NEB SCH ×2 (07:20→22:21)
[2018-11-26] MEDS: metFORMIN HCL 500 MG TABLET (FP) PO SCH ×2 (08:40→17:44)
[2018-11-26] MEDS: FLUTICASONE PROP 0.05% 16 GM NASAL SPRAY NS SCH (09:29)
[2018-11-26] MEDS: FUROSEMIDE 40 MG TABLET (FP) PO SCH (09:29)
[2018-11-26] MEDS: metoPROLOL SUCCINATE 25 MG TAB.SR.24H (FP) PO SCH (09:30)
[2018-11-26] MEDS: predniSONE 10 MG TABLET (UD) PO SCH (09:42)
[2018-11-26] MEDS: PANTOPRAZOLE 40 MG TABLET (FP) PO SCH (09:42)
[2018-11-26] MEDS: ESCITALOPRAM OXALATE 10 MG TABLET (FP) PO SCH (09:43)
[2018-11-26] MEDS: DOCUSATE SODIUM 100 MG CAPSULE (FP) PO SCH (09:43)
[2018-11-26] MEDS: SIMETHICONE 80 MG TAB.CHEW (FP) PO SCH ×2 (09:43→22:10)
[2018-11-26] MEDS: TIOTROPIUM BROMIDE 2.5 MCG (SPIRIVA) RESPIMAT INHALER IH SCH (09:46)
[2018-11-26] MEDS: SILVER SULFADIAZINE 1% TOP CREAM 50 GM JAR TP SCH ×2 (09:48→22:10)
[2018-11-26] MEDS: prednisoLONE ACETATE 1% OPHTH SUSP 5 ML BOTTLE OS SCH ×2 (09:48→22:21)
--- NOTE | 2018-11-26 10:24 | PN ---
Progress Note, Physician History of Present Illness: Pt breathing is better than at admission, unchanged for the last couple of days. Pt w/o CP, palpitations, abd pain. - Current Medication List Current Medications: Active Medications Acetaminophen (Tylenol -) 650 mg PO Q6H PRN PRN Reason: PAIN Last Admin: 11/26/18 09:45 Dose: 650 mg Arformoterol Tartrate (Brovana (Restricted To Pulmonology/Resp) -) 1 amp NEB RBID [facility] Last Admin: 11/26/18 07:20 Dose: 1 amp Dextrose (D50w (Syringe) -) 25 gm IVPUSH ACHS PRN PRN Reason: BS < 50 Dextrose (D50w (Syringe) -) 12.5 gm IVPUSH ACHS PRN PRN Reason: BS 50-69 Docusate Sodium (Colace -) 300 mg PO DAILY [facility] Last Admin: 11/26/18 09:43 Dose: 300 mg Escitalopram Oxalate (Lexapro -) 5 mg PO DAILY [facility] Last Admin: 11/26/18 09:43 Dose: 5 mg Fluticasone Propionate (Flonase -) 1 spray NS DAILY [facility] Last Admin: 11/26/18 09:29 Dose: Not Given Furosemide (Lasix -) 80 mg PO DAILY [facility] Last Admin: 11/26/18 09:29 Dose: Not Given Insulin Aspart (Novolog Vial Sliding Scale -) 1 vial SQ [facility]; Protocol Last Admin: 11/26/18 06:23 Dose: Not Given Melatonin (Melatonin) 10 mg PO HS [facility] Last Admin: 11/25/18 22:03 Dose: 10 mg Metformin HCl (Glucophage -) 500 mg PO BIDAC [facility] Last Admin: 11/26/18 08:40 Dose: 500 mg Metoprolol Succinate (Toprol Xl -) 25 mg PO DAILY [facility] Last Admin: 11/26/18 09:30 Dose: Not Given Montelukast Sodium (Singulair -) 10 mg PO HS [facility] Last Admin: 11/25/18 22:04 Dose: 10 mg Pantoprazole Sodium (Protonix -) 40 mg PO DAILY [facility] Last Admin: 11/26/18 09:42 Dose: 40 mg Polyethylene Glycol (Miralax (For Daily Use) -) 17 gm PO TID [facility] Last Admin: 11/26/18 06:11 Dose: 17 grams Prednisolone Acetate (Pred Forte 1% -) 1 drop OS BID [facility] Last Admin: 11/26/18 09:48 Dose: 1 drop Prednisone (Deltasone -) 35 mg PO DAILY [facility] Last Admin: 11/26/18 09:42 Dose: 35 mg Silver Sulfadiazine (Silvadene -) 1 applic TP BID [facility] Last Admin: 11/26/18 09:48 Dose: 1 applic Simethicone (Mylicon -) 80 mg PO BID [facility] Last Admin: 11/26/18 09:43 Dose: 80 mg Tiotropium [place] (Spiriva Respimat) 2 puff IH DAILY [facility] Last Admin: 11/26/18 09:46 Dose: 2 puff Zolpidem Tartrate (Ambien -) 5 mg PO HS PRN PRN Reason: INSONMIA Last Admin: 11/24/18 22:19 Dose: 5 mg - Objective Vital Signs: Vital Signs Temperature 98.1 F 11/26/18 07:20 Pulse Rate 94 H 11/26/18 07:20 Respiratory Rate 20 11/26/18 07:20 Blood Pressure 124/64 11/26/18 07:20 O2 Sat by Pulse Oximetry (%) 94 L 11/25/18 21:00 Constitutional: Yes: No Distress, Calm Cardiovascular: Yes: Pulse Irregular, S1, S2 Respiratory: Yes: Regular, Rales (crackles at right base) Gastrointestinal: Yes: Normal Bowel Sounds, Soft. No: Tenderness Extremities: Yes: Other (right lindsey eschar) Edema: LLE: 1+, RLE: 1+ Neurological: Yes: Alert, Oriented Labs: CBC, BMP 11/25/18 15:45 11/25/18 15:45 INR, PTT INR 1.13 (0.83-1.09) H 11/17/18 06:00 Problem List - Problems (1) Acute exacerbation of CHF (congestive heart failure) Code(s): I50.9 - HEART FAILURE, UNSPECIFIED (2) Anemia Code(s): D64.9 - ANEMIA, UNSPECIFIED Qualifiers: Anemia type: unspecified type Qualified Code(s): D64.9 - Anemia, unspecified (3) Elevated troponin Code(s): R74.8 - ABNORMAL LEVELS OF OTHER SERUM ENZYMES (4) Elevated LFTs Code(s): R94.5 - ABNORMAL RESULTS OF LIVER FUNCTION STUDIES (5) CHF (congestive heart failure) Code(s): I50.9 - HEART FAILURE, UNSPECIFIED Qualifiers: Heart failure type: unspecified Heart failure chronicity: unspecified Qualified Code(s): I50.9 - Heart failure, unspecified (6) CAD (coronary artery disease) Code(s): I25.10 - ATHSCL HEART DISEASE OF [place] CORONARY ARTERY W/O ANG PCTRS Qualifiers: Coronary Disease-Associated Artery/Lesion type: [place] artery [place] vs. transplanted heart: [place] heart Associated angina: angina presence unspecified Qualified Code(s): I25.10 - Atherosclerotic heart disease of [place] coronary artery without angina pectoris (7) COPD (chronic obstructive pulmonary disease) Code(s): J44.9 - CHRONIC OBSTRUCTIVE PULMONARY DISEASE, UNSPECIFIED Qualifiers: COPD type: unspecified COPD Qualified Code(s): J44.9 - Chronic obstructive pulmonary disease, unspecified (8) DM type 2 (diabetes mellitus, type 2) Code(s): E11.9 - TYPE 2 DIABETES MELLITUS WITHOUT COMPLICATIONS Qualifiers: Diabetes mellitus wall steamer insulin use: with wall steamer use Diabetes mellitus complication status: with circulatory complication Diabetes mellitus complication detail: with other circulatory complications Qualified Code(s): E11.59 - Type 2 diabetes mellitus with other circulatory complications; Z79.4 - senior living (current) use of insulin (9) HTN (hypertension) Code(s): I10 - ESSENTIAL (PRIMARY) HYPERTENSION Qualifiers: Hypertension type: essential hypertension Qualified Code(s): I10 - Essential (primary) hypertension (10) Insomnia Code(s): G47.00 - INSOMNIA, UNSPECIFIED (11) History of recent fall Code(s): Z91.81 - HISTORY OF FALLING (12) Hematoma of right lower extremity Code(s): S80.11XA - CONTUSION OF RIGHT LOWER LEG, INITIAL ENCOUNTER (13) Hypokalemia Code(s): E87.6 - HYPOKALEMIA Assessment/Plan s/p PRBC transfusion (3 units); H/ H slightly trending down ; to f/u H/H Lasix IV as tolerated ( pt's BP is on the low side) Cardio, Pulmonary, GI, Vasc SX consults are appreciated. AC on hold NPO after midnight Pt for OR on Tuesday Case was d/w pt's nurse.
--- NOTE | 2018-11-26 12:51 | PN ---
Progress Note (short form) - Note Progress Note: PULMONARY Breathing slowly improving. No fevers. c/o leg discomfort. Vital Signs Period Temp Pulse Resp BP Sys/Garcia Pulse Ox Last 24 Hr 98.0 F-98.7 F 70-100 20-20 89-125/39-64 94 Gen: less tachypneic with speaking Heart: RRR Lung: distant breath sounds, no wheezes Abd: soft, nontender Ext: + edema, ecchymosis CBC, BMP 11/25/18 15:45 11/25/18 15:45 Active Medications Acetaminophen (Tylenol -) 650 mg PO Q6H PRN PRN Reason: PAIN Last Admin: 11/26/18 09:45 Dose: 650 mg Arformoterol Tartrate (Brovana (Restricted To Pulmonology/Resp) -) 1 amp NEB RBID [facility] Last Admin: 11/26/18 07:20 Dose: 1 amp Dextrose (D50w (Syringe) -) 25 gm IVPUSH ACHS PRN PRN Reason: BS < 50 Dextrose (D50w (Syringe) -) 12.5 gm IVPUSH ACHS PRN PRN Reason: BS 50-69 Docusate Sodium (Colace -) 300 mg PO DAILY [facility] Last Admin: 11/26/18 09:43 Dose: 300 mg Escitalopram Oxalate (Lexapro -) 5 mg PO DAILY [facility] Last Admin: 11/26/18 09:43 Dose: 5 mg Fluticasone Propionate (Flonase -) 1 spray NS DAILY [facility] Last Admin: 11/26/18 09:29 Dose: Not Given Furosemide (Lasix -) 80 mg PO DAILY [facility] Last Admin: 11/26/18 09:29 Dose: Not Given Sodium Chloride (Normal Saline -) 1,000 mls @ 42 mls/hr IV ASDIR [facility] Insulin Aspart (Novolog Vial Sliding Scale -) 1 vial SQ ACHS [facility]; Protocol Last Admin: 11/26/18 11:54 Dose: Not Given Melatonin (Melatonin) 10 mg PO HS [facility] Last Admin: 11/25/18 22:03 Dose: 10 mg Metformin HCl (Glucophage -) 500 mg PO BIDAC [facility] Last Admin: 11/26/18 08:40 Dose: 500 mg Metoprolol Succinate (Toprol Xl -) 25 mg PO DAILY [facility] Last Admin: 04/14/19 09:30 Dose: Not Given Montelukast Sodium (Singulair -) 10 mg PO HS [facility] Last Admin: 11/25/18 22:04 Dose: 10 mg Pantoprazole Sodium (Protonix -) 40 mg PO DAILY [facility] Last Admin: 11/26/18 09:42 Dose: 40 mg Polyethylene Glycol (Miralax (For Daily Use) -) 17 gm PO TID [facility] Last Admin: 11/26/18 06:11 Dose: 17 grams Prednisolone Acetate (Pred Forte 1% -) 1 drop OS BID [facility] Last Admin: 11/26/18 09:48 Dose: 1 drop Prednisone (Deltasone -) 35 mg PO DAILY [facility] Last Admin: 11/26/18 09:42 Dose: 35 mg Silver Sulfadiazine (Silvadene -) 1 applic TP BID [facility] Last Admin: 11/26/18 09:48 Dose: 1 applic Simethicone (Mylicon -) 80 mg PO BID [facility] Last Admin: 11/26/18 09:43 Dose: 80 mg Tiotropium [place] (Spiriva Respimat) 2 puff IH DAILY [facility] Last Admin: 11/26/18 09:46 Dose: 2 puff Zolpidem Tartrate (Ambien -) 5 mg PO HS PRN PRN Reason: INSONMIA Last Admin: 11/24/18 22:19 Dose: 5 mg A/P Acute on Chronic Systolic Heart Failure Severe COPD - r/o Acute Exacerbation Anemia s/p PRBC transfusions Atrial Fibrillation +Troponins likely Demand Ischemia HTN DM Hyperlipidemia h/o DVT - continue lasix - monitor urine output, creatinine - prednisone taper - inhaled bronchodilators - continue brovana, spiriva - o2 to keep SpO2 >90% - rate controlled - continue anticoagulation - rehab/PT - for hematoma drainage
[2018-11-26] MEDS ORDERED: metoPROLOL SUCCINATE 25 MG TAB.SR.24H (FP) PO ONE (20:30)
[2018-11-26] MEDS: MONTELUKAST NA 10 MG TABLET PO SCH (22:10)
[2018-11-26] MEDS: MELATONIN 5 MG TABLETS PO SCH (22:10)
[2018-11-26] MEDS: ZOLPIDEM TARTRATE 5 MG TABLET PO PRN (22:10)
[2018-11-27] MEDS: INSULIN SLIDING SCALE (NOVOLOG) 1 VIAL SQ SCH ×4 (06:30→22:32)
[2018-11-27] MEDS: POLYETHYLENE GLYCOL 3350 119 GM BTL PO SCH ×3 (06:30→22:29)
[2018-11-27] MEDS ORDERED: SODIUM CHLORIDE 1,000 ML IV SCH ×2 (07:00→19:07)
[2018-11-27 07:04] LABS: HEMATOCRIT 29.1 % (32.4-45.2); HEMOGLOBIN 8.8 GM/dL (10.7-15.3); MCH 22.1 pg (25.7-33.7); MCHC 30.2 g/dl (32.0-36.0); MEAN CELL VOLUME 73.1 fl (80-96); MEAN PLT VOLUME 7.6 fl (7.5-11.1); PLATELET COUNT 247 K/MM3 (134-434); RBC 3.98 M/mm3 (3.60-5.2); RDW 28.2 % (11.6-15.6); WHITE BLOOD COUNT 5.6 K/mm3 (4.0-10.0)
[2018-11-27 07:28] LABS: INR 1.03 (0.83-1.09); PROTHROMBIN TIME (PATIENT) 12.1 SEC (9.7-13.0)
[2018-11-27 07:31] LABS: ACTIVATED PTT 29.7 SECONDS (25.2-36.5)
[2018-11-27 07:44] LABS: ALBUMIN 2.5 g/dl (3.4-5.0); ALK PHOS 76 U/L (45-117); ANION GAP 1 MMOL/L (8-16); BILIRUBIN,TOTAL 1.2 mg/dL (0.2-1); BLOOD UREA NITROGEN 13 mg/dL (7-18); CALCIUM 10.1 mg/dL (8.5-10.1); CHLORIDE 98 mmol/L (98-107); CO2 41 mmol/L (21-32); CREATININE 0.4 mg/dL (0.55-1.3); GLUCOSE,RANDOM 80 mg/dL (74-106); POTASSIUM 3.7 mmol/L (3.5-5.1); SGOT/AST 15 U/L (15-37); SGPT/ALT 22 U/L (13-61); SODIUM 140 mmol/L (136-145); TOT PROT 5.2 g/dl (6.4-8.2)
[2018-11-27] MEDS: ARFORMOTEROL TARTRATE 15 MCG/2 ML VIAL NEB SCH ×2 (07:47→20:59)
[2018-11-27] MEDS ORDERED: PT OWN MED DRAWER 7, Y5N ONE (09:16)
[2018-11-27] MEDS: predniSONE 10 MG TABLET (UD) PO SCH (09:18)
[2018-11-27] MEDS: ESCITALOPRAM OXALATE 10 MG TABLET (FP) PO SCH (09:18)
[2018-11-27] MEDS: FUROSEMIDE 40 MG TABLET (FP) PO SCH (09:19)
[2018-11-27] MEDS: SIMETHICONE 80 MG TAB.CHEW (FP) PO SCH ×2 (09:19→22:22)
[2018-11-27] MEDS: PANTOPRAZOLE 40 MG TABLET (FP) PO SCH (09:19)
[2018-11-27] MEDS: metoPROLOL SUCCINATE 25 MG TAB.SR.24H (FP) PO SCH (09:19)
[2018-11-27] MEDS: DOCUSATE SODIUM 100 MG CAPSULE (FP) PO SCH (09:20)
[2018-11-27] MEDS: prednisoLONE ACETATE 1% OPHTH SUSP 5 ML BOTTLE OS SCH ×2 (09:21→22:24)
[2018-11-27] MEDS: FLUTICASONE PROP 0.05% 16 GM NASAL SPRAY NS SCH (09:25)
[2018-11-27] MEDS: SILVER SULFADIAZINE 1% TOP CREAM 50 GM JAR TP SCH ×2 (09:26→22:24)
--- NOTE | 2018-11-27 10:00 | PN ---
Progress Note (short form) - Note Progress Note: Resting in NAD in bed. Still with GRANADOS and non-productive cough. No CP. Intake & Output 11/24/18 11/25/18 11/26/18 11/27/18 23:59 23:59 23:59 23:59 Intake Total 980 1300 1400 Output Total 7271 002 9832 Balance -220 900 400 Weight 158 lb 1.6 oz 162 lb 12.8 oz 163 lb 165 lb Last Vital Signs Temp Pulse Resp BP Pulse Ox 98.5 F 66 20 137/75 94 L 11/27/18 06:00 11/27/18 06:00 11/27/18 06:00 11/27/18 06:00 11/26/18 21:00 Active Medications Acetaminophen (Tylenol -) 650 mg PO Q6H PRN PRN Reason: PAIN Last Admin: 11/26/18 17:53 Dose: 650 mg Arformoterol Tartrate (Brovana (Restricted To Pulmonology/Resp) -) 1 amp NEB RBID [facility] Last Admin: 11/27/18 07:47 Dose: 1 amp Dextrose (D50w (Syringe) -) 25 gm IVPUSH ACHS PRN PRN Reason: BS < 50 Dextrose (D50w (Syringe) -) 12.5 gm IVPUSH ACHS PRN PRN Reason: BS 50-69 Docusate Sodium (Colace -) 300 mg PO DAILY [facility] Last Admin: 11/27/18 09:20 Dose: Not Given Escitalopram Oxalate (Lexapro -) 5 mg PO DAILY [facility] Last Admin: 11/27/18 09:18 Dose: 5 mg Fluticasone Propionate (Flonase -) 1 spray NS DAILY [facility] Last Admin: 11/27/18 09:25 Dose: Not Given Furosemide (Lasix -) 80 mg PO DAILY [facility] Last Admin: 11/27/18 09:19 Dose: 80 mg Sodium Chloride (Normal Saline -) 1,000 mls @ 42 mls/hr IV ASDIR [facility] Last Admin: 11/27/18 09:20 Dose: 42 mls/hr Insulin Aspart (Novolog Vial Sliding Scale -) 1 vial SQ ACHS [facility]; Protocol Last Admin: 11/27/18 06:30 Dose: Not Given Melatonin (Melatonin) 10 mg PO HS [facility] Last Admin: 11/26/18 22:10 Dose: 10 mg Metformin HCl (Glucophage -) 500 mg PO BIDAC [facility] Last Admin: 11/26/18 17:44 Dose: 500 mg Metoprolol Succinate (Toprol Xl -) 25 mg PO DAILY [facility] Last Admin: 11/27/18 09:19 Dose: 25 mg Montelukast Sodium (Singulair -) 10 mg PO HS [facility] Last Admin: 11/26/18 22:10 Dose: 10 mg Pantoprazole Sodium (Protonix -) 40 mg PO DAILY [facility] Last Admin: 11/27/18 09:19 Dose: 40 mg Polyethylene Glycol (Miralax (For Daily Use) -) 17 gm PO TID [facility] Last Admin: 11/27/18 06:30 Dose: Not Given Prednisolone Acetate (Pred Forte 1% -) 1 drop OS BID [facility] Last Admin: 11/27/18 09:21 Dose: 1 drop Prednisone (Deltasone -) 35 mg PO DAILY [facility] Last Admin: 11/27/18 09:18 Dose: 35 mg Silver Sulfadiazine (Silvadene -) 1 applic TP BID [facility] Last Admin: 11/27/18 09:26 Dose: 1 applic Simethicone (Mylicon -) 80 mg PO BID [facility] Last Admin: 11/27/18 09:19 Dose: 80 mg Tiotropium [place] (Spiriva Respimat) 2 puff IH DAILY [facility] Last Admin: 11/26/18 09:46 Dose: 2 puff Zolpidem Tartrate (Ambien -) 5 mg PO HS PRN PRN Reason: INSONMIA Last Admin: 11/26/18 22:10 Dose: 5 mg Constitutional: Yes: Less tachypneic at rest Eyes: Yes: Conjunctiva Clear, EOM Intact HENT: Yes: Atraumatic, Normocephalic Neck: Yes: Supple, Trachea Midline Cardiovascular: Yes: Pulse Irregular Respiratory: Yes: Diminished (distant breath sounds) ...Clubbing: No Gastrointestinal: Yes: Normal Bowel Sounds, Soft. No: Tenderness Edema: Yes Neurological: Yes: Alert, Oriented Labs: Laboratory Results - last 24 hr 11/26/18 11/26/18 11/27/18 11:51 17:43 06:00 WBC 5.6 RBC 3.98 Hgb 8.8 L Hct 29.1 L MCV 73.1 L MCH 22.1 L MCHC 30.2 L RDW 28.2 H Plt Count 247 MPV 7.6 PT with INR INR PTT (Actin FS) Sodium Potassium Chloride Carbon Dioxide Anion Gap BUN Creatinine Creat Clearance w eGFR POC Glucometer 108 191 Random Glucose Calcium Total Bilirubin AST ALT Alkaline Phosphatase Total Protein Albumin Blood Type Antibody Screen 11/27/18 11/27/18 11/27/18 06:00 06:00 06:00 WBC RBC Hgb Hct MCV MCH MCHC RDW Plt Count MPV PT with INR 12.10 INR 1.03 PTT (Actin FS) 29.7 Sodium 140 Potassium 3.7 Chloride 98 Carbon Dioxide 41 H Anion Gap 1 L BUN 13 Creatinine 0.4 L Creat Clearance w eGFR 152.07 POC Glucometer Random Glucose 80 Calcium 10.1 Total Bilirubin 1.2 H AST 15 ALT 22 Alkaline Phosphatase 76 Total Protein 5.2 L Albumin 2.5 L Blood Type O POSITIVE Antibody Screen Negative 11/27/18 06:28 WBC RBC Hgb Hct MCV MCH MCHC RDW Plt Count MPV PT with INR INR PTT (Actin FS) Sodium Potassium Chloride Carbon Dioxide Anion Gap BUN Creatinine Creat Clearance w eGFR POC Glucometer 74 Random Glucose Calcium Total Bilirubin AST ALT Alkaline Phosphatase Total Protein Albumin Blood Type Antibody Screen Assessment/Plan Acute on Chronic Systolic Heart Failure Acute COPD Exacerbation Anemia s/p PRBC transfusions Atrial Fibrillation +Troponins likely Demand Ischemia HTN DM Hyperlipidemia h/o DVT - Lasix - monitor urine output, creatinine - Prednisone taper - inhaled bronchodilators - o2 to keep SpO2 >90% - rate controlled - Normal transfusion thresholds - D/C planning Dr Mg
--- NOTE | 2018-11-27 12:39 | PN ---
Progress Note, Physician History of Present Illness: Pt's breathing is unchanged for the last couple of days. Pt w/o CP, palpitations, abd pain. - Current Medication List Current Medications: Active Medications Acetaminophen (Tylenol -) 650 mg PO Q6H PRN PRN Reason: PAIN Last Admin: 11/26/18 17:53 Dose: 650 mg Arformoterol Tartrate (Brovana (Restricted To Pulmonology/Resp) -) 1 amp NEB RBID [facility] Last Admin: 11/27/18 07:47 Dose: 1 amp Dextrose (D50w (Syringe) -) 25 gm IVPUSH ACHS PRN PRN Reason: BS < 50 Dextrose (D50w (Syringe) -) 12.5 gm IVPUSH ACHS PRN PRN Reason: BS 50-69 Docusate Sodium (Colace -) 300 mg PO DAILY [facility] Last Admin: 11/27/18 09:20 Dose: Not Given Escitalopram Oxalate (Lexapro -) 5 mg PO DAILY [facility] Last Admin: 11/27/18 09:18 Dose: 5 mg Fluticasone Propionate (Flonase -) 1 spray NS DAILY [facility] Last Admin: 11/27/18 09:25 Dose: Not Given Furosemide (Lasix -) 80 mg PO DAILY [facility] Last Admin: 11/27/18 09:19 Dose: 80 mg Sodium Chloride (Normal Saline -) 1,000 mls @ 42 mls/hr IV ASDIR [facility] Last Admin: 11/27/18 09:20 Dose: 42 mls/hr Insulin Aspart (Novolog Vial Sliding Scale -) 1 vial SQ ACHS [facility]; Protocol Last Admin: 11/27/18 06:30 Dose: Not Given Melatonin (Melatonin) 10 mg PO HS [facility] Last Admin: 11/26/18 22:10 Dose: 10 mg Metformin HCl (Glucophage -) 500 mg PO BIDAC [facility] Last Admin: 11/26/18 17:44 Dose: 500 mg Metoprolol Succinate (Toprol Xl -) 25 mg PO DAILY [facility] Last Admin: 11/27/18 09:19 Dose: 25 mg Montelukast Sodium (Singulair -) 10 mg PO HS [facility] Last Admin: 11/26/18 22:10 Dose: 10 mg Pantoprazole Sodium (Protonix -) 40 mg PO DAILY [facility] Last Admin: 11/27/18 09:19 Dose: 40 mg Polyethylene Glycol (Miralax (For Daily Use) -) 17 gm PO TID [facility] Last Admin: 11/27/18 06:30 Dose: Not Given Prednisolone Acetate (Pred Forte 1% -) 1 drop OS BID [facility] Last Admin: 11/27/18 09:21 Dose: 1 drop Prednisone (Deltasone -) 35 mg PO DAILY [facility] Last Admin: 11/27/18 09:18 Dose: 35 mg Silver Sulfadiazine (Silvadene -) 1 applic TP BID [facility] Last Admin: 11/27/18 09:26 Dose: 1 applic Simethicone (Mylicon -) 80 mg PO BID [facility] Last Admin: 11/27/18 09:19 Dose: 80 mg Tiotropium [place] (Spiriva Respimat) 2 puff IH DAILY [facility] Last Admin: 11/26/18 09:46 Dose: 2 puff Zolpidem Tartrate (Ambien -) 5 mg PO HS PRN PRN Reason: INSONMIA Last Admin: 11/26/18 22:10 Dose: 5 mg - Objective Vital Signs: Vital Signs Temperature 98.1 F 11/27/18 10:00 Pulse Rate 62 11/27/18 10:00 Respiratory Rate 20 11/27/18 10:00 Blood Pressure 139/79 11/27/18 10:00 O2 Sat by Pulse Oximetry (%) 94 L 11/27/18 09:00 Constitutional: Yes: No Distress, Calm Cardiovascular: Yes: Regular Rate and Rhythm, S1, S2 Respiratory: Yes: Regular, Rales Gastrointestinal: Yes: Normal Bowel Sounds, Soft Neurological: Yes: Alert, Oriented Labs: CBC, BMP 11/27/18 06:00 11/27/18 06:00 INR, PTT INR 1.03 (0.83-1.09) 11/27/18 06:00 Problem List - Problems (1) Acute exacerbation of CHF (congestive heart failure) Code(s): I50.9 - HEART FAILURE, UNSPECIFIED (2) Anemia Code(s): D64.9 - ANEMIA, UNSPECIFIED Qualifiers: Anemia type: unspecified type Qualified Code(s): D64.9 - Anemia, unspecified (3) Elevated troponin Code(s): R74.8 - ABNORMAL LEVELS OF OTHER SERUM ENZYMES (4) Elevated LFTs Code(s): R94.5 - ABNORMAL RESULTS OF LIVER FUNCTION STUDIES (5) CHF (congestive heart failure) Code(s): I50.9 - HEART FAILURE, UNSPECIFIED Qualifiers: Heart failure type: unspecified Heart failure chronicity: unspecified Qualified Code(s): I50.9 - Heart failure, unspecified (6) CAD (coronary artery disease) Code(s): I25.10 - ATHSCL HEART DISEASE OF [place] CORONARY ARTERY W/O ANG PCTRS Qualifiers: Coronary Disease-Associated Artery/Lesion type: [place] artery [place] vs. transplanted heart: [place] heart Associated angina: angina presence unspecified Qualified Code(s): I25.10 - Atherosclerotic heart disease of [place] coronary artery without angina pectoris (7) COPD (chronic obstructive pulmonary disease) Code(s): J44.9 - CHRONIC OBSTRUCTIVE PULMONARY DISEASE, UNSPECIFIED Qualifiers: COPD type: unspecified COPD Qualified Code(s): J44.9 - Chronic obstructive pulmonary disease, unspecified (8) DM type 2 (diabetes mellitus, type 2) Code(s): E11.9 - TYPE 2 DIABETES MELLITUS WITHOUT COMPLICATIONS Qualifiers: Diabetes mellitus parts counterman insulin use: with retirement use Diabetes mellitus complication status: with circulatory complication Diabetes mellitus complication detail: with other circulatory complications Qualified Code(s): E11.59 - Type 2 diabetes mellitus with other circulatory complications; Z79.4 - residential (current) use of insulin (9) HTN (hypertension) Code(s): I10 - ESSENTIAL (PRIMARY) HYPERTENSION Qualifiers: Hypertension type: essential hypertension Qualified Code(s): I10 - Essential (primary) hypertension (10) Insomnia Code(s): G47.00 - INSOMNIA, UNSPECIFIED (11) History of recent fall Code(s): Z91.81 - HISTORY OF FALLING (12) Hematoma of right lower extremity Code(s): S80.11XA - CONTUSION OF RIGHT LOWER LEG, INITIAL ENCOUNTER (13) Hypokalemia Code(s): E87.6 - HYPOKALEMIA Assessment/Plan s/p PRBC transfusion (3 units); H/ H slightly trending down ; to f/u H/H Lasix IV as tolerated ( pt's BP is on the low side) Cardio, Pulmonary, GI, Vasc SX consults are appreciated. AC on hold; to restarted per Surgery Pt for OR today. AM labs Case was d/w pt's nurse.
[2018-11-27] MEDS: TIOTROPIUM BROMIDE 2.5 MCG (SPIRIVA) RESPIMAT INHALER IH SCH (13:33)
[2018-11-27] MEDS ORDERED: LIDOCAINE HCL 1%, 10 MG/ML (20ML VIAL) ONE (14:53)
--- NOTE | 2018-11-27 15:16 | SPA.PREOP ---
- PRE-OP NOTE Dx: right Leg hematoma Planned Procedure: debridment and drainage of hematoma. Surgeon: Vj Last Vital Signs Temp Pulse Resp BP Pulse Ox 98.1 F 67 20 125/50 L 94 L 11/27/18 15:00 11/27/18 15:00 11/27/18 15:00 11/27/18 15:00 11/27/18 09:00 Lab Results WBC 5.6 K/mm3 (4.0-10.0) 11/27/18 06:00 RBC 3.98 M/mm3 (3.60-5.2) 11/27/18 06:00 Hgb 8.8 GM/dL (10.7-15.3) L 11/27/18 06:00 Hct 29.1 % (32.4-45.2) L 11/27/18 06:00 MCV 73.1 fl (80-96) L 11/27/18 06:00 MCHC 30.2 g/dl (32.0-36.0) L 11/27/18 06:00 RDW 28.2 % (11.6-15.6) H 11/27/18 06:00 Plt Count 247 K/MM3 (134-434) 11/27/18 06:00 Sodium 140 mmol/L (136-145) 11/27/18 06:00 Potassium 3.7 mmol/L (3.5-5.1) 11/27/18 06:00 Chloride 98 mmol/L (98-107) 11/27/18 06:00 Carbon Dioxide 41 mmol/L (21-32) H 11/27/18 06:00 Anion Gap 1 MMOL/L (8-16) L 11/27/18 06:00 BUN 13 mg/dL (7-18) 11/27/18 06:00 Creatinine 0.4 mg/dL (0.55-1.3) L 11/27/18 06:00 Random Glucose 80 mg/dL (74-106) 11/27/18 06:00 Calcium 10.1 mg/dL (8.5-10.1) 11/27/18 06:00 Blood Type O POSITIVE 11/27/18 06:00 Antibody Screen Negative 11/27/18 06:00 INR 1.03 (0.83-1.09) 11/27/18 06:00 CT LE: Large hematoma - ASSESSMENT/PLAN Problem List - Problems (1) Hematoma of right lower extremity Assessment/Plan: 1. NPO except po meds 2. GI/DVT PPX 3. Medical optimization / clearance 4. Consent to be obtained by surgeon after risks, benefits and alternatives discussed with patient and or Health Care Proxy. Code(s): S80.11XA - CONTUSION OF RIGHT LOWER LEG, INITIAL ENCOUNTER
--- NOTE | 2018-11-27 15:57 | PN ---
Progress Note (short form) - Note Progress Note: s: breathing at baseline, stable sob, edema. no chest pain, palps, dizziness. Current Medications Acetaminophen (Tylenol -) 650 mg PO Q6H PRN PRN Reason: PAIN Last Admin: 11/26/18 17:53 Dose: 650 mg Arformoterol Tartrate (Brovana (Restricted To Pulmonology/Resp) -) 1 amp NEB RBID [facility] Last Admin: 11/27/18 07:47 Dose: 1 amp Dextrose (D50w (Syringe) -) 25 gm IVPUSH ACHS PRN PRN Reason: BS < 50 Dextrose (D50w (Syringe) -) 12.5 gm IVPUSH ACHS PRN PRN Reason: BS 50-69 Docusate Sodium (Colace -) 300 mg PO DAILY [facility] Last Admin: 11/27/18 09:20 Dose: Not Given Escitalopram Oxalate (Lexapro -) 5 mg PO DAILY [facility] Last Admin: 11/27/18 09:18 Dose: 5 mg Fluticasone Propionate (Flonase -) 1 spray NS DAILY [facility] Last Admin: 11/27/18 09:25 Dose: Not Given Furosemide (Lasix -) 80 mg PO DAILY [facility] Last Admin: 11/27/18 09:19 Dose: 80 mg Sodium Chloride (Normal Saline -) 1,000 mls @ 42 mls/hr IV ASDIR [facility] Last Admin: 11/27/18 09:20 Dose: 42 mls/hr Insulin Aspart (Novolog Vial Sliding Scale -) 1 vial SQ [facility]; Protocol Last Admin: 11/27/18 13:32 Dose: Not Given Melatonin (Melatonin) 10 mg PO HS [facility] Last Admin: 11/26/18 22:10 Dose: 10 mg Metformin HCl (Glucophage -) 500 mg PO BIDAC [facility] Last Admin: 11/26/18 17:44 Dose: 500 mg Metoprolol Succinate (Toprol Xl -) 25 mg PO DAILY [facility] Last Admin: 11/27/18 09:19 Dose: 25 mg Montelukast Sodium (Singulair -) 10 mg PO HS [facility] Last Admin: 11/26/18 22:10 Dose: 10 mg Pantoprazole Sodium (Protonix -) 40 mg PO DAILY [facility] Last Admin: 11/27/18 09:19 Dose: 40 mg Polyethylene Glycol (Miralax (For Daily Use) -) 17 gm PO TID [facility] Last Admin: 11/27/18 13:33 Dose: Not Given Prednisolone Acetate (Pred Forte 1% -) 1 drop OS BID [facility] Last Admin: 11/27/18 09:21 Dose: 1 drop Prednisone (Deltasone -) 35 mg PO DAILY [facility] Last Admin: 11/27/18 09:18 Dose: 35 mg Silver Sulfadiazine (Silvadene -) 1 applic TP BID [facility] Last Admin: 11/27/18 09:26 Dose: 1 applic Simethicone (Mylicon -) 80 mg PO BID [facility] Last Admin: 11/27/18 09:19 Dose: 80 mg Tiotropium [place] (Spiriva Respimat) 2 puff IH DAILY [facility] Last Admin: 11/27/18 13:33 Dose: 2 puff Zolpidem Tartrate (Ambien -) 5 mg PO HS PRN PRN Reason: INSONMIA Last Admin: 11/26/18 22:10 Dose: 5 mg Vital Signs Period Temp Pulse Resp BP Sys/Garcia Pulse Ox Last 24 Hr 98.1 F-98.5 F 62-100 20-20 125-139/50-89 94-94 Constitutional: Yes: No Distress, Calm Eyes: No: Sclera Icterus HENT: No: Nasal Congestion Cardiovascular: Yes: Regular Rate and Rhythm, S1, S2, Other (PMI non diplaced). No: Gallop, Murmur Respiratory: Yes: CTA Bilaterally. No: Accessory Muscle Use, Rales, Wheezes Gastrointestinal: Yes: Normal Bowel Sounds, Soft. No: Tenderness Musculoskeletal: Yes: Other (No kyphosis) Extremities: No: Cold Edema: Yes (1+ ankles) Integumentary: No: Jaundice Neurological: Yes: Alert, Oriented (x3) Psychiatric: No: Agitated Assessment/Plan ecg: sr, no ischemic changes cath 12/2017 (after +mibi): non obs cad echo 06/2018: mild-mod dec lvef, global hk, nl rv, lae, mild-mod mr, mild tr, mod as, nl rvsp cxr: clear lungs a/p: 83 f hx hld, htn, syst chf, dm, copd, dvt, afib, as, non obs cad, here with sob. sob, anemia, acute systolic chf: -pt with severe anemia as well as vol overload, likely both contributing to sob -received prbcs and has been diuresing well, sob improved -11/25: no JVD appreciated, pt states breathing pattern and edema of feet at her longstanding baseline. hypotensive earlier, ? overdiuresed. check labs. change lasix 80 IV qd to 80 po daily (her prior home dose). - 11/27: continue lasix 80 mg PO daily, breathing and edema remain at baseline hypotension: -sbp 80s earlier today, asymptomatic -rpt CBC (r/o bleeding), bun/creatinine (vol depletion?) -held today's metoprolol dose--BP up to 110 on its own -cont metopr 25 qd, change lasix to PO as above -observe bp trend leg hematoma, preoperative evaluation - planned debridement of lower extremity wound - no cardiac contraindication to debridement and drainage of hematoma - xarelto held, restart when H/H stable and clear per surgery anemia: -? related to leg hematoma -s/p transfusion prbcs -counts have been stable since - xarelto held cad, pos trops: -pt had recent cath 12/2017 with non obstructive cad -trops in borderline range here, flat trend. likely represents demand from anemia/chf and not acs afib: -in sr here, cont toprol -xarelto held as above hld: -cont home statin htn: -stable on toprol
[2018-11-27] MEDS: metFORMIN HCL 500 MG TABLET (FP) PO SCH (17:40)
[2018-11-27] MEDS ORDERED: ONDANSETRON 4 MG/2 ML VIAL IVPUSH PRN ×2 (17:44→19:07)
[2018-11-27] MEDS ORDERED: PROMETHAZINE HCL 25 MG/1 ML VIAL IVPUSH PRN ×2 (17:44→19:07)
[2018-11-27] MEDS ORDERED: LACTATED RINGERS SOLUTION 1,000 ML IV SCH ×2 (17:45→19:07)
[2018-11-27] MEDS ORDERED: MIDAZOLAM HCL 2 MG/2 ML SINGLE DOSE VIAL ONE (18:09)
[2018-11-27] MEDS ORDERED: ceFAZolin SODIUM 1 GM VIAL ONE (18:15)
[2018-11-27] MEDS ORDERED: SODIUM CHLORIDE 0.9% P/F 10 ML VIAL IJ ONE (18:15)
[2018-11-27] MEDS ORDERED: LIDOCAINE HCL 1%, 10 MG/ML (20ML VIAL) INF ONE ×2 (18:19)
[2018-11-27] MEDS ORDERED: ceFAZolin SODIUM 1 GM VIAL IVPB ONE (18:27)
--- NOTE | 2018-11-27 18:50 | OP ---
Operative Note - Note: Operative Date: 11/27/18 Pre-Operative Diagnosis: right lindsey hematoma Operation: Right lindsey evacuation of hematoma with excisional debridement - skin , subcutaneous tissue Findings: hematoma Post-Operative Diagnosis: Same as Pre-op Surgeon: Dinesh Zabala Anesthesia: Fractional Estimated Blood Loss (mls): 50 Operative Report Dictated: Yes
[2018-11-27] MEDS ORDERED: MORPHINE SULFATE 2 MG/ML VIAL IVPUSH PRN (18:53)
--- NOTE | 2018-11-27 18:55 | PN ---
Progress Note (short form) - Note Progress Note: Vascular Surgery S/P evacuation of hematoma, debridement of right lindsey. Packed with iodoform dressing. Can restart Xarelto in am. Will follow Dinesh Zabala DO
[2018-11-27] MEDS ORDERED: KETOROLAC TROMETHAMINE 30 MG/1 ML VIAL ONE (18:59)
[2018-11-27] MEDS ORDERED: DEXTROSE 50%-WATER 25 GM/50 ML DISP.SYRIN IVPUSH PRN ×2 (19:07)
[2018-11-27] MEDS: MELATONIN 5 MG TABLETS PO SCH (22:22)
[2018-11-27] MEDS: MONTELUKAST NA 10 MG TABLET PO SCH (22:22)
[2018-11-27] MEDS: ZOLPIDEM TARTRATE 5 MG TABLET PO PRN (22:41)
[2018-11-27] MEDS: ACETAMINOPHEN 325 MG TABLET (FP) PO PRN (23:05)
[2018-11-28] MEDS: metFORMIN HCL 500 MG TABLET (FP) PO SCH ×3 (06:34→18:56)
[2018-11-28] MEDS: POLYETHYLENE GLYCOL 3350 119 GM BTL PO SCH ×3 (06:34→21:55)
[2018-11-28] MEDS: INSULIN SLIDING SCALE (NOVOLOG) 1 VIAL SQ SCH ×4 (06:36→22:03)
--- NOTE | 2018-11-28 07:15 | OP ---
DATE OF OPERATION: 11/27/2018 PREOPERATIVE DIAGNOSIS: Right lindsey hematoma. POSTOPERATIVE DIAGNOSIS: Right lindsey hematoma. PROCEDURE: Evacuation of hematoma, debridement of skin and subcutaneous tissue, right lindsey. SURGEON: Dinesh Norris MD ANESTHESIA: Fractional. BLOOD LOSS: 50 mL. INDICATIONS: The patient is an 83-year-old female who had a fall 5 days ago and developed a hematoma over her right lindsey. Patient was on Xarelto, which increased the size of her hematoma. Since then, the Xarelto was on hold, and it was decided that she would need evacuation of the hematoma and a debridement of the skin that had necrosed. Patient was consented for the procedure understanding all risks, benefits, and alternatives and was then taken to the operating room. PROCEDURE IN DETAIL: Once in the operating suite and she was placed on the operating table in the supine manner, the area of the right lindsey was prepped and draped in the sterile surgical manner. We then injected 30 mL into the hematoma and onto the necrosed skin. We then went ahead and took a No. 15 blade and we were able to excise all of the necrotic skin and subcutaneous tissue. We then went ahead and squeezed and evacuated all of the hematoma. We then went ahead and used Bovie electrocautery to control hemostasis. We then used a pulse special projects coordinator and we were able to further evacuate the hematoma and irrigate the entire wound. Once we finished irrigating and the wound was dry, we went ahead and used Iodoform packing, and the wound was packed, 4x4s and Kerlix were placed. The patient tolerated the procedure with no complications. Total blood loss 50 mL. Patient transferred to PACU in stable condition. DINESH NORRIS DO [id number]
[2018-11-28] MEDS: ARFORMOTEROL TARTRATE 15 MCG/2 ML VIAL NEB SCH (07:30)
[2018-11-28 08:13] LABS: HEMATOCRIT 27.5 % (32.4-45.2); HEMOGLOBIN 8.5 GM/dL (10.7-15.3); MCH 22.5 pg (25.7-33.7); MCHC 30.9 g/dl (32.0-36.0); MEAN CELL VOLUME 72.8 fl (80-96); MEAN PLT VOLUME 7.5 fl (7.5-11.1); PLATELET COUNT 270 K/MM3 (134-434); RBC 3.77 M/mm3 (3.60-5.2); RDW 28.4 % (11.6-15.6); WHITE BLOOD COUNT 7.6 K/mm3 (4.0-10.0)
--- NOTE | 2018-11-28 08:13 | PN ---
Progress Note (short form) - Note Progress Note: surgery POD #1 Right lindsey evacuation of hematoma with excisional debridement - skin, subcutaneous tissue patient seen and examined at bedside. Overall she feels well and her pain is controlled. She would like to get out of bed and ambulate this morning. She has been tolerating her diet and she denies any CP,Fever, Chills, N/V. Vital Signs Temp 98.0 F 11/27/18 21:18 Pulse 67 11/27/18 21:18 Resp 18 11/27/18 21:18 BP 112/75 11/27/18 21:18 Pulse Ox 100 11/27/18 21:00 Intake & Output 11/27/18 11/27/18 11/28/18 11:59 23:59 11:59 Intake Total 800 718 Output Total 10 100 Balance 790 618 Weight 165 lb 165 lb 12.8 oz Intake: IV 800 168 Normal Saline - 1,000 ml 168 @ 42 mls/hr IV ASDIR BREANNA Rx#:[id number] Oral 550 Output: Urine 100 Void 100 Estimated Blood Loss 10 Other: Voiding Method External Catheter External Catheter Bowel Movement No No CBC, BMP 11/28/18 07:30 11/28/18 07:30 PE: A&Ox3, NAD right leg dressing c/d/i. LE compartments soft, supple and tender to palpation throughout appropriate to status. diffuse ecchymosis throughout right LE compartments consistent with her injury. Foot is warm and well perfused with + 2DP and PT pulses. Patient moving ankle and toes without limitation. sensation to light touch intact throughout. Problem List - Problems (1) Hematoma of right lower extremity Assessment/Plan: POD #1 right hematoma evacuation excisional debridement - skin, subcutaneous tissue doing well. 1) re-start Xarelto this morning 2) daily packing with iodoform as ordered 3) Iv ABx PRN ID 4) OOB as tolerated with assist-fall risk 5) Trend H&H Code(s): S80.11XA - CONTUSION OF RIGHT LOWER LEG, INITIAL ENCOUNTER
[2018-11-28 08:37] LABS: ALBUMIN 2.6 g/dl (3.4-5.0); ALK PHOS 77 U/L (45-117); ANION GAP 4 MMOL/L (8-16); BILIRUBIN,TOTAL 0.7 mg/dL (0.2-1); BLOOD UREA NITROGEN 16 mg/dL (7-18); CALCIUM 9.6 mg/dL (8.5-10.1); CHLORIDE 102 mmol/L (98-107); CO2 38 mmol/L (21-32); CREATININE 0.6 mg/dL (0.55-1.3); GLUCOSE,RANDOM 84 mg/dL (74-106); POTASSIUM 3.8 mmol/L (3.5-5.1); SGOT/AST 17 U/L (15-37); SGPT/ALT 13 U/L (13-61); SODIUM 144 mmol/L (136-145); TOT PROT 5.2 g/dl (6.4-8.2)
--- NOTE | 2018-11-28 09:27 | PN ---
Progress Note (short form) - Note Progress Note: Resting in NAD in bed on NC O2. S/P evacuation of hematoma yesterday. Still with GRANADOS and non-productive cough. No CP. Intake & Output 11/25/18 11/26/18 11/27/18 11/28/18 23:59 23:59 23:59 23:59 Intake Total 1300 1400 800 718 Output Total 400 1000 10 100 Balance 900 400 790 618 Weight 162 lb 12.8 oz 163 lb 165 lb 165 lb 12.8 oz Last Vital Signs Temp Pulse Resp BP Pulse Ox 98.0 F 67 18 112/75 100 11/27/18 21:18 11/27/18 21:18 11/27/18 21:18 11/27/18 21:18 11/27/18 21:00 Active Medications Acetaminophen (Tylenol -) 650 mg PO Q6H PRN PRN Reason: PAIN Last Admin: 11/27/18 23:05 Dose: 650 mg Arformoterol Tartrate (Brovana (Restricted To Pulmonology/Resp) -) 1 amp NEB RBID [facility] Last Admin: 11/27/18 20:59 Dose: 1 amp Dextrose (D50w (Syringe) -) 25 gm IVPUSH ACHS PRN PRN Reason: BS < 50 Dextrose (D50w (Syringe) -) 12.5 gm IVPUSH ACHS PRN PRN Reason: BS 50-69 Docusate Sodium (Colace -) 300 mg PO DAILY [facility] Escitalopram Oxalate (Lexapro -) 5 mg PO DAILY [facility] Fluticasone Propionate (Flonase -) 1 spray NS DAILY [facility] Furosemide (Lasix -) 80 mg PO DAILY [facility] Sodium Chloride (Normal Saline -) 1,000 mls @ 42 mls/hr IV ASDIR [facility] Last Admin: 11/27/18 22:22 Dose: 42 mls/hr Insulin Aspart (Novolog Vial Sliding Scale -) 1 vial SQ ACHS [facility]; Protocol Last Admin: 11/28/18 06:36 Dose: Not Given Melatonin (Melatonin) 10 mg PO HS [facility] Last Admin: 11/27/18 22:22 Dose: 10 mg Metformin HCl (Glucophage -) 500 mg PO BIDAC [facility] Last Admin: 11/28/18 06:36 Dose: Not Given Metoprolol Succinate (Toprol Xl -) 25 mg PO DAILY [facility] Montelukast Sodium (Singulair -) 10 mg PO HS [facility] Last Admin: 11/27/18 22:22 Dose: 10 mg Morphine Sulfate (Morphine Sulfate) 2 mg IVPUSH Q4H PRN PRN Reason: PAIN LEVEL 6-10 Ondansetron HCl (Zofran Injection) 4 mg IVPUSH Q6H PRN PRN Reason: NAUSEA AND/OR VOMITING Pantoprazole Sodium (Protonix -) 40 mg PO DAILY [facility] Polyethylene Glycol (Miralax (For Daily Use) -) 17 gm PO TID [facility] Last Admin: 11/28/18 06:34 Dose: 17 gm Prednisolone Acetate (Pred Forte 1% -) 1 drop OS BID [facility] Last Admin: 11/27/18 22:24 Dose: 1 drop Prednisone (Deltasone -) 35 mg PO DAILY [facility] Promethazine HCl (Phenergan Injection -) 12.5 mg IVPUSH Q6H PRN PRN Reason: NAUSEA-FOR RESCUE AFTER 15 MIN Silver Sulfadiazine (Silvadene -) 1 applic TP BID [facility] Last Admin: 11/27/18 22:24 Dose: 1 applic Simethicone (Mylicon -) 80 mg PO BID [facility] Last Admin: 11/27/18 22:22 Dose: 80 mg Tiotropium [place] (Spiriva Respimat) 2 puff IH DAILY [facility] Zolpidem Tartrate (Ambien -) 5 mg PO HS PRN PRN Reason: INSONMIA Last Admin: 11/27/18 22:41 Dose: 5 mg Constitutional: Yes: Anxious, Less tachypneic at rest Eyes: Yes: Conjunctiva Clear, EOM Intact HENT: Yes: Atraumatic, Normocephalic Neck: Yes: Supple, Trachea Midline Cardiovascular: Yes: Pulse Irregular Respiratory: Yes: Diminished (distant breath sounds) ...Clubbing: No Gastrointestinal: Yes: Normal Bowel Sounds, Soft. No: Tenderness Edema: Yes Neurological: Yes: Alert, Oriented Labs: Laboratory Results - last 24 hr 11/27/18 11/27/18 11/27/18 12:13 17:40 22:31 WBC RBC Hgb Hct MCV MCH MCHC RDW Plt Count MPV Sodium Potassium Chloride Carbon Dioxide Anion Gap BUN Creatinine Creat Clearance w eGFR POC Glucometer 99 125 111 Random Glucose Calcium Total Bilirubin AST ALT Alkaline Phosphatase Total Protein Albumin 11/28/18 11/28/18 11/28/18 06:35 07:30 07:30 WBC 7.6 RBC 3.77 Hgb 8.5 L Hct 27.5 L MCV 72.8 L MCH 22.5 L MCHC 30.9 L RDW 28.4 H Plt Count 270 MPV 7.5 Sodium 144 Potassium 3.8 Chloride 102 Carbon Dioxide 38 H Anion Gap 4 L BUN 16 Creatinine 0.6 Creat Clearance w eGFR 95.24 POC Glucometer 83 Random Glucose 84 Calcium 9.6 Total Bilirubin 0.7 AST 17 ALT 13 Alkaline Phosphatase 77 Total Protein 5.2 L Albumin 2.6 L Assessment/Plan Acute on Chronic Systolic Heart Failure Acute COPD Exacerbation Anemia s/p PRBC transfusions Atrial Fibrillation +Troponins likely Demand Ischemia HTN DM Hyperlipidemia h/o DVT - Monitor off IVF - Lasix - monitor urine output, creatinine - Prednisone taper - inhaled bronchodilators - o2 to keep SpO2 >90% - rate controlled - Normal transfusion thresholds - D/C planning Dr Mg
--- NOTE | 2018-11-28 09:47 | PN ---
Progress Note, Physician History of Present Illness: Entry ErrorPt w/o SOB, CP, palp, abd pain, legs pain - Current Medication List Current Medications: Active Medications Acetaminophen (Tylenol -) 650 mg PO Q6H PRN PRN Reason: PAIN Last Admin: 11/27/18 23:05 Dose: 650 mg Arformoterol Tartrate (Brovana (Restricted To Pulmonology/Resp) -) 1 amp NEB RBID [facility] Last Admin: 11/27/18 20:59 Dose: 1 amp Dextrose (D50w (Syringe) -) 25 gm IVPUSH ACHS PRN PRN Reason: BS < 50 Dextrose (D50w (Syringe) -) 12.5 gm IVPUSH ACHS PRN PRN Reason: BS 50-69 Docusate Sodium (Colace -) 300 mg PO DAILY [facility] Escitalopram Oxalate (Lexapro -) 5 mg PO DAILY [facility] Fluticasone Propionate (Flonase -) 1 spray NS DAILY [facility] Furosemide (Lasix -) 80 mg PO DAILY [facility] Sodium Chloride (Normal Saline -) 1,000 mls @ 42 mls/hr IV ASDIR [facility] Last Admin: 11/27/18 22:22 Dose: 42 mls/hr Insulin Aspart (Novolog Vial Sliding Scale -) 1 vial SQ ACHS [facility]; Protocol Last Admin: 11/28/18 06:36 Dose: Not Given Melatonin (Melatonin) 10 mg PO HS [facility] Last Admin: 11/27/18 22:22 Dose: 10 mg Metformin HCl (Glucophage -) 500 mg PO BIDAC [facility] Last Admin: 11/28/18 06:36 Dose: Not Given Metoprolol Succinate (Toprol Xl -) 25 mg PO DAILY [facility] Montelukast Sodium (Singulair -) 10 mg PO HS [facility] Last Admin: 11/27/18 22:22 Dose: 10 mg Morphine Sulfate (Morphine Sulfate) 2 mg IVPUSH Q4H PRN PRN Reason: PAIN LEVEL 6-10 Ondansetron HCl (Zofran Injection) 4 mg IVPUSH Q6H PRN PRN Reason: NAUSEA AND/OR VOMITING Pantoprazole Sodium (Protonix -) 40 mg PO DAILY [facility] Polyethylene Glycol (Miralax (For Daily Use) -) 17 gm PO TID [facility] Last Admin: 11/28/18 06:34 Dose: 17 gm Prednisolone Acetate (Pred Forte 1% -) 1 drop OS BID [facility] Last Admin: 11/27/18 22:24 Dose: 1 drop Prednisone (Deltasone -) 35 mg PO DAILY [facility] Promethazine HCl (Phenergan Injection -) 12.5 mg IVPUSH Q6H PRN PRN Reason: NAUSEA-FOR RESCUE AFTER 15 MIN Silver Sulfadiazine (Silvadene -) 1 applic TP BID [facility] Last Admin: 11/27/18 22:24 Dose: 1 applic Simethicone (Mylicon -) 80 mg PO BID [facility] Last Admin: 11/27/18 22:22 Dose: 80 mg Tiotropium [place] (Spiriva Respimat) 2 puff IH DAILY [facility] Zolpidem Tartrate (Ambien -) 5 mg PO HS PRN PRN Reason: INSONMIA Last Admin: 11/27/18 22:41 Dose: 5 mg - Objective Vital Signs: Vital Signs Temperature 98.0 F 11/27/18 21:18 Pulse Rate 67 11/27/18 21:18 Respiratory Rate 18 11/27/18 21:18 Blood Pressure 112/75 11/27/18 21:18 O2 Sat by Pulse Oximetry (%) 100 11/27/18 21:00 Constitutional: Yes: No Distress, Calm Cardiovascular: Yes: Regular Rate and Rhythm, S1, S2 Respiratory: Yes: Regular, CTA Bilaterally. No: Rales Gastrointestinal: Yes: Normal Bowel Sounds, Soft. No: Tenderness Extremities: Yes: Other (right leg with clean dressing) Edema: LLE: 1+, RLE: 1+ Neurological: Yes: Alert, Oriented Labs: CBC, BMP 11/28/18 07:30 11/28/18 07:30 INR, PTT INR 1.03 (0.83-1.09) 11/27/18 06:00 Problem List - Problems (1) Acute exacerbation of CHF (congestive heart failure) Code(s): I50.9 - HEART FAILURE, UNSPECIFIED (2) Anemia Code(s): D64.9 - ANEMIA, UNSPECIFIED Qualifiers: Anemia type: unspecified type Qualified Code(s): D64.9 - Anemia, unspecified (3) Elevated troponin Code(s): R74.8 - ABNORMAL LEVELS OF OTHER SERUM ENZYMES (4) Elevated LFTs Code(s): R94.5 - ABNORMAL RESULTS OF LIVER FUNCTION STUDIES (5) CHF (congestive heart failure) Code(s): I50.9 - HEART FAILURE, UNSPECIFIED Qualifiers: Heart failure type: unspecified Heart failure chronicity: unspecified Qualified Code(s): I50.9 - Heart failure, unspecified (6) CAD (coronary artery disease) Code(s): I25.10 - ATHSCL HEART DISEASE OF [place] CORONARY ARTERY W/O ANG PCTRS Qualifiers: Coronary Disease-Associated Artery/Lesion type: [place] artery [place] vs. transplanted heart: [place] heart Associated angina: angina presence unspecified Qualified Code(s): I25.10 - Atherosclerotic heart disease of [place] coronary artery without angina pectoris (7) COPD (chronic obstructive pulmonary disease) Code(s): J44.9 - CHRONIC OBSTRUCTIVE PULMONARY DISEASE, UNSPECIFIED Qualifiers: COPD type: unspecified COPD Qualified Code(s): J44.9 - Chronic obstructive pulmonary disease, unspecified (8) DM type 2 (diabetes mellitus, type 2) Code(s): E11.9 - TYPE 2 DIABETES MELLITUS WITHOUT COMPLICATIONS Qualifiers: Diabetes mellitus terminal operations supervisor insulin use: with nursing home use Diabetes mellitus complication status: with circulatory complication Diabetes mellitus complication detail: with other circulatory complications Qualified Code(s): E11.59 - Type 2 diabetes mellitus with other circulatory complications; Z79.4 - [facility]FP (current) use of insulin (9) HTN (hypertension) Code(s): I10 - ESSENTIAL (PRIMARY) HYPERTENSION Qualifiers: Hypertension type: essential hypertension Qualified Code(s): I10 - Essential (primary) hypertension (10) Insomnia Code(s): G47.00 - INSOMNIA, UNSPECIFIED (11) History of recent fall Code(s): Z91.81 - HISTORY OF FALLING (12) Hematoma of right lower extremity Code(s): S80.11XA - CONTUSION OF RIGHT LOWER LEG, INITIAL ENCOUNTER (13) Hypokalemia Code(s): E87.6 - HYPOKALEMIA Assessment/Plan s/p PRBC transfusion (3 units); H/ H slightly trending down ; to f/u H/H Lasix IV as tolerated ( pt's BP is on the low side) Cardio, Pulmonary, GI, Vasc SX consults are appreciated. To restart AC per surgery Post op day #1 AM labs Case was d/w pt's nurse.
[2018-11-28] MEDS ORDERED: TIOTROPIUM BROMIDE 2.5 MCG (SPIRIVA) RESPIMAT INHALER IH SCH (10:00)
[2018-11-28] MEDS: predniSONE 10 MG TABLET (UD) PO SCH (11:02)
[2018-11-28] MEDS: ESCITALOPRAM OXALATE 10 MG TABLET (FP) PO SCH (11:03)
[2018-11-28] MEDS: DOCUSATE SODIUM 100 MG CAPSULE (FP) PO SCH (11:03)
[2018-11-28] MEDS: FLUTICASONE PROP 0.05% 16 GM NASAL SPRAY NS SCH (11:05)
[2018-11-28] MEDS: FUROSEMIDE 40 MG TABLET (FP) PO SCH (11:05)
[2018-11-28] MEDS: SIMETHICONE 80 MG TAB.CHEW (FP) PO SCH ×2 (11:06→21:53)
[2018-11-28] MEDS: PANTOPRAZOLE 40 MG TABLET (FP) PO SCH (11:06)
[2018-11-28] MEDS: prednisoLONE ACETATE 1% OPHTH SUSP 5 ML BOTTLE OS SCH ×2 (11:07→22:15)
[2018-11-28] MEDS: SILVER SULFADIAZINE 1% TOP CREAM 50 GM JAR TP SCH (11:08)
--- NOTE | 2018-11-28 14:59 | PN ---
Progress Note (short form) - Note Progress Note: Anesthesia POD#1 S/P Evacuation of Hematoma and Debridement under MAC mild pain,VSS,c/o intra/op pain which could be ignored considering her comorbid condition. However no sequale seen. Tory Navarrete MD.
--- NOTE | 2018-11-28 15:13 | PN ---
Progress Note (short form) - Note Progress Note: s: no chest pain, palps, dizziness, sob Current Medications Generic Name Dose Route Start Last Admin Trade Name Freq PRN Reason Stop Dose Admin Acetaminophen 650 mg 11/27/18 19:07 11/27/18 23:05 Tylenol - PO 650 mg Q6H PRN Administration PAIN Arformoterol Tartrate 1 amp 11/27/18 20:00 11/28/18 07:30 Brovana (Restricted To Pulmonology/Resp) - NEB 1 amp RBID [facility]AN[facility] Administration Dextrose 25 gm 11/27/18 19:07 D50w (Syringe) - IVPUSH ACHS PRN BS < 50 Dextrose 12.5 gm 11/27/18 19:07 D50w (Syringe) - IVPUSH ACHS PRN BS 50-69 Docusate Sodium 300 mg 11/28/18 10:00 11/28/18 11:03 Colace - PO 300 mg DAILY [facility] Administration Escitalopram Oxalate 5 mg 11/28/18 10:00 11/28/18 11:03 Lexapro - PO 5 mg DAILY [facility] Administration Fluticasone Propionate 1 spray 11/28/18 10:00 11/28/18 11:05 Flonase - NS Not Given DAILY [facility] Furosemide 80 mg 11/28/18 10:00 11/28/18 11:05 Lasix - PO 80 mg DAILY [facility] Administration Insulin Aspart 1 vial 11/27/18 22:00 11/28/18 13:12 Novolog Vial Sliding Scale - SQ Not Given ACHS [facility] Protocol Melatonin 10 mg 11/27/18 22:00 11/27/18 22:22 Melatonin PO 10 mg HS [facility] Administration Metformin HCl 500 mg 11/28/18 07:00 11/28/18 06:36 Glucophage - PO Not Given BIDAC [facility] Metoprolol Succinate 25 mg 11/28/18 10:00 Toprol Xl - PO DAILY [facility] Montelukast Sodium 10 mg 11/27/18 22:00 11/27/18 22:22 Singulair - PO 10 mg HS [facility] Administration Morphine Sulfate 2 mg 11/27/18 18:53 Morphine Sulfate IVPUSH Q4H PRN PAIN LEVEL 6-10 Ondansetron HCl 4 mg 11/27/18 19:07 Zofran Injection IVPUSH Q6H PRN NAUSEA AND/OR VOMITING Pantoprazole Sodium 40 mg 11/28/18 10:00 11/28/18 11:06 Protonix - PO 40 mg DAILY [facility] Administration Polyethylene Glycol 17 gm 11/27/18 22:00 11/28/18 06:34 Miralax (For Daily Use) - PO 17 gm TID [facility] Administration Prednisolone Acetate 1 drop 11/27/18 22:00 11/28/18 11:07 Pred Forte 1% - OS 1 drop BID [facility] Administration Prednisone 35 mg 11/28/18 10:00 11/28/18 11:02 Deltasone - PO 35 mg DAILY [facility] Administration Promethazine HCl 12.5 mg 11/27/18 19:07 Phenergan Injection - IVPUSH Q6H PRN NAUSEA-FOR RESCUE AFTER 15 MIN Silver Sulfadiazine 1 applic 11/27/18 22:00 11/28/18 11:08 Silvadene - TP 1 applic BID [facility] Administration Simethicone 80 mg 11/27/18 22:00 11/28/18 11:06 Mylicon - PO Not Given BID [facility] Tiotropium [place] 2 puff 11/28/18 10:00 11/28/18 11:08 Spiriva Respimat IH 2 puff DAILY [facility] Administration Zolpidem Tartrate 5 mg 11/27/18 19:07 11/27/18 22:41 Ambien - PO 5 mg HS PRN Administration INSONMIA Vital Signs Period Temp Pulse Resp BP Sys/Garcia Pulse Ox Last 24 Hr 98.0 F-98.9 F 58-85 14-20 103-125/43-75 99-100 nad rrr, s1s2 no mrg cta bl nl eff aao3 trace le edema bl no jaundice diaphoresis pos dp pt no carotid bruits abd nt nd pos bs CBC, BMP 11/28/18 07:30 11/28/18 07:30 ecg: sr, no ischemic changes cath 12/2017 (after +mibi): non obs cad echo 06/2018: mild-mod dec lvef, global hk, nl rv, lae, mild-mod mr, mild tr, mod as, nl rvsp a/p: 83 f hx hld, htn, syst chf, dm, copd, dvt, afib, as, non obs cad, here with sob. sob, anemia, acute systolic chf: -pt with severe anemia as well as vol overload, likely both contributing to sob -received prbcs and has been diuresing well, sob improved -11/25: no JVD appreciated, pt states breathing pattern and edema of feet at her longstanding baseline. hypotensive earlier, ? overdiuresed. check labs. change lasix 80 IV qd to 80 po daily (her prior home dose). - 11/27-16: continue lasix 80 mg PO daily, breathing and edema remain at baseline leg hematoma, preoperative evaluation - s/p debridement of lower extremity wound - xarelto held, restart when H/H stable and clear per surgery anemia: -? related to leg hematoma -s/p transfusion prbcs -counts have been stable since - xarelto held cad, pos trops: -pt had recent cath 12/2017 with non obstructive cad -trops in borderline range here, flat trend. likely represents demand from anemia/chf and not acs afib: -in sr here, cont toprol -xarelto held as above hld: -cont home statin htn: -stable on toprol
--- NOTE | 2018-11-28 15:35 | PN ---
Progress Note, Physician History of Present Illness: Entry Error - Current Medication List Current Medications: Active Medications Acetaminophen (Tylenol -) 650 mg PO Q6H PRN PRN Reason: PAIN Last Admin: 11/27/18 23:05 Dose: 650 mg Arformoterol Tartrate (Brovana (Restricted To Pulmonology/Resp) -) 1 amp NEB RBID [facility] Last Admin: 11/28/18 07:30 Dose: 1 amp Dextrose (D50w (Syringe) -) 25 gm IVPUSH ACHS PRN PRN Reason: BS < 50 Dextrose (D50w (Syringe) -) 12.5 gm IVPUSH ACHS PRN PRN Reason: BS 50-69 Docusate Sodium (Colace -) 300 mg PO DAILY [facility] Last Admin: 11/28/18 11:03 Dose: 300 mg Escitalopram Oxalate (Lexapro -) 5 mg PO DAILY [facility] Last Admin: 11/28/18 11:03 Dose: 5 mg Fluticasone Propionate (Flonase -) 1 spray NS DAILY [facility] Last Admin: 11/28/18 11:05 Dose: Not Given Furosemide (Lasix -) 80 mg PO DAILY [facility] Last Admin: 11/28/18 11:05 Dose: 80 mg Insulin Aspart (Novolog Vial Sliding Scale -) 1 vial SQ [facility]; Protocol Last Admin: 11/28/18 13:12 Dose: Not Given Melatonin (Melatonin) 10 mg PO [facility] Last Admin: 11/27/18 22:22 Dose: 10 mg Metformin HCl (Glucophage -) 500 mg PO BIDAC [facility] Last Admin: 11/28/18 06:36 Dose: Not Given Metoprolol Succinate (Toprol Xl -) 25 mg PO DAILY [facility] Montelukast Sodium (Singulair -) 10 mg PO HS [facility] Last Admin: 11/27/18 22:22 Dose: 10 mg Morphine Sulfate (Morphine Sulfate) 2 mg IVPUSH Q4H PRN PRN Reason: PAIN LEVEL 6-10 Ondansetron HCl (Zofran Injection) 4 mg IVPUSH Q6H PRN PRN Reason: NAUSEA AND/OR VOMITING Pantoprazole Sodium (Protonix -) 40 mg PO DAILY [facility] Last Admin: 11/28/18 11:06 Dose: 40 mg Polyethylene Glycol (Miralax (For Daily Use) -) 17 gm PO TID [facility] Last Admin: 11/28/18 06:34 Dose: 17 gm Prednisolone Acetate (Pred Forte 1% -) 1 drop OS BID [facility] Last Admin: 11/28/18 11:07 Dose: 1 drop Prednisone (Deltasone -) 35 mg PO DAILY [facility] Last Admin: 11/28/18 11:02 Dose: 35 mg Promethazine HCl (Phenergan Injection -) 12.5 mg IVPUSH Q6H PRN PRN Reason: NAUSEA-FOR RESCUE AFTER 15 MIN Silver Sulfadiazine (Silvadene -) 1 applic TP BID [facility] Last Admin: 11/28/18 11:08 Dose: 1 applic Simethicone (Mylicon -) 80 mg PO BID [facility] Last Admin: 11/28/18 11:06 Dose: Not Given Tiotropium [place] (Spiriva Respimat) 2 puff IH DAILY [facility] Last Admin: 11/28/18 11:08 Dose: 2 puff Zolpidem Tartrate (Ambien -) 5 mg PO HS PRN PRN Reason: INSONMIA Last Admin: 11/27/18 22:41 Dose: 5 mg - Objective Vital Signs: Vital Signs Temperature 98.0 F 11/27/18 21:18 Pulse Rate 67 11/27/18 21:18 Respiratory Rate 18 11/27/18 21:18 Blood Pressure 112/75 11/27/18 21:18 O2 Sat by Pulse Oximetry (%) 100 11/27/18 21:00 Labs: CBC, BMP 11/28/18 07:30 11/28/18 07:30 INR, PTT INR 1.03 (0.83-1.09) 11/27/18 06:00 Problem List - Problems (1) Acute exacerbation of CHF (congestive heart failure) Code(s): I50.9 - HEART FAILURE, UNSPECIFIED (2) Anemia Code(s): D64.9 - ANEMIA, UNSPECIFIED Qualifiers: Anemia type: unspecified type Qualified Code(s): D64.9 - Anemia, unspecified (3) Elevated troponin Code(s): R74.8 - ABNORMAL LEVELS OF OTHER SERUM ENZYMES (4) Elevated LFTs Code(s): R94.5 - ABNORMAL RESULTS OF LIVER FUNCTION STUDIES (5) CHF (congestive heart failure) Code(s): I50.9 - HEART FAILURE, UNSPECIFIED Qualifiers: Heart failure type: unspecified Heart failure chronicity: unspecified Qualified Code(s): I50.9 - Heart failure, unspecified (6) CAD (coronary artery disease) Code(s): I25.10 - ATHSCL HEART DISEASE OF [place] CORONARY ARTERY W/O ANG PCTRS Qualifiers: Coronary Disease-Associated Artery/Lesion type: [place] artery [place] vs. transplanted heart: [place] heart Associated angina: angina presence unspecified Qualified Code(s): I25.10 - Atherosclerotic heart disease of [place] coronary artery without angina pectoris (7) COPD (chronic obstructive pulmonary disease) Code(s): J44.9 - CHRONIC OBSTRUCTIVE PULMONARY DISEASE, UNSPECIFIED Qualifiers: COPD type: unspecified COPD Qualified Code(s): J44.9 - Chronic obstructive pulmonary disease, unspecified (8) DM type 2 (diabetes mellitus, type 2) Code(s): E11.9 - TYPE 2 DIABETES MELLITUS WITHOUT COMPLICATIONS Qualifiers: Diabetes mellitus correction insulin use: with correction use Diabetes mellitus complication status: with circulatory complication Diabetes mellitus complication detail: with other circulatory complications Qualified Code(s): E11.59 - Type 2 diabetes mellitus with other circulatory complications; Z79.4 - emt intermediate (current) use of insulin (9) HTN (hypertension) Code(s): I10 - ESSENTIAL (PRIMARY) HYPERTENSION Qualifiers: Hypertension type: essential hypertension Qualified Code(s): I10 - Essential (primary) hypertension (10) Insomnia Code(s): G47.00 - INSOMNIA, UNSPECIFIED (11) History of recent fall Code(s): Z91.81 - HISTORY OF FALLING (12) Hematoma of right lower extremity Code(s): S80.11XA - CONTUSION OF RIGHT LOWER LEG, INITIAL ENCOUNTER (13) Hypokalemia Code(s): E87.6 - HYPOKALEMIA
[2018-11-28] MEDS: metoPROLOL SUCCINATE 25 MG TAB.SR.24H (FP) PO SCH (16:20)
[2018-11-28] MEDS: ALBUTEROL SO4 2.5/IPRATROPIUM 0.5 INH SOL 3 ML VIAL.NEB. NEB SCH (21:00)
[2018-11-28] MEDS: MELATONIN 5 MG TABLETS PO SCH (21:53)
[2018-11-28] MEDS: MONTELUKAST NA 10 MG TABLET PO SCH (21:53)
[2018-11-28] MEDS: ZOLPIDEM TARTRATE 5 MG TABLET PO PRN (21:53)
[2018-11-28] MEDS: ACETAMINOPHEN 325 MG TABLET (FP) PO PRN (22:02)
[2018-11-28] MEDS: LORazepam 0.5 MG TABLET PO SCH (23:28)
[2018-11-29] MEDS: SILVER SULFADIAZINE 1% TOP CREAM 50 GM JAR TP SCH ×3 (00:16→22:54)
[2018-11-29] MEDS: POLYETHYLENE GLYCOL 3350 119 GM BTL PO SCH ×3 (05:12→22:54)
[2018-11-29] MEDS: RIVAROXABAN 20 MG TABLET PO SCH ×2 (05:28→22:53)
[2018-11-29] MEDS: INSULIN SLIDING SCALE (NOVOLOG) 1 VIAL SQ SCH ×4 (06:07→22:53)
[2018-11-29] MEDS: metFORMIN HCL 500 MG TABLET (FP) PO SCH ×2 (06:08→17:44)
[2018-11-29 06:47] LABS: HEMATOCRIT 27.5 % (32.4-45.2); HEMOGLOBIN 8.4 GM/dL (10.7-15.3); MCH 22.3 pg (25.7-33.7); MCHC 30.5 g/dl (32.0-36.0); MEAN CELL VOLUME 73.2 fl (80-96); MEAN PLT VOLUME 8.3 fl (7.5-11.1); PLATELET COUNT 254 K/MM3 (134-434); RBC 3.76 M/mm3 (3.60-5.2); RDW 28.2 % (11.6-15.6); WHITE BLOOD COUNT 6.1 K/mm3 (4.0-10.0)
[2018-11-29 07:17] LABS: ALBUMIN 2.4 g/dl (3.4-5.0); ALK PHOS 77 U/L (45-117); ANION GAP 4 MMOL/L (8-16); BILIRUBIN,TOTAL 0.7 mg/dL (0.2-1); BLOOD UREA NITROGEN 18 mg/dL (7-18); CALCIUM 9.5 mg/dL (8.5-10.1); CHLORIDE 99 mmol/L (98-107); CO2 37 mmol/L (21-32); CREATININE 0.5 mg/dL (0.55-1.3); GLUCOSE,RANDOM 103 mg/dL (74-106); SGOT/AST 13 U/L (15-37); SGPT/ALT 10 U/L (13-61); SODIUM 140 mmol/L (136-145)
[2018-11-29] MEDS: ALBUTEROL SO4 2.5/IPRATROPIUM 0.5 INH SOL 3 ML VIAL.NEB. NEB SCH ×3 (07:44→20:25)
--- NOTE | 2018-11-29 08:59 | PN ---
Progress Note, Physician History of Present Illness: Pt w/o fever, right leg pain. Pt w/o SOB, CP, palpitations, abd pain. Pt is upset that she is still in the hospital. - Current Medication List Current Medications: Active Medications Acetaminophen (Tylenol -) 650 mg PO Q6H PRN PRN Reason: PAIN Last Admin: 11/28/18 22:02 Dose: 650 mg Albuterol/Ipratropium (Duoneb -) 1 amp NEB RTID [facility] Last Admin: 11/29/18 07:44 Dose: 1 amp Dextrose (D50w (Syringe) -) 25 gm IVPUSH ACHS PRN PRN Reason: BS < 50 Dextrose (D50w (Syringe) -) 12.5 gm IVPUSH ACHS PRN PRN Reason: BS 50-69 Docusate Sodium (Colace -) 300 mg PO DAILY [facility] Last Admin: 11/28/18 11:03 Dose: 300 mg Escitalopram Oxalate (Lexapro -) 5 mg PO DAILY [facility] Last Admin: 11/28/18 11:03 Dose: 5 mg Fluticasone Propionate (Flonase -) 1 spray NS DAILY [facility] Last Admin: 11/28/18 11:05 Dose: Not Given Furosemide (Lasix -) 80 mg PO DAILY [facility] Last Admin: 11/28/18 11:05 Dose: 80 mg Insulin Aspart (Novolog Vial Sliding Scale -) 1 [facility]Q [facility]; Protocol Last Admin: 11/29/18 06:07 Dose: Not Given Lorazepam (Ativan -) 0.5 mg PO HS [facility] Last Admin: 11/28/18 23:28 Dose: Not Given Melatonin (Melatonin) 10 mg PO HS [facility] Last Admin: 11/28/18 21:53 Dose: 10 mg Metformin HCl (Glucophage -) 500 mg PO BIDAC [facility] Last Admin: 11/29/18 06:08 Dose: Not Given Metoprolol Succinate (Toprol Xl -) 25 mg PO DAILY [facility] Last Admin: 11/28/18 16:20 Dose: Not Given Montelukast Sodium (Singulair -) 10 mg PO HS [facility] Last Admin: 11/28/18 21:53 Dose: 10 mg Morphine Sulfate (Morphine Sulfate) 2 mg IVPUSH Q4H PRN PRN Reason: PAIN LEVEL 6-10 Ondansetron HCl (Zofran Injection) 4 mg IVPUSH Q6H PRN PRN Reason: NAUSEA AND/OR VOMITING Pantoprazole Sodium (Protonix -) 40 mg PO DAILY [facility] Last Admin: 11/28/18 11:06 Dose: 40 mg Polyethylene Glycol (Miralax (For Daily Use) -) 17 gm PO TID [facility] Last Admin: 11/29/18 05:12 Dose: Not Given Prednisolone Acetate (Pred Forte 1% -) 1 drop OS BID [facility] Last Admin: 11/28/18 22:15 Dose: 1 drop Prednisone (Deltasone -) 35 mg PO DAILY [facility] Last Admin: 11/28/18 11:02 Dose: 35 mg Promethazine HCl (Phenergan Injection -) 12.5 mg IVPUSH Q6H PRN PRN Reason: NAUSEA-FOR RESCUE AFTER 15 MIN Rivaroxaban (Xarelto -) 20 mg PO HS [facility] Last Admin: 11/29/18 05:28 Dose: 20 mg Silver Sulfadiazine (Silvadene -) 1 applic TP BID [facility] Last Admin: 11/29/18 00:16 Dose: Not Given Simethicone (Mylicon -) 80 mg PO BID [facility] Last Admin: 11/28/18 21:53 Dose: 80 mg Zolpidem Tartrate (Ambien -) 5 mg PO HS PRN PRN Reason: INSONMIA Last Admin: 11/28/18 21:53 Dose: 5 mg - Objective Vital Signs: Vital Signs Temperature 97.9 F 11/29/18 06:57 Pulse Rate 65 11/29/18 06:57 Respiratory Rate 20 11/29/18 06:57 Blood Pressure 117/50 L 11/29/18 06:57 O2 Sat by Pulse Oximetry (%) 98 11/28/18 20:09 Constitutional: Yes: No Distress, Anxious Cardiovascular: Yes: Pulse Irregular, S1, S2 Respiratory: Yes: Regular, CTA Bilaterally. No: Rales Gastrointestinal: Yes: Normal Bowel Sounds, Soft. No: Tenderness Edema: LLE: 2+, RLE: 2+ Neurological: Yes: Alert, Oriented Labs: CBC, BMP 11/29/18 05:30 11/29/18 05:30 INR, PTT INR 1.03 (0.83-1.09) 11/27/18 06:00 Problem List - Problems (1) Acute exacerbation of CHF (congestive heart failure) Code(s): I50.9 - HEART FAILURE, UNSPECIFIED (2) Anemia Code(s): D64.9 - ANEMIA, UNSPECIFIED Qualifiers: Anemia type: unspecified type Qualified Code(s): D64.9 - Anemia, unspecified (3) Elevated troponin Code(s): R74.8 - ABNORMAL LEVELS OF OTHER SERUM ENZYMES (4) Elevated LFTs Code(s): R94.5 - ABNORMAL RESULTS OF LIVER FUNCTION STUDIES (5) CHF (congestive heart failure) Code(s): I50.9 - HEART FAILURE, UNSPECIFIED Qualifiers: Heart failure type: unspecified Heart failure chronicity: unspecified Qualified Code(s): I50.9 - Heart failure, unspecified (6) CAD (coronary artery disease) Code(s): I25.10 - ATHSCL HEART DISEASE OF [place] CORONARY ARTERY W/O ANG PCTRS Qualifiers: Coronary Disease-Associated Artery/Lesion type: [place] artery [place] vs. transplanted heart: [place] heart Associated angina: angina presence unspecified Qualified Code(s): I25.10 - Atherosclerotic heart disease of [place] coronary artery without angina pectoris (7) COPD (chronic obstructive pulmonary disease) Code(s): J44.9 - CHRONIC OBSTRUCTIVE PULMONARY DISEASE, UNSPECIFIED Qualifiers: COPD type: unspecified COPD Qualified Code(s): J44.9 - Chronic obstructive pulmonary disease, unspecified (8) DM type 2 (diabetes mellitus, type 2) Code(s): E11.9 - TYPE 2 DIABETES MELLITUS WITHOUT COMPLICATIONS Qualifiers: Diabetes mellitus intermediate accountant insulin use: with alf use Diabetes mellitus complication status: with circulatory complication Diabetes mellitus complication detail: with other circulatory complications Qualified Code(s): E11.59 - Type 2 diabetes mellitus with other circulatory complications; Z79.4 - jail (current) use of insulin (9) HTN (hypertension) Code(s): I10 - ESSENTIAL (PRIMARY) HYPERTENSION Qualifiers: Hypertension type: essential hypertension Qualified Code(s): I10 - Essential (primary) hypertension (10) Insomnia Code(s): G47.00 - INSOMNIA, UNSPECIFIED (11) History of recent fall Code(s): Z91.81 - HISTORY OF FALLING (12) Hematoma of right lower extremity Code(s): S80.11XA - CONTUSION OF RIGHT LOWER LEG, INITIAL ENCOUNTER (13) Hypokalemia Code(s): E87.6 - HYPOKALEMIA Assessment/Plan s/p PRBC transfusion (3 units); H/ H slightly trending down ; to f/u H/H Lasix as tolerated ( pt's BP is on the low side) Cardio, Pulmonary, GI, Vasc SX consults are appreciated. AC was restarted (per surgery); to trend Hb/ Hct. Post op day #2 AM labs I spoke with Sr Cunningham, pt's health coordinator, about pt's condition, treatments ( including for right leg -per surgical team); all questions were answered. I spoke with Dr. Levar Zabala; pt to be started on wound VAC and can be DC'ed to [facility] with wound VAC and weekly Wound Clinic f/u ; I spoke with case manage about it. I spoke with Sr Cunningham again and brought her up-to-date; all questions were answered. Case was d/w pt's nurse. Time spent for coordinating pt care: over 50 minutes.
--- NOTE | 2018-11-29 10:04 | PN ---
Progress Note (short form) - Note Progress Note: surgery POD #2 right leg hematoma evacuation and debridement of of soft tissue. Patient feels well with no complaints other than pain with dressing changes. Patient has been tolerating her diet and denies any CP, Fever, Chills, N/V/D Vital Signs Temp 97.9 F 11/29/18 06:57 Pulse 65 11/29/18 06:57 Resp 20 11/29/18 06:57 BP 117/50 L 11/29/18 06:57 Pulse Ox 98 11/28/18 20:09 Intake & Output 11/28/18 11/28/18 11/29/18 11:59 23:59 11:59 Intake Total 1218 1370 50 Output Total 100 200 Balance 1118 1170 50 Weight 165 lb 12.8 oz 166 lb 2 oz Intake: IV 168 20 0 Normal Saline - 1,000 ml 168 @ 42 mls/hr IV ASDIR BREANNA Rx#:[id number] SALINE LOCK 20 0 IVPB 50 Oral 550 1000 Oral Supplement 500 Packed Cells 350 Output: Urine 100 200 Void 100 200 Other: Voiding Method External Catheter Incontinent Bowel Movement No Weight Measurement [facility] CBC, BMP 11/29/18 05:30 11/29/18 05:30 PE: A&Ox3, NAD unlabored resp on RA Right LE wound @9x5x3-(undermining) wound clean with beefy red base, no active d /c, wound edges clean. no foul odor. compartments soft supple with mild tenderness and ecchymosis extending throughout medial calf and posteriorly. Patient can active dorsi/plantar flexion. b/L Feet warm and well perfused with + 2 Pitting edema and +2 DP pulses. Problem List - Problems (1) Hematoma of right lower extremity Assessment/Plan: POD #2 right hematoma evacuation excisional debridement - skin, subcutaneous tissue doing well. 1) continue xarelto per medicine 2) PAs to place wound vac today 3) Iv ABx PRN ID 4) OOB as tolerated with assist-fall risk 5) Trend H&H Evaluation and plan discussed with Dr Zabala. Code(s): S80.11XA - CONTUSION OF RIGHT LOWER LEG, INITIAL ENCOUNTER
[2018-11-29] MEDS ORDERED: PT OWN MED DRAWER 7, Y5N ONE (10:14)
[2018-11-29] MEDS: FLUTICASONE PROP 0.05% 16 GM NASAL SPRAY NS SCH (10:22)
[2018-11-29] MEDS: ESCITALOPRAM OXALATE 10 MG TABLET (FP) PO SCH (10:23)
[2018-11-29] MEDS: predniSONE 10 MG TABLET (UD) PO SCH (10:23)
[2018-11-29] MEDS: metoPROLOL SUCCINATE 25 MG TAB.SR.24H (FP) PO SCH (10:23)
[2018-11-29] MEDS: FUROSEMIDE 40 MG TABLET (FP) PO SCH (10:23)
[2018-11-29] MEDS: PANTOPRAZOLE 40 MG TABLET (FP) PO SCH (10:23)
[2018-11-29] MEDS: SIMETHICONE 80 MG TAB.CHEW (FP) PO SCH ×2 (10:23→22:52)
[2018-11-29] MEDS: DOCUSATE SODIUM 100 MG CAPSULE (FP) PO SCH (10:24)
[2018-11-29] MEDS: ACETAMINOPHEN 325 MG TABLET (FP) PO PRN ×3 (10:24→23:23)
[2018-11-29] MEDS: prednisoLONE ACETATE 1% OPHTH SUSP 5 ML BOTTLE OS SCH ×2 (10:25→22:54)
--- NOTE | 2018-11-29 11:57 | PN ---
Progress Note (short form) - Note Progress Note: PULMONARY Breathing at baseline. Vital Signs Period Temp Pulse Resp BP Sys/Garcia Pulse Ox Last 24 Hr 97.9 F-98.5 F 59-84 14-20 94-133/43-59 98-100 Gen: less tachypneic with speaking Heart: RRR Lung: distant breath sounds, no wheezes Abd: soft, nontender Ext: + edema, wrapped CBC, BMP 11/29/18 05:30 11/29/18 05:30 Active Medications Acetaminophen (Tylenol -) 650 mg PO Q6H PRN PRN Reason: PAIN Last Admin: 11/29/18 10:24 Dose: 650 mg Albuterol/Ipratropium (Duoneb -) 1 amp NEB RTID [facility] Last Admin: 11/29/18 07:44 Dose: 1 amp Dextrose (D50w (Syringe) -) 25 gm IVPUSH ACHS PRN PRN Reason: BS < 50 Dextrose (D50w (Syringe) -) 12.5 gm IVPUSH ACHS PRN PRN Reason: BS 50-69 Docusate Sodium (Colace -) 300 mg PO DAILY [facility] Last Admin: 11/29/18 10:24 Dose: 300 mg Escitalopram Oxalate (Lexapro -) 5 mg PO DAILY [facility] Last Admin: 11/29/18 10:23 Dose: 5 mg Fluticasone Propionate (Flonase -) 1 spray NS DAILY [facility] Last Admin: 11/29/18 10:22 Dose: Not Given Furosemide (Lasix -) 80 mg PO DAILY [facility] Last Admin: 11/29/18 10:23 Dose: 80 mg Insulin Aspart (Novolog Vial Sliding Scale -) 1 vial SQ [facility]; Protocol Last Admin: 11/29/18 06:07 Dose: Not Given Lorazepam (Ativan -) 0.5 mg PO HS [facility] Last Admin: 11/28/18 23:28 Dose: Not Given Melatonin (Melatonin) 10 mg PO HS [facility] Last Admin: 11/28/18 21:53 Dose: 10 mg Metformin HCl (Glucophage -) 500 mg PO BIDAC [facility] Last Admin: 11/29/18 06:08 Dose: Not Given Metoprolol Succinate (Toprol Xl -) 25 mg PO DAILY [facility] Last Admin: 11/29/18 10:23 Dose: 25 mg Montelukast Sodium (Singulair -) 10 mg PO HS [facility] Last Admin: 11/28/18 21:53 Dose: 10 mg Morphine Sulfate (Morphine Sulfate) 2 mg IVPUSH Q4H PRN PRN Reason: PAIN LEVEL 6-10 Ondansetron HCl (Zofran Injection) 4 mg IVPUSH Q6H PRN PRN Reason: NAUSEA AND/OR VOMITING Pantoprazole Sodium (Protonix -) 40 mg PO DAILY [facility] Last Admin: 11/29/18 10:23 Dose: 40 mg Polyethylene Glycol (Miralax (For Daily Use) -) 17 gm PO TID [facility] Last Admin: 11/29/18 05:12 Dose: Not Given Prednisolone Acetate (Pred Forte 1% -) 1 drop OS BID [facility] Last Admin: 11/29/18 10:25 Dose: 1 drop Prednisone (Deltasone -) 35 mg PO DAILY [facility] Last Admin: 11/29/18 10:23 Dose: 35 mg Promethazine HCl (Phenergan Injection -) 12.5 mg IVPUSH Q6H PRN PRN Reason: NAUSEA-FOR RESCUE AFTER 15 MIN Rivaroxaban (Xarelto -) 20 mg PO HS [facility] Last Admin: 11/29/18 05:28 Dose: 20 mg Silver Sulfadiazine (Silvadene -) 1 applic TP BID [facility] Last Admin: 11/29/18 10:25 Dose: 1 applic Simethicone (Mylicon -) 80 mg PO BID [facility] Last Admin: 11/29/18 10:23 Dose: 80 mg Zolpidem Tartrate (Ambien -) 5 mg PO HS PRN PRN Reason: INSONMIA Last Admin: 11/28/18 21:53 Dose: 5 mg A/P Acute on Chronic Systolic Heart Failure Severe COPD - r/o Acute Exacerbation Anemia s/p PRBC transfusions Atrial Fibrillation +Troponins likely Demand Ischemia HTN DM Hyperlipidemia h/o DVT - continue lasix - monitor urine output, creatinine - prednisone taper - inhaled bronchodilators - continue brovana, spiriva - o2 to keep SpO2 >90% - rate controlled - continue anticoagulation - rehab/PT - wound care - d/c planning
--- NOTE | 2018-11-29 14:16 | PROC ---
Procedure Note Procedure: POD #2 right hematoma evacuation with debridement of soft tissue and eschar. Patient seen and examined at bedside with no new complaints, for placement of wound vac. PE: Exam unchanged from this mornings exam Right LE wound @9x5x1.5x3-(undermining medially) wound clean with beefy red bleeding base, no active d/c, wound edges clean. no foul odor. compartments soft supple with mild tenderness and ecchymosis extending throughout medial calf and posteriorly. Patient can active dorsi/plantar flexion. b/L Feet warm and well perfused with + 2 Pitting edema and +2 DP pulses. Wound vac placed at right tibial wound with white foam over exposed fascia over tibia. Black foam place into into space taking into consideration undermining. wound vac tested and with no evidence of air leaks. Patient tolerated the procedure well and vitals remained stable throughout the entire procedure. Will maintain wound vac with changes every other day (M,W,F) Place small piece of white foam over proximal wound at tibia with black foam undermining medially. plan for d/c to rehab pending placement. Follow up in wound care clinic as out patient with Dr Zabala.
--- NOTE | 2018-11-29 14:46 | PN ---
Progress Note, Physician - Current Medication List Current Medications: Active Medications Acetaminophen (Tylenol -) 650 mg PO Q6H PRN PRN Reason: PAIN Last Admin: 11/29/18 10:24 Dose: 650 mg Albuterol/Ipratropium (Duoneb -) 1 amp NEB RTID [facility] Last Admin: 11/29/18 14:09 Dose: 1 amp Dextrose (D50w (Syringe) -) 25 gm IVPUSH ACHS PRN PRN Reason: BS < 50 Dextrose (D50w (Syringe) -) 12.5 gm IVPUSH ACHS PRN PRN Reason: BS 50-69 Docusate Sodium (Colace -) 300 mg PO DAILY [facility] Last Admin: 11/29/18 10:24 Dose: 300 mg Escitalopram Oxalate (Lexapro -) 5 mg PO DAILY [facility] Last Admin: 11/29/18 10:23 Dose: 5 mg Fluticasone Propionate (Flonase -) 1 spray NS DAILY [facility] Last Admin: 11/29/18 10:22 Dose: Not Given Furosemide (Lasix -) 80 mg PO DAILY [facility] Last Admin: 11/29/18 10:23 Dose: 80 mg Insulin Aspart (Novolog Vial Sliding Scale -) 1 vial SQ [facility]; Protocol Last Admin: 11/29/18 12:09 Dose: Not Given Lorazepam (Ativan -) 0.5 mg PO HS [facility] Last Admin: 11/28/18 23:28 Dose: Not Given Melatonin (Melatonin) 10 mg PO HS [facility] Last Admin: 11/28/18 21:53 Dose: 10 mg Metformin HCl (Glucophage -) 500 mg PO BIDAC [facility] Last Admin: 11/29/18 06:08 Dose: Not Given Metoprolol Succinate (Toprol Xl -) 25 mg PO DAILY [facility] Last Admin: 11/29/18 10:23 Dose: 25 mg Montelukast Sodium (Singulair -) 10 mg PO HS [facility] Last Admin: 11/28/18 21:53 Dose: 10 mg Morphine Sulfate (Morphine Sulfate) 2 mg IVPUSH Q4H PRN PRN Reason: PAIN LEVEL 6-10 Ondansetron HCl (Zofran Injection) 4 mg IVPUSH Q6H PRN PRN Reason: NAUSEA AND/OR VOMITING Pantoprazole Sodium (Protonix -) 40 mg PO DAILY [facility] Last Admin: 11/29/18 10:23 Dose: 40 mg Polyethylene Glycol (Miralax (For Daily Use) -) 17 gm PO TID [facility] Last Admin: 11/29/18 05:12 Dose: Not Given Prednisolone Acetate (Pred Forte 1% -) 1 drop OS BID [facility] Last Admin: 11/29/18 10:25 Dose: 1 drop Prednisone (Deltasone -) 35 mg PO DAILY [facility] Last Admin: 11/29/18 10:23 Dose: 35 mg Promethazine HCl (Phenergan Injection -) 12.5 mg IVPUSH Q6H PRN PRN Reason: NAUSEA-FOR RESCUE AFTER 15 MIN Rivaroxaban (Xarelto -) 20 mg PO HS [facility] Last Admin: 11/29/18 05:28 Dose: 20 mg Silver Sulfadiazine (Silvadene -) 1 applic TP BID [facility] Last Admin: 11/29/18 10:25 Dose: 1 applic Simethicone (Mylicon -) 80 mg PO BID [facility] Last Admin: 11/29/18 10:23 Dose: 80 mg Zolpidem Tartrate (Ambien -) 5 mg PO HS PRN PRN Reason: INSONMIA Last Admin: 11/28/18 21:53 Dose: 5 mg - Objective Vital Signs: Vital Signs Temperature 98.0 F 11/29/18 09:30 Pulse Rate 84 11/29/18 09:30 Respiratory Rate 20 11/29/18 09:30 Blood Pressure 133/59 L 11/29/18 09:30 O2 Sat by Pulse Oximetry (%) 98 11/28/18 20:09 Labs: CBC, BMP 11/29/18 05:30 11/29/18 05:30 INR, PTT INR 1.03 (0.83-1.09) 11/27/18 06:00 Laboratory Tests 11/29/18 11/29/18 05:30 05:30 WBC 6.1 Hgb 8.4 L Plt Count 254 Sodium 140 Potassium 4.0 Creatinine 0.5 L
--- NOTE | 2018-11-29 14:47 | PN ---
Progress Note, Physician Chief Complaint: weight essentially stable last 3 days Denies worsened SOB No chest pain. Denies palps States her edema improved - Current Medication List Current Medications: Active Medications Acetaminophen (Tylenol -) 650 mg PO Q6H PRN PRN Reason: PAIN Last Admin: 11/29/18 10:24 Dose: 650 mg Albuterol/Ipratropium (Duoneb -) 1 amp NEB RTID [facility] Last Admin: 11/29/18 14:09 Dose: 1 amp Dextrose (D50w (Syringe) -) 25 gm IVPUSH ACHS PRN PRN Reason: BS < 50 Dextrose (D50w (Syringe) -) 12.5 gm IVPUSH ACHS PRN PRN Reason: BS 50-69 Docusate Sodium (Colace -) 300 mg PO DAILY [facility] Last Admin: 11/29/18 10:24 Dose: 300 mg Escitalopram Oxalate (Lexapro -) 5 mg PO DAILY [facility] Last Admin: 11/29/18 10:23 Dose: 5 mg Fluticasone Propionate (Flonase -) 1 spray NS DAILY [facility] Last Admin: 11/29/18 10:22 Dose: Not Given Furosemide (Lasix -) 80 mg PO DAILY [facility] Last Admin: 11/29/18 10:23 Dose: 80 mg Insulin Aspart (Novolog Vial Sliding Scale -) 1 vial SQ [facility]; Protocol Last Admin: 11/29/18 12:09 Dose: Not Given Lorazepam (Ativan -) 0.5 mg PO HS [facility] Last Admin: 11/28/18 23:28 Dose: Not Given Melatonin (Melatonin) 10 mg PO HS [facility] Last Admin: 11/28/18 21:53 Dose: 10 mg Metformin HCl (Glucophage -) 500 mg PO BIDAC [facility] Last Admin: 11/29/18 06:08 Dose: Not Given Metoprolol Succinate (Toprol Xl -) 25 mg PO DAILY [facility] Last Admin: 11/29/18 10:23 Dose: 25 mg Montelukast Sodium (Singulair -) 10 mg PO HS [facility] Last Admin: 11/28/18 21:53 Dose: 10 mg Morphine Sulfate (Morphine Sulfate) 2 mg IVPUSH Q4H PRN PRN Reason: PAIN LEVEL 6-10 Ondansetron HCl (Zofran Injection) 4 mg IVPUSH Q6H PRN PRN Reason: NAUSEA AND/OR VOMITING Pantoprazole Sodium (Protonix -) 40 mg PO DAILY [facility] Last Admin: 11/29/18 10:23 Dose: 40 mg Polyethylene Glycol (Miralax (For Daily Use) -) 17 gm PO TID [facility] Last Admin: 11/29/18 05:12 Dose: Not Given Prednisolone Acetate (Pred Forte 1% -) 1 drop OS BID [facility] Last Admin: 11/29/18 10:25 Dose: 1 drop Prednisone (Deltasone -) 35 mg PO DAILY [facility] Last Admin: 11/29/18 10:23 Dose: 35 mg Promethazine HCl (Phenergan Injection -) 12.5 mg IVPUSH Q6H PRN PRN Reason: NAUSEA-FOR RESCUE AFTER 15 MIN Rivaroxaban (Xarelto -) 20 mg PO HS [facility] Last Admin: 11/29/18 05:28 Dose: 20 mg Silver Sulfadiazine (Silvadene -) 1 applic TP BID [facility] Last Admin: 11/29/18 10:25 Dose: 1 applic Simethicone (Mylicon -) 80 mg PO BID [facility] Last Admin: 11/29/18 10:23 Dose: 80 mg Zolpidem Tartrate (Ambien -) 5 mg PO HS PRN PRN Reason: INSONMIA Last Admin: 11/28/18 21:53 Dose: 5 mg - Objective Vital Signs: Vital Signs Temperature 98.0 F 11/29/18 09:30 Pulse Rate 84 11/29/18 09:30 Respiratory Rate 20 11/29/18 09:30 Blood Pressure 133/59 L 11/29/18 09:30 O2 Sat by Pulse Oximetry (%) 98 11/28/18 20:09 Constitutional: Yes: Calm Eyes: Yes: Conjunctiva Clear Neck: Yes: Other (+ JVD) Cardiovascular: Yes: Regular Rate and Rhythm Respiratory: Yes: Other (decreased breath sounds at bases, no active wheezing) Gastrointestinal: Yes: Soft (nontender) Edema: Yes Edema: LLE: 1+, RLE: 1+ Neurological: Yes: Alert, Oriented ...Motor Strength: WNL Labs: CBC, BMP 11/29/18 05:30 11/29/18 05:30 INR, PTT INR 1.03 (0.83-1.09) 11/27/18 06:00 Assessment/Plan IMP: 1. Anemia, acute systolic chf: 2. Leg hematoma 3.Anemia: -? related to leg hematoma -s/p transfusion prbcs 4. CAD, pos trops: -pt had recent cath 12/2017 with non obstructive cad -trops in borderline range here, flat trend. likely represents demand from anemia/chf and not acs 5. AFIB: -in sr here, cont toprol REC: 1. Anticoagulation resumed 2. Continue Toprol for BP and PAF, currently in sinus with stable BP 3. Has resumed PO Lasix. Low sodium diet and daily weights to monitor volume status closely.
[2018-11-29] MEDS: MELATONIN 5 MG TABLETS PO SCH (22:51)
[2018-11-29] MEDS: MONTELUKAST NA 10 MG TABLET PO SCH (22:52)
[2018-11-29] MEDS: LORazepam 0.5 MG TABLET PO SCH (22:52)
[2018-11-29] MEDS: ZOLPIDEM TARTRATE 5 MG TABLET PO PRN (22:52)
[2018-11-30] MEDS: POLYETHYLENE GLYCOL 3350 119 GM BTL PO SCH ×2 (06:26→14:08)
[2018-11-30] MEDS: INSULIN SLIDING SCALE (NOVOLOG) 1 VIAL SQ SCH ×3 (06:26→17:36)
[2018-11-30 06:58] LABS: HEMATOCRIT 27.3 % (32.4-45.2); HEMOGLOBIN 8.4 GM/dL (10.7-15.3); MCH 22.4 pg (25.7-33.7); MCHC 30.7 g/dl (32.0-36.0); MEAN PLT VOLUME 7.7 fl (7.5-11.1); PLATELET COUNT 272 K/MM3 (134-434); RBC 3.74 M/mm3 (3.60-5.2); RDW 28.3 % (11.6-15.6); WHITE BLOOD COUNT 6.1 K/mm3 (4.0-10.0)
[2018-11-30] MEDS: ALBUTEROL SO4 2.5/IPRATROPIUM 0.5 INH SOL 3 ML VIAL.NEB. NEB SCH ×2 (08:00→13:39)
[2018-11-30] MEDS: metFORMIN HCL 500 MG TABLET (FP) PO SCH ×2 (08:38→17:36)
--- NOTE | 2018-11-30 09:26 | PN ---
Progress Note, Physician - Current Medication List Current Medications: Active Medications Acetaminophen (Tylenol -) 650 mg PO Q6H PRN PRN Reason: PAIN Last Admin: 11/29/18 23:23 Dose: 650 mg Albuterol/Ipratropium (Duoneb -) 1 amp NEB RTID [facility] Last Admin: 11/30/18 08:00 Dose: 1 amp Dextrose (D50w (Syringe) -) 25 gm IVPUSH ACHS PRN PRN Reason: BS < 50 Dextrose (D50w (Syringe) -) 12.5 gm IVPUSH ACHS PRN PRN Reason: BS 50-69 Docusate Sodium (Colace -) 300 mg PO DAILY [facility] Last Admin: 11/29/18 10:24 Dose: 300 mg Escitalopram Oxalate (Lexapro -) 5 mg PO DAILY [facility] Last Admin: 11/29/18 10:23 Dose: 5 mg Fluticasone Propionate (Flonase -) 1 spray NS DAILY [facility] Last Admin: 11/29/18 10:22 Dose: Not Given Furosemide (Lasix -) 80 mg PO DAILY [facility] Last Admin: 11/29/18 10:23 Dose: 80 mg Insulin Aspart (Novolog Vial Sliding Scale -) 1 vial SQ [facility]; Protocol Last Admin: 11/30/18 06:26 Dose: Not Given Lorazepam (Ativan -) 0.5 mg PO HS [facility] Last Admin: 11/29/18 22:52 Dose: 0.5 mg Melatonin (Melatonin) 10 mg PO HS [facility] Last Admin: 11/29/18 22:51 Dose: 10 mg Metformin HCl (Glucophage -) 500 mg PO BIDAC [facility] Last Admin: 11/30/18 08:38 Dose: 500 mg Metoprolol Succinate (Toprol Xl -) 25 mg PO DAILY [facility] Last Admin: 11/29/18 10:23 Dose: 25 mg Montelukast Sodium (Singulair -) 10 mg PO HS [facility] Last Admin: 11/29/18 22:52 Dose: 10 mg Morphine Sulfate (Morphine Sulfate) 2 mg IVPUSH Q4H PRN PRN Reason: PAIN LEVEL 6-10 Pantoprazole Sodium (Protonix -) 40 mg PO DAILY [facility] Last Admin: 11/29/18 10:23 Dose: 40 mg Polyethylene Glycol (Miralax (For Daily Use) -) 17 gm PO TID [facility] Last Admin: 11/30/18 06:26 Dose: Not Given Prednisolone Acetate (Pred Forte 1% -) 1 drop OS BID [facility] Last Admin: 11/29/18 22:54 Dose: 1 drop Prednisone (Deltasone -) 35 mg PO DAILY [facility] Last Admin: 11/29/18 10:23 Dose: 35 mg Rivaroxaban (Xarelto -) 20 mg PO HS [facility] Last Admin: 11/29/18 22:53 Dose: 20 mg Silver Sulfadiazine (Silvadene -) 1 applic TP BID [facility] Last Admin: 11/29/18 22:54 Dose: 1 applic Simethicone (Mylicon -) 80 mg PO BID [facility] Last Admin: 11/29/18 22:52 Dose: 80 mg Zolpidem Tartrate (Ambien -) 5 mg PO HS PRN PRN Reason: INSONMIA Last Admin: 11/29/18 22:52 Dose: 5 mg - Objective Vital Signs: Vital Signs Temperature 97.4 F L 11/30/18 07:00 Pulse Rate 74 11/30/18 07:00 Respiratory Rate 20 11/30/18 07:00 Blood Pressure 140/64 11/30/18 07:00 O2 Sat by Pulse Oximetry (%) 99 11/29/18 21:00 Labs: CBC, BMP 11/30/18 05:30 11/29/18 05:30 INR, PTT INR 1.03 (0.83-1.09) 11/27/18 06:00 Problem List - Problems (1) Acute exacerbation of CHF (congestive heart failure) Code(s): I50.9 - HEART FAILURE, UNSPECIFIED (2) Anemia Code(s): D64.9 - ANEMIA, UNSPECIFIED Qualifiers: Anemia type: unspecified type Qualified Code(s): D64.9 - Anemia, unspecified (3) Elevated troponin Code(s): R74.8 - ABNORMAL LEVELS OF OTHER SERUM ENZYMES (4) Elevated LFTs Code(s): R94.5 - ABNORMAL RESULTS OF LIVER FUNCTION STUDIES (5) CHF (congestive heart failure) Code(s): I50.9 - HEART FAILURE, UNSPECIFIED Qualifiers: Heart failure type: unspecified Heart failure chronicity: unspecified Qualified Code(s): I50.9 - Heart failure, unspecified (6) CAD (coronary artery disease) Code(s): I25.10 - ATHSCL HEART DISEASE OF [place] CORONARY ARTERY W/O ANG PCTRS Qualifiers: Coronary Disease-Associated Artery/Lesion type: [place] artery [place] vs. transplanted heart: [place] heart Associated angina: angina presence unspecified Qualified Code(s): I25.10 - Atherosclerotic heart disease of [place] coronary artery without angina pectoris (7) COPD (chronic obstructive pulmonary disease) Code(s): J44.9 - CHRONIC OBSTRUCTIVE PULMONARY DISEASE, UNSPECIFIED Qualifiers: COPD type: unspecified COPD Qualified Code(s): J44.9 - Chronic obstructive pulmonary disease, unspecified (8) DM type 2 (diabetes mellitus, type 2) Code(s): E11.9 - TYPE 2 DIABETES MELLITUS WITHOUT COMPLICATIONS Qualifiers: Diabetes mellitus predatory animal exterminator insulin use: with predatory animal exterminator use Diabetes mellitus complication status: with circulatory complication Diabetes mellitus complication detail: with other circulatory complications Qualified Code(s): E11.59 - Type 2 diabetes mellitus with other circulatory complications; Z79.4 - oysterman (current) use of insulin (9) HTN (hypertension) Code(s): I10 - ESSENTIAL (PRIMARY) HYPERTENSION Qualifiers: Hypertension type: essential hypertension Qualified Code(s): I10 - Essential (primary) hypertension (10) Insomnia Code(s): G47.00 - INSOMNIA, UNSPECIFIED (11) History of recent fall Code(s): Z91.81 - HISTORY OF FALLING (12) Hematoma of right lower extremity Code(s): S80.11XA - CONTUSION OF RIGHT LOWER LEG, INITIAL ENCOUNTER (13) Hypokalemia Code(s): E87.6 - HYPOKALEMIA
[2018-11-30] MEDS ORDERED: PT OWN MED DRAWER 7, Y5N ONE ×2 (09:31→18:00)
[2018-11-30] MEDS: predniSONE 10 MG TABLET (UD) PO SCH (09:35)
[2018-11-30] MEDS: SIMETHICONE 80 MG TAB.CHEW (FP) PO SCH (09:35)
[2018-11-30] MEDS: ESCITALOPRAM OXALATE 10 MG TABLET (FP) PO SCH (09:35)
[2018-11-30] MEDS: FUROSEMIDE 40 MG TABLET (FP) PO SCH (09:35)
[2018-11-30] MEDS: DOCUSATE SODIUM 100 MG CAPSULE (FP) PO SCH (09:35)
[2018-11-30] MEDS: metoPROLOL SUCCINATE 25 MG TAB.SR.24H (FP) PO SCH (09:35)
[2018-11-30] MEDS: FLUTICASONE PROP 0.05% 16 GM NASAL SPRAY NS SCH (09:36)
[2018-11-30] MEDS: PANTOPRAZOLE 40 MG TABLET (FP) PO SCH (09:36)
--- NOTE | 2018-11-30 09:46 | PN ---
Progress Note (short form) - Note Progress Note: Breathing feels the same. Still with some GRANADOS and non-productive cough. No CP. Intake & Output 11/27/18 11/28/18 11/29/18 11/30/18 23:59 23:59 23:59 23:59 Intake Total 800 2588 1050 Output Total 10 300 Balance 790 2288 1050 Weight 165 lb 165 lb 12.8 oz 166 lb 2 oz 160 lb 6.4 oz Last Vital Signs Temp Pulse Resp BP Pulse Ox 97.4 F L 74 20 140/64 99 11/30/18 07:00 11/30/18 07:00 11/30/18 07:00 11/30/18 07:00 11/29/18 21:00 Active Medications Acetaminophen (Tylenol -) 650 mg PO Q6H PRN PRN Reason: PAIN Last Admin: 11/29/18 23:23 Dose: 650 mg Albuterol/Ipratropium (Duoneb -) 1 amp NEB RTID [facility] Last Admin: 11/30/18 08:00 Dose: 1 amp Dextrose (D50w (Syringe) -) 25 gm IVPUSH ACHS PRN PRN Reason: BS < 50 Dextrose (D50w (Syringe) -) 12.5 gm IVPUSH ACHS PRN PRN Reason: BS 50-69 Docusate Sodium (Colace -) 300 mg PO DAILY [facility] Last Admin: 11/30/18 09:35 Dose: 300 mg Escitalopram Oxalate (Lexapro -) 5 mg PO DAILY [facility] Last Admin: 11/30/18 09:35 Dose: 5 mg Fluticasone Propionate (Flonase -) 1 spray NS DAILY [facility] Last Admin: 11/30/18 09:36 Dose: Not Given Furosemide (Lasix -) 80 mg PO DAILY [facility] Last Admin: 11/30/18 09:35 Dose: 80 mg Insulin Aspart (Novolog Vial Sliding Scale -) 1 vial SQ ACHS [facility]; Protocol Last Admin: 11/30/18 06:26 Dose: Not Given Lorazepam (Ativan -) 0.5 mg PO HS [facility] Last Admin: 11/29/18 22:52 Dose: 0.5 mg Melatonin (Melatonin) 10 mg PO HS [facility] Last Admin: 11/29/18 22:51 Dose: 10 mg Metformin HCl (Glucophage -) 500 mg PO BIDAC [facility] Last Admin: 04/18/19 08:38 Dose: 500 mg Metoprolol Succinate (Toprol Xl -) 25 mg PO DAILY [facility] Last Admin: 11/30/18 09:35 Dose: 25 mg Montelukast Sodium (Singulair -) 10 mg PO HS [facility] Last Admin: 11/29/18 22:52 Dose: 10 mg Morphine Sulfate (Morphine Sulfate) 2 mg IVPUSH Q4H PRN PRN Reason: PAIN LEVEL 6-10 Pantoprazole Sodium (Protonix -) 40 mg PO DAILY [facility] Last Admin: 11/30/18 09:36 Dose: 40 mg Polyethylene Glycol (Miralax (For Daily Use) -) 17 gm PO TID [facility] Last Admin: 11/30/18 06:26 Dose: Not Given Prednisolone Acetate (Pred Forte 1% -) 1 drop OS BID [facility] Last Admin: 11/29/18 22:54 Dose: 1 drop Prednisone (Deltasone -) 35 mg PO DAILY [facility] Last Admin: 11/30/18 09:35 Dose: 35 mg Rivaroxaban (Xarelto -) 20 mg PO HS [facility] Last Admin: 11/29/18 22:53 Dose: 20 mg Silver Sulfadiazine (Silvadene -) 1 applic TP BID [facility] Last Admin: 11/29/18 22:54 Dose: 1 applic Simethicone (Mylicon -) 80 mg PO BID [facility] Last Admin: 11/30/18 09:35 Dose: 80 mg Zolpidem Tartrate (Ambien -) 5 mg PO HS PRN PRN Reason: INSONMIA Last Admin: 11/29/18 22:52 Dose: 5 mg Constitutional: Yes: NAD Eyes: Yes: Conjunctiva Clear, EOM Intact HENT: Yes: Atraumatic, Normocephalic Neck: Yes: Supple, Trachea Midline Cardiovascular: Yes: Pulse Irregular Respiratory: Yes: Diminished (distant breath sounds) ...Clubbing: No Gastrointestinal: Yes: Normal Bowel Sounds, Soft. No: Tenderness Edema: Yes Neurological: Yes: Alert, Oriented Labs: Laboratory Results - last 24 hr 11/29/18 11/29/18 11/29/18 12:07 17:44 21:49 WBC RBC Hgb Hct MCV MCH MCHC RDW Plt Count MPV POC Glucometer 99 250 227 11/30/18 11/30/18 05:30 06:03 WBC 6.1 RBC 3.74 Hgb 8.4 L Hct 27.3 L MCV 73.0 L MCH 22.4 L MCHC 30.7 L RDW 28.3 H Plt Count 272 MPV 7.7 POC Glucometer 78 Assessment/Plan Acute on Chronic Systolic Heart Failure Acute COPD Exacerbation Anemia s/p PRBC transfusions Atrial Fibrillation +Troponins likely Demand Ischemia HTN DM Hyperlipidemia h/o DVT - Lasix - Prednisone taper - inhaled bronchodilators - o2 to keep SpO2 >90% - rate controlled - Normal transfusion thresholds - D/C planning Dr Mg
[2018-11-30] MEDS: ACETAMINOPHEN 325 MG TABLET (FP) PO PRN (09:50)
[2018-11-30] MEDS: prednisoLONE ACETATE 1% OPHTH SUSP 5 ML BOTTLE OS SCH (09:52)
[2018-11-30] MEDS: SILVER SULFADIAZINE 1% TOP CREAM 50 GM JAR TP SCH (09:52)
[2018-11-30] MEDS ORDERED: BACITRACIN 15 GM TUBE TOPICAL OINTMENT TP SCH (10:00)
--- NOTE | 2018-11-30 11:04 | PN ---
Progress Note (short form) - Note Progress Note: Called by RN for evaluation of sacral wounds. Pt seen and examined reports she has had bilateral buttock wounds for some time, L being most painful. On exam pt has 2 stage 2 buttock ulcer, just below the level of the gluteal cleft. L is approximately 3x1.5cm, R is approximately 2x1.5cm. Clean based no erythema or drainage. Recommend Bacitracin to ulcers Cover with Allevyn Offloading to area as discussed with RN d/w attending Dr Zabala
[2018-11-30 15:09] VITALS: TEMP 98.8
--- NOTE | 2018-11-30 15:40 | PN ---
Progress Note (short form) - Note Progress Note: s: no chest pain, palps, dizziness, sob Current Medications Acetaminophen (Tylenol -) 650 mg PO Q6H PRN PRN Reason: PAIN Last Admin: 11/30/18 09:50 Dose: 650 mg Albuterol/Ipratropium (Duoneb -) 1 amp NEB RTID [facility] Last Admin: 11/30/18 13:39 Dose: 1 amp Bacitracin (Bacitracin -) 1 applic TP BID [facility] Last Admin: 11/30/18 10:21 Dose: 1 applic Dextrose (D50w (Syringe) -) 25 gm IVPUSH ACHS PRN PRN Reason: BS < 50 Dextrose (D50w (Syringe) -) 12.5 gm IVPUSH ACHS PRN PRN Reason: BS 50-69 Docusate Sodium (Colace -) 300 mg PO DAILY [facility] Last Admin: 11/30/18 09:35 Dose: 300 mg Escitalopram Oxalate (Lexapro -) 5 mg PO DAILY [facility] Last Admin: 11/30/18 09:35 Dose: 5 mg Fluticasone Propionate (Flonase -) 1 spray NS DAILY [facility] Last Admin: 11/30/18 09:36 Dose: Not Given Furosemide (Lasix -) 80 mg PO DAILY [facility] Last Admin: 11/30/18 09:35 Dose: 80 mg Insulin Aspart (Novolog Vial Sliding Scale -) 1 vial SQ [facility]; Protocol Last Admin: 11/30/18 11:59 Dose: Not Given Lorazepam (Ativan -) 0.5 mg PO HS [facility] Last Admin: 11/29/18 22:52 Dose: 0.5 mg Melatonin (Melatonin) 10 mg PO HS [facility] Last Admin: 11/29/18 22:51 Dose: 10 mg Metformin HCl (Glucophage -) 500 mg PO BIDAC [facility] Last Admin: 11/30/18 08:38 Dose: 500 mg Metoprolol Succinate (Toprol Xl -) 25 mg PO DAILY [facility] Last Admin: 11/30/18 09:35 Dose: 25 mg Montelukast Sodium (Singulair -) 10 mg PO HS [facility] Last Admin: 11/29/18 22:52 Dose: 10 mg Morphine Sulfate (Morphine Sulfate) 2 mg IVPUSH Q4H PRN PRN Reason: PAIN LEVEL 6-10 Pantoprazole Sodium (Protonix -) 40 mg PO DAILY [facility] Last Admin: 11/30/18 09:36 Dose: 40 mg Polyethylene Glycol (Miralax (For Daily Use) -) 17 gm PO TID [facility] Last Admin: 11/30/18 14:08 Dose: Not Given Prednisolone Acetate (Pred Forte 1% -) 1 drop OS BID [facility] Last Admin: 11/30/18 09:52 Dose: 1 drop Prednisone (Deltasone -) 35 mg PO DAILY [facility] Last Admin: 11/30/18 09:35 Dose: 35 mg Rivaroxaban (Xarelto -) 20 mg PO HS [facility] Last Admin: 11/29/18 22:53 Dose: 20 mg Silver Sulfadiazine (Silvadene -) 1 applic TP BID [facility] Last Admin: 11/30/18 09:52 Dose: 1 applic Simethicone (Mylicon -) 80 mg PO BID [facility] Last Admin: 11/30/18 09:35 Dose: 80 mg Zolpidem Tartrate (Ambien -) 5 mg PO HS PRN PRN Reason: INSONMIA Last Admin: 11/29/18 22:52 Dose: 5 mg Vital Signs Period Temp Pulse Resp BP Sys/Garcia Pulse Ox Last 24 Hr 97.4 F-98.8 F 63-98 20-22 111-140/49-64 94-99 nad rrr, s1s2 no mrg cta bl nl eff aao3 trace le edema bl no jaundice diaphoresis pos dp pt no carotid bruits abd nt nd pos bs ecg: sr, no ischemic changes cath 12/2017 (after +mibi): non obs cad echo 06/2018: mild-mod dec lvef, global hk, nl rv, lae, mild-mod mr, mild tr, mod as, nl rvsp a/p: 83 f hx hld, htn, syst chf, dm, copd, dvt, afib, as, non obs cad, here with sob. sob, anemia, acute systolic chf: -pt with severe anemia as well as vol overload, likely both contributing to sob -received prbcs and has been diuresing well, sob improved -11/25: no JVD appreciated, pt states breathing pattern and edema of feet at her longstanding baseline. hypotensive earlier, ? overdiuresed. check labs. change lasix 80 IV qd to 80 po daily (her prior home dose). - 11/27-17: continue lasix 80 mg PO daily, breathing and edema remain at baseline - stable for dc from cardiac perspective leg hematoma, preoperative evaluation - s/p debridement of lower extremity wound with wound vac - xarelto restarted anemia: -? related to leg hematoma -s/p transfusion prbcs -counts have been stable since - xarelto restarted cad, pos trops: -pt had recent cath 12/2017 with non obstructive cad -trops in borderline range here, flat trend. likely represents demand from anemia/chf and not acs afib: -in sr here, cont toprol, xarelto hld: -cont home statin htn: -stable on toprol
--- NOTE | 2018-11-30 16:47 | DS ---
Physical Examination Vital Signs: Vital Signs Temperature 98.8 F 11/30/18 15:08 Pulse Rate 71 11/30/18 15:08 Respiratory Rate 20 11/30/18 15:08 Blood Pressure 118/50 L 11/30/18 15:08 O2 Sat by Pulse Oximetry (%) 94 L 11/30/18 09:00 Findings/Remarks: Pt w/o SOB, CP, palp, abd pain. Pt w/o fever, chills, right leg pain (VAC was applied yesterday). Pt is upset that received last night medications late, yelling at me and day nurse. Constitutional: Yes: No Distress, Calm Cardiovascular: Yes: Regular Rate and Rhythm, S1, S2 Respiratory: Yes: Regular. No: Rales Gastrointestinal: Yes: Normal Bowel Sounds, Soft, Tenderness Extremities: Yes: Other (right leg VAC) Edema: LLE: 1+, RLE: 1+ Neurological: Yes: Alert, Oriented Labs: CBC, BMP 11/30/18 05:30 11/29/18 05:30 Discharge Summary Reason For Visit: CHF ANEMIA Current Active Problems Acute exacerbation of CHF (congestive heart failure) (Acute) Anemia (Acute) CHF (congestive heart failure) (Acute) Constipation (Acute) Elevated LFTs (Acute) Elevated liver enzymes (Acute) Elevated troponin (Acute) Hematoma of right lower extremity (Acute) History of recent fall (Acute) Hypokalemia (Acute) Insomnia (Acute) NSTEMI (non-ST elevated myocardial infarction) (Acute) Transaminitis (Acute) Procedures: Principal: Legs and abd CT scan. [facility] Hospital Course: Pt came to ER form Pulmonary office (Dr Covarrubias) were was noticed to be SOB. In ER she was found to be anemic (Hb 0f 5.8) and in acute CHF exacerbation and have elevated LFTs. Pt received a total of 3 units of blood and Lasix IV. Pt was seen in consult by Cardiology (Dr. Mims/ Sunil), GI (Dr. Christie Hussein; pt refused endoscopy in the future). Pt with right pretibial echar (after a recent fall at [facility]) was sent for Leg CT scan that was positive for leg hematoma. Vascular surgery (Dr. Levar Zabala) was consulted and pt went to OR fro debridement and hematoma drainage; pt was started on VAC. Pt to be DC'ed back to [place].Pt needs to f/u with Vasc Sx and Wound clinic (next week), Cardio, Pulmonary. Condition: Guarded - Instructions Diet, Activity, Other Instructions: resume diet Disposition: LONGTERM FACILITY - Home Medications Comprehensive Discharge Medication List: Ambulatory Orders See patient Discharge Instructions
[2018-11-30 17:24] VITALS: BP 128/66; PULSE 78
== END 2018-11-30 18:24 | DRG 802 ==
LOC: JER 11:17 → JERBED 14:28 → J8W 18:51
PROVIDERS: ADMIT Specialist; ATTEND Specialist
PROC: 30233N1 Transfusion of Nonautologous Red Blood Cells into Peripheral Vein, Percutaneous Approach (ICD-10-PCS; 2018-11-14)
PROC: 0JBN0ZZ Excision of Right Lower Leg Subcutaneous Tissue and Fascia, Open Approach (ICD-10-PCS; 2018-11-27)
PROC: 0JCN0ZZ Extirpation of Matter from Right Lower Leg Subcutaneous Tissue and Fascia, Open Approach (ICD-10-PCS; principal; 2018-11-27 15:00)
PROC: 2W1QX6Z Compression of Right Lower Leg using Pressure Dressing (ICD-10-PCS; 2018-11-29)
DX: D64.9 Anemia, unspecified (principal); I50.23 Acute on chronic systolic (congestive) heart failure; I24.8 Other forms of acute ischemic heart disease; J44.1 Chronic obstructive pulmonary disease with (acute) exacerbation; I11.0 Hypertensive heart disease with heart failure; I48.91 Unspecified atrial fibrillation; E11.9 Type 2 diabetes mellitus without complications; I25.10 Atherosclerotic heart disease of native coronary artery without angina pectoris; I35.0 Nonrheumatic aortic (valve) stenosis; R94.5 Abnormal results of liver function studies; G47.00 Insomnia, unspecified; S80.11XA Contusion of right lower leg, initial encounter; K57.90 Diverticulosis of intestine, part unspecified, without perforation or abscess without bleeding; K21.9 Gastro-esophageal reflux disease without esophagitis; K59.00 Constipation, unspecified; R74.8 Abnormal levels of other serum enzymes; F41.9 Anxiety disorder, unspecified; E78.00 Pure hypercholesterolemia, unspecified; E87.6 Hypokalemia; W18.39XA Other fall on same level, initial encounter; Y92.098 Other place in other non-institutional residence as the place of occurrence of the external cause; Z96.611 Presence of right artificial shoulder joint; Z86.718 Personal history of other venous thrombosis and embolism; Z66 Do not resuscitate; Z79.4 Long term (current) use of insulin; Z91.81 History of falling
CPT/HCPCS: 36415; 36430; 36511; 71045-TC-FY; 73700-TC-RT; 74176-TC; 76705-TC; 80048; 80053; 80074; 80076; 82272; 82550; 82728; 82947; 82962; 83540; 83550; 83735; 83880; 84466; 84484; 85025; 85027; 85044; 85610; 85730; 86850; 86900; 86901; 86922; 93005; 93010; 94640; 94760; 97116-GP; 97161-GP; 99285-25; J7030; P9038; P9058; Q9967

== ENCOUNTER 2018-12-27 01:25 | Inpatient (IN) | payer OTHER ==
--- NOTE | 2018-12-27 02:02 | PDOC ---
History of Present Illness - General Chief Complaint: Abscess Boil Stated Complaint: SWELLING,RT ARM Time Seen by Provider: 12/27/18 01:35 History Source: Patient Exam Limitations: No Limitations - History of Present Illness Initial Comments: 12/27/18 02:10 83 yo F with a hx of CHF, COPD, afib (on xarelto), CAD, HTN, and DM presents to the emergency department Pt is an 83yo F with PMH of CHF, COPD, Afib (on Xarelto), CAD, HTN, and DM presents to the emergency department 12/27/18 04:05 Past History - Past Medical History Allergies/Adverse Reactions: Allergies Allergy/AdvReac Type Severity Reaction Status Date / Time vancomycin Allergy Severe Rash Verified 11/14/18 17:28 dextromethorphan Allergy Intermediate CONGESTION Verified 11/14/18 17:28 [From Mucinex DM] guaifenesin [From Mucinex DM] Allergy Intermediate CONGESTION Verified 11/14/18 17:28 pollen extracts Allergy Intermediate CONGESTION Verified 11/14/18 17:28 ragweed pollen Allergy Intermediate CONGESTION Verified 11/14/18 17:28 ampicillin Allergy Mild Rash Verified 11/14/18 17:28 Home Medications: Ambulatory Orders Acetylcysteine Po/INH 20% [Mucomyst 20 Oral / INH Use Only*] 5 ml PO BID Acidoph/L.bulg/Bif.b/S.thermop [Imani-Bid Caplet] 1 each PO TID 11/14/18 Albuterol 0.083% Nebulizer Isamar [Ventolin 0.083% Nebulizer Soln -] 1 amp NEB DAILY PRN 11/14/18 Benzocaine/Menthol [Cepacol Sore Throat Lozenge] 1 each PO Q2H PRN 11/14/18 Budesonide/Formeterol Fumarate [SYMBICORT 160/4.5mcg -] 1 inh PO BID 11/14/18 Calcium Citrate/Vitamin D3 [[place] Calcium + D Tablet] 2 tab PO DAILY 11/14/18 Cholecalciferol (Vitamin D3) [Vitamin D3] 1,000 unit PO DAILY 11/14/18 Docusate Sodium [Colace] 300 mg PO DAILY 11/14/18 Escitalopram Oxalate [Lexapro -] 5 mg PO DAILY 11/14/18 Fluticasone Propionate [Flovent Diskus] 50 mcg IH DAILY 11/14/18 Folic Acid/Multivit-Min/Lutein [Multi-Vitamin Gummies] 1 each PO DAILY 11/14/18 Furosemide [Lasix -] 80 mg PO DAILY 11/14/18 Insulin (Novolog) [Novolog -] 0 units SQ BID 11/14/18 Lorazepam 0.5 mg PO BID 11/14/18 Melatonin 10 mg PO HS 11/14/18 Metoprolol Succinate 25 mg PO DAILY 11/14/18 Montelukast Na [Singulair -] 10 mg PO HS 11/14/18 Nutritional Supplement [Hi-Eliezer] 4 oz PO DAILY 11/14/18 Omeprazole 20 mg PO DAILY 11/14/18 Polyethylene Glycol 3350 [Miralax 119 gm Btl -] 17 gm PO DAILY 11/14/18 Potassium Chloride [K-Dur -] 10 meq PO DAILY 11/14/18 Prednisolone 1% Ophthalmic [Pred Forte 1% -] 5 ml OS BID 11/14/18 Rivaroxaban [Xarelto -] 20 mg PO HS 11/14/18 Simethicone 80 mg PO BID 11/14/18 Zolpidem Tartrate 10 mg PO HS 11/14/18 metFORMIN HCL [Metformin HCl] 500 mg PO BID 11/14/18 Acetaminophen [Tylenol .Regular Strength -] 650 mg PO Q6H PRN tablet 11/30/18 Bacitracin - [Bacitracin Topical Ointment -] 1 applic TP BID tube 11/30/18 Fluticasone Prop 0.05% Nasal [Flonase -] 1 spray NS DAILY spray 11/30/18 Pantoprazole Sodium [Protonix -] 40 mg PO DAILY tablet.ec 11/30/18 Aspirin [Aspirin EC] 81 mg PO DAILY 12/08/18 Metolazone 1 tab PO ASDIR 12/08/18 Silver Sulfadiazine 1% Top Cr [Silvadene -] 1 applic TP BID 12/08/18 Ascorbic Acid [Vitamin C] 500 mg PO DAILY 12/27/18 Erythromycin 0.5% Eye Ointment [Erythromycin 0.5% Eye Ointment -] 1 applic TID 12/27/18 Escitalopram Oxalate [Lexapro -] 5 mg PO DAILY 12/27/18 Krill/Om3/Dha/Epa/Om6/Lip/Astx [Krill Oil 1,000 mg Softgel] 1 each PO DAILY LORazepam [Ativan] 0.5 mg PO BID 12/27/18 predniSONE [Deltasone -] 15 mg PO DAILY 12/27/18 Anemia: No Asthma: No Cardiac Disorders: Yes (afib,ASHD,TACHYCARDIA) CVA: No COPD: Yes CHF: Yes Dementia: No Diabetes: Yes GI Disorders: Yes (gerd) Disorders: No HTN: Yes Hypercholesterolemia: Yes Liver Disease: No Psychiatric Problems: Yes (anxiety) Seizures: No Thyroid Disease: No - Surgical History Abdominal Surgery: Yes (hernia x 2) Appendectomy: No Cardiac Surgery: No Cholecystectomy: No Lung Surgery: No Neurologic Surgery: Yes Orthopedic Surgery: Yes (RIGHT SHOULDER REPLACEMENT) - Suicide/Smoking/Psychosocial Hx Smoking History: Never smoked Have you smoked in the past 12 months: No Hx Alcohol Use: No Drug/Substance Use Hx: No Substance Use Type: None Hx Substance Use Treatment: No *Physical Exam - Vital Signs Last Vital Signs Temp Pulse Resp BP Pulse Ox 98.4 F 83 16 124/64 100 12/27/18 01:27 12/27/18 01:27 12/27/18 01:27 12/27/18 01:27 12/27/18 01:27 ED Treatment Course - LABORATORY CBC & Chemistry Diagram: 12/27/18 02:43 12/27/18 02:43 - RADIOLOGY Radiology Studies Ordered: Category Date Time Status CHEST X-RAY PORTABLE* [RAD] Stat Radiology 12/27/18 01:48 Ordered *DC/Admit/Observation/Transfer Diagnosis at time of Disposition: Abscess - Referrals Referrals: David Brown MD [Primary Care Provider] - - Patient Instructions - Post Discharge Activity
[2018-12-27] MEDS ORDERED: CLINDAMYCIN 600MG PREMIX IVPB 600 MG/50 ML BAG IVPB ONE ×3 (02:07→08:45)
[2018-12-27 03:26] LABS: ALBUMIN 2.6 g/dl (3.4-5.0); BILIRUBIN,TOTAL 0.5 mg/dL (0.2-1); CALCIUM 9.9 mg/dL (8.5-10.1); CREATININE 0.6 mg/dL (0.55-1.3); TOT PROT 5.4 g/dl (6.4-8.2)
[2018-12-27 03:51] LABS: BASO % 0.4 % (0-2.0); EOS % 0.3 % (0-4.5); HEMATOCRIT 29.7 % (32.4-45.2); HEMOGLOBIN 8.6 GM/dL (10.7-15.3); LYMPH % 7.9 % (8-40); MCH 22.2 pg (25.7-33.7); MEAN CELL VOLUME 76.1 fl (80-96); MEAN PLT VOLUME 6.9 fl (7.5-11.1); MONO % 8.2 % (3.8-10.2); NEUT % 83.2 % (42.8-82.8); PLATELET COUNT 365 K/MM3 (134-434); RDW 26.1 % (11.6-15.6); WHITE BLOOD COUNT 11.2 K/mm3 (4.0-10.0)
[2018-12-27 03:56] LABS: MCHC 29.2 g/dl (32.0-36.0)
--- NOTE | 2018-12-27 04:24 | PDOC ---
Documentation entered by Eliazar Real SCRIBE, acting as scribe for Araceli Griffin DO. Araceli Griffin DO: This documentation has been prepared by the Addie smyth Nirvannie, SCRIBE, under my direction and personally reviewed by me in its entirety. I confirm that the documentation accurately reflects all work, treatment, procedures, and medical decision making performed by me. Attending Attestation - Resident Resident Name: AleenaSánchez - ED Attending Attestation I have performed the following: I have examined & evaluated the patient, The case was reviewed & discussed with the resident, I agree w/resident's findings & plan - HPI HPI: 12/27/18 02:28 The patient is a 83 year old female, with a significant past medical history of CHF, COPD, Afib (on Xarelto), CAD, HTN, and DM, who presents to the emergency department with, an abscess to the right inner upper arm with purulent discharge. She denies recent fevers, chills, headache or dizziness. She denies recent nausea, vomit, diarrhea or constipation. She denies recent dysuria, frequency, urgency or hematuria. She denies recent chest pain or shortness of breath. Primary Care Physician: Dr. Brown - Physicial Exam PE: 12/27/18 02:28 Agree with resident exam. - Medical Decision Making 12/27/18 04:21 83-year-old female with right arm swelling consistent with abscess Patient given clindamycin in the emergency department secondary to history of MRSA Plan for admission to medical service Primary care physician to admit the patient, he will be arranging surgical consultation in the morning Patient known to vascular surgery, Dr. Zabala Wound is currently draining pus There is no neurovascular compromise at this point
[2018-12-27] MEDS ORDERED: LEVALBUTEROL HCL 0.63 MG/3 ML VIAL.NEB. IH ONE (04:36)
[2018-12-27 04:43] LABS: PROTHROMBIN TIME (PATIENT) 20.8 SEC (9.7-13.0)
[2018-12-27 06:01] LABS: INR 1.75 (0.83-1.09)
[2018-12-27 06:10] LABS: ANISOCYTOSIS 2+; MACROCYTOSIS 0; OVALOCYTE 1+; PLATELET ESTIMATE NORMAL; TEAR DROP CELLS 1+
[2018-12-27] MEDS ORDERED: SODIUM CHLORIDE 1,000 ML IV SCH (07:45)
[2018-12-27 09:17] VITALS: BMI 28.3
[2018-12-27] MEDS: ASCORBIC ACID 500 MG TABLET (FP) PO SCH (10:11)
[2018-12-27] MEDS: ESCITALOPRAM OXALATE 10 MG TABLET (FP) PO SCH (10:11)
[2018-12-27] MEDS: predniSONE 10 MG TABLET (UD) PO SCH (10:11)
[2018-12-27] MEDS: metFORMIN HCL 500 MG TABLET (FP) PO SCH ×2 (10:12→17:09)
[2018-12-27] MEDS: PANTOPRAZOLE 40 MG TABLET (FP) PO SCH (10:12)
[2018-12-27] MEDS: DOCUSATE SODIUM 100 MG CAPSULE (FP) PO SCH (10:12)
[2018-12-27] MEDS: CHOLECALCIFEROL (VITAMIN D3) 1,000 UNIT TABLET (FP) PO SCH (10:12)
[2018-12-27] MEDS: POTASSIUM CHLORIDE TABS 10 MEQ TABLET.ER (FP) PO SCH (10:12)
[2018-12-27] MEDS: metoPROLOL SUCCINATE 25 MG TAB.SR.24H (FP) PO SCH (10:12)
[2018-12-27] MEDS: ASPIRIN COATED 81 MG TABLET.EC PO SCH (10:13)
[2018-12-27] MEDS: LORazepam 0.5 MG TABLET PO SCH ×2 (10:13→21:50)
[2018-12-27] MEDS: BACITRACIN 15 GM TUBE TOPICAL OINTMENT TP SCH ×2 (10:13→21:51)
[2018-12-27] MEDS: FUROSEMIDE 40 MG TABLET (FP) PO SCH (10:13)
[2018-12-27] MEDS: FLUTICASONE PROP 0.05% 16 GM NASAL SPRAY NS SCH (10:14)
[2018-12-27] MEDS: prednisoLONE ACETATE 1% OPHTH SUSP 5 ML BOTTLE OS SCH ×2 (10:45→21:53)
[2018-12-27] MEDS: SIMETHICONE 80 MG TAB.CHEW (FP) PO SCH ×2 (10:45→21:53)
[2018-12-27] MEDS: SILVER SULFADIAZINE 1% TOP CREAM 400 GM JAR TP SCH ×2 (10:45→21:52)
[2018-12-27] MEDS: BUDESONIDE/FORMETEROL FUMARATE 160/4.5 mcg INHALER IH SCH ×2 (10:45→21:51)
--- NOTE | 2018-12-27 10:45 | EKG ---
Test Reason : Blood Pressure : / mmHG Vent. Rate : 089 BPM Atrial Rate : 089 BPM P-R Int : 152 ms QRS Dur : 128 ms QT Int : 404 ms P-R-T Axes : 011 -62 060 degrees QTc Int : 491 ms NORMAL SINUS RHYTHM RIGHT BUNDLE BRANCH BLOCK LEFT ANTERIOR FASCICULAR BLOCK BIFASCICULAR BLOCK SEPTAL INFARCT (CITED ON OR BEFORE 14-NOV-2018) POSSIBLE LATERAL INFARCT (CITED ON OR BEFORE 14-NOV-2018) ABNORMAL ECG WHEN COMPARED WITH ECG OF 14-NOV-2018 11:32, RIGHT BUNDLE BRANCH BLOCK HAS REPLACED RSR' PATTERN IN V1 CRITERIA FOR INFERIOR INFARCT ARE NO LONGER PRESENT QUESTIONABLE CHANGE IN INITIAL FORCES OF ANTEROSEPTAL LEADS Confirmed by BRIDGET SNYDER, JYOTI ([id number]) on 12/27/2018 10:44:44 AM Referred By: Confirmed By:JYOTI GILL MD
[2018-12-27] MEDS: POLYETHYLENE GLYCOL 3350 119 GM BTL PO SCH (10:46)
[2018-12-27] MEDS ORDERED: PT OWN MED DRAWER 7, Y5N ONE ×4 (11:14→21:49)
[2018-12-27] MEDS: ALBUTEROL SO4 0.083% IH SOL 2.5 MG/3 ML VIAL.NEB. NEB PRN (11:21)
[2018-12-27] MEDS: ACETAMINOPHEN 325 MG TABLET (FP) PO PRN (11:21)
[2018-12-27] MEDS: INSULIN SLIDING SCALE (NOVOLOG) 1 VIAL SQ SCH ×3 (11:46→21:56)
--- NOTE | 2018-12-27 11:48 | CONSULT ---
- Consultation REQUESTING PROVIDER: CONSULT REQUEST: We have been asked to surgically evaluate this patient for ( RUE abscess). PCP:David Brown HISTORY OF PRESENT ILLNESS: 83 y/o F w PMHx CHF, COPD, afib (on xarelto), CAD, HTN, and DM sent to ED from [place] ([facility]) for RUE abscess. Pt reports she is unsure when the abscess began as she recently had surgery on her Right lindsey for hematoma evacuation (Dr Zabala, 11/27/18) followed by wound vac treatment as well as a recent eye implant. Pt states she believes the wound began as a hardened, painful area on her inner upper arm a few weeks ago. States she had an xray as well as an ultrasound ordered through her [facility] but they did not show anything of concern. Reports a large blister formed a the site over the past 1-2 days and began draining large amounts of pus yesterday. Pt was brought to the ED for further evaluation. Denies any fevers/chills at the [facility]. Denies any abx treatment at [facility]. 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 Pt reports treatment at [facility] with Daptomycin as she had an allergic rxn to Vancomycin ne year ago. Pt also has a h/o R reverse total shoulder at [facility] with Dr Garland 2 years ago. PMHx: as above PSHx: R reverse total shoulder (2016), hernia repair (2005), Eye implant (2018), R lindsey hematoma evacuation (2018) Home Medications Medication Instructions Recorded Acetylcysteine Po/INH 20% 5 ml PO BID 11/14/18 [Mucomyst 20 Oral / INH Use Only*] Acidoph/L.bulg/Bif.b/S.thermop 1 each PO TID 11/14/18 [Imani-Bid Caplet] Albuterol 0.083% Nebulizer Isamar 1 amp NEB DAILY PRN 11/14/18 [Ventolin 0.083% Nebulizer Soln -] Benzocaine/Menthol [Cepacol Sore 1 each PO Q2H PRN 11/14/18 Throat Lozenge] Budesonide/Formeterol Fumarate 1 inh PO BID 11/14/18 [SYMBICORT 160/4.5mcg -] Calcium Citrate/Vitamin D3 [[place] 2 tab PO DAILY 11/14/18 Calcium + D Tablet] Cholecalciferol (Vitamin D3) 1,000 unit PO DAILY 11/14/18 [Vitamin D3] Docusate Sodium [Colace] 300 mg PO DAILY 11/14/18 Escitalopram Oxalate [Lexapro -] 5 mg PO DAILY 11/14/18 Fluticasone Propionate [Flovent 50 mcg IH DAILY 11/14/18 Diskus] Folic Acid/Multivit-Min/Lutein 1 each PO DAILY 11/14/18 [Multi-Vitamin Gummies] Furosemide [Lasix -] 80 mg PO DAILY 11/14/18 Insulin (Novolog) [Novolog -] 0 units SQ BID 11/14/18 Lorazepam 0.5 mg PO BID 11/14/18 Melatonin 10 mg PO HS 11/14/18 Metoprolol Succinate 25 mg PO DAILY 11/14/18 Montelukast Na [Singulair -] 10 mg PO HS 11/14/18 Nutritional Supplement [Hi-Eliezer] 4 oz PO DAILY 11/14/18 Omeprazole 20 mg PO DAILY 11/14/18 Polyethylene Glycol 3350 [Miralax 17 gm PO DAILY 11/14/18 119 gm Btl -] Potassium Chloride [K-Dur -] 10 meq PO DAILY 11/14/18 Prednisolone 1% Ophthalmic [Pred 5 ml OS BID 11/14/18 Forte 1% -] Rivaroxaban [Xarelto -] 20 mg PO HS 11/14/18 Simethicone 80 mg PO BID 11/14/18 Zolpidem Tartrate 10 mg PO HS 11/14/18 metFORMIN HCL [Metformin HCl] 500 mg PO BID 11/14/18 Acetaminophen [Tylenol .Regular 650 mg PO Q6H PRN tablet 11/30/18 Strength -] Bacitracin - [Bacitracin Topical 1 applic TP BID tube 11/30/18 Ointment -] Fluticasone Prop 0.05% Nasal 1 spray NS DAILY spray 11/30/18 [Flonase -] Pantoprazole Sodium [Protonix -] 40 mg PO DAILY tablet.ec 11/30/18 Aspirin [Aspirin EC] 81 mg PO DAILY 12/08/18 Metolazone 1 tab PO ASDIR 12/08/18 Silver Sulfadiazine 1% Top Cr 1 applic TP BID 12/08/18 [Silvadene -] Ascorbic Acid [Vitamin C] 500 mg PO DAILY 12/27/18 Erythromycin 0.5% Eye Ointment 1 applic TID 12/27/18 [Erythromycin 0.5% Eye Ointment -] Escitalopram Oxalate [Lexapro -] 5 mg PO DAILY 12/27/18 Krill/Om3/Dha/Epa/Om6/Lip/Astx 1 each PO DAILY 12/27/18 [Krill Oil 1,000 mg Softgel] LORazepam [Ativan] 0.5 mg PO BID 12/27/18 predniSONE [Deltasone -] 15 mg PO DAILY 12/27/18 Allergies Allergy/AdvReac Type Severity Reaction Status Date / Time vancomycin Allergy Severe Rash Verified 11/14/18 17:28 dextromethorphan Allergy Intermediate CONGESTION Verified 11/14/18 17:28 [From Mucinex DM] guaifenesin [From Mucinex DM] Allergy Intermediate CONGESTION Verified 11/14/18 17:28 pollen extracts Allergy Intermediate CONGESTION Verified 11/14/18 17:28 ragweed pollen Allergy Intermediate CONGESTION Verified 11/14/18 17:28 ampicillin Allergy Mild Rash Verified 11/14/18 17:28 REVIEW OF SYSTEMS: CONSTITUTIONAL: Absent: fever, chills CARDIOVASCULAR: Absent: chest pain, syncope GASTROINTESTINAL: Absent: abdominal pain PHYSICAL EXAM: GENERAL: Awake, alert, and fully oriented, in no acute distress. HEAD: Normal with no signs of trauma. UPPER EXTREMITIES: RUE with two approx 1x1cm openings with copious amounts of pus (approximately 15-25ml in total expressed), surrounding skin excoriated/ denuded circumferentially to approximately 2cm. Large area of erythema surrounding wound and extending to posterior arm. Two areas of slight induration posterior to the wound (?induration vs additional collections). +ttp with pus being expressed. R shoulder with well healed surgical scar. No ttp at shoulder with ROM. No erythema at shoulder. Vital Signs Temperature 98.9 F 12/27/18 08:57 Pulse Rate 88 12/27/18 08:57 Respiratory Rate 22 H 12/27/18 08:57 Blood Pressure 125/69 12/27/18 08:57 O2 Sat by Pulse Oximetry (%) 96 12/27/18 08:57 Lab Results WBC 11.2 K/mm3 (4.0-10.0) H 12/27/18 02:43 RBC 3.90 M/mm3 (3.60-5.2) 12/27/18 02:43 Hgb 8.6 GM/dL (10.7-15.3) L 12/27/18 02:43 Hct 29.7 % (32.4-45.2) L 12/27/18 02:43 MCV 76.1 fl (80-96) L 12/27/18 02:43 MCHC 29.2 g/dl (32.0-36.0) L 12/27/18 02:43 RDW 26.1 % (11.6-15.6) H 12/27/18 02:43 Plt Count 365 K/MM3 (134-434) D 12/27/18 02:43 Sodium 141 mmol/L (136-145) 12/27/18 02:43 Potassium 4.0 mmol/L (3.5-5.1) 12/27/18 02:43 Chloride 100 mmol/L (98-107) 12/27/18 02:43 Carbon Dioxide 36 mmol/L (21-32) H 12/27/18 02:43 Anion Gap 4 MMOL/L (8-16) L 12/27/18 02:43 BUN 29 mg/dL (7-18) H 12/27/18 02:43 Creatinine 0.6 mg/dL (0.55-1.3) 12/27/18 02:43 Random Glucose 97 mg/dL (74-106) 12/27/18 02:43 Calcium 9.9 mg/dL (8.5-10.1) 12/27/18 02:43 Blood Type O POSITIVE 12/27/18 02:43 Antibody Screen Negative 12/27/18 02:43 INR 1.75 (0.83-1.09) H 12/27/18 02:43 A/P: 83 y/o F w PMHx CHF, COPD, afib (on xarelto), CAD, HTN, and DM sent to ED from [place] ([facility]) for RUE abscess. RUE abscess with copious amouts of pus expressed. Concern for deeper infection due to areas of induration/loculation. Afebrile, VSS. Leukocytosis 11k with left shift. Pt with h/o of R reverse shoulder replacement, no clinical signs of infection of hardware at this time. -OR today for I&D with Dr Michel -ID for abx -F/U cultures d/w attending Dr Michel
--- NOTE | 2018-12-27 12:13 | HP ---
Admitting History and Physical - Primary Care Physician PCP: Lucina Brown S - Admission Chief Complaint: R arm abcess History of Present Illness: The patient is a 83 year old female NHR, with a significant past medical history of CHF, COPD, Afib (on Xarelto), CAD, HTN, and DM, who presents to the emergency department from [place] with an abscess to the right inner upper arm with purulent discharge. had recently thigh hematoma that needed debridement She denies recent fevers, chills, headache or dizziness. She denies recent nausea, vomit, diarrhea or constipation. She denies recent dysuria, frequency, urgency or hematuria. She denies recent chest pain or shortness of breath. 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, 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 History of Recent Travel: No Home Medications - Allergies Allergies/Adverse Reactions: Allergies Allergy/AdvReac Type Severity Reaction Status Date / Time vancomycin Allergy Severe Rash Verified 11/14/18 17:28 dextromethorphan Allergy Intermediate CONGESTION Verified 11/14/18 17:28 [From Mucinex DM] guaifenesin [From Mucinex DM] Allergy Intermediate CONGESTION Verified 11/14/18 17:28 pollen extracts Allergy Intermediate CONGESTION Verified 11/14/18 17:28 ragweed pollen Allergy Intermediate CONGESTION Verified 11/14/18 17:28 ampicillin Allergy Mild Rash Verified 11/14/18 17:28 - Home Medications Home Medications: Ambulatory Orders Acetylcysteine Po/INH 20% [Mucomyst 20 Oral / INH Use Only*] 5 ml PO BID Acidoph/L.bulg/Bif.b/S.thermop [Imani-Bid Caplet] 1 each PO TID 11/14/18 Albuterol 0.083% Nebulizer Isamar [Ventolin 0.083% Nebulizer Soln -] 1 amp NEB DAILY PRN 11/14/18 Benzocaine/Menthol [Cepacol Sore Throat Lozenge] 1 each PO Q2H PRN 11/14/18 Budesonide/Formeterol Fumarate [SYMBICORT 160/4.5mcg -] 1 inh PO BID 11/14/18 Calcium Citrate/Vitamin D3 [Abanda Calcium + D Tablet] 2 tab PO DAILY 11/14/18 Cholecalciferol (Vitamin D3) [Vitamin D3] 1,000 unit PO DAILY 11/14/18 Docusate Sodium [Colace] 300 mg PO DAILY 11/14/18 Escitalopram Oxalate [Lexapro -] 5 mg PO DAILY 11/14/18 Fluticasone Propionate [Flovent Diskus] 50 mcg IH DAILY 11/14/18 Folic Acid/Multivit-Min/Lutein [Multi-Vitamin Gummies] 1 each PO DAILY 11/14/18 Furosemide [Lasix -] 80 mg PO DAILY 11/14/18 Insulin (Novolog) [Novolog -] 0 units SQ BID 11/14/18 Lorazepam 0.5 mg PO BID 11/14/18 Melatonin 10 mg PO HS 11/14/18 Metoprolol Succinate 25 mg PO DAILY 11/14/18 Montelukast Na [Singulair -] 10 mg PO HS 11/14/18 Nutritional Supplement [Hi-Eliezer] 4 oz PO DAILY 11/14/18 Omeprazole 20 mg PO DAILY 11/14/18 Polyethylene Glycol 3350 [Miralax 119 gm Btl -] 17 gm PO DAILY 11/14/18 Potassium Chloride [K-Dur -] 10 meq PO DAILY 11/14/18 Prednisolone 1% Ophthalmic [Pred Forte 1% -] 5 ml OS BID 11/14/18 Rivaroxaban [Xarelto -] 20 mg PO HS 11/14/18 Simethicone 80 mg PO BID 11/14/18 Zolpidem Tartrate 10 mg PO HS 11/14/18 metFORMIN HCL [Metformin HCl] 500 mg PO BID 11/14/18 Acetaminophen [Tylenol .Regular Strength -] 650 mg PO Q6H PRN tablet 11/30/18 Bacitracin - [Bacitracin Topical Ointment -] 1 applic TP BID tube 11/30/18 Fluticasone Prop 0.05% Nasal [Flonase -] 1 spray NS DAILY spray 11/30/18 Pantoprazole Sodium [Protonix -] 40 mg PO DAILY tablet.ec 11/30/18 Aspirin [Aspirin EC] 81 mg PO DAILY 12/08/18 Metolazone 1 tab PO ASDIR 12/08/18 Silver Sulfadiazine 1% Top Cr [Silvadene -] 1 applic TP BID 12/08/18 Ascorbic Acid [Vitamin C] 500 mg PO DAILY 12/27/18 Erythromycin 0.5% Eye Ointment [Erythromycin 0.5% Eye Ointment -] 1 applic TID 12/27/18 Escitalopram Oxalate [Lexapro -] 5 mg PO DAILY 12/27/18 Krill/Om3/Dha/Epa/Om6/Lip/Astx [Krill Oil 1,000 mg Softgel] 1 each PO DAILY LORazepam [Ativan] 0.5 mg PO BID 12/27/18 predniSONE [Deltasone -] 15 mg PO DAILY 12/27/18 Family Disease History - Family Disease History Family Disease History: Other: Father (: 58: [place]), Mother (: 42: "heart problems"), Brother (1, CAD) Review of Systems - Review of Systems Constitutional: denies: Chills, Fever Eyes: denies: Blind Spots, Blurred Vision, Double Vision HENT: denies: Difficult Swallowing, Epistaxis Neck: denies: Stiffness, Tenderness Cardiovascular: denies: Chest Pain, Shortness of Breath Respiratory: denies: Cough, SOB Gastrointestinal: denies: Abdominal Pain, Diarrhea, Rectal Bleeding, Vomiting Musculoskeletal: denies: Back Pain, Joint Swelling Integumentary: reports: Wound (RUE abcess). denies: Rash Neurological: denies: Change in LOC, Syncope Hematology/Lymphatic: denies: Easily Bruised, Excessive Bleeding Psychiatric: denies: Anxiety, Depression Physical Examination Vital Signs: Vital Signs Temperature 98.9 F 12/27/18 08:57 Pulse Rate 88 12/27/18 08:57 Respiratory Rate 22 H 12/27/18 08:57 Blood Pressure 125/69 12/27/18 08:57 O2 Sat by Pulse Oximetry (%) 96 12/27/18 08:57 Constitutional: Yes: No Distress, Calm Eyes: Yes: Conjunctiva Clear HENT: Yes: Atraumatic Neck: Yes: Supple Cardiovascular: Yes: Regular Rate and Rhythm Respiratory: Yes: CTA Bilaterally Gastrointestinal: Yes: Soft. No: Tenderness Renal/: No: Hematuria Musculoskeletal: No: Joint Stiffness, Joint Swelling Extremities: No: Cold, Cool, Cyanosis Edema: No Integumentary: Yes: Other (RUE abscess) Neurological: Yes: Alert, Oriented ...Motor Strength: WNL Psychiatric: Yes: Alert, Oriented. No: Agitated, Suicidal Ideation Labs: CBC, BMP 12/27/18 02:43 12/27/18 02:43 Imaging - Results Chest X-ray: Report Reviewed Other: Report Reviewed Assessment/Plan The patient is a 83 year old female, with a significant past medical history of CHF, COPD, Afib (on Xarelto), CAD, HTN, and DM, who presents to the emergency department with, an abscess to the right inner upper arm with purulent discharge. s/p thigh hematoma drained couple months ago surgery eval for drainage IV ATB per ID f/u labs and cultures
[2018-12-27] MEDS ORDERED: CLINDAMYCIN PHOSPHATE 600 MG/4 ML VIAL IVPB ONE (13:08)
[2018-12-27] MEDS ORDERED: MIDAZOLAM HCL 2 MG/2 ML SINGLE DOSE VIAL ONE (13:10)
[2018-12-27] MEDS ORDERED: LIDOCAINE HCL 1%, 10 MG/ML (20ML VIAL) NR ONE (13:23)
[2018-12-27] MEDS ORDERED: MORPHINE SULFATE 2 MG/ML VIAL IVPUSH PRN (13:44)
[2018-12-27] MEDS ORDERED: ONDANSETRON 4 MG/2 ML VIAL IVPUSH PRN (13:44)
--- NOTE | 2018-12-27 14:15 | OP ---
Operative Note - Note: Operative Date: 12/27/18 Pre-Operative Diagnosis: Right arm abscess Operation: Right arm abscess incision and drainage Post-Operative Diagnosis: Same as Pre-op Surgeon: Beltran Michel Hardware Press Operator: Rebel Collins Anesthesiologist/COVERED BUTTON MAKER: Tory Navarrete Anesthesia: Local Estimated Blood Loss (mls): 5 Fluid Volume Replaced (mls): 200 Operative Report Dictated: Yes
--- NOTE | 2018-12-27 14:43 | PN ---
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 await cultures xray elbow esr/crp daptomycin/ceftriaxone may need MRI cellulitis bilateral lower extremities s/p evacuation of RLE hematoma COPD on prednisone NIDDM vancomycin allergy Problem List - Problems (1) Abscess Code(s): L02.91 - CUTANEOUS ABSCESS, UNSPECIFIED (2) Cellulitis Code(s): L03.90 - CELLULITIS, UNSPECIFIED (3) COPD (chronic obstructive pulmonary disease) Code(s): J44.9 - CHRONIC OBSTRUCTIVE PULMONARY DISEASE, UNSPECIFIED Qualifiers: COPD type: unspecified COPD Qualified Code(s): J44.9 - Chronic obstructive pulmonary disease, unspecified (4) DM type 2 (diabetes mellitus, type 2) Code(s): E11.9 - TYPE 2 DIABETES MELLITUS WITHOUT COMPLICATIONS Qualifiers: Diabetes mellitus alf insulin use: with alf use Diabetes mellitus complication status: with circulatory complication Diabetes mellitus complication detail: with other circulatory complications Qualified Code(s): E11.59 - Type 2 diabetes mellitus with other circulatory complications; 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
[2018-12-27] MEDS ORDERED: SODIUM CHLORIDE IVPB SCH (15:00)
[2018-12-27] MEDS ORDERED: DAPTOMYCIN IVPB SCH (15:00)
[2018-12-27] MEDS: ACETYLCYSTEINE 20% 200MG/ML 4 ML VIAL *FOR ORAL / INH USE ONLY PO SCH ×2 (16:25→22:00)
[2018-12-27] MEDS: ERYTHROMYCIN 0.5% OPHTHALMIC OINTMENT 3.5 GM TUBE OU SCH ×2 (16:25→21:52)
[2018-12-27] MEDS ORDERED: DEXTROSE 5%-WATER - 50 ML IVPB ONE (16:46)
[2018-12-27] MEDS ORDERED: cefTRIAXone SODIUM 1 GM VIAL ONE (16:46)
[2018-12-27] MEDS: CEFTRIAXONE 1 GM in DEXTROSE 5%-WATER - 50 ML IVPB SCH (17:09)
[2018-12-27] MEDS ORDERED: RIVAROXABAN 20 MG TABLET PO SCH (18:00)
[2018-12-27] MEDS ORDERED: MONTELUKAST NA 10 MG TABLET PO SCH (22:00)
[2018-12-27] MEDS ORDERED: ZOLPIDEM TARTRATE 5 MG TABLET PO PRN (22:00)
[2018-12-27] MEDS ORDERED: MELATONIN 5 MG TABLETS PO SCH (22:00)
[2018-12-28] MEDS: ERYTHROMYCIN 0.5% OPHTHALMIC OINTMENT 3.5 GM TUBE OU SCH ×3 (06:17→21:35)
[2018-12-28] MEDS: INSULIN SLIDING SCALE (NOVOLOG) 1 VIAL SQ SCH ×4 (06:18→21:35)
[2018-12-28] MEDS: metFORMIN HCL 500 MG TABLET (FP) PO SCH ×2 (06:20→17:00)
[2018-12-28] MEDS: ALBUTEROL SO4 0.083% IH SOL 2.5 MG/3 ML VIAL.NEB. NEB PRN ×3 (06:35→21:00)
[2018-12-28 08:04] LABS: BASO % 0.6 % (0-2.0); EOS % 0.3 % (0-4.5); HEMATOCRIT 28.9 % (32.4-45.2); HEMOGLOBIN 8.6 GM/dL (10.7-15.3); MCH 22.6 pg (25.7-33.7); MCHC 29.8 g/dl (32.0-36.0); MEAN CELL VOLUME 75.8 fl (80-96); MEAN PLT VOLUME 6.7 fl (7.5-11.1); MONO % 6.5 % (3.8-10.2); NEUT % 79.6 % (42.8-82.8); PLATELET COUNT 337 K/MM3 (134-434); RBC 3.81 M/mm3 (3.60-5.2); RDW 25.7 % (11.6-15.6); WHITE BLOOD COUNT 6.7 K/mm3 (4.0-10.0)
[2018-12-28 09:01] LABS: ALBUMIN 2.2 g/dl (3.4-5.0); BILIRUBIN,TOTAL 0.4 mg/dL (0.2-1); CALCIUM 9.4 mg/dL (8.5-10.1); CREATININE 0.4 mg/dL (0.55-1.3); POTASSIUM 3.9 mmol/L (3.5-5.1); TOT PROT 4.8 g/dl (6.4-8.2)
[2018-12-28] MEDS ORDERED: DEXTROSE 5%-WATER - 50 ML IVPB ONE (09:49)
[2018-12-28] MEDS ORDERED: PT OWN MED DRAWER 7, Y5N ONE (09:49)
[2018-12-28] MEDS ORDERED: cefTRIAXone SODIUM 1 GM VIAL ONE (09:49)
[2018-12-28] MEDS: CEFTRIAXONE 1 GM in DEXTROSE 5%-WATER - 50 ML IVPB SCH (10:05)
[2018-12-28] MEDS: ACETYLCYSTEINE 20% 200MG/ML 4 ML VIAL *FOR ORAL / INH USE ONLY PO SCH ×3 (10:05→21:35)
[2018-12-28] MEDS: PANTOPRAZOLE 40 MG TABLET (FP) PO SCH (10:06)
[2018-12-28] MEDS: DOCUSATE SODIUM 100 MG CAPSULE (FP) PO SCH (10:06)
[2018-12-28] MEDS: CHOLECALCIFEROL (VITAMIN D3) 1,000 UNIT TABLET (FP) PO SCH (10:06)
[2018-12-28] MEDS: ASCORBIC ACID 500 MG TABLET (FP) PO SCH (10:06)
[2018-12-28] MEDS: FUROSEMIDE 40 MG TABLET (FP) PO SCH (10:06)
[2018-12-28] MEDS: POTASSIUM CHLORIDE TABS 10 MEQ TABLET.ER (FP) PO SCH (10:06)
[2018-12-28] MEDS: metoPROLOL SUCCINATE 25 MG TAB.SR.24H (FP) PO SCH (10:06)
[2018-12-28] MEDS: ESCITALOPRAM OXALATE 10 MG TABLET (FP) PO SCH (10:07)
[2018-12-28] MEDS: SIMETHICONE 80 MG TAB.CHEW (FP) PO SCH ×2 (10:07→21:17)
[2018-12-28] MEDS: ASPIRIN COATED 81 MG TABLET.EC PO SCH (10:07)
[2018-12-28] MEDS: LORazepam 0.5 MG TABLET PO SCH ×2 (10:07→21:17)
[2018-12-28] MEDS: BUDESONIDE/FORMETEROL FUMARATE 160/4.5 mcg INHALER IH SCH ×2 (10:08→21:36)
[2018-12-28] MEDS: FLUTICASONE PROP 0.05% 16 GM NASAL SPRAY NS SCH (10:09)
[2018-12-28] MEDS: prednisoLONE ACETATE 1% OPHTH SUSP 5 ML BOTTLE OS SCH ×2 (10:09→21:35)
[2018-12-28] MEDS: POLYETHYLENE GLYCOL 3350 119 GM BTL PO SCH (10:10)
[2018-12-28] MEDS: SILVER SULFADIAZINE 1% TOP CREAM 400 GM JAR TP SCH ×2 (10:11→21:36)
[2018-12-28] MEDS: BACITRACIN 15 GM TUBE TOPICAL OINTMENT TP SCH ×2 (10:12→21:34)
[2018-12-28] MEDS: ACETAMINOPHEN 325 MG TABLET (FP) PO PRN ×2 (10:37→21:29)
[2018-12-28] MEDS: predniSONE 10 MG TABLET (UD) PO SCH (11:52)
--- NOTE | 2018-12-28 13:40 | PN ---
Progress Note, Physician History of Present Illness: Pt w/o fever, chills, SOB, CP, abd pain. Pt with discomfort in right hand - Current Medication List Current Medications: Active Medications Acetaminophen (Tylenol -) 650 mg PO Q6H PRN PRN Reason: PAIN Last Admin: 12/28/18 10:37 Dose: 650 mg Acetylcysteine (Mucomyst 20 Oral / Inh Use Only*) 1,000 mg PO BID [facility] Last Admin: 12/28/18 11:30 Dose: 1,000 mg Albuterol Sulfate (Ventolin 0.083% Nebulizer Soln -) 1 amp NEB Q6H PRN PRN Reason: ASTHMA Last Admin: 12/28/18 06:35 Dose: 1 amp Ascorbic Acid (Vitamin C -) 500 mg PO DAILY [facility] Last Admin: 12/28/18 10:06 Dose: 500 mg Aspirin (Ecotrin -) 81 mg PO DAILY [facility] Last Admin: 12/28/18 10:07 Dose: 81 mg Bacitracin (Bacitracin -) 1 applic TP BID [facility] Last Admin: 12/28/18 10:12 Dose: 1 applic Budesonide/Formoterol Fumarate (Symbicort 160/4.5mcg -) 1 puff IH BID [facility] Last Admin: 12/28/18 10:08 Dose: 1 puff Cholecalciferol (Vitamin D3 -) 1,000 unit PO DAILY [facility] Last Admin: 12/28/18 10:06 Dose: 1,000 unit Collagenase (Santyl -) 1 applic TP DAILY [facility]; Protocol Docusate Sodium (Colace -) 300 mg PO DAILY [facility] Last Admin: 12/28/18 10:06 Dose: 300 mg Erythromycin (Erythromycin 0.5% Eye Ointment) 1 applic OU TID [facility] Last Admin: 12/28/18 06:17 Dose: Not Given Escitalopram Oxalate (Lexapro -) 5 mg PO DAILY [facility] Last Admin: 12/28/18 10:07 Dose: 5 mg Fluticasone Propionate (Flonase -) 1 spray NS DAILY [facility] Last Admin: 12/28/18 10:09 Dose: Not Given Furosemide (Lasix -) 80 mg PO DAILY [facility] Last Admin: 12/28/18 10:06 Dose: 80 mg Daptomycin 430 mg/ Sodium (Chloride) 50 mls @ 100 mls/hr IVPB DAILY@1500 BREANNA; Protocol Last Admin: 12/27/18 16:24 Dose: 100 mls/hr Ceftriaxone Sodium 1 gm/ (Dextrose) 50 mls @ 100 mls/hr IVPB DAILY [facility]; Protocol Last Admin: 12/28/18 10:05 Dose: 100 mls/hr Insulin Aspart (Novolog Vial Sliding Scale -) 1 vial SQ ACHS [facility]; Protocol Last Admin: 12/28/18 11:22 Dose: Not Given Lorazepam (Ativan -) 0.5 mg PO BID [facility] Last Admin: 12/28/18 10:07 Dose: Not Given Melatonin (Melatonin) 10 mg PO HS [facility] Last Admin: 12/27/18 21:51 Dose: 10 mg Metformin HCl (Glucophage -) 500 mg PO BIDAC [facility] Last Admin: 12/28/18 06:20 Dose: 500 mg Metoprolol Succinate (Toprol Xl -) 25 mg PO DAILY [facility] Last Admin: 12/28/18 10:06 Dose: 25 mg Montelukast Sodium (Singulair -) 10 mg PO [facility] Last Admin: 12/27/18 21:51 Dose: 10 mg Morphine Sulfate (Morphine Sulfate) 2 mg IVPUSH [id number] PRN PRN Reason: PAIN-PACU ORDER X 4 DOSES ONLY Ondansetron HCl (Zofran Injection) 4 mg IVPUSH Q6H PRN PRN Reason: NAUSEA AND/OR VOMITING Pantoprazole Sodium (Protonix -) 40 mg PO DAILY [facility] Last Admin: 12/28/18 10:06 Dose: 40 mg Polyethylene Glycol (Miralax (For Daily Use) -) 17 gm PO DAILY [facility] Last Admin: 12/28/18 10:10 Dose: 17 gm Potassium Chloride (K-Dur -) 10 meq PO DAILY [facility] Last Admin: 12/28/18 10:06 Dose: 10 meq Prednisolone Acetate (Pred Forte 1% -) 1 drop OS BID [facility] Last Admin: 12/28/18 10:09 Dose: Not Given Prednisone (Deltasone -) 15 mg PO DAILY [facility] Last Admin: 12/28/18 11:52 Dose: 15 mg Prednisone (Deltasone -) 20 mg PO DAILY [facility] Rivaroxaban (Xarelto) 20 mg PO DAILY@1800 [facility] Last Admin: 12/27/18 17:09 Dose: 20 mg Silver Sulfadiazine (Silvadene -) 1 applic TP BID [facility] Last Admin: 12/28/18 10:11 Dose: 1 applic Simethicone (Mylicon -) 80 mg PO BID [facility] Last Admin: 12/28/18 10:07 Dose: 80 mg Zolpidem Tartrate (Ambien -) 5 mg PO HS PRN PRN Reason: INSOMNIA Last Admin: 12/27/18 21:58 Dose: 5 mg - Objective Vital Signs: Vital Signs Temperature 97.6 F 12/28/18 10:00 Pulse Rate 94 H 12/28/18 10:00 Respiratory Rate 18 12/28/18 10:00 Blood Pressure 102/54 L 12/28/18 10:00 O2 Sat by Pulse Oximetry (%) 93 L 12/28/18 09:00 Constitutional: Yes: No Distress, Calm Cardiovascular: Yes: Regular Rate and Rhythm, S1, S2 Respiratory: Yes: Regular, Other (coarese BS bilat, no crackles). No: Rhonchi Gastrointestinal: Yes: Normal Bowel Sounds, Soft. No: Tenderness Neurological: Yes: Alert, Oriented Labs: CBC, BMP 12/28/18 07:00 12/28/18 07:00 INR, PTT INR 1.75 (0.83-1.09) H 12/27/18 02:43 Problem List - Problems (1) Abscess Code(s): L02.91 - CUTANEOUS ABSCESS, UNSPECIFIED (2) CHF (congestive heart failure) Code(s): I50.9 - HEART FAILURE, UNSPECIFIED Qualifiers: Heart failure type: unspecified Heart failure chronicity: unspecified Qualified Code(s): I50.9 - Heart failure, unspecified (3) COPD (chronic obstructive pulmonary disease) Code(s): J44.9 - CHRONIC OBSTRUCTIVE PULMONARY DISEASE, UNSPECIFIED Qualifiers: COPD type: unspecified COPD Qualified Code(s): J44.9 - Chronic obstructive pulmonary disease, unspecified (4) DM type 2 (diabetes mellitus, type 2) Code(s): E11.9 - TYPE 2 DIABETES MELLITUS WITHOUT COMPLICATIONS Qualifiers: Diabetes mellitus vermin exterminator insulin use: with vermin exterminator use Diabetes mellitus complication status: with circulatory complication Diabetes mellitus complication detail: with other circulatory complications Qualified Code(s): E11.59 - Type 2 diabetes mellitus with other circulatory complications; Z79.4 - terminal operations supervisor (current) use of insulin (5) HTN (hypertension) Code(s): I10 - ESSENTIAL (PRIMARY) HYPERTENSION Qualifiers: Hypertension type: essential hypertension Qualified Code(s): I10 - Essential (primary) hypertension (6) Hematoma of right lower extremity Code(s): S80.11XA - CONTUSION OF RIGHT LOWER LEG, INITIAL ENCOUNTER (7) Insomnia Code(s): G47.00 - INSOMNIA, UNSPECIFIED Assessment/Plan Post OP day #1 To f/u with Sx Pt on IV abtx -per ID DC IVF Cont meds. AM labs. Case was d/w pt nurse
--- NOTE | 2018-12-28 14:18 | PN ---
Progress Note (short form) - Note Progress Note: Attending Surgeon POD#1 c/o pain VSS AF wound-packing removed; no drainage/no smell; post op changes are present; n/v intact in RUE; sts is present in the hand and distal forearm; o/w negative. WBC-nl Culture-Proteus IMP: stable post op PLAN: LWC; ID f/u;. Beltran Michel MD FACS
--- NOTE | 2018-12-28 14:58 | OP ---
DATE OF OPERATION: 12/27/2018 PREOPERATIVE DIAGNOSIS: Soft tissue abscess, right upper extremity. POSTOPERATIVE DIAGNOSIS: Soft tissue abscess, right upper extremity. PROCEDURE: Incision and drainage of soft tissue abscess, right upper extremity. SURGEON: Beltran Michel MD PULP BEATER: Rebel Collins PA-C ANESTHESIA: Local with IV sedation. OPERATIVE FINDINGS: There was an extensive skin and soft tissue infection of the medial aspect of the right upper extremity. The rest of the findings were unremarkable. PROCEDURE: The patient was placed on the operating room in the supine position with the right upper extremity abducted at the side. The area over the abscess was prepped with Betadine and draped in sterile fashion. A timeout was taken and, after intravenous sedation was administered and 1% lidocaine local infiltration anesthesia, incision and drainage was carried out with a scalpel. All loculations were broken up using blunt dissection and purulent drainage was sent for culture and sensitivity. Irrigation was carried out with saline and peroxide, and hemostasis secured with electrocautery. The wound was packed with 1-inch Iodoform gauze. Dry sterile dressing was then placed and the procedure terminated at this point, and the patient transferred to the postanesthesia care unit in stable condition awake and alert. ESTIMATED BLOOD LOSS: Minimal. DRAINS: One-inch Iodoform packing. SPECIMEN: Culture and sensitivity of purulent drainage to Microbiology. I, Beltran Michel, was physically present in the operating room from the time the patient was placed on the operating room table until she was transferred to the postanesthesia care unit in my accompaniment. MD LISETTE Pulido/[id number] MTDD
[2018-12-28] MEDS: COLLAGENASE CLOSTRIDIUM HIST. 30 GRAMS TUBE TP SCH (15:16)
[2018-12-28] MEDS: SODIUM CHLORIDE IVPB SCH (15:17)
[2018-12-28] MEDS: ACETAMINOPHEN WITH CODEINE 300MG/30MG TABLET PO PRN (15:17)
[2018-12-28] MEDS: DAPTOMYCIN IVPB SCH (15:17)
--- NOTE | 2018-12-28 16:01 | PN ---
Progress Note (short form) - Note Progress Note: s/p dressing change by surgeon today c/o some pain Vital Signs Period Temp Pulse Resp BP Sys/Garcia Pulse Ox Last 24 Hr 97.6 F-98.6 F 78-94 18-20 101-120/47-68 93-98 cor-rrr lungs decreased bs at bases dressing right elbow ext less erythema +edema dressing RLE CBC, BMP 12/28/18 07:00 12/28/18 07:00 Microbiology 12/27/18 13:57 Arm - Right Upper Gram Stain - Final 12/27/18 13:57 Arm - Right Upper Wound Culture - Preliminary Proteus Species Pending Organism Pending Organism#2 12/27/18 01:59 Elbow - Right Gram Stain - Final 12/27/18 01:59 Elbow - Right Wound Culture - Preliminary Non Lactose Fermenting Gnb Pending Organism 12/27/18 02:43 Blood - Peripheral Venous Blood Culture - Preliminary NO GROWTH OBTAINED AFTER 24 HOURS, INCUBATION TO CONTINUE FOR 4 DAYS. 12/27/18 02:43 Blood - Peripheral Venous Blood Culture - Preliminary NO GROWTH OBTAINED AFTER 24 HOURS, INCUBATION TO CONTINUE FOR 4 DAYS. a/p s/p drainage elbow abscess- continue daptomycin and ceftriaxone cellulitis bilateral lower extremities improved s/p evacuation of RLE hematoma COPD on prednisone NIDDM vancomycin allergy Problem List - Problems (1) Abscess Code(s): L02.91 - CUTANEOUS ABSCESS, UNSPECIFIED (2) Cellulitis Code(s): L03.90 - CELLULITIS, UNSPECIFIED (3) COPD (chronic obstructive pulmonary disease) Code(s): J44.9 - CHRONIC OBSTRUCTIVE PULMONARY DISEASE, UNSPECIFIED Qualifiers: COPD type: unspecified COPD Qualified Code(s): J44.9 - Chronic obstructive pulmonary disease, unspecified (4) DM type 2 (diabetes mellitus, type 2) Code(s): E11.9 - TYPE 2 DIABETES MELLITUS WITHOUT COMPLICATIONS Qualifiers: 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
[2018-12-28] MEDS: RIVAROXABAN 20 MG TABLET PO SCH (17:59)
--- NOTE | 2018-12-28 18:41 | CONS ---
DATE OF CONSULTATION: 12/27/2018 INFECTIOUS DISEASE CONSULTATION REQUESTED BY: David Brown MD The patient was seen in the recovery room after she had surgery. This is an 83-year-old woman. She is admitted from [facility]. She has a past medical history of atrial fibrillation on Xarelto. She had a recent right lower extremity hematoma that was evacuated. She presents with an abscess on the right elbow with purulent discharge. She has no fevers or chills. She was taken to the operating room, and the abscess was debrided and drained. 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 She was seen in the recovery room, where she was awake and alert without any complaints. Her arm was dressed in a postoperative dressing. PAST MEDICAL HISTORY: Notable for coronary artery disease, CHF, COPD, pneumonia, GERD, DVT of the right lower extremity, recent evacuation of a right leg hematoma, diabetes, as well she has a history of right reverse shoulder placement that was done in 2016, hernia repair in 2005, eye implant in 2018, right lindsey hematoma evacuation in 2019, and a history of right elbow osteomyelitis which was notable for MRSA which she thinks she had prior to the shoulder surgery. ALLERGIES: She is allergic to vancomycin, and was switched to daptomycin. Include dextromethorphan, guaifenesin, pollen, ragweed, and ampicillin with a mild rash. MEDICATIONS: Her medications at home include prednisone 15 mg, metformin, Ambien, simethicone, Xarelto, eye drops, potassium, MiraLAX, Protonix, omeprazole, metoprolol, Singulair, Metolazone, melatonin, lorazepam, insulin, Lasix, fluticasone, Lexapro, Symbicort, aspirin, Mucomyst. FAMILY HISTORY: Noncontributory. SOCIAL HISTORY: She resides at the [facility]. 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 There is no history of any recent travel. REVIEW OF SYSTEMS: She denies any nausea, vomiting. She has chronic shortness of breath, which she attributes to her COPD. PHYSICAL EXAMINATION: Vital Signs: She has been afebrile, temperature is 98.6, pulse of 86, blood pressure 105/66, respiratory rate is 18. HEENT: She is normocephalic. Her eyes are anicteric. Neck: Supple. Lungs: Diminished breath sounds at the bases. Heart: Regular rate and rhythm. Abdomen: Soft, nontender. Extremities: Her right elbow is in a postoperative dressing. She has bilateral erythema of her lower legs, and she has a dressing on the right leg at the hematoma site. LABORATORY DATA: Notable for a white count of 6.7, on admission was 11.2, hemoglobin 8.6, platelets are 337. INR is 1.7. BUN 17 and creatinine 0.5 with normal LFTs. CK is 12. IN SUMMARY: This is an 83-year-old woman with: 1. An abscess at the site of her prior osteomyelitis, concerning whether this is recurrent osteomyelitis. 2. Cellulitis of the bilateral lower extremities. This will be covered by the antibiotics for her abscess. 3. Status post evacuation of right lower extremity hematoma. 4. Chronic obstructive pulmonary disease on prednisone. 5. Pbg-llribzq-dhwudaigd diabetes. 6. Vancomycin allergy. RECOMMENDATIONS: Would await cultures. Would x-ray the elbow. Check a sedimentation rate, CRP. Would treat her with daptomycin again to cover MRSA and ceftriaxone. She may need an MRI based on the above. Further recommendations to follow. Mukund [id number]
[2018-12-28] MEDS: MELATONIN 5 MG TABLETS PO SCH (21:16)
[2018-12-28] MEDS: MONTELUKAST NA 10 MG TABLET PO SCH (21:17)
[2018-12-28] MEDS: ZOLPIDEM TARTRATE 5 MG TABLET PO PRN (21:17)
[2018-12-29] MEDS: ERYTHROMYCIN 0.5% OPHTHALMIC OINTMENT 3.5 GM TUBE OU SCH ×4 (05:20→21:55)
[2018-12-29] MEDS: INSULIN SLIDING SCALE (NOVOLOG) 1 VIAL SQ SCH ×4 (06:08→22:07)
[2018-12-29] MEDS: ACETAMINOPHEN WITH CODEINE 300MG/30MG TABLET PO PRN ×2 (06:10→22:25)
[2018-12-29] MEDS: metFORMIN HCL 500 MG TABLET (FP) PO SCH ×2 (06:10→15:48)
[2018-12-29 06:43] LABS: HEMATOCRIT 26.2 % (32.4-45.2); HEMOGLOBIN 7.9 GM/dL (10.7-15.3); MCH 22.7 pg (25.7-33.7); MCHC 30.2 g/dl (32.0-36.0); MEAN CELL VOLUME 75.3 fl (80-96); MEAN PLT VOLUME 6.8 fl (7.5-11.1); PLATELET COUNT 318 K/MM3 (134-434); RBC 3.49 M/mm3 (3.60-5.2); RDW 25.7 % (11.6-15.6); WHITE BLOOD COUNT 6.5 K/mm3 (4.0-10.0)
[2018-12-29 07:21] LABS: ALBUMIN 2.3 g/dl (3.4-5.0); BILIRUBIN,TOTAL 0.4 mg/dL (0.2-1); CALCIUM 9.3 mg/dL (8.5-10.1); CREATININE 0.5 mg/dL (0.55-1.3); POTASSIUM 3.6 mmol/L (3.5-5.1)
[2018-12-29] MEDS ORDERED: cefTRIAXone SODIUM 1 GM VIAL ONE (09:48)
[2018-12-29] MEDS ORDERED: DEXTROSE 5%-WATER - 50 ML IVPB ONE (09:48)
[2018-12-29] MEDS: SIMETHICONE 80 MG TAB.CHEW (FP) PO SCH ×2 (09:57→22:06)
[2018-12-29] MEDS: metoPROLOL SUCCINATE 25 MG TAB.SR.24H (FP) PO SCH (09:57)
[2018-12-29] MEDS: FUROSEMIDE 40 MG TABLET (FP) PO SCH (09:57)
[2018-12-29] MEDS: ASCORBIC ACID 500 MG TABLET (FP) PO SCH (09:57)
[2018-12-29] MEDS: predniSONE 20 MG TABLET (UD) PO SCH (09:57)
[2018-12-29] MEDS: DOCUSATE SODIUM 100 MG CAPSULE (FP) PO SCH (09:57)
[2018-12-29] MEDS: ASPIRIN COATED 81 MG TABLET.EC PO SCH (09:57)
[2018-12-29] MEDS: ESCITALOPRAM OXALATE 10 MG TABLET (FP) PO SCH (09:58)
[2018-12-29] MEDS: PANTOPRAZOLE 40 MG TABLET (FP) PO SCH (09:58)
[2018-12-29] MEDS: POTASSIUM CHLORIDE TABS 10 MEQ TABLET.ER (FP) PO SCH (10:00)
[2018-12-29] MEDS: BACITRACIN 15 GM TUBE TOPICAL OINTMENT TP SCH ×2 (10:01→22:07)
[2018-12-29] MEDS: CHOLECALCIFEROL (VITAMIN D3) 1,000 UNIT TABLET (FP) PO SCH (10:01)
[2018-12-29] MEDS: POLYETHYLENE GLYCOL 3350 119 GM BTL PO SCH (10:02)
[2018-12-29] MEDS: BUDESONIDE/FORMETEROL FUMARATE 160/4.5 mcg INHALER IH SCH ×2 (10:03→22:08)
[2018-12-29] MEDS: CEFTRIAXONE 1 GM in DEXTROSE 5%-WATER - 50 ML IVPB SCH (10:03)
[2018-12-29] MEDS: SILVER SULFADIAZINE 1% TOP CREAM 400 GM JAR TP SCH ×2 (10:03→22:06)
[2018-12-29] MEDS: COLLAGENASE CLOSTRIDIUM HIST. 30 GRAMS TUBE TP SCH (10:03)
[2018-12-29] MEDS: FLUTICASONE PROP 0.05% 16 GM NASAL SPRAY NS SCH (10:09)
[2018-12-29] MEDS: LORazepam 0.5 MG TABLET PO SCH ×2 (10:09→22:07)
[2018-12-29] MEDS: prednisoLONE ACETATE 1% OPHTH SUSP 5 ML BOTTLE OS SCH ×2 (10:10→21:56)
[2018-12-29] MEDS: ACETYLCYSTEINE 20% 200MG/ML 4 ML VIAL *FOR ORAL / INH USE ONLY PO SCH ×2 (10:10→22:43)
--- NOTE | 2018-12-29 10:45 | PN ---
Progress Note (short form) - Note Progress Note: Surgery POD #2 right UE I&D. patient seen and examined at bedside with no new complaints. She is tolerating her diet and denies any CP, SOB, N/V fever or chills. Vital Signs Temp 98.9 F 12/29/18 08:32 Pulse 97 H 12/29/18 08:32 Resp 18 12/29/18 08:32 BP 143/65 12/29/18 08:32 Pulse Ox 94 L 12/28/18 21:00 Intake & Output 12/28/18 12/28/18 12/29/18 11:59 23:59 11:59 Intake Total 1250 445 120 Balance 1250 445 120 Weight 160 lb 8 oz 158 lb 7 oz Intake: IV 600 Normal Saline - 1,000 ml 600 @ 50 mls/hr IV ASDIR BREANNA Rx#:[id number] IVPB 100 Oral 650 345 120 Other: Voiding Method Diaper Diaper # Unmeasured Voids Void 1 3 2 Bowel Movement No No Weight Measurement Method [facility] in [facility] CBC, BMP 12/29/18 05:45 12/29/18 05:45 PE: A&Ox3, NAD Unlabored resp on NC Right UE: wound-packing removed; no drainage/no smell; post op changes are present; n/v intact in RUE. Culture-Proteus Problem List - Problems (1) Abscess Assessment/Plan: POD # 2 right UE I&D doing well. 1) IV ABX per ID 2) Continue local wound care with wet to dry packing BID 3) d/c planning per medicine 4) Follow up with Dr Michel as outpatient Code(s): L02.91 - CUTANEOUS ABSCESS, UNSPECIFIED
--- NOTE | 2018-12-29 10:47 | PN ---
Progress Note, Physician History of Present Illness: Pt w/o fever, chills, SOB, cough, CP, abd pain, diarrhea. - Current Medication List Current Medications: Active Medications Acetaminophen (Tylenol -) 650 mg PO Q6H PRN PRN Reason: PAIN Last Admin: 12/28/18 21:29 Dose: 650 mg Acetaminophen/Codeine Phosphate (Tylenol # 3 -) 1 tab PO Q6H PRN PRN Reason: PAIN LEVEL 6-10 Last Admin: 12/29/18 06:10 Dose: 1 tab Acetylcysteine (Mucomyst 20 Oral / Inh Use Only*) 1,[address] [facility] Last Admin: 12/29/18 10:10 Dose: Not Given Albuterol Sulfate (Ventolin 0.083% Nebulizer Soln -) 1 amp NEB Q6H PRN PRN Reason: ASTHMA Last Admin: 12/28/18 21:00 Dose: 1 amp Ascorbic Acid (Vitamin C -) [address] [facility] Last Admin: 12/29/18 09:57 Dose: 500 mg Aspirin (Ecotrin -) [address] [facility] Last Admin: 12/29/18 09:57 Dose: 81 mg Bacitracin (Bacitracin -) [address] [facility] Last Admin: 12/29/18 10:01 Dose: 1 applic Budesonide/Formoterol Fumarate (Symbicort 160/4.5mcg -) [address] [facility] Last Admin: 12/29/18 10:03 Dose: 1 puff Cholecalciferol (Vitamin D3 -) 1,000 unit PO DAILY [facility] Last Admin: 12/29/18 10:01 Dose: 1,000 unit Collagenase (Santyl -) [address] [facility]; Protocol Last Admin: 12/29/18 10:03 Dose: 1 applic Docusate Sodium (Colace -) [address] [facility] Last Admin: 12/29/18 09:57 Dose: 300 mg Erythromycin (Erythromycin 0.5% Eye Ointment) [address] [facility] Last Admin: 12/29/18 05:20 Dose: Not Given Escitalopram Oxalate (Lexapro -) [address] [facility] Last Admin: 12/29/18 09:58 Dose: 5 mg Fluticasone Propionate (Flonase -) [address] [facility] Last Admin: 05/17/19 10:09 Dose: Not Given Furosemide (Lasix -) [address] [facility] Last Admin: 12/29/18 09:57 Dose: 80 mg Ceftriaxone Sodium 1 gm/ (Dextrose) 50 mls @ 100 mls/hr IVPB DAILY [facility]; Protocol Last Admin: 12/29/18 10:03 Dose: 100 mls/hr Daptomycin 430 mg/ Sodium (Chloride) 50 mls @ 100 mls/hr IVPB DAILY@1500 [facility]; Protocol Last Admin: 12/28/18 15:17 Dose: 100 mls/hr Insulin Aspart (Novolog Vial Sliding Scale -) [address] [facility]; Protocol Last Admin: 12/29/18 06:08 Dose: Not Given Lorazepam (Ativan -) 0.[address] [facility] Last Admin: 12/29/18 10:09 Dose: Not Given Melatonin (Melatonin) [address] [facility] Last Admin: 12/28/18 21:16 Dose: 10 mg Metformin HCl (Glucophage -) [address] [facility] Last Admin: 12/29/18 06:10 Dose: 500 mg Metoprolol Succinate (Toprol Xl -) [address] [facility] Last Admin: 12/29/18 09:57 Dose: 25 mg Montelukast Sodium (Singulair -) [address] [facility] Last Admin: 12/28/18 21:17 Dose: 10 mg Morphine Sulfate (Morphine Sulfate) 2 mg IVPUSH [id number] PRN PRN Reason: PAIN-PACU ORDER X 4 DOSES ONLY Ondansetron HCl (Zofran Injection) 4 mg IVPUSH Q6H PRN PRN Reason: NAUSEA AND/OR VOMITING Pantoprazole Sodium (Protonix -) [address] [facility] Last Admin: 12/29/18 09:58 Dose: 40 mg Polyethylene Glycol (Miralax (For Daily Use) -) [address] [facility] Last Admin: 12/29/18 10:02 Dose: 17 gm Potassium Chloride (K-Dur -) [address] [facility] Last Admin: 12/29/18 10:00 Dose: 10 meq Prednisolone Acetate (Pred Forte 1% -) [address] [facility] Last Admin: 12/29/18 10:10 Dose: Not Given Prednisone (Deltasone -) [address] [facility] Last Admin: 12/29/18 09:57 Dose: 20 mg Rivaroxaban (Xarelto) 20 mg PO DAILY@1800 [facility] Last Admin: 12/28/18 17:59 Dose: 20 mg Silver Sulfadiazine (Silvadene -) [address] [facility] Last Admin: 12/29/18 10:03 Dose: 1 applic Simethicone (Mylicon -) [address] [facility] Last Admin: 12/29/18 09:57 Dose: 80 mg Zolpidem Tartrate (Ambien -) 5 mg PO HS PRN PRN Reason: INSOMNIA Last Admin: 12/28/18 21:17 Dose: 5 mg - Objective Vital Signs: Vital Signs Temperature 98.9 F 12/29/18 08:32 Pulse Rate 97 H 12/29/18 08:32 Respiratory Rate 18 12/29/18 08:32 Blood Pressure 143/65 12/29/18 08:32 O2 Sat by Pulse Oximetry (%) 94 L 12/28/18 21:00 Constitutional: Yes: No Distress, Calm Cardiovascular: Yes: Regular Rate and Rhythm, S1, S2 Respiratory: Yes: Regular. No: Rales, Wheezes (coarse BS bilat.) Gastrointestinal: Yes: Normal Bowel Sounds, Soft. No: Tenderness Edema: Yes (1 -2 bilat) Neurological: Yes: Alert, Oriented Labs: CBC, BMP 12/29/18 05:45 12/29/18 05:45 INR, PTT INR 1.75 (0.83-1.09) H 12/27/18 02:43 Problem List - Problems (1) Abscess Assessment/Plan: of right arm Code(s): L02.91 - CUTANEOUS ABSCESS, UNSPECIFIED (2) CHF (congestive heart failure) Code(s): I50.9 - HEART FAILURE, UNSPECIFIED Qualifiers: Heart failure type: unspecified Heart failure chronicity: unspecified Qualified Code(s): I50.9 - Heart failure, unspecified (3) COPD (chronic obstructive pulmonary disease) Code(s): J44.9 - CHRONIC OBSTRUCTIVE PULMONARY DISEASE, UNSPECIFIED Qualifiers: COPD type: unspecified COPD Qualified Code(s): J44.9 - Chronic obstructive pulmonary disease, unspecified (4) DM type 2 (diabetes mellitus, type 2) Code(s): E11.9 - TYPE 2 DIABETES MELLITUS WITHOUT COMPLICATIONS Qualifiers: 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: with fdc use Diabetes mellitus complication status: with circulatory complication Diabetes mellitus complication detail: with other circulatory complications Qualified Code(s): E11.59 - Type 2 diabetes mellitus with other circulatory complications; Z79.4 - [facility] (current) use of insulin (5) HTN (hypertension) Code(s): I10 - ESSENTIAL (PRIMARY) HYPERTENSION Qualifiers: Hypertension type: essential hypertension Qualified Code(s): I10 - Essential (primary) hypertension (6) Hematoma of right lower extremity Code(s): S80.11XA - CONTUSION OF RIGHT LOWER LEG, INITIAL ENCOUNTER (7) Insomnia Code(s): G47.00 - INSOMNIA, UNSPECIFIED Assessment/Plan Post OP day #2 To f/u with Sx To repeate CBC ( to f/u on H/H), pt might need PRBC transfusion Pt on IV abtx -per ID DC IVF Cont meds. AM labs. Case was d/w pt nurse
[2018-12-29 12:21] LABS: HEMATOCRIT 25.8 % (32.4-45.2); HEMOGLOBIN 7.7 GM/dL (10.7-15.3); MCH 22.6 pg (25.7-33.7); MEAN CELL VOLUME 75.5 fl (80-96); PLATELET COUNT 330 K/MM3 (134-434); RBC 3.42 M/mm3 (3.60-5.2); RDW 25.3 % (11.6-15.6); WHITE BLOOD COUNT 8.3 K/mm3 (4.0-10.0)
[2018-12-29] MEDS ORDERED: FUROSEMIDE 40 MG/4 ML INJECTABLE VIAL IVPUSH ONE ×2 (14:30→21:45)
--- NOTE | 2018-12-29 14:51 | PN ---
Progress Note (short form) - Note Progress Note: s/p dressing change by surgeon today still notes arm swelling Vital Signs Period Temp Pulse Resp BP Sys/Garcia Pulse Ox Last 24 Hr 98.4 F-98.9 F 75-97 18-20 105-143/61-68 94-98 cor-rrr lungs decreased bs at bases abd soft,nt ext no erythema of the legs shallow ulcer RLE right arm no erythema, packing in place CBC, BMP 12/29/18 11:40 12/29/18 05:45 Microbiology 12/27/18 13:57 Arm - Right Upper Gram Stain - Final 12/27/18 13:57 Arm - Right Upper Wound Culture - Final Proteus Mirabilis 12/27/18 01:59 Elbow - Right Gram Stain - Final 12/27/18 01:59 Elbow - Right Wound Culture - Final Proteus Mirabilis 12/27/18 02:43 Blood - Peripheral Venous Blood Culture - Preliminary NO GROWTH OBTAINED AFTER 48 HOURS, INCUBATION TO CONTINUE FOR 3 DAYS. 12/27/18 02:43 Blood - Peripheral Venous Blood Culture - Preliminary NO GROWTH OBTAINED AFTER 48 HOURS, INCUBATION TO CONTINUE FOR 3 DAYS. a/p s/p drainage elbow abscess- d/c daptomycin, continue ceftriaxone-can switch to po keflex when ready for discharge cellulitis bilateral lower extremities improved s/p evacuation of RLE hematoma COPD on prednisone NIDDM vancomycin allergy anemia- for transfusion today Problem List - Problems (1) Abscess Code(s): L02.91 - CUTANEOUS ABSCESS, UNSPECIFIED (2) Cellulitis Code(s): L03.90 - CELLULITIS, UNSPECIFIED (3) COPD (chronic obstructive pulmonary disease) Code(s): J44.9 - CHRONIC OBSTRUCTIVE PULMONARY DISEASE, UNSPECIFIED Qualifiers: COPD type: unspecified COPD Qualified Code(s): J44.9 - Chronic obstructive pulmonary disease, unspecified (4) DM type 2 (diabetes mellitus, type 2) Code(s): E11.9 - TYPE 2 DIABETES MELLITUS WITHOUT COMPLICATIONS Qualifiers: Diabetes mellitus correction 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
[2018-12-29] MEDS: SODIUM CHLORIDE IVPB SCH (15:22)
[2018-12-29] MEDS: DAPTOMYCIN IVPB SCH (15:22)
[2018-12-29] MEDS ORDERED: INSULIN (NOVOLOG) ASPART 100 UNITS/ML 10ML VIAL ONE (17:06)
[2018-12-29] MEDS: RIVAROXABAN 20 MG TABLET PO SCH (17:42)
[2018-12-29] MEDS: ACETAMINOPHEN 325 MG TABLET (FP) PO PRN (17:58)
[2018-12-29] MEDS: ALBUTEROL SO4 0.083% IH SOL 2.5 MG/3 ML VIAL.NEB. NEB PRN (20:15)
[2018-12-29] MEDS: ZOLPIDEM TARTRATE 5 MG TABLET PO PRN (22:06)
[2018-12-29] MEDS: MELATONIN 5 MG TABLETS PO SCH (22:06)
[2018-12-29] MEDS: MONTELUKAST NA 10 MG TABLET PO SCH (22:06)
[2018-12-30] MEDS: ALBUTEROL SO4 0.083% IH SOL 2.5 MG/3 ML VIAL.NEB. NEB PRN ×5 (03:32→22:00)
[2018-12-30] MEDS: INSULIN SLIDING SCALE (NOVOLOG) 1 VIAL SQ SCH ×4 (06:10→22:08)
[2018-12-30] MEDS: ERYTHROMYCIN 0.5% OPHTHALMIC OINTMENT 3.5 GM TUBE OU SCH ×3 (06:10→22:07)
[2018-12-30] MEDS: metFORMIN HCL 500 MG TABLET (FP) PO SCH ×2 (06:29→17:13)
[2018-12-30] MEDS ORDERED: DEXTROSE 5%-WATER - 50 ML IVPB ONE (09:06)
[2018-12-30] MEDS ORDERED: cefTRIAXone SODIUM 1 GM VIAL ONE (09:06)
[2018-12-30] MEDS: CEFTRIAXONE 1 GM in DEXTROSE 5%-WATER - 50 ML IVPB SCH (09:21)
[2018-12-30] MEDS: metoPROLOL SUCCINATE 25 MG TAB.SR.24H (FP) PO SCH (09:22)
[2018-12-30] MEDS: FUROSEMIDE 40 MG TABLET (FP) PO SCH (09:22)
[2018-12-30] MEDS: ASPIRIN COATED 81 MG TABLET.EC PO SCH (09:22)
[2018-12-30] MEDS: PANTOPRAZOLE 40 MG TABLET (FP) PO SCH (09:22)
[2018-12-30] MEDS: SIMETHICONE 80 MG TAB.CHEW (FP) PO SCH ×2 (09:22→22:05)
[2018-12-30] MEDS: DOCUSATE SODIUM 100 MG CAPSULE (FP) PO SCH (09:22)
[2018-12-30] MEDS: POTASSIUM CHLORIDE TABS 10 MEQ TABLET.ER (FP) PO SCH (09:22)
[2018-12-30] MEDS: CHOLECALCIFEROL (VITAMIN D3) 1,000 UNIT TABLET (FP) PO SCH (09:23)
[2018-12-30] MEDS: ASCORBIC ACID 500 MG TABLET (FP) PO SCH (09:23)
[2018-12-30] MEDS: LORazepam 0.5 MG TABLET PO SCH ×2 (09:23→22:07)
[2018-12-30] MEDS: BACITRACIN 15 GM TUBE TOPICAL OINTMENT TP SCH ×2 (09:23→22:07)
[2018-12-30] MEDS: predniSONE 20 MG TABLET (UD) PO SCH (09:23)
[2018-12-30] MEDS: ESCITALOPRAM OXALATE 10 MG TABLET (FP) PO SCH (09:34)
[2018-12-30] MEDS: POLYETHYLENE GLYCOL 3350 119 GM BTL PO SCH ×2 (09:59→22:07)
[2018-12-30 10:23] LABS: BASO % 0.3 % (0-2.0); EOS % 0.7 % (0-4.5); HEMATOCRIT 31.7 % (32.4-45.2); HEMOGLOBIN 9.9 GM/dL (10.7-15.3); LYMPH % 8.9 % (8-40); MCH 24.3 pg (25.7-33.7); MCHC 31.4 g/dl (32.0-36.0); MEAN CELL VOLUME 77.3 fl (80-96); MEAN PLT VOLUME 6.8 fl (7.5-11.1); MONO % 10.4 % (3.8-10.2); NEUT % 79.7 % (42.8-82.8); PLATELET COUNT 320 K/MM3 (134-434); RDW 22.5 % (11.6-15.6); WHITE BLOOD COUNT 8.6 K/mm3 (4.0-10.0)
[2018-12-30] MEDS: BUDESONIDE/FORMETEROL FUMARATE 160/4.5 mcg INHALER IH SCH ×2 (10:32→22:06)
[2018-12-30] MEDS: SILVER SULFADIAZINE 1% TOP CREAM 400 GM JAR TP SCH ×2 (10:33→22:06)
[2018-12-30] MEDS: COLLAGENASE CLOSTRIDIUM HIST. 30 GRAMS TUBE TP SCH (10:45)
[2018-12-30 10:47] LABS: CALCIUM 9.1 mg/dL (8.5-10.1); CREATININE 0.5 mg/dL (0.55-1.3); POTASSIUM 3.5 mmol/L (3.5-5.1)
[2018-12-30] MEDS ORDERED: PT OWN MED DRAWER 7, Y5N ONE (11:04)
[2018-12-30] MEDS: FLUTICASONE PROP 0.05% 16 GM NASAL SPRAY NS SCH (11:32)
[2018-12-30] MEDS: prednisoLONE ACETATE 1% OPHTH SUSP 5 ML BOTTLE OS SCH ×2 (11:32→22:07)
--- NOTE | 2018-12-30 11:47 | PN ---
Progress Note, Physician Chief Complaint: OOB to chair NAD afebrile VSS s/p PRBC for anemia occasional nauseous no pain - Current Medication List Current Medications: Active Medications Acetaminophen (Tylenol -) 650 mg PO Q6H PRN PRN Reason: PAIN Last Admin: 12/29/18 17:58 Dose: 650 mg Acetaminophen/Codeine Phosphate (Tylenol # 3 -) 1 tab PO Q6H PRN PRN Reason: PAIN LEVEL 6-10 Last Admin: 12/29/18 22:25 Dose: 1 tab Albuterol Sulfate (Ventolin 0.083% Nebulizer Soln -) 1 amp NEB Q6H PRN PRN Reason: ASTHMA Last Admin: 12/30/18 08:32 Dose: 1 amp Ascorbic Acid (Vitamin C -) 500 mg PO DAILY [facility] Last Admin: 12/30/18 09:23 Dose: 500 mg Aspirin (Ecotrin -) 81 mg PO DAILY [facility] Last Admin: 12/30/18 09:22 Dose: 81 mg Bacitracin (Bacitracin -) 1 applic TP BID [facility] Last Admin: 12/30/18 09:23 Dose: 1 applic Budesonide/Formoterol Fumarate (Symbicort 160/4.5mcg -) 1 puff IH BID [facility] Last Admin: 12/30/18 10:32 Dose: 1 puff Cholecalciferol (Vitamin D3 -) 1,000 unit PO DAILY [facility] Last Admin: 12/30/18 09:23 Dose: 1,000 unit Collagenase (Santyl -) 1 applic TP DAILY [facility]; Protocol Last Admin: 12/29/18 10:03 Dose: 1 applic Docusate Sodium (Colace -) 300 mg PO DAILY [facility] Last Admin: 12/30/18 09:22 Dose: 300 mg Erythromycin (Erythromycin 0.5% Eye Ointment) 1 applic OU TID [facility] Last Admin: 12/30/18 06:10 Dose: Not Given Escitalopram Oxalate (Lexapro -) 5 mg PO DAILY [facility] Last Admin: 12/30/18 09:34 Dose: 5 mg Fluticasone Propionate (Flonase -) 1 spray NS DAILY [facility] Last Admin: 12/30/18 11:32 Dose: Not Given Furosemide (Lasix -) 80 mg PO DAILY [facility] Last Admin: 12/30/18 09:22 Dose: 80 mg Ceftriaxone Sodium 1 gm/ (Dextrose) 50 mls @ 100 mls/hr IVPB DAILY [facility]; Protocol Last Admin: 12/30/18 09:21 Dose: 100 mls/hr Insulin Aspart (Novolog Vial Sliding Scale -) 1 vial SQ ACHS [facility]; Protocol Last Admin: 12/30/18 11:35 Dose: Not Given Lorazepam (Ativan -) 0.5 mg PO BID [facility] Last Admin: 12/30/18 09:23 Dose: 0.5 mg Melatonin (Melatonin) 10 mg PO HS [facility] Last Admin: 12/29/18 22:06 Dose: 10 mg Metformin HCl (Glucophage -) 500 mg PO BIDAC [facility] Last Admin: 12/30/18 06:29 Dose: 500 mg Metoprolol Succinate (Toprol Xl -) 25 mg PO DAILY [facility] Last Admin: 12/30/18 09:22 Dose: 25 mg Montelukast Sodium (Singulair -) 10 mg PO HS [facility] Last Admin: 12/29/18 22:06 Dose: 10 mg Morphine Sulfate (Morphine Sulfate) 2 mg IVPUSH [id number] PRN PRN Reason: PAIN-PACU ORDER X 4 DOSES ONLY Ondansetron HCl (Zofran Injection) 4 mg IVPUSH Q6H PRN PRN Reason: NAUSEA AND/OR VOMITING Pantoprazole Sodium (Protonix -) 40 mg PO DAILY [facility] Last Admin: 12/30/18 09:22 Dose: 40 mg Polyethylene Glycol (Miralax (For Daily Use) -) 17 gm PO DAILY [facility] Last Admin: 12/30/18 09:59 Dose: 17 gm Potassium Chloride (K-Dur -) 10 meq PO DAILY [facility] Last Admin: 12/30/18 09:22 Dose: 10 meq Prednisolone Acetate (Pred Forte 1% -) 1 drop OS BID [facility] Last Admin: 12/30/18 11:32 Dose: Not Given Prednisone (Deltasone -) 35 mg PO DAILY [facility] Rivaroxaban (Xarelto) 20 mg PO DAILY@1800 [facility] Last Admin: 12/29/18 17:42 Dose: 20 mg Silver Sulfadiazine (Silvadene -) 1 applic TP BID [facility] Last Admin: 12/30/18 10:33 Dose: 1 applic Simethicone (Mylicon -) 80 mg PO BID [facility] Last Admin: 12/30/18 09:22 Dose: 80 mg Zolpidem Tartrate (Ambien -) 5 mg PO HS PRN PRN Reason: INSOMNIA Last Admin: 12/29/18 22:06 Dose: 5 mg - Objective Vital Signs: Vital Signs Temperature 98.9 F 12/30/18 06:00 Pulse Rate 90 12/30/18 06:00 Respiratory Rate 18 12/30/18 06:00 Blood Pressure 112/60 12/30/18 06:00 O2 Sat by Pulse Oximetry (%) 98 12/29/18 21:00 Constitutional: Yes: No Distress, Calm Eyes: Yes: Conjunctiva Clear HENT: Yes: Atraumatic Neck: Yes: Supple Cardiovascular: Yes: Regular Rate and Rhythm Respiratory: Yes: CTA Bilaterally Gastrointestinal: Yes: Soft. No: Tenderness Genitourinary: No: CVA Tenderness - Left, CVA Tenderness - Right, Hematuria Musculoskeletal: No: Joint Stiffness, Joint Swelling Extremities: Yes: Other (RUE and RLE wounds dressed no bleed). No: Cold, Cool, Cyanosis Edema: Yes (pedal bilat) Integumentary: No: Rash Neurological: Yes: WNL, Alert, Oriented ...Motor Strength: WNL Psychiatric: Yes: WNL, Alert, Oriented. No: Agitated, Suicidal Ideation Labs: CBC, BMP 12/30/18 09:47 12/30/18 09:47 INR, PTT INR 1.75 (0.83-1.09) H 12/27/18 02:43 - ....Imaging Other: Report Reviewed Assessment/Plan The patient is a 83 year old female, with a significant past medical history of CHF, COPD, Afib (on Xarelto), CAD, HTN, and DM s/p abscess to the right upper arm with purulent discharge. s/p thigh hematoma drained in the past surgery f/u s/p drainage IV ATB per ID f/u labs and cultures falls decubs DVT Pfx d.w pt and staff.
--- NOTE | 2018-12-30 13:12 | PN ---
Progress Note (short form) - Note Progress Note: no complaints remains mildly tachypneic which she says is her baseline Vital Signs Period Temp Pulse Resp BP Sys/Garcia Pulse Ox Last 24 Hr 97.6 F-99 F 89-92 18-18 110-126/58-64 98 cor-rrr lungs decreased bs at bases abd soft,nt ext trace edema, shallow wound RLE, no erythema of the legs dressing removed from the right arm, no purulence, minimal erythema CBC, BMP 12/30/18 09:47 12/30/18 09:47 Microbiology 12/27/18 02:43 Blood - Peripheral Venous Blood Culture - Preliminary NO GROWTH OBTAINED AFTER 72 HOURS, INCUBATION TO CONTINUE FOR 2 DAYS. 12/27/18 02:43 Blood - Peripheral Venous Blood Culture - Preliminary NO GROWTH OBTAINED AFTER 72 HOURS, INCUBATION TO CONTINUE FOR 2 DAYS. 12/27/18 13:57 Arm - Right Upper Gram Stain - Final 12/27/18 13:57 Arm - Right Upper Wound Culture - Final Proteus Mirabilis 12/27/18 01:59 Elbow - Right Gram Stain - Final 12/27/18 01:59 Elbow - Right Wound Culture - Final Proteus Mirabilis a/p s/p drainage elbow abscess- continue ceftriaxone, can switch to po keflex 500 tid for 7 days when ready for discharge home cellulitis bilateral lower extremities improved s/p evacuation of RLE hematoma COPD on prednisone NIDDM vancomycin allergy anemia- s/p transfusion please call back if needed Problem List - Problems (1) Abscess Code(s): L02.91 - CUTANEOUS ABSCESS, UNSPECIFIED (2) Cellulitis Code(s): L03.90 - CELLULITIS, UNSPECIFIED (3) COPD (chronic obstructive pulmonary disease) Code(s): J44.9 - CHRONIC OBSTRUCTIVE PULMONARY DISEASE, UNSPECIFIED Qualifiers: COPD type: unspecified COPD Qualified Code(s): J44.9 - Chronic obstructive pulmonary disease, unspecified (4) DM type 2 (diabetes mellitus, type 2) Code(s): E11.9 - TYPE 2 DIABETES MELLITUS WITHOUT COMPLICATIONS 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
[2018-12-30 14:34] LABS: ANISOCYTOSIS 1+
[2018-12-30 14:35] LABS: PLATELET ESTIMATE ADEQUATE
[2018-12-30] MEDS: RIVAROXABAN 20 MG TABLET PO SCH (17:12)
[2018-12-30] MEDS ORDERED: SODIUM PHOSPHATE/NA BIPHOS 133 ML ENEMA RC ONE (17:30)
[2018-12-30] MEDS ORDERED: SENNOSIDES 8.6MG TABLET (FP) PO ONE (20:00)
[2018-12-30] MEDS: MONTELUKAST NA 10 MG TABLET PO SCH (22:05)
[2018-12-30] MEDS: MELATONIN 5 MG TABLETS PO SCH (22:05)
[2018-12-30] MEDS: ACETAMINOPHEN 325 MG TABLET (FP) PO PRN (22:05)
[2018-12-31] MEDS: ERYTHROMYCIN 0.5% OPHTHALMIC OINTMENT 3.5 GM TUBE OU SCH ×3 (06:16→22:16)
[2018-12-31] MEDS: POLYETHYLENE GLYCOL 3350 119 GM BTL PO SCH ×4 (06:17→22:17)
[2018-12-31] MEDS: INSULIN SLIDING SCALE (NOVOLOG) 1 VIAL SQ SCH ×4 (06:17→22:16)
[2018-12-31] MEDS: metFORMIN HCL 500 MG TABLET (FP) PO SCH ×2 (06:18→17:30)
[2018-12-31] MEDS: ALBUTEROL SO4 0.083% IH SOL 2.5 MG/3 ML VIAL.NEB. NEB PRN ×3 (06:30→16:24)
[2018-12-31] MEDS: ACETAMINOPHEN 325 MG TABLET (FP) PO PRN ×3 (06:42→22:18)
[2018-12-31 07:15] LABS: BASO % 0.6 % (0-2.0); EOS % 0.9 % (0-4.5); HEMATOCRIT 32.1 % (32.4-45.2); HEMOGLOBIN 10.1 GM/dL (10.7-15.3); LYMPH % 10.6 % (8-40); MCH 24.6 pg (25.7-33.7); MCHC 31.6 g/dl (32.0-36.0); MEAN CELL VOLUME 77.8 fl (80-96); MONO % 11.2 % (3.8-10.2); NEUT % 76.7 % (42.8-82.8); PLATELET COUNT 307 K/MM3 (134-434); RBC 4.12 M/mm3 (3.60-5.2); RDW 23.7 % (11.6-15.6); WHITE BLOOD COUNT 6.5 K/mm3 (4.0-10.0)
[2018-12-31 07:36] LABS: ALBUMIN 2.3 g/dl (3.4-5.0); BILIRUBIN,TOTAL 0.6 mg/dL (0.2-1); CALCIUM 9.3 mg/dL (8.5-10.1); CREATININE 0.3 mg/dL (0.55-1.3); POTASSIUM 3.1 mmol/L (3.5-5.1)
[2018-12-31] MEDS ORDERED: PT OWN MED DRAWER 7, Y5N ONE ×2 (09:49→11:00)
[2018-12-31] MEDS ORDERED: DEXTROSE 5%-WATER - 50 ML IVPB ONE (09:50)
[2018-12-31] MEDS ORDERED: cefTRIAXone SODIUM 1 GM VIAL ONE (09:50)
--- NOTE | 2018-12-31 09:53 | PN ---
Progress Note, Physician Chief Complaint: in bed awake alert NAD No new c/o wounds dressed RUE RLE no bleed no pain H&H stable; seen by ID - will switch to po ATB when ready for DC home - Current Medication List Current Medications: Active Medications Acetaminophen (Tylenol -) 650 mg PO Q6H PRN PRN Reason: PAIN Last Admin: 12/31/18 06:42 Dose: 650 mg Acetaminophen/Codeine Phosphate (Tylenol # 3 -) 1 tab PO Q6H PRN PRN Reason: PAIN LEVEL 6-10 Last Admin: 12/29/18 22:25 Dose: 1 tab Albuterol Sulfate (Ventolin 0.083% Nebulizer Soln -) 1 amp NEB Q4H PRN PRN Reason: ASTHMA Last Admin: 12/31/18 06:30 Dose: 1 amp Ascorbic Acid (Vitamin C -) 500 mg PO DAILY [facility] Last Admin: 12/30/18 09:23 Dose: 500 mg Aspirin (Ecotrin -) 81 mg PO DAILY [facility] Last Admin: 12/30/18 09:22 Dose: 81 mg Bacitracin (Bacitracin -) 1 applic TP BID [facility] Last Admin: 12/30/18 22:07 Dose: 1 applic Budesonide/Formoterol Fumarate (Symbicort 160/4.5mcg -) 1 puff IH BID [facility] Last Admin: 12/30/18 22:06 Dose: 1 puff Cholecalciferol (Vitamin D3 -) 1,000 unit PO DAILY [facility] Last Admin: 12/30/18 09:23 Dose: 1,000 unit Collagenase (Santyl -) 1 applic TP DAILY [facility]; Protocol Last Admin: 12/30/18 10:45 Dose: 1 applic Docusate Sodium (Colace -) 300 mg PO DAILY [facility] Last Admin: 12/30/18 09:22 Dose: 300 mg Erythromycin (Erythromycin 0.5% Eye Ointment) 1 applic OU TID [facility] Last Admin: 12/31/18 06:16 Dose: Not Given Escitalopram Oxalate (Lexapro -) 5 mg PO DAILY [facility] Last Admin: 12/30/18 09:34 Dose: 5 mg Fluticasone Propionate (Flonase -) 1 spray NS DAILY [facility] Last Admin: 12/30/18 11:32 Dose: Not Given Furosemide (Lasix -) 80 mg PO DAILY [facility] Last Admin: 12/30/18 09:22 Dose: 80 mg Ceftriaxone Sodium 1 gm/ (Dextrose) 50 mls @ 100 mls/hr IVPB DAILY [facility]; Protocol Last Admin: 12/30/18 09:21 Dose: 100 mls/hr Insulin Aspart (Novolog Vial Sliding Scale -) 1 vial SQ ACHS [facility]; Protocol Last Admin: 12/31/18 06:17 Dose: Not Given Lorazepam (Ativan -) 0.5 mg PO BID [facility] Last Admin: 12/30/18 22:07 Dose: 0.5 mg Melatonin (Melatonin) 10 mg PO HS [facility] Last Admin: 12/30/18 22:05 Dose: 10 mg Metformin HCl (Glucophage -) 500 mg PO BIDAC [facility] Last Admin: 12/31/18 06:18 Dose: 500 mg Metoprolol Succinate (Toprol Xl -) 25 mg PO DAILY [facility] Last Admin: 12/30/18 09:22 Dose: 25 mg Montelukast Sodium (Singulair -) 10 mg PO HS [facility] Last Admin: 12/30/18 22:05 Dose: 10 mg Ondansetron HCl (Zofran Injection) 4 mg IVPUSH Q6H PRN PRN Reason: NAUSEA AND/OR VOMITING Pantoprazole Sodium (Protonix -) 40 mg PO DAILY [facility] Last Admin: 12/30/18 09:22 Dose: 40 mg Polyethylene Glycol (Miralax (For Daily Use) -) 17 gm PO DAILY [facility] Last Admin: 12/30/18 09:59 Dose: 17 gm Polyethylene Glycol (Miralax (For Daily Use) -) 17 gm PO TID [facility] Last Admin: 12/31/18 06:17 Dose: Not Given Potassium Chloride (K-Dur -) 10 meq PO DAILY [facility] Last Admin: 12/30/18 09:22 Dose: 10 meq Potassium Chloride (K-Dur -) 20 meq PO ONCE ONE Stop: 12/31/18 09:53 Prednisolone Acetate (Pred Forte 1% -) 1 drop OS BID [facility] Last Admin: 12/30/18 22:07 Dose: Not Given Prednisone (Deltasone -) 35 mg PO DAILY [facility] Rivaroxaban (Xarelto) 20 mg PO DAILY@1800 [facility] Last Admin: 12/30/18 17:12 Dose: 20 mg Silver Sulfadiazine (Silvadene -) 1 applic TP BID [facility] Last Admin: 12/30/18 22:06 Dose: 1 applic Simethicone (Mylicon -) 80 mg PO BID [facility] Last Admin: 12/30/18 22:05 Dose: 80 mg Zolpidem Tartrate (Ambien -) 5 mg PO HS PRN PRN Reason: INSOMNIA Last Admin: 12/29/18 22:06 Dose: 5 mg - Objective Vital Signs: Vital Signs Temperature 98.9 F 12/31/18 01:12 Pulse Rate 79 12/31/18 01:12 Respiratory Rate 18 12/31/18 01:12 Blood Pressure 112/54 L 12/31/18 01:12 O2 Sat by Pulse Oximetry (%) 95 12/30/18 21:00 Constitutional: Yes: No Distress, Calm Eyes: Yes: Conjunctiva Clear HENT: Yes: Atraumatic Neck: Yes: Supple Cardiovascular: Yes: Regular Rate and Rhythm Respiratory: Yes: CTA Bilaterally Gastrointestinal: Yes: Soft. No: Tenderness Genitourinary: No: CVA Tenderness - Left, CVA Tenderness - Right Musculoskeletal: No: Joint Stiffness, Joint Swelling Extremities: No: Cold, Cool, Cyanosis Edema: No Integumentary: No: Rash, Venous Stasis Changes Neurological: Yes: WNL, Alert, Oriented ...Motor Strength: WNL Psychiatric: Yes: WNL, Alert, Oriented. No: Agitated, Suicidal Ideation Labs: CBC, BMP 12/31/18 06:00 12/31/18 06:00 INR, PTT INR 1.75 (0.83-1.09) H 12/27/18 02:43 - ....Imaging Other: Report Reviewed Assessment/Plan The patient is a 83 year old female, with a significant past medical history of CHF, COPD, Afib (on Xarelto), CAD, HTN, and DM s/p abscess to the right upper arm with purulent discharge. s/p thigh hematoma drained in the past surgery f/u s/p drainage IV ATB per ID f/u labs and cultures falls decubs DVT Pfx d.w pt and staff.
[2018-12-31] MEDS: PANTOPRAZOLE 40 MG TABLET (FP) PO SCH (09:57)
[2018-12-31] MEDS: SIMETHICONE 80 MG TAB.CHEW (FP) PO SCH ×2 (09:57→22:19)
[2018-12-31] MEDS: CEFTRIAXONE 1 GM in DEXTROSE 5%-WATER - 50 ML IVPB SCH (09:57)
[2018-12-31] MEDS: ASPIRIN COATED 81 MG TABLET.EC PO SCH (09:58)
[2018-12-31] MEDS: metoPROLOL SUCCINATE 25 MG TAB.SR.24H (FP) PO SCH (09:58)
[2018-12-31] MEDS: FUROSEMIDE 40 MG TABLET (FP) PO SCH (09:58)
[2018-12-31] MEDS: ASCORBIC ACID 500 MG TABLET (FP) PO SCH (09:58)
[2018-12-31] MEDS: CHOLECALCIFEROL (VITAMIN D3) 1,000 UNIT TABLET (FP) PO SCH (09:58)
[2018-12-31] MEDS: POTASSIUM CHLORIDE TABS 10 MEQ TABLET.ER (FP) PO SCH (09:59)
[2018-12-31] MEDS: ESCITALOPRAM OXALATE 10 MG TABLET (FP) PO SCH (09:59)
[2018-12-31] MEDS: LORazepam 0.5 MG TABLET PO SCH ×2 (10:00→22:19)
[2018-12-31] MEDS: BUDESONIDE/FORMETEROL FUMARATE 160/4.5 mcg INHALER IH SCH ×2 (10:04→22:19)
[2018-12-31] MEDS: prednisoLONE ACETATE 1% OPHTH SUSP 5 ML BOTTLE OS SCH ×2 (10:05→22:17)
[2018-12-31] MEDS: DOCUSATE SODIUM 100 MG CAPSULE (FP) PO SCH (10:05)
[2018-12-31] MEDS: FLUTICASONE PROP 0.05% 16 GM NASAL SPRAY NS SCH (10:06)
[2018-12-31] MEDS ORDERED: POTASSIUM CHLORIDE TABS 20 MEQ TABLET.ER (FP) PO ONE (10:30)
[2018-12-31] MEDS: COLLAGENASE CLOSTRIDIUM HIST. 30 GRAMS TUBE TP SCH (10:35)
[2018-12-31] MEDS: BACITRACIN 15 GM TUBE TOPICAL OINTMENT TP SCH ×2 (10:36→22:19)
[2018-12-31] MEDS: SILVER SULFADIAZINE 1% TOP CREAM 400 GM JAR TP SCH ×2 (10:36→22:19)
[2018-12-31] MEDS: predniSONE 10 MG TABLET (UD) PO SCH (11:16)
[2018-12-31] MEDS: ACETYLCYSTEINE 20% 200MG/ML 4 ML VIAL *FOR ORAL / INH USE ONLY PO SCH (15:44)
[2018-12-31] MEDS: RIVAROXABAN 20 MG TABLET PO SCH (17:30)
[2018-12-31] MEDS ORDERED: ZOLPIDEM TARTRATE 5 MG TABLET PO PRN (21:45)
[2018-12-31] MEDS: MONTELUKAST NA 10 MG TABLET PO SCH (22:18)
[2018-12-31] MEDS: MELATONIN 5 MG TABLETS PO SCH (22:18)
[2019-01-01] MEDS ORDERED: DEXTROSE 50%-WATER 25 GM/50 ML DISP.SYRIN ONE (06:01)
[2019-01-01] MEDS: ERYTHROMYCIN 0.5% OPHTHALMIC OINTMENT 3.5 GM TUBE OU SCH ×2 (06:08→15:14)
[2019-01-01] MEDS: POLYETHYLENE GLYCOL 3350 119 GM BTL PO SCH ×2 (06:08→15:14)
[2019-01-01] MEDS: INSULIN SLIDING SCALE (NOVOLOG) 1 VIAL SQ SCH ×2 (06:09→11:50)
[2019-01-01] MEDS ORDERED: DEXTROSE 50%-WATER 25 GM/50 ML DISP.SYRIN IVPUSH ONE (06:10)
[2019-01-01] MEDS: metFORMIN HCL 500 MG TABLET (FP) PO SCH (06:46)
[2019-01-01 06:59] LABS: BASO % 0.5 % (0-2.0); EOS % 0.9 % (0-4.5); HEMOGLOBIN 10.2 GM/dL (10.7-15.3); LYMPH % 14.9 % (8-40); MCH 24.4 pg (25.7-33.7); MEAN CELL VOLUME 78.6 fl (80-96); MEAN PLT VOLUME 6.8 fl (7.5-11.1); MONO % 8.3 % (3.8-10.2); NEUT % 75.4 % (42.8-82.8); PLATELET COUNT 317 K/MM3 (134-434); RDW 23.5 % (11.6-15.6); WHITE BLOOD COUNT 5.3 K/mm3 (4.0-10.0)
[2019-01-01 07:13] LABS: CALCIUM 9.5 mg/dL (8.5-10.1); CREATININE 0.4 mg/dL (0.55-1.3); POTASSIUM 4.4 mmol/L (3.5-5.1)
[2019-01-01] MEDS: ALBUTEROL SO4 0.083% IH SOL 2.5 MG/3 ML VIAL.NEB. NEB PRN ×2 (07:20→11:28)
[2019-01-01] MEDS ORDERED: DEXTROSE 5%-WATER - 50 ML IVPB ONE (10:46)
[2019-01-01] MEDS ORDERED: cefTRIAXone SODIUM 1 GM VIAL ONE (10:46)
[2019-01-01] MEDS: metoPROLOL SUCCINATE 25 MG TAB.SR.24H (FP) PO SCH (10:48)
[2019-01-01] MEDS: FUROSEMIDE 40 MG TABLET (FP) PO SCH (10:48)
[2019-01-01] MEDS: LORazepam 0.5 MG TABLET PO SCH (10:48)
[2019-01-01] MEDS: ACETAMINOPHEN 325 MG TABLET (FP) PO PRN (10:48)
[2019-01-01] MEDS: PANTOPRAZOLE 40 MG TABLET (FP) PO SCH (10:49)
[2019-01-01] MEDS: ASCORBIC ACID 500 MG TABLET (FP) PO SCH (10:49)
[2019-01-01] MEDS: ASPIRIN COATED 81 MG TABLET.EC PO SCH (10:49)
[2019-01-01] MEDS: SIMETHICONE 80 MG TAB.CHEW (FP) PO SCH (10:49)
[2019-01-01] MEDS: ESCITALOPRAM OXALATE 10 MG TABLET (FP) PO SCH (10:49)
[2019-01-01] MEDS: CHOLECALCIFEROL (VITAMIN D3) 1,000 UNIT TABLET (FP) PO SCH (10:49)
[2019-01-01] MEDS: POTASSIUM CHLORIDE TABS 10 MEQ TABLET.ER (FP) PO SCH (10:49)
[2019-01-01] MEDS: DOCUSATE SODIUM 100 MG CAPSULE (FP) PO SCH (10:49)
[2019-01-01] MEDS: predniSONE 10 MG TABLET (UD) PO SCH (10:50)
[2019-01-01] MEDS: CEFTRIAXONE 1 GM in DEXTROSE 5%-WATER - 50 ML IVPB SCH (10:51)
[2019-01-01] MEDS: BACITRACIN 15 GM TUBE TOPICAL OINTMENT TP SCH (10:51)
[2019-01-01] MEDS: COLLAGENASE CLOSTRIDIUM HIST. 30 GRAMS TUBE TP SCH (10:52)
[2019-01-01] MEDS: SILVER SULFADIAZINE 1% TOP CREAM 400 GM JAR TP SCH (10:52)
[2019-01-01] MEDS: BUDESONIDE/FORMETEROL FUMARATE 160/4.5 mcg INHALER IH SCH (10:52)
[2019-01-01] MEDS: prednisoLONE ACETATE 1% OPHTH SUSP 5 ML BOTTLE OS SCH (11:28)
[2019-01-01] MEDS: FLUTICASONE PROP 0.05% 16 GM NASAL SPRAY NS SCH (11:28)
--- NOTE | 2019-01-01 12:19 | DS ---
Physical Examination Vital Signs: Vital Signs Temperature 97.8 F 01/01/19 08:56 Pulse Rate 91 H 01/01/19 08:56 Respiratory Rate 20 01/01/19 08:56 Blood Pressure 118/53 L 01/01/19 08:56 O2 Sat by Pulse Oximetry (%) 96 12/31/18 21:00 Findings/Remarks: in bed awake alert NAD afebrile VSS no new c/o; RLE and RUE dressings on no bleed no pain labs stable - cleared by surgery and ID for DC home. d/w dr Zabala: no further surgical intervention planned this admission, RLE eval for skin graft outpt in clinic dw pt Constitutional: Yes: No Distress, Calm Eyes: Yes: Conjunctiva Clear HENT: Yes: Atraumatic Neck: Yes: Supple Cardiovascular: Yes: Regular Rate and Rhythm Respiratory: Yes: CTA Bilaterally Gastrointestinal: Yes: Soft. No: Tenderness Musculoskeletal: No: Joint Stiffness, Joint Swelling Extremities: Yes: Other (RUE RLE wounds dressed no bleed). No: Cold, Cool, Cyanosis Edema: No Integumentary: No: Rash, Venous Stasis Changes Neurological: Yes: WNL, Alert, Oriented. No: Seizure, Tremors ...Motor Strength: WNL Psychiatric: Yes: WNL, Alert, Oriented. No: Agitated, Suicidal Ideation Labs: CBC, BMP 01/01/19 06:00 01/01/19 06:00 Discharge Summary Reason For Visit: ABSCESS Current Active Problems Abscess (Acute) Allergy to antibiotic (Acute) Cellulitis (Acute) Procedures: Principal: 83 YOF NHR ASHD falls OA RLE wound, admitted with RUE abscess s/p debridement by surgery, IV antibiotics per ID Other Procedures: improved after debridement and antibiotics wound clean healing ;. was also anemia dropped H&H postop received 1 U PRBC then Hg 10 stable; DC to NH anemia w/u outpt Hospital Course: improved with above, DC to NH; wound care per surgery; f/u with surgery and vascular sx in 1-2 weeks; falls decubs PFX Condition: Improved - Instructions Diet, Activity, Other Instructions: f/u PCP< surgery and vascular surgery in 1-2 weeks; falls decubs PFX; anemia w/u outpt; pulmonary f/u for COPD Dr. Michel Discharge Instructions Dear TYLER ASKEW, Post Operative Instructions Physical activity Resume your normal everyday activity as tolerated no heavy lifting or exercise until seen by your surgeon. You may walk unlimited amounts of and climb stairs. You may resume driving the car when you feel safe and comfortable behind the wheel. Wound care Change packing (saline damp to dry 4x4's) twice daily (morning and evening). Cover with dry 4x4's and ABD pad. Do not shower until cleared by your surgeon. Sponge bathe only. Diet There are no dietary restrictions. Eat healthy, high-fiber foods. Drink 6 to 8 glasses of liquid each day. This will assist in keeping your bowels are regular. Pain management You may take Tylenol or acetaminophen or Ibuprofen (for example, Motrin, Advil etc.). Any pain prescription medication ordered should be taken as prescribed for moderate to severe pain. Stool softeners are recommended if taking narcotic pain medications as constipation is a common side effect of narcotic pain medications. Call Dr. Michel for any of the following: Severe pain not relieved by medication Fever of 101 or higher Excessive bleeding or drainage on dressing Inability to urinate Call the office at [phone] for a post operative appointment in 7 - 10 days. Referrals: Beltran Michel MD [Staff Physician] - Dinesh Zabala DO [Staff Physician] - David Brown MD [Primary Care Provider] - Disposition: [facility] - Home Medications Comprehensive Discharge Medication List: Ambulatory Orders Acetylcysteine Po/INH 20% [Mucomyst 20 Oral / INH Use Only*] 5 ml PO BID Acidoph/L.bulg/Bif.b/S.thermop [Imani-Bid Caplet] 1 each PO TID 11/14/18 Albuterol 0.083% Nebulizer Isamar [Ventolin 0.083% Nebulizer Soln -] 1 amp NEB DAILY PRN 11/14/18 Benzocaine/Menthol [Cepacol Sore Throat Lozenge] 1 each PO Q2H PRN 11/14/18 Budesonide/Formeterol Fumarate [SYMBICORT 160/4.5mcg -] 1 inh PO BID 11/14/18 Calcium Citrate/Vitamin D3 [[place] Calcium + D Tablet] 2 tab PO DAILY 11/14/18 Cholecalciferol (Vitamin D3) [Vitamin D3] 1,000 unit PO DAILY 11/14/18 Docusate Sodium [Colace] 300 mg PO DAILY 11/14/18 Escitalopram Oxalate [Lexapro -] 5 mg PO DAILY 11/14/18 Fluticasone Propionate [Flovent Diskus] 50 mcg IH DAILY 11/14/18 Folic Acid/Multivit-Min/Lutein [Multi-Vitamin Gummies] 1 each PO DAILY 11/14/18 Furosemide [Lasix -] 80 mg PO DAILY 11/14/18 Insulin (Novolog) [Novolog -] 0 units SQ BID 11/14/18 Lorazepam 0.5 mg PO BID 11/14/18 Melatonin 10 mg PO HS 11/14/18 Metoprolol Succinate 25 mg PO DAILY 11/14/18 Montelukast Na [Singulair -] 10 mg PO HS 11/14/18 Nutritional Supplement [Hi-Eliezer] 4 oz PO DAILY 11/14/18 Omeprazole 20 mg PO DAILY 11/14/18 Polyethylene Glycol 3350 [Miralax 119 gm Btl -] 17 gm PO DAILY 11/14/18 Potassium Chloride [K-Dur -] 10 meq PO DAILY 11/14/18 Prednisolone 1% Ophthalmic [Pred Forte 1% -] 5 ml OS BID 11/14/18 Rivaroxaban [Xarelto -] 20 mg PO HS 11/14/18 Simethicone 80 mg PO BID 11/14/18 Zolpidem Tartrate 10 mg PO HS 11/14/18 metFORMIN HCL [Metformin HCl] 500 mg PO BID 11/14/18 Acetaminophen [Tylenol .Regular Strength -] 650 mg PO Q6H PRN tablet 11/30/18 Bacitracin - [Bacitracin Topical Ointment -] 1 applic TP BID tube 11/30/18 Fluticasone Prop 0.05% Nasal [Flonase -] 1 spray NS DAILY spray 11/30/18 Pantoprazole Sodium [Protonix -] 40 mg PO DAILY tablet.ec 11/30/18 Aspirin [Aspirin EC] 81 mg PO DAILY 12/08/18 Metolazone 1 tab PO ASDIR 12/08/18 Silver Sulfadiazine 1% Top Cr [Silvadene -] 1 applic TP BID 12/08/18 Ascorbic Acid [Vitamin C] 500 mg PO DAILY 12/27/18 Erythromycin 0.5% Eye Ointment [Erythromycin 0.5% Eye Ointment -] 1 applic TID 12/27/18 Escitalopram Oxalate [Lexapro -] 5 mg PO DAILY 12/27/18 Krill/Om3/Dha/Epa/Om6/Lip/Astx [Krill Oil 1,000 mg Softgel] 1 each PO DAILY LORazepam [Ativan] 0.5 mg PO BID 12/27/18 predniSONE [Deltasone -] 15 mg PO DAILY 12/27/18
[2019-01-01 14:45] VITALS: BP 108/57; PULSE 75; TEMP 98.7
== END 2019-01-01 15:25 | DRG 603 ==
LOC: JER 01:25 → JERBED 04:19 → J6S 06:54
PROVIDERS: ADMIT Specialist; ATTEND Specialist
PROC: 0J9G0ZX Drainage of Right Lower Arm Subcutaneous Tissue and Fascia, Open Approach, Diagnostic (ICD-10-PCS; principal; 2018-12-27 14:30)
PROC: 30233N1 Transfusion of Nonautologous Red Blood Cells into Peripheral Vein, Percutaneous Approach (ICD-10-PCS; 2018-12-29)
DX: L02.413 Cutaneous abscess of right upper limb (principal); L03.115 Cellulitis of right lower limb; L03.116 Cellulitis of left lower limb; J44.9 Chronic obstructive pulmonary disease, unspecified; I48.91 Unspecified atrial fibrillation; I10 Essential (primary) hypertension; S80.11XA Contusion of right lower leg, initial encounter; I50.9 Heart failure, unspecified; I25.10 Atherosclerotic heart disease of native coronary artery without angina pectoris; D64.9 Anemia, unspecified; Z88.1 Allergy status to other antibiotic agents; E11.9 Type 2 diabetes mellitus without complications; G47.00 Insomnia, unspecified; W19.XXXA Unspecified fall, initial encounter; Y93.9 Activity, unspecified; Y92.89 Other specified places as the place of occurrence of the external cause; Y99.9 Unspecified external cause status
CPT/HCPCS: 36415; 36430; 36511; 71045-TC-FY; 73070-TC-RT-FY; 80048; 80053; 82550; 82607; 82728; 82962; 83540; 84443; 85025; 85027; 85610; 85651; 86140; 86850; 86900; 86901; 86922; 87040; 87070; 87186; 87205; 93005; 93010; 94640; 94760; 97116-GP; 97161-GP; 99283-25; J0878; J7030; P9038; P9058

== ENCOUNTER 2019-04-05 10:01 | Inpatient (IN) | payer OTHER ==
--- NOTE | 2019-04-05 10:35 | PDOC ---
History of Present Illness - General Chief Complaint: Blood Transfusion Stated Complaint: SENT BY PCP FOR BLOOD TRANSFUSION Time Seen by Provider: 04/05/19 10:13 - History of Present Illness Initial Comments: 04/05/19 11:28 83 y/o F w PMHx CHF, COPD, afib (on xarelto), CAD, HTN, and DM and recent right lower leg wound from previously evacuated hematoma/abscess sent to ED from [place] ( [facility]) by Dr. Brown for blood transfusion after her Hg was found to be 6.8 yesterday. Patient feels fatigued and sob but according to her this is her baseline and she doesn't feel any different than usual. No source for the anemia has been identified at this time. PCP: Dr. Brown. DNR/DNI hgb 7 on 04/03>6.8 on 04/04 Past History - Past Medical History Allergies/Adverse Reactions: Allergies Allergy/AdvReac Type Severity Reaction Status Date / Time vancomycin Allergy Severe Rash Verified 04/05/19 10:31 dextromethorphan Allergy Intermediate CONGESTION Verified 04/05/19 10:31 [From Mucinex DM] guaifenesin [From Mucinex DM] Allergy Intermediate CONGESTION Verified 04/05/19 10:31 pollen extracts Allergy Intermediate CONGESTION Verified 04/05/19 10:31 ragweed pollen Allergy Intermediate CONGESTION Verified 04/05/19 10:31 ampicillin Allergy Mild Rash Verified 04/05/19 10:31 Home Medications: Ambulatory Orders Albuterol 0.083% Nebulizer Isamar [Ventolin 0.083%] 1 neb NEB BID 04/05/19 Ascorbate Calcium [Vitamin C] 500 mg PO DAILY 04/05/19 Aspirin [ASA -] 81 mg PO DAILY 04/05/19 Budesonide/Formeterol Fumarate [SYMBICORT 160/4.5mcg -] 2 inh PO BID 04/05/19 Cholecalciferol (Vitamin D3) [Cholecalciferol] 1,000 units PO DAILY 04/05/19 Collagenase Clostridium Hist. [Santyl] 1 applic TP DAILY 04/05/19 Docusate Sodium [Colace] 3 tab PO DAILY 04/05/19 Escitalopram Oxalate [Lexapro -] 20 mg PO DAILY 04/05/19 Fluticasone Propionate [Flovent Diskus] 1 spray IH BID 04/05/19 Furosemide [Lasix] 80 mg PO DAILY 04/05/19 Insulin (LOG) Aspart [NovoLOG -] 0 units SQ TID 04/05/19 Melatonin/Pyridoxine HCl (B6) [Melatonin 5 mg Tablet] 2 each PO HS 04/05/19 Metformin HCl [Glucophage] 500 mg PO BID 04/05/19 Metolazone 2.5 mg PO ASDIR 04/05/19 Metoprolol Succinate 25 mg PO DAILY 04/05/19 Montelukast Sodium [Singulair] 10 mg PO HS 04/05/19 Nystatin Cream [Mycostatin] 1 applic TP BID 04/05/19 Nystatin Ointment [Mycostatin Ointment -] 1 applic TP TID 04/05/19 Omeprazole 20 mg PO DAILY 04/05/19 Oxymetazoline 0.05% Nasal Soln [Afrin -] 2 spray NS PRN 04/05/19 Polyethylene Glycol 3350 [Miralax (For Daily Use) -] 17 gm PO DAILY 04/05/19 Potassium Chloride 10 meq PO BID 04/05/19 Prednisone 35 mg PO DAILY 04/05/19 Rivaroxaban [Xarelto -] 20 mg PO HS 04/05/19 Sennosides [Senno] 2 tab PO HS 04/05/19 Silver Sulfadiazine 1% Top Cr [Silvadene] 1 applic TP BID 04/05/19 Simethicone 80 mg PO BID 04/05/19 Triamcinolone 0.1% Cream [Aristocort] 1 applic TP BID 04/05/19 Zolpidem Tartrate [Ambien] 5 mg PO HS 04/05/19 Anemia: No Asthma: No Cardiac Disorders: Yes (tachycardia, angina pectoris) CVA: No COPD: Yes (uses O2 prn) CHF: Yes Dementia: No Diabetes: Yes (prednisone induced) GI Disorders: Yes (GERD, CONSTIPATION) Disorders: No HTN: Yes Hypercholesterolemia: Yes Liver Disease: No Psychiatric Problems: Yes (Major depressive disorder, anxiety, insomnia) Seizures: No Thyroid Disease: No Other medical history: leg wounds, edema, buttocks ulcer - Surgical History Abdominal Surgery: Yes (hernia x 2) Appendectomy: No Cardiac Surgery: No Cholecystectomy: No Lung Surgery: No Neurologic Surgery: Yes Orthopedic Surgery: Yes (RIGHT SHOULDER REPLACEMENT) - Suicide/Smoking/Psychosocial Hx Smoking History: Never smoked Have you smoked in the past 12 months: No Information on smoking cessation initiated: No Hx Alcohol Use: No Drug/Substance Use Hx: No Substance Use Type: None Hx Substance Use Treatment: No Review of Systems - Review of Systems Able to Perform ROS?: Yes Is the patient limited Mosotho proficient: No Constitutional: Yes: Weakness HEENTM: No: Symptoms Reported Respiratory: Yes: SOB at Rest Cardiac (ROS): No: Symptoms Reported ABD/GI: No: Symptoms Reported : No: Symptoms Reported Musculoskeletal: No: Symptoms Reported Integumentary: No: Symptoms Reported Neurological: No: Symptoms reported Hematologic/Lymphatic: Yes: Easy Bruising All Other Systems: Reviewed and Negative *Physical Exam - Vital Signs Last Vital Signs Temp Pulse Resp BP Pulse Ox 98.1 F 80 17 87/54 L 100 04/05/19 10:28 04/05/19 10:28 04/05/19 10:28 04/05/19 10:28 04/05/19 10:28 - Physical Exam General Appearance: Yes: Moderate Distress HEENT: positive: EOMI, JOHANA, Pale Conjunctivae Respiratory/Chest: positive: Lungs Clear, Normal Breath Sounds. negative: Chest Tender, Respiratory Distress Cardiovascular: positive: Regular Rhythm, Regular Rate, S1, S2 Gastrointestinal/Abdominal: positive: Normal Bowel Sounds, Protuberent (non- tender double abdominal hernia, not incarcerated. ), Hernia, Mass. negative: Tender Rectal Exam: negative: melena Extremity: positive: Normal Capillary Refill, Normal Inspection, Normal Range of Motion Integumentary: positive: Normal Color, Dry, Warm Neurologic: positive: Fully Oriented, Alert, Normal Mood/Affect, Normal Response ED Treatment Course - LABORATORY CBC & Chemistry Diagram: 04/06/19 06:30 04/06/19 06:30 - RADIOLOGY Radiology Studies Ordered: Category Date Time Status HEAD CT WITHOUT CONTRAST [CT] Stat CT Scan 04/05/19 10:18 Ordered Medical Decision Making - Medical Decision Making 04/05/19 11:49 Will get labs, type and screen, coags and admit. 2 packed rbc 04/05/19 12:53 EKG unchanged from normal: sinus rhythm with pvcs, bifascicular block. 04/06/19 18:29 Guiac negative. Blood transfusion initiated. Patient Admitted. *DC/Admit/Observation/Transfer Diagnosis at time of Disposition: Encounter for blood transfusion Anemia Qualifiers: Anemia type: iron deficiency - Discharge Dispostion Decision to Admit order: Yes - Referrals - Patient Instructions - Post Discharge Activity
--- NOTE | 2019-04-05 11:14 | PDOC ---
Documentation entered by Adan Peraza SCRIBE, acting as scribe for Erica Singh MD. Erica Singh MD: This documentation has been prepared by the Stu smyth Daniel, SCRIBE, under my direction and personally reviewed by me in its entirety. I confirm that the documentation accurately reflects all work, treatment, procedures, and medical decision making performed by me. Attending Attestation - Resident Resident Name: RosadoAmauri - ED Attending Attestation I have performed the following: I have examined & evaluated the patient, The case was reviewed & discussed with the resident, I agree w/resident's findings & plan - HPI HPI: 04/05/19 10:54 The patient is an 83 year old female with a past medical history of CHF, COPD, afib (on xarelto), CAD, HTN, chronic anemia, and diabetes here today for evaluation of low hemoglobin. The patient was seen by her PCP to have a hemoglobin of 6.8 and was sent to the ED for blood transfusion. She notes that she has fatigue and shortness of breath but no more than her baseline. Patient denies headache, lightheadedness. Denies fever, chills. Denies chest pain. Denies nausea, vomiting, diarrhea, abdominal pain. Allergies: vancomycin, dextromethorphan, guaifenesin, pollen extracts, ragweed pollen, ampicillin PCP: David Brown - Physicial Exam PE: 04/05/19 11:12 Agree with the resident's HPI and PE as documented in the electronic medical record. NAD, EOMI, PERRL, pale conjunctiva, anicteric; oropharynx clear, neck supple. lungs clear, RRR, no murmur. abdomen soft nontender. +soft large ventral/ umbilical hernia. Back nontender. MARTIN x4, no focal neuro deficits. No peripheral edema. normal color for ethnicity, WWP. +stage 1 sacral decub with erythema, left posterior thigh and right anterior lindsey with chronic ulcerations - Medical Decision Making 04/05/19 11:13 Vital Signs Temp Pulse Resp BP Pulse Ox 98.1 F 80 17 87/54 L 100 04/05/19 10:28 04/05/19 10:28 04/05/19 10:28 04/05/19 10:28 04/05/19 10:28 prior notes reviewed VS with hypotension, will recheck after volume repletion basic labs and lytes, H/h with Hb 7.4/24 guaiac neg 2 units prbc transfusion, txs. anemia workup. admit to Dr Brown. 04/05/19 12:32
--- NOTE | 2019-04-05 11:38 | EKG ---
Test Reason : Blood Pressure : / mmHG Vent. Rate : 082 BPM Atrial Rate : 082 BPM P-R Int : 130 ms QRS Dur : 126 ms QT Int : 416 ms P-R-T Axes : -03 -61 066 degrees QTc Int : 486 ms SINUS RHYTHM WITH OCCASIONAL PREMATURE VENTRICULAR COMPLEXES RIGHT BUNDLE BRANCH BLOCK LEFT ANTERIOR FASCICULAR BLOCK BIFASCICULAR BLOCK MODERATE VOLTAGE CRITERIA FOR LVH, MAY BE NORMAL VARIANT POSSIBLE LATERAL INFARCT (CITED ON OR BEFORE 14-NOV-2018) ABNORMAL ECG WHEN COMPARED WITH ECG OF 27-DEC-2018 02:22, PREMATURE VENTRICULAR COMPLEXES ARE NOW PRESENT CRITERIA FOR SEPTAL INFARCT ARE NO LONGER PRESENT Confirmed by ROD LOCO MD ([id number]) on 04/05/2019 11:38:16 AM Referred By: Confirmed By:ROD LOCO MD
[2019-04-05 11:39] LABS: BASO % 0.3 % (0-2.0); EOS % 0.4 % (0-4.5); HEMOGLOBIN 7.4 GM/dL (10.7-15.3); LYMPH % 7.3 % (8-40); MCH 22.9 pg (25.7-33.7); MCHC 30.7 g/dl (32.0-36.0); MEAN CELL VOLUME 74.8 fl (80-96); MEAN PLT VOLUME 7.1 fl (7.5-11.1); MONO % 6.5 % (3.8-10.2); NEUT % 85.5 % (42.8-82.8); PLATELET COUNT 364 K/MM3 (134-434); RBC 3.21 M/mm3 (3.60-5.2); RDW 18.3 % (11.6-15.6); WHITE BLOOD COUNT 10.1 K/mm3 (4.0-10.0)
[2019-04-05 11:49] LABS: INR 1.13 (0.83-1.09); PROTHROMBIN TIME (PATIENT) 13.4 SEC (9.7-13.0)
[2019-04-05 11:52] LABS: ACTIVATED PTT 30.5 SECONDS (25.2-36.5)
[2019-04-05 12:30] LABS: ALBUMIN 2.8 g/dl (3.4-5.0); BILIRUBIN,TOTAL 0.5 mg/dL (0.2-1); BLOOD UREA NITROGEN 42.1 mg/dL (7-18); CALCIUM 9.9 mg/dL (8.5-10.1); CREATININE 0.8 mg/dL (0.55-1.3); TOT PROT 5.8 g/dl (6.4-8.2)
[2019-04-05 12:31] LABS: POTASSIUM 4.1 mmol/L (3.5-5.1)
[2019-04-05] MEDS: POLYETHYLENE GLYCOL 3350 119 GM BTL PO SCH (15:01)
[2019-04-05 15:19] LABS: EPI CELLS 9.3 /HPF (0-5/HPF); HYALINE CASTS 5 /lpf (0-8); PH,URINE >= 9.0 (5.0-8.0); URINE APPEARANCE TURBID; URINE BACTERIA 172.6 /hpf (NEGATIVE); URINE BILIRUBIN NEGATIVE (NEGATIVE); URINE COLOR YELLOW; URINE GLUCOSE (UA) NEGATIVE (NEGATIVE); URINE KETONE NEGATIVE (NEGATIVE); URINE LEUK ESTERASE 2+ (NEGATIVE); URINE NITRITE NEGATIVE (NEGATIVE); URINE PROTEIN NEGATIVE (NEGATIVE); URINE RBC 1 /hpf (0-4); URINE UROBILINOGEN 0.2 mg/dL (0.2-1.0); URINE WBC 5 /hpf (0-5)
[2019-04-05] MEDS ORDERED: metFORMIN HCL 500 MG TABLET (FP) ONE (16:30)
[2019-04-05] MEDS: metFORMIN HCL 500 MG TABLET (FP) PO SCH (16:48)
[2019-04-05 17:21] LABS: RETICULOCYTES 3.29 % (0.5-1.5)
[2019-04-05 18:39] LABS: URINE CRYSTALS AMORPHOUS PHOSPHATES /hpf
[2019-04-05] MEDS: RIVAROXABAN 20 MG TABLET PO SCH (18:47)
--- NOTE | 2019-04-05 19:24 | HP ---
Admitting History and Physical - Primary Care Physician PCP: David Brown - Admission Chief Complaint: Anemia with Hb of 6.8 History of Present Illness: Pt is a resident of [facility] with Hx/o CHF, COPD noticed to have low Hb (7.0, repeated 6.8); pt was referred to ER for transfusion and evaluation. History Source: Patient - Past Medical History Cardiovascular: Yes: CAD, CHF, Deep Vein Thrombosis Pulmonary: Yes: Bronchitis, COPD, Pneumonia Gastrointestinal: Yes: GERD Heme/Onc: Yes: Other (DVT of the right LE) Infectious Disease: Yes: Other Musculoskeletal: Yes: Chronic low back pain Endocrine: Yes: Diabetes Mellitus - Past Surgical History Past Surgical History: Yes: Hernia Repair, Joint Replacement - Smoking History Smoking history: Never smoked Have you smoked in the past 12 months: No - Alcohol/Substance Use Hx Alcohol Use: No History of Substance Use: reports: None - Social History ADL: Support Services 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[employer], 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 History of Recent Travel: No Home Medications - Allergies Allergies/Adverse Reactions: Allergies Allergy/AdvReac Type Severity Reaction Status Date / Time vancomycin Allergy Severe Rash Verified 04/05/19 10:31 dextromethorphan Allergy Intermediate CONGESTION Verified 04/05/19 10:31 [From Mucinex DM] guaifenesin [From Mucinex DM] Allergy Intermediate CONGESTION Verified 04/05/19 10:31 pollen extracts Allergy Intermediate CONGESTION Verified 04/05/19 10:31 ragweed pollen Allergy Intermediate CONGESTION Verified 04/05/19 10:31 ampicillin Allergy Mild Rash Verified 04/05/19 10:31 - Home Medications Home Medications: Ambulatory Orders Albuterol 0.083% Nebulizer Isamar [Ventolin 0.083%] 1 neb NEB BID 04/05/19 Ascorbate Calcium [Vitamin C] 500 mg PO DAILY 04/05/19 Aspirin [ASA -] 81 mg PO DAILY 04/05/19 Budesonide/Formeterol Fumarate [SYMBICORT 160/4.5mcg -] 2 inh PO BID 04/05/19 Cholecalciferol (Vitamin D3) [Cholecalciferol] 1,000 units PO DAILY 04/05/19 Collagenase Clostridium Hist. [Santyl] 1 applic TP DAILY 04/05/19 Docusate Sodium [Colace] 3 tab PO DAILY 04/05/19 Escitalopram Oxalate [Lexapro -] 20 mg PO DAILY 04/05/19 Fluticasone Propionate [Flovent Diskus] 1 spray IH BID 04/05/19 Furosemide [Lasix] 80 mg PO DAILY 04/05/19 Insulin (LOG) Aspart [NovoLOG -] 0 units SQ TID 04/05/19 Melatonin/Pyridoxine HCl (B6) [Melatonin 5 mg Tablet] 2 each PO HS 04/05/19 Metformin HCl [Glucophage] 500 mg PO BID 04/05/19 Metolazone 2.5 mg PO ASDIR 04/05/19 Metoprolol Succinate 25 mg PO DAILY 04/05/19 Montelukast Sodium [Singulair] 10 mg PO HS 04/05/19 Nystatin Cream [Mycostatin] 1 applic TP BID 04/05/19 Nystatin Ointment [Mycostatin Ointment -] 1 applic TP TID 04/05/19 Omeprazole 20 mg PO DAILY 04/05/19 Oxymetazoline 0.05% Nasal Soln [Afrin -] 2 spray NS PRN 04/05/19 Polyethylene Glycol 3350 [Miralax (For Daily Use) -] 17 gm PO DAILY 04/05/19 Potassium Chloride 10 meq PO BID 04/05/19 Prednisone 35 mg PO DAILY 04/05/19 Rivaroxaban [Xarelto -] 20 mg PO HS 04/05/19 Sennosides [Senno] 2 tab PO HS 04/05/19 Silver Sulfadiazine 1% Top Cr [Silvadene] 1 applic TP BID 04/05/19 Simethicone 80 mg PO BID 04/05/19 Triamcinolone 0.1% Cream [Aristocort] 1 applic TP BID 04/05/19 Zolpidem Tartrate [Ambien] 5 mg PO HS 04/05/19 Family Disease History - Family Disease History Family Disease History: Other: Father (: 58: [place]), Mother (: 42: "heart problems"), Brother (1, CAD) Review of Systems Findings/Remarks: Pt is complaining the her whole body hurts since laying down in the bed - Review of Systems Constitutional: denies: Chills, Fever Eyes: denies: Blurred Vision, Double Vision HENT: denies: Ear Discharge, Nasal Congestion, Throat Pain Neck: denies: Pain on Movement, Stiffness Cardiovascular: denies: Chest Pain, Edema, Palpitations Respiratory: reports: Cough (chronic). denies: Hemoptysis, Wheezing ( ocasionally) Gastrointestinal: denies: Abdominal Pain, Nausea, Vomiting Genitourinary: denies: Burning, Frequency Musculoskeletal: reports: Back Pain, Joint Swelling Integumentary: denies: Bruising, Rash Neurological: denies: Change in Speech, Confusion, Dizziness Endocrine: denies: Excessive Sweating, Intolerance to Cold Hematology/Lymphatic: denies: Easily Bruised, Excessive Bleeding Psychiatric: denies: Anxiety, Depression Physical Examination Vital Signs: Vital Signs Temperature 97.5 F L 04/05/19 18:47 Pulse Rate 75 04/05/19 18:47 Respiratory Rate 18 04/05/19 18:47 Blood Pressure 98/55 L 04/05/19 18:47 O2 Sat by Pulse Oximetry (%) 98 04/05/19 18:47 Constitutional: Yes: No Distress, Anxious (that is still in ER) Eyes: Yes: Conjunctiva Clear, EOM Intact HENT: No: Normocephalic, Epistaxis, Rhinnorhea Neck: No: Trachea Midline, Lymphadenopathy Cardiovascular: Yes: Regular Rate and Rhythm, S1, S2 Respiratory: Yes: Regular, Other (coarse BS bilat). No: Rales Gastrointestinal: Yes: Normal Bowel Sounds, Soft. No: Tenderness ...Rectal Exam: Yes: Deferred Renal/: No: CVA Tenderness - Left, CVA Tenderness - Right Breast(s): Yes: Other (deferred) Extremities: Yes: Other (right leg ulcer) Edema: LLE: 1+, RLE: 1+ Integumentary: Yes: Venous Stasis Changes Neurological: Yes: Alert, Oriented Labs: CBC, BMP 04/05/19 11:10 04/05/19 11:10 Problem List - Problems (1) Anemia Code(s): D64.9 - ANEMIA, UNSPECIFIED (2) CHF (congestive heart failure) Code(s): I50.9 - HEART FAILURE, UNSPECIFIED Qualifiers: Heart failure type: unspecified Heart failure chronicity: unspecified Qualified Code(s): I50.9 - Heart failure, unspecified (3) COPD (chronic obstructive pulmonary disease) Code(s): J44.9 - CHRONIC OBSTRUCTIVE PULMONARY DISEASE, UNSPECIFIED Qualifiers: COPD type: unspecified COPD Qualified Code(s): J44.9 - Chronic obstructive pulmonary disease, unspecified (4) DM type 2 (diabetes mellitus, type 2) Code(s): E11.9 - TYPE 2 DIABETES MELLITUS WITHOUT COMPLICATIONS Qualifiers: Diabetes mellitus fdc insulin use: with termite helper use Diabetes mellitus complication status: with circulatory complication Diabetes mellitus complication detail: with other circulatory complications Qualified Code(s): E11.59 - Type 2 diabetes mellitus with other circulatory complications; Z79.4 - care home (current) use of insulin (5) Afib Code(s): I48.91 - UNSPECIFIED ATRIAL FIBRILLATION Qualifiers: Atrial fibrillation type: chronic Qualified Code(s): I48.2 - Chronic atrial fibrillation Assessment/Plan Tranfuse PRBC, to f/u H/H Stool for Occult blood Iron studies AM Labs
[2019-04-05] MEDS: ALBUTEROL SO4 0.083% IH SOL 2.5 MG/3 ML VIAL.NEB. NEB SCH (20:50)
[2019-04-05] MEDS: SIMETHICONE 80 MG TAB.CHEW (FP) PO SCH (21:47)
[2019-04-05] MEDS: MELATONIN 5 MG TABLETS PO SCH (21:47)
[2019-04-05] MEDS: MONTELUKAST NA 10 MG TABLET PO SCH (21:47)
[2019-04-05] MEDS: POTASSIUM CHLORIDE TABS 10 MEQ TABLET.ER (FP) PO SCH (21:47)
[2019-04-05] MEDS: ACETAMINOPHEN WITH CODEINE 300MG/30MG TABLET PO PRN (21:48)
[2019-04-05] MEDS: ZOLPIDEM TARTRATE 5 MG TABLET PO PRN (21:48)
[2019-04-05] MEDS: SENNOSIDES 8.6MG TABLET (FP) PO SCH (21:48)
[2019-04-05] MEDS: INSULIN SLIDING SCALE (NOVOLOG) 1 VIAL SQ SCH (22:13)
[2019-04-05] MEDS: BUDESONIDE/FORMETEROL FUMARATE 160/4.5 mcg INHALER IH SCH (22:50)
[2019-04-06] MEDS: metFORMIN HCL 500 MG TABLET (FP) PO SCH ×2 (06:14→16:58)
[2019-04-06] MEDS: DOCUSATE SODIUM 100 MG CAPSULE (FP) PO SCH ×2 (06:14→11:40)
[2019-04-06] MEDS: INSULIN SLIDING SCALE (NOVOLOG) 1 VIAL SQ SCH ×4 (06:19→23:19)
[2019-04-06] MEDS: ALBUTEROL SO4 0.083% IH SOL 2.5 MG/3 ML VIAL.NEB. NEB SCH ×2 (07:30→20:57)
[2019-04-06 07:45] LABS: HEMATOCRIT 28.9 % (32.4-45.2); HEMOGLOBIN 9.4 GM/dL (10.7-15.3); MCH 25.2 pg (25.7-33.7); MCHC 32.5 g/dl (32.0-36.0); MEAN CELL VOLUME 77.4 fl (80-96); PLATELET COUNT 297 K/MM3 (134-434); RBC 3.74 M/mm3 (3.60-5.2); RDW 18.5 % (11.6-15.6); WHITE BLOOD COUNT 7.7 K/mm3 (4.0-10.0)
[2019-04-06 08:02] LABS: BLOOD UREA NITROGEN 33.2 mg/dL (7-18); CALCIUM 9.8 mg/dL (8.5-10.1); CREATININE 0.6 mg/dL (0.55-1.3); POTASSIUM 3.3 mmol/L (3.5-5.1)
[2019-04-06] MEDS ORDERED: METOLAZONE 2.5 MG TABLET (FP) PO ONE (09:30)
[2019-04-06] MEDS ORDERED: FUROSEMIDE 40 MG TABLET (FP) PO SCH (10:00)
[2019-04-06] MEDS: predniSONE 10 MG TABLET (UD) PO SCH (10:18)
[2019-04-06] MEDS: POTASSIUM CHLORIDE TABS 10 MEQ TABLET.ER (FP) PO SCH ×2 (10:20→23:08)
[2019-04-06] MEDS: SIMETHICONE 80 MG TAB.CHEW (FP) PO SCH ×2 (10:20→23:08)
[2019-04-06] MEDS: ESCITALOPRAM OXALATE 20 MG TABLET (FP) PO SCH (10:21)
[2019-04-06] MEDS: PANTOPRAZOLE 40 MG TABLET (FP) PO SCH (10:21)
[2019-04-06] MEDS: BUDESONIDE/FORMETEROL FUMARATE 160/4.5 mcg INHALER IH SCH ×2 (10:22→23:15)
[2019-04-06] MEDS: ASPIRIN 81 MG CHEWABLE TABLETS PO SCH (10:22)
[2019-04-06] MEDS ORDERED: FUROSEMIDE 40 MG/4 ML INJECTABLE VIAL IVPUSH ONE (11:00)
--- NOTE | 2019-04-06 11:13 | PN ---
Progress Note, Physician History of Present Illness: Pt is complaining that is not feeling well, cannot specify what is wrong. Pt w/o fever, chills, change in couogh, SOB, Cp, palpitations, abd pain, nausea , vomiting, diarrhea, discomfort with urination - Current Medication List Current Medications: Active Medications Acetaminophen/Codeine Phosphate (Tylenol # 3 -) 2 tab PO Q8H PRN PRN Reason: PAIN LEVEL 6-10 Last Admin: 04/05/19 21:48 Dose: 2 tab Albuterol Sulfate (Ventolin 0.083% Nebulizer Soln -) 1 amp NEB RBID [facility] Last Admin: 04/06/19 07:30 Dose: 1 amp Aspirin (Asa -) 81 mg PO DAILY [facility] Last Admin: 04/06/19 10:22 Dose: 81 mg Budesonide/Formoterol Fumarate (Symbicort 160/4.5mcg -) 2 puff IH BID [facility] Last Admin: 04/06/19 10:22 Dose: 2 puff Collagenase (Santyl -) 1 applic TP DAILY [facility]; Protocol Docusate Sodium (Colace -) 300 mg PO DAILY [facility] Last Admin: 04/06/19 06:14 Dose: 300 mg Escitalopram Oxalate (Lexapro -) 20 mg PO DAILY [facility] Last Admin: 04/06/19 10:21 Dose: 20 mg Furosemide (Lasix -) 80 mg PO DAILY [facility] Insulin Aspart (Novolog Vial Sliding Scale -) 1 vial SQ ACHS [facility]; Protocol Last Admin: 04/06/19 06:19 Dose: Not Given Melatonin (Melatonin) 10 mg PO HS [facility] Last Admin: 04/05/19 21:47 Dose: 10 mg Metformin HCl (Glucophage -) 500 mg PO BIDI [facility] Last Admin: 04/06/19 06:14 Dose: 500 mg Metoprolol Succinate (Toprol Xl -) 25 mg PO DAILY [facility] Montelukast Sodium (Singulair -) 10 mg PO HS [facility] Last Admin: 04/05/19 21:47 Dose: 10 mg Pantoprazole Sodium (Protonix -) 40 mg PO DAILY [facility] Last Admin: 04/06/19 10:21 Dose: 40 mg Polyethylene Glycol (Miralax (For Daily Use) -) 17 gm PO DAILY [facility] Last Admin: 04/05/19 15:01 Dose: Not Given Potassium Chloride (K-Dur -) 10 meq PO BID [facility] Last Admin: 04/06/19 10:20 Dose: 10 meq Potassium Chloride (K-Dur -) 40 meq PO ONCE ONE Stop: 04/06/19 11:07 Prednisone (Deltasone -) 35 mg PO DAILY [facility] Last Admin: 04/06/19 10:18 Dose: 35 mg Rivaroxaban (Xarelto) 20 mg PO DAILY@1800 [facility] Last Admin: 04/05/19 18:47 Dose: 20 mg Senna (Senna -) 2 tab PO HS [facility] Last Admin: 04/05/19 21:48 Dose: 2 tab Simethicone (Mylicon -) 80 mg PO BID [facility] Last Admin: 04/06/19 10:20 Dose: 80 mg Zolpidem Tartrate (Ambien -) 5 mg PO HS PRN PRN Reason: INSOMNIA Last Admin: 04/05/19 21:48 Dose: 5 mg - Objective Vital Signs: Vital Signs Temperature 98.1 F 04/06/19 06:00 Pulse Rate 72 04/06/19 06:00 Respiratory Rate 18 04/06/19 06:00 Blood Pressure 112/56 L 04/06/19 06:00 O2 Sat by Pulse Oximetry (%) 97 04/06/19 01:20 Constitutional: Yes: No Distress, Anxious Cardiovascular: Yes: Regular Rate and Rhythm, S1, S2 Respiratory: Yes: Regular, Other (coarse BS at bases). No: Rales Gastrointestinal: Yes: Normal Bowel Sounds, Soft. No: Tenderness Edema: LLE: 1+, RLE: 1+ Neurological: Yes: Alert, Oriented Labs: CBC, BMP 04/06/19 06:30 04/06/19 06:30 INR, PTT INR 1.13 (0.83-1.09) H 04/05/19 11:10 Problem List - Problems (1) Anemia Assessment/Plan: Patient refused endoscopic tests at previous admission Code(s): D64.9 - ANEMIA, UNSPECIFIED Qualifiers: Anemia type: iron deficiency (2) CHF (congestive heart failure) Code(s): I50.9 - HEART FAILURE, UNSPECIFIED Qualifiers: Heart failure type: unspecified Heart failure chronicity: unspecified Qualified Code(s): I50.9 - Heart failure, unspecified (3) COPD (chronic obstructive pulmonary disease) Code(s): J44.9 - CHRONIC OBSTRUCTIVE PULMONARY DISEASE, UNSPECIFIED Qualifiers: COPD type: unspecified COPD Qualified Code(s): J44.9 - Chronic obstructive pulmonary disease, unspecified (4) DM type 2 (diabetes mellitus, type 2) Code(s): E11.9 - TYPE 2 DIABETES MELLITUS WITHOUT COMPLICATIONS Qualifiers: Diabetes mellitus intermediate manager insulin use: with prison use Diabetes mellitus complication status: with circulatory complication Diabetes mellitus complication detail: with other circulatory complications Qualified Code(s): E11.59 - Type 2 diabetes mellitus with other circulatory complications; Z79.4 - intermediate frame tender (current) use of insulin (5) Afib Code(s): I48.91 - UNSPECIFIED ATRIAL FIBRILLATION Qualifiers: Atrial fibrillation type: chronic Qualified Code(s): I48.2 - Chronic atrial fibrillation (6) Hypokalemia Code(s): E87.6 - HYPOKALEMIA (7) UTI (urinary tract infection) Code(s): N39.0 - URINARY TRACT INFECTION, SITE NOT SPECIFIED Assessment/Plan s/p 2 units PRBC, to f/u H/H Stool for Occult blood negative Iron studies c/w HOMA, refused endoscopic testing at recent admission Replete K ID consult for Proteus in urine; in the past she had Proteus in the arm AM Labs
[2019-04-06] MEDS ORDERED: CEFTRIAXONE 1 GM in DEXTROSE 5%-WATER - 50 ML IVPB ONE (11:30)
[2019-04-06] MEDS ORDERED: POTASSIUM CHLORIDE TABS 20 MEQ TABLET.ER (FP) PO ONE (11:30)
[2019-04-06] MEDS: ACETAMINOPHEN WITH CODEINE 300MG/30MG TABLET PO PRN ×2 (11:38→23:34)
[2019-04-06] MEDS: COLLAGENASE CLOSTRIDIUM HIST. 30 GRAMS TUBE TP SCH (11:40)
[2019-04-06] MEDS ORDERED: cefTRIAXone SODIUM 1 GM VIAL ONE (11:45)
[2019-04-06] MEDS ORDERED: DEXTROSE 5%-WATER - 50 ML IVPB ONE (11:46)
[2019-04-06] MEDS: metoPROLOL SUCCINATE 25 MG TAB.SR.24H (FP) PO SCH (11:51)
[2019-04-06] MEDS: POLYETHYLENE GLYCOL 3350 119 GM BTL PO SCH (12:32)
--- NOTE | 2019-04-06 14:10 | PN ---
Progress Note (short form) - Note Progress Note: ID consult dictated 83 yo female admitted from [place] with anemia for blood transfusion no urinary symptoms no fevers alert and awake unknown why she is anemic no signs symptomatic UTI this is c/w asymptomatic bacteriuria- no need to treat thanks rest of workup per PMD Problem List - Problems (1) Asymptomatic bacteriuria Code(s): R82.71 - BACTERIURIA (2) Anemia Code(s): D64.9 - ANEMIA, UNSPECIFIED Qualifiers: Anemia type: iron deficiency
--- NOTE | 2019-04-06 15:59 | CONS ---
DATE OF CONSULTATION: DATE OF DICTATION: 04/06/2019 REQUESTING PHYSICIAN: David Brown MD CHIEF COMPLAINT: This is an 83-year-old woman who I know from prior admissions. She is sent from [facility] for anemia and blood transfusion. HISTORY OF PRESENT ILLNESS: She has an extensive past medical history including a right lower extremity hematoma. She has had an abscess of the right elbow in the past. 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 She now comes in with weakness and anemia. She was transferred overnight. She is awake and alert. She feels well. She has no dysuria. She denies any fevers or chills. She reports that she has generally been weak and has not been ambulating at the [facility], as well as she reports that her physical therapy has been stopped. PAST MEDICAL HISTORY: Notable for coronary artery disease, CHF, COPD, pneumonia, GERD, DVT of the right lower extremity, right lower leg hematoma, diabetes. She has history of right elbow osteomyelitis with MRSA. PAST SURGICAL HISTORY: Notable for right reverse shoulder replacement in 2017, hernia repair in 2005, eye implant in 2019, right lower extremity hematoma evacuation in 2019. ALLERGIES: She is allergic to VANCOMYCIN. Allergies include DEXTROMETHORPHAN, GUAIFENESIN, POLLEN, RAGWEED, and AMPICILLIN allergy which is a mild rash. MEDICATIONS: Her medications at the [facility] include Ambien, simethicone, Silvadene, senna, Xarelto, prednisone, potassium, MiraLax, omeprazole, nystatin, Singulair, metoprolol, metolazone, metformin, melatonin, insulin, furosemide, Flovent, Lexapro, Colace, Santyl, vitamin D, Symbicort, aspirin, vitamin C, and Ventolin for the nebulizer. SOCIAL HISTORY: She currently resides at the [facility]. 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 There is no history of any recent travel. REVIEW OF SYSTEMS: As per HPI. PHYSICAL EXAMINATION: General: She is awake and alert. She is in no distress. Vital Signs: Temp is 98.2. Pulse is 73, blood pressure 103/59, respiratory rate is 20. HEENT: She is normocephalic. Her eyes are anicteric. Neck: Supple. Lungs: Clear to auscultation. Heart: Regular rate and rhythm. Abdomen: Soft. She has a soft ventral hernia that is not tender. Extremities: She has a dressing on her right lower extremity where she has a very superficial ulcer that is a remnant of the hematoma. She has some skin erosions on her sacrum with some minimal erythema. There is no drainage. LABORATORY: Notable for a white count of 7.7, hemoglobin 9.4. On admission hemoglobin was 7.4. Platelets are 297. INR is 1.3. BUN and creatinine are 33 and 0.6. Urinalysis has 5 white cells. Urine culture is growing greater than 100,000 proteus. SUMMARY: This is an 83-year-old woman admitted with symptomatic anemia of unclear etiology. Management per the primary service. No signs of urinary tract symptomatic urinary tract infection. This is consistent with asymptomatic bacteriuria. No treatment is needed. Rest of workup per PMD. Please call back if needed. ABDOUL ROMO M.D. [id number]
[2019-04-06] MEDS ORDERED: INSULIN (NOVOLOG) ASPART 100 UNITS/ML 10ML VIAL ONE ×2 (17:02→23:05)
[2019-04-06] MEDS ORDERED: PT OWN MED DRAWER 7, Y5N ONE (17:02)
[2019-04-06] MEDS: RIVAROXABAN 20 MG TABLET PO SCH (17:10)
[2019-04-06] MEDS ORDERED: LORazepam 0.5 MG TABLET PO PRN (22:15)
[2019-04-06] MEDS: SENNOSIDES 8.6MG TABLET (FP) PO SCH (23:08)
[2019-04-06] MEDS: MONTELUKAST NA 10 MG TABLET PO SCH (23:08)
[2019-04-06] MEDS: MELATONIN 5 MG TABLETS PO SCH (23:08)
[2019-04-06] MEDS: ZOLPIDEM TARTRATE 5 MG TABLET PO PRN (23:08)
[2019-04-06] MEDS: LORazepam 0.5 MG TABLET PO SCH (23:09)
[2019-04-07] MEDS: metFORMIN HCL 500 MG TABLET (FP) PO SCH ×2 (06:19→17:59)
[2019-04-07] MEDS: INSULIN SLIDING SCALE (NOVOLOG) 1 VIAL SQ SCH ×5 (07:36→21:17)
[2019-04-07] MEDS: ALBUTEROL SO4 0.083% IH SOL 2.5 MG/3 ML VIAL.NEB. NEB SCH ×2 (07:41→20:40)
[2019-04-07] MEDS ORDERED: PT OWN MED DRAWER 7, Y5N ONE (10:25)
[2019-04-07] MEDS: ASPIRIN 81 MG CHEWABLE TABLETS PO SCH (10:27)
[2019-04-07] MEDS: DOCUSATE SODIUM 100 MG CAPSULE (FP) PO SCH (10:28)
[2019-04-07] MEDS: FUROSEMIDE 40 MG TABLET (FP) PO SCH (10:28)
[2019-04-07] MEDS: metoPROLOL SUCCINATE 25 MG TAB.SR.24H (FP) PO SCH (10:29)
[2019-04-07] MEDS: predniSONE 10 MG TABLET (UD) PO SCH (10:29)
[2019-04-07] MEDS: ESCITALOPRAM OXALATE 20 MG TABLET (FP) PO SCH (10:29)
[2019-04-07] MEDS: POTASSIUM CHLORIDE TABS 10 MEQ TABLET.ER (FP) PO SCH ×2 (10:30→21:00)
[2019-04-07] MEDS: SIMETHICONE 80 MG TAB.CHEW (FP) PO SCH ×2 (10:31→21:00)
[2019-04-07] MEDS: BUDESONIDE/FORMETEROL FUMARATE 160/4.5 mcg INHALER IH SCH ×2 (10:31→21:12)
[2019-04-07] MEDS: PANTOPRAZOLE 40 MG TABLET (FP) PO SCH (10:31)
[2019-04-07] MEDS: COLLAGENASE CLOSTRIDIUM HIST. 30 GRAMS TUBE TP SCH (10:31)
[2019-04-07] MEDS: POLYETHYLENE GLYCOL 3350 119 GM BTL PO SCH ×2 (10:31→14:23)
[2019-04-07 12:39] VITALS: BMI 29.0
[2019-04-07] MEDS ORDERED: LORazepam 0.5 MG TABLET PO PRN (14:07)
--- NOTE | 2019-04-07 14:19 | PN ---
Progress Note, Physician History of Present Illness: Pt w/o fever, chills, change in cough, SOB, Cp, palpitations, abd pain, nausea, vomiting, diarrhea, discomfort with urination. - Current Medication List Current Medications: Active Medications Acetaminophen/Codeine Phosphate (Tylenol # 3 -) 2 tab PO Q8H PRN PRN Reason: PAIN LEVEL 6-10 Last Admin: 04/06/19 23:34 Dose: 2 tab Albuterol Sulfate (Ventolin 0.083% Nebulizer Soln -) 1 amp NEB RBID [facility] Last Admin: 04/07/19 07:41 Dose: 1 amp Aspirin (Asa -) 81 mg PO DAILY [facility] Last Admin: 04/07/19 10:27 Dose: 81 mg Budesonide/Formoterol Fumarate (Symbicort 160/4.5mcg -) 2 puff IH BID [facility] Last Admin: 04/07/19 10:31 Dose: 2 puff Collagenase (Santyl -) 1 applic TP DAILY [facility]; Protocol Last Admin: 04/07/19 10:31 Dose: 1 mg Docusate Sodium (Colace -) 300 mg PO DAILY [facility] Last Admin: 04/07/19 10:28 Dose: 300 mg Escitalopram Oxalate (Lexapro -) 20 mg PO DAILY [facility] Last Admin: 04/07/19 10:29 Dose: 20 mg Furosemide (Lasix -) 80 mg PO DAILY [facility] Last Admin: 04/07/19 10:28 Dose: Not Given Insulin Aspart (Novolog Vial Sliding Scale -) 1 vial SQ ACHS [facility]; Protocol Last Admin: 04/07/19 13:14 Dose: Not Given Lorazepam (Ativan -) 0.5 mg PO HS PRN PRN Reason: ANXIETY Lorazepam (Ativan -) 0.5 mg PO HS [facility] Last Admin: 04/06/19 23:09 Dose: 0.5 mg Lorazepam (Ativan -) 0.5 mg PO DAILY PRN PRN Reason: ANXIETY Melatonin (Melatonin) 10 mg PO HS [facility] Last Admin: 04/06/19 23:08 Dose: 10 mg Metformin HCl (Glucophage -) 500 mg PO BIDI [facility] Last Admin: 04/07/19 06:19 Dose: 500 mg Metoprolol Succinate (Toprol Xl -) 25 mg PO DAILY [facility] Last Admin: 04/07/19 10:29 Dose: Not Given Montelukast Sodium (Singulair -) 10 mg PO HS [facility] Last Admin: 04/06/19 23:08 Dose: 10 mg Pantoprazole Sodium (Protonix -) 40 mg PO DAILY [facility] Last Admin: 04/07/19 10:31 Dose: 40 mg Polyethylene Glycol (Miralax (For Daily Use) -) 17 gm PO DAILY [facility] Last Admin: 04/07/19 10:31 Dose: Not Given Potassium Chloride (K-Dur -) 10 meq PO BID [facility] Last Admin: 04/07/19 10:30 Dose: 10 meq Prednisone (Deltasone -) 35 mg PO DAILY [facility] Last Admin: 04/07/19 10:29 Dose: 35 mg Rivaroxaban (Xarelto) 20 mg PO DAILY@1800 [facility] Last Admin: 04/06/19 17:10 Dose: 20 mg Senna (Senna -) 2 tab PO HS [facility] Last Admin: 04/06/19 23:08 Dose: 2 tab Simethicone (Mylicon -) 80 mg PO BID [facility] Last Admin: 04/07/19 10:31 Dose: 80 mg Zolpidem Tartrate (Ambien -) 5 mg PO HS PRN PRN Reason: INSOMNIA Last Admin: 04/06/19 23:08 Dose: 5 mg - Objective Vital Signs: Vital Signs Temperature 98.7 F 04/07/19 13:54 Pulse Rate 57 L 04/07/19 13:54 Respiratory Rate 18 04/07/19 13:54 Blood Pressure 99/43 L 04/07/19 13:54 O2 Sat by Pulse Oximetry (%) 95 04/07/19 08:55 Constitutional: Yes: No Distress, Calm Cardiovascular: Yes: Regular Rate and Rhythm, S1, S2 Respiratory: Yes: Regular, Other (coarse BS, scattered minimal rhonchi). No: Wheezes Gastrointestinal: Yes: Normal Bowel Sounds, Soft Edema: LLE: Trace, RLE: Trace Neurological: Yes: Alert, Oriented Labs: CBC, BMP 04/06/19 06:30 04/06/19 06:30 INR, PTT INR 1.13 (0.83-1.09) H 04/05/19 11:10 Problem List - Problems (1) Anemia Code(s): D64.9 - ANEMIA, UNSPECIFIED Qualifiers: Anemia type: iron deficiency (2) CHF (congestive heart failure) Code(s): I50.9 - HEART FAILURE, UNSPECIFIED Qualifiers: Heart failure type: unspecified Heart failure chronicity: unspecified Qualified Code(s): I50.9 - Heart failure, unspecified (3) COPD (chronic obstructive pulmonary disease) Code(s): J44.9 - CHRONIC OBSTRUCTIVE PULMONARY DISEASE, UNSPECIFIED Qualifiers: COPD type: unspecified COPD Qualified Code(s): J44.9 - Chronic obstructive pulmonary disease, unspecified (4) DM type 2 (diabetes mellitus, type 2) Code(s): E11.9 - TYPE 2 DIABETES MELLITUS WITHOUT COMPLICATIONS Qualifiers: Diabetes mellitus usp insulin use: with usp use Diabetes mellitus complication status: with circulatory complication Diabetes mellitus complication detail: with other circulatory complications Qualified Code(s): E11.59 - Type 2 diabetes mellitus with other circulatory complications; Z79.4 - long term (current) use of insulin (5) Afib Code(s): I48.91 - UNSPECIFIED ATRIAL FIBRILLATION Qualifiers: Atrial fibrillation type: chronic Qualified Code(s): I48.2 - Chronic atrial fibrillation (6) Hypokalemia Code(s): E87.6 - HYPOKALEMIA (7) UTI (urinary tract infection) Code(s): N39.0 - URINARY TRACT INFECTION, SITE NOT SPECIFIED Assessment/Plan Pt with borderline SBP w/o receiving regular dose of Metoprolol or Lasix. To repeate labs, include CE. Cardio consult in this pt with Hx/o CHF, on daily Metoprolo, high dose of daily Lasix and Zaroxolyn TIW s/p 2 units PRBC. Stool for Occult blood negative Iron studies c/w HOMA, refused endoscopic testing at recent admission Replete K ID consult is appreciated.
[2019-04-07 14:50] LABS: HEMATOCRIT 28.9 % (32.4-45.2); HEMOGLOBIN 9.1 GM/dL (10.7-15.3); MCH 24.8 pg (25.7-33.7); MCHC 31.6 g/dl (32.0-36.0); MEAN CELL VOLUME 78.6 fl (80-96); MEAN PLT VOLUME 6.7 fl (7.5-11.1); PLATELET COUNT 288 K/MM3 (134-434); RBC 3.68 M/mm3 (3.60-5.2); RDW 18.7 % (11.6-15.6); WHITE BLOOD COUNT 9.8 K/mm3 (4.0-10.0)
[2019-04-07] MEDS: ACETAMINOPHEN WITH CODEINE 300MG/30MG TABLET PO PRN ×2 (15:08→21:02)
[2019-04-07 15:23] LABS: ALBUMIN 2.7 g/dl (3.4-5.0); BILIRUBIN,TOTAL 0.6 mg/dL (0.2-1); BLOOD UREA NITROGEN 27.4 mg/dL (7-18); CALCIUM 9.2 mg/dL (8.5-10.1); CREATININE 0.9 mg/dL (0.55-1.3); MAGNESIUM 2.1 mg/dL (1.8-2.4); POTASSIUM 4.6 mmol/L (3.5-5.1); TOT PROT 5.1 g/dl (6.4-8.2)
[2019-04-07] MEDS: RIVAROXABAN 20 MG TABLET PO SCH (17:57)
[2019-04-07] MEDS: SENNOSIDES 8.6MG TABLET (FP) PO SCH (21:00)
[2019-04-07] MEDS: MONTELUKAST NA 10 MG TABLET PO SCH (21:00)
[2019-04-07] MEDS: MELATONIN 5 MG TABLETS PO SCH (21:00)
[2019-04-07] MEDS: ZOLPIDEM TARTRATE 5 MG TABLET PO PRN (21:01)
[2019-04-07] MEDS: LORazepam 0.5 MG TABLET PO SCH (21:02)
[2019-04-08] MEDS: metFORMIN HCL 500 MG TABLET (FP) PO SCH (06:00)
[2019-04-08] MEDS: INSULIN SLIDING SCALE (NOVOLOG) 1 VIAL SQ SCH ×2 (06:25→11:29)
[2019-04-08] MEDS: ALBUTEROL SO4 0.083% IH SOL 2.5 MG/3 ML VIAL.NEB. NEB SCH (07:50)
[2019-04-08] MEDS: metoPROLOL SUCCINATE 25 MG TAB.SR.24H (FP) PO SCH (09:29)
[2019-04-08] MEDS: DOCUSATE SODIUM 100 MG CAPSULE (FP) PO SCH (09:29)
[2019-04-08] MEDS: predniSONE 10 MG TABLET (UD) PO SCH (09:29)
[2019-04-08] MEDS: PANTOPRAZOLE 40 MG TABLET (FP) PO SCH (09:29)
[2019-04-08] MEDS: ASPIRIN 81 MG CHEWABLE TABLETS PO SCH (09:29)
[2019-04-08] MEDS: POTASSIUM CHLORIDE TABS 10 MEQ TABLET.ER (FP) PO SCH (09:29)
[2019-04-08] MEDS: ESCITALOPRAM OXALATE 20 MG TABLET (FP) PO SCH (09:29)
[2019-04-08] MEDS: COLLAGENASE CLOSTRIDIUM HIST. 30 GRAMS TUBE TP SCH (09:30)
[2019-04-08] MEDS: POLYETHYLENE GLYCOL 3350 119 GM BTL PO SCH (09:30)
[2019-04-08] MEDS: BUDESONIDE/FORMETEROL FUMARATE 160/4.5 mcg INHALER IH SCH (09:30)
[2019-04-08] MEDS: FUROSEMIDE 40 MG TABLET (FP) PO SCH (09:30)
[2019-04-08] MEDS: SIMETHICONE 80 MG TAB.CHEW (FP) PO SCH (09:32)
[2019-04-08 10:14] VITALS: TEMP 97.6
[2019-04-08] MEDS ORDERED: ACETAMINOPHEN WITH CODEINE 300MG/30MG TABLET PO PRN (11:59)
[2019-04-08] MEDS ORDERED: ZOLPIDEM TARTRATE 5 MG TABLET PO PRN (11:59)
--- NOTE | 2019-04-08 12:18 | DS ---
Physical Examination Vital Signs: Vital Signs Temperature 97.6 F 04/08/19 10:00 Pulse Rate 58 L 04/08/19 10:00 Respiratory Rate 20 04/08/19 10:00 Blood Pressure 121/42 L 04/08/19 10:00 O2 Sat by Pulse Oximetry (%) 100 04/08/19 09:00 Findings/Remarks: Pt w/o fever, chills, SOB, cp, palpitations, abd pain, dysuria Constitutional: Yes: No Distress, Calm Cardiovascular: Yes: Regular Rate and Rhythm, S1, S2 Respiratory: Yes: Regular, Other (coarse BS bilat). No: Rales Gastrointestinal: Yes: Normal Bowel Sounds, Soft. No: Tenderness Edema: LLE: Trace, RLE: Trace Neurological: Yes: Alert, Oriented Labs: CBC, BMP 04/07/19 14:40 04/07/19 14:40 Discharge Summary Reason For Visit: ENCOUNTER FOR BLOOD TRANSFUSION Current Active Problems Anemia (Acute) Asymptomatic bacteriuria (Acute) Encounter for blood transfusion (Acute) Hypokalemia (Acute) UTI (urinary tract infection) (Acute) Hospital Course: Pt was transferred from hospital for anemia; pt was transfused to two units of PRBC. Pt's SBP was noticed to be in 90's not able to receive her medication; pt was monitored; her BP returned to normal and medication was restarted. Pt's UCX + for Proteus Mirabillis, pt asymptomatic, seen by ID (Dr Galarza) and decided that no treatment is needed. Pt to be DC'ed back to [place]. Condition: Improved - Instructions Diet, Activity, Other Instructions: Resume diet. Referrals: David Brown MD [Primary Care Provider] - Disposition: HALFWAY FACILITY - Home Medications Comprehensive Discharge Medication List: Ambulatory Orders Resume medications, care
--- NOTE | 2019-04-08 12:50 | CON.CARD ---
Cardiology Consult (text) - Consultation Consultation Note: [facility] *LIVE* cc: hypotension hpi: 83 f hx hld, htn, syst chf, dm, copd, dvt, afib, as, non obs cad, here with low BP. Anemia on admission, improved with transfusion. Initially home lasix and metoprolol were held, now BP improved and tolerating meds. No chest pain, palps, dizziness, dyspnea. Sees me for cardio. pmh: per hpi psh: cath social: no tob fam: no premature cad ros: per hpi; no nvd fever, gib hematuria, wt loss; all others normal meds: Home Medications Medication Instructions Recorded Albuterol 0.083% Nebulizer Isamar 1 neb NEB BID 04/05/19 [Ventolin 0.083% Nebulizer Soln -] Ascorbate Calcium [Vitamin C] 500 mg PO DAILY 04/05/19 Aspirin [ASA -] 81 mg PO DAILY 04/05/19 Budesonide/Formeterol Fumarate 2 inh PO BID 04/05/19 [SYMBICORT 160/4.5mcg -] Cholecalciferol (Vitamin D3) 1,000 units PO DAILY 04/05/19 [Cholecalciferol] Collagenase Clostridium Hist. 1 applic TP DAILY 04/05/19 [Santyl -] Docusate Sodium [Colace] 3 tab PO DAILY 04/05/19 Escitalopram Oxalate [Lexapro -] 20 mg PO DAILY 04/05/19 Fluticasone Propionate [Flovent 1 spray IH BID 04/05/19 Diskus] Furosemide [Lasix] 80 mg PO DAILY 04/05/19 Insulin (LOG) Aspart [NovoLOG -] 0 units SQ TID 04/05/19 Melatonin/Pyridoxine HCl (B6) 2 each PO HS 04/05/19 [Melatonin 5 mg Tablet] Metformin HCl [Glucophage] 500 mg PO BID 04/05/19 Metolazone 2.5 mg PO ASDIR 04/05/19 Metoprolol Succinate 25 mg PO DAILY 04/05/19 Montelukast Sodium [Singulair] 10 mg PO HS 04/05/19 Nystatin Ointment [Mycostatin 1 applic TP TID 04/05/19 Ointment -] Omeprazole 20 mg PO DAILY 04/05/19 Polyethylene Glycol 3350 [Miralax 17 gm PO DAILY 04/05/19 119 gm Btl -] Potassium Chloride 10 meq PO BID 04/05/19 Prednisone 35 mg PO DAILY 04/05/19 Rivaroxaban [Xarelto -] 20 mg PO HS 04/05/19 Sennosides [Senno] 2 tab PO HS 04/05/19 Silver Sulfadiazine 1% Top Cr 1 applic TP BID 04/05/19 [Silvadene -] Simethicone 80 mg PO BID 04/05/19 Triamcinolone 0.1% Cream 1 applic TP BID 04/05/19 [Aristocort 0.1% Cream -] Zolpidem Tartrate [Ambien] 5 mg PO HS 04/05/19 LORazepam [Ativan] 0.5 mg PO HS #30 tablet MDD 1 04/08/19 pe: Vital Signs Period Temp Pulse Resp BP Sys/Garcia Pulse Ox Last 24 Hr 97.5 F-98.7 F 57-74 18-20 99-126/42-60 100-100 nad, +jvd rrr, s1s2 no mrg cta bl nl eff aao3 2+ le edema bl, blood blister right lindsey no jaundice diaphoresis pos dp pt no carotid bruits abd nt nd pos bs Laboratory Last Values WBC 9.8 K/mm3 (4.0-10.0) 04/07/19 14:40 RBC 3.68 M/mm3 (3.60-5.2) 04/07/19 14:40 Hgb 9.1 GM/dL (10.7-15.3) L 04/07/19 14:40 Hct 28.9 % (32.4-45.2) L 04/07/19 14:40 MCV 78.6 fl (80-96) L 04/07/19 14:40 MCH 24.8 pg (25.7-33.7) L 04/07/19 14:40 MCHC 31.6 g/dl (32.0-36.0) L 04/07/19 14:40 RDW 18.7 % (11.6-15.6) H 04/07/19 14:40 Plt Count 288 K/MM3 (134-434) 04/07/19 14:40 MPV 6.7 fl (7.5-11.1) L 04/07/19 14:40 Absolute Neuts (auto) 8.6 K/mm3 (1.5-8.0) H 04/05/19 11:10 Neutrophils % 85.5 % (42.8-82.8) H 04/05/19 11:10 Lymphocytes % 7.3 % (8-40) L D 04/05/19 11:10 Monocytes % 6.5 % (3.8-10.2) 04/05/19 11:10 Eosinophils % 0.4 % (0-4.5) 04/05/19 11:10 Basophils % 0.3 % (0-2.0) 04/05/19 11:10 Nucleated RBC % 0 % (0-0) 04/05/19 11:10 Retic Count 3.29 % (0.5-1.5) H D 04/05/19 11:10 PT with INR 13.40 SEC (9.7-13.0) H 04/05/19 11:10 INR 1.13 (0.83-1.09) H 04/05/19 11:10 PTT (Actin FS) 30.5 SECONDS (25.2-36.5) 04/05/19 11:10 Sodium 140 mmol/L (136-145) 04/07/19 14:40 Potassium 4.6 mmol/L (3.5-5.1) 04/07/19 14:40 Chloride 97 mmol/L (98-107) L 04/07/19 14:40 Carbon Dioxide 36 mmol/L (21-32) H 04/07/19 14:40 Anion Gap 6 MMOL/L (8-16) L 04/07/19 14:40 BUN 27.4 mg/dL (7-18) H 04/07/19 14:40 Creatinine 0.9 mg/dL (0.55-1.3) 04/07/19 14:40 Est GFR (CKD-EPI)AfAm 68.05 04/07/19 14:40 Est GFR (CKD-EPI)NonAf 58.71 04/07/19 14:40 POC Glucometer 103 UNITS (80-120) 04/08/19 11:27 Random Glucose 174 mg/dL (74-106) H 04/07/19 14:40 Calcium 9.2 mg/dL (8.5-10.1) 04/07/19 14:40 Magnesium 2.1 mg/dL (1.8-2.4) 04/07/19 14:40 Iron 38 ug/dL (50-175) L 04/05/19 11:10 TIBC 431 ug/dL (250-450) 04/05/19 11:10 Iron Saturation 8 % (17.5-39) L 04/05/19 11:10 Unsaturated IBC 393 ug/dL (200-275) H 04/05/19 11:10 Ferritin 36.8 ng/ml (8-388) 04/05/19 11:10 Total Bilirubin 0.6 mg/dL (0.2-1) 04/07/19 14:40 AST 15 U/L (15-37) 04/07/19 14:40 ALT 15 U/L (13-61) 04/07/19 14:40 Alkaline Phosphatase 70 U/L (45-117) 04/07/19 14:40 Creatine Kinase 16 U/L (26-192) L 04/07/19 14:40 Troponin I 0.03 ng/ml (0.00-0.05) 04/07/19 14:40 Total Protein 5.1 g/dl (6.4-8.2) L 04/07/19 14:40 Albumin 2.7 g/dl (3.4-5.0) L 04/07/19 14:40 Urine Color Yellow 04/05/19 11:15 Urine Appearance Turbid 04/05/19 11:15 Urine pH >= 9.0 (5.0-8.0) H D 04/05/19 11:15 Ur Specific [place] 1.016 (1.010-1.035) 04/05/19 11:15 Urine Protein Negative (NEGATIVE) 04/05/19 11:15 Urine Glucose (UA) Negative (NEGATIVE) 04/05/19 11:15 Urine Ketones Negative (NEGATIVE) 04/05/19 11:15 Urine Blood Negative (NEGATIVE) 04/05/19 11:15 Urine Nitrite Negative (NEGATIVE) 04/05/19 11:15 Urine Bilirubin Negative (NEGATIVE) 04/05/19 11:15 Urine Urobilinogen 0.2 mg/dL (0.2-1.0) 04/05/19 11:15 Ur Leukocyte Esterase 2+ (NEGATIVE) H 04/05/19 11:15 Urine WBC (Auto) 5 /hpf (0-5) 04/05/19 11:15 Urine RBC (Auto) 1 /hpf (0-4) 04/05/19 11:15 Urine Casts (Auto) 5 /lpf (0-8) 04/05/19 11:15 U Epithel Cells (Auto) 9.3 /HPF (0-5/HPF) 04/05/19 11:15 Urine Crystals (Auto) Amorphous phosphates /hpf 04/05/19 11:15 Urine Bacteria (Auto) 172.6 /hpf (NEGATIVE) 04/05/19 11:15 Stool Occult Blood Negative (NEGATIVE) 04/05/19 11:10 Blood Type O POSITIVE 04/05/19 11:53 Antibody Screen Negative 04/05/19 11:53 Crossmatch See Detail 04/05/19 11:53 ecg: sr, rbbb, no ischemic changes cath 12/2017 (after +mibi): non obs cad echo 06/2018: mild-mod dec lvef, global hk, nl rv, lae, mild-mod mr, mild tr, mod as, nl rvsp cxr: no congestion a/p: 83 f hx hld, htn, syst chf, dm, copd, dvt, afib, as, non obs cad, here with low BP anemia, hypotension - trop neg x 2, EKG no ischemia - unlikely related to ACS - likely low BP in setting of anemia - improved after transfusion, tolerating BP meds - manage per primary chronic dystolic HF - stable, euvolemic, cont home lasix cad, pos trops: -pt had recent cath 12/2017 with non obstructive cad -trops in borderline range here, continue to trend. likely represents demand from anemia/chf and not acs afib: -stable, cont metoprolol, xarelto hld: -cont home statin htn: -hold home meds in setting of severe anemia, monitor bp
[2019-04-08 14:43] VITALS: BP 117/56; PULSE 57
== END 2019-04-08 15:05 | DRG 812 ==
LOC: JER 10:01 → JERBED 10:55 → J7W 20:21
PROVIDERS: ADMIT Specialist; ATTEND Specialist
PROC: 30233N1 Transfusion of Nonautologous Red Blood Cells into Peripheral Vein, Percutaneous Approach (ICD-10-PCS; principal; 2019-04-05)
DX: D50.9 Iron deficiency anemia, unspecified (principal); I50.22 Chronic systolic (congestive) heart failure; I45.2 Bifascicular block; I95.9 Hypotension, unspecified; I25.10 Atherosclerotic heart disease of native coronary artery without angina pectoris; E11.9 Type 2 diabetes mellitus without complications; E87.6 Hypokalemia; R82.71 Bacteriuria; I48.2 Chronic atrial fibrillation; K21.9 Gastro-esophageal reflux disease without esophagitis
CPT/HCPCS: 36415; 36430; 36511; 71045-TC-FY; 80048; 80053; 81003; 82272; 82550; 82728; 82962; 83540; 83550; 83735; 84484; 85025; 85027; 85044; 85610; 85730; 86850; 86900; 86901; 86922; 87086; 87186; 93005; 93010; 94640; 97116-GP; 97162-GP; 99284-25; P9038; P9058